=== PATIENT | female | born 1975 | race Caucasian/White ===

== ENCOUNTER → 2017-07-28 09:51 | Outpatient (CLI) | payer OTHER, SELFPAY ==
--- NOTE | 2017-07-28 09:55 | MM_ITS ---
MM Dig screening mamm BI w/CAD CAD Screening COMPARISON: Digital mammograms 07/14/2015 and 07/19/2016 INDICATION: There is a history of breast cancer patient maternal aunt and paternal grandmother both diagnosed after menopause. There is been previous mammotome biopsy right breast. TECHNIQUE: Standard CC and MLO images were obtained. R2 CAD reviewed. FINDINGS: Again noted is a diffusely dense and heterogenic parenchymal pattern lessening the sensitivity of mammography. There are 2 biopsy clips right breast. There is a stable benign-appearing calcifications just deep to the nipple the right breast. The nipples are slightly inverted bilaterally but have been so for quite some time IMPRESSION: Stable exam with no suspicious lesion seen recommend yearly follow-up BI-RADS Category: 2 Benign Finding(s) RECOMMENDED FOLLOW-UP: 1YR - 1 YEAR FOLLOW-UP (A letter has been sent to the patient regarding results of the study.)
== END ==
PROVIDERS: PCP Orthopaedic Surgery; Visit Provider Emergency Medicine
DX: Z12.31 Encounter for screening mammogram for malignant neoplasm of breast (principal)
CPT/HCPCS: 77067

== ENCOUNTER → 2017-08-25 10:05 | Outpatient (REF) | payer OTHER, SELFPAY ==
[2017-08-25 14:36] LABS: Anion Gap 13.7 mEq/L (5-15); Blood Urea Nitrogen 10 mg/dL (7-18); Carbon Dioxide 26 mmol/L (21.0-32.0); Chloride 105 mmol/L (98-107); Chol/HDL Ratio 3.8 (1-3.5); Cholesterol 150 mg/dL (140-200); Creatinine,Serum 0.79 mg/dL (0.55-1.02); Estimated Glomerular Filt Rate 79 ml/min (>60); GFR (African American) 96 ML/MIN (>60); Glucose 86 mg/dL (74-106); HDL Cholesterol 40 mg/dL (29-89); LDL Cholesterol 89 mg/dL (0-130); Potassium 3.7 mmoL/L (3.5-5.1); Sodium 141 mmol/L (136-145); Triglycerides 107 mg/dL (30-200); VLDL Cholesterol 21 mg/dL (0-40)
[2017-08-25 14:40] LABS: Hemoglobin A1C 4.8 % (0.0-7.0)
== END ==
LOC: LAB 10:05
PROVIDERS: Visit Provider Emergency Medicine
DX: R20.0 Anesthesia of skin (principal); R20.2 Paresthesia of skin
CPT/HCPCS: 80048; 80061; 83036

== ENCOUNTER → 2017-08-25 13:25 | Outpatient (POV) | payer OTHER, SELFPAY | PROVIDERS: PCP Emergency Medicine; Visit Provider Specialist | DX: G56.21 Lesion of ulnar nerve, right upper limb (principal) | CPT/HCPCS: 95886; 95908 ==

== ENCOUNTER → 2018-08-12 18:46 | Outpatient (CLI) | payer OTHER, SELFPAY ==
[2018-08-12 19:16] LABS: Basophils % 0.3 % (0.1-2.0); Eosinophils # 0.1 K/mm3 (0.0-0.4); Eosinophils % 1.5 % (0.1-12.0); Hematocrit 44.4 % (37.0-47.0); Lymphocytes # 1.8 K/mm3 (0.7-4.5); Lymphocytes % 38.9 % (10-50); Mean Corpuscular HGB Conc 33.8 g/dL (31.8-35.4); Mean Corpuscular Hemoglobin 29.5 pg (27.0-31.2); Mean Corpuscular Volume 87.5 fl (81-99); Mean Platelet Volume 6.5 fl (7.4-10.4); Monocytes # 0.3 K/mm3 (0.1-1.0); Monocytes % 5.6 % (1.7-9.3); Neutrophils # 2.5 K/mm3 (1.8-7.8); Neutrophils % 53.7 % (37.0-80.0); Platelet Count 252 K/mm3 (142-424); Red Blood Count 5.08 M/mm3 (4.20-5.40); Red Cell Distribution Width 13.8 % (11.5-17.5); White Blood Count 4.7 K/mm3 (4.8-10.8)
[2018-08-12 19:33] LABS: Alanine Aminotransferase 72 U/L (12-78); Albumin Level 3.9 gm/dL (3.4-5.0); Alkaline Phosphatase 266 U/L (46-116); Anion Gap 14.8 mEq/L (5-15); Aspartate Amino Transferase 34 U/L (15-37); Bilirubin,Total 0.4 mg/dL (0.2-1.0); Blood Urea Nitrogen 10 mg/dL (7-18); Calcium 9.4 mg/dL (8.5-10.1); Carbon Dioxide 26 mmol/L (21.0-32.0); Chloride 104 mmol/L (98-107); Chol/HDL Ratio 2.8 (1-3.5); Cholesterol 135 mg/dL (140-200); Creatinine,Serum 0.67 mg/dL (0.55-1.02); Estimated Glomerular Filt Rate 95 ml/min (>60); Free T4 (Free Thyroxine) 1.18 ng/dl (0.76-1.46); GFR (African American) 115 ML/MIN (>60); Globulin 3.9 gm/dl (1.3-3.2); Glucose 87 mg/dL (74-106); HDL Cholesterol 49 mg/dL (29-89); LDL Cholesterol 63 mg/dL (0-130); Potassium 3.8 mmoL/L (3.5-5.1); Sodium 141 mmol/L (136-145); Thyroid Stimulating Hormone 4.52 uIU/ml (0.358-3.740); Total Protein,Serum 7.8 gm/dL (6.4-8.2); Triglycerides 114 mg/dL (30-200); VLDL Cholesterol 23 mg/dL (0-40)
[2018-08-14 11:18] LABS: Vitamin D 25 Hydroxy 16.6 ng/mL (30.0-100.0)
== END ==
PROVIDERS: Visit Provider Emergency Medicine
DX: R53.83 Other fatigue (principal); Z79.899 Other long term (current) drug therapy
CPT/HCPCS: 80053; 80061; 82652; 84439; 84443; 85025

== ENCOUNTER → 2018-09-02 12:29 | Outpatient (CLI) | payer OTHER, SELFPAY ==
--- NOTE | 2018-09-02 12:37 | XR_ITS ---
XR wrist RT min 3V HISTORY ITS.REASON: right wrist pain ORDERING PHYSICIAN: Suzanne Rios MD PATIENT AGE: 43 years Comparison: None FINDINGS: No fracture or dislocation. No lytic or blastic change. There is normal mineralization.. The joint spaces are well-preserved. No significant degenerative/arthritic changes. No erosive changes evident.. IMPRESSION: Negative wrist
--- NOTE | 2018-09-02 12:37 | XR_ITS ---
XR hand RT min 3V HISTORY: ITS.REASON: right hand pain ORDERING PHYSICIAN: Suzanne Rios MD PATIENT AGE: 43 years COMPARISON: None FINDINGS: No fracture or dislocation. No lytic or blastic change. There is normal mineralization.. The joint spaces are well-preserved. No significant degenerative/arthritic changes. No erosive changes evident.. There is a tiny calcific density along the lateral aspect of the first metacarpal phalangeal joint. This is of questioned clinical significance and could be due to an old small avulsion injury. IMPRESSION: No acute finding Possible old small avulsion injury at the first metacarpophalangeal joint
== END ==
PROVIDERS: PCP Emergency Medicine; Visit Provider Orthopaedic Surgery
DX: M79.641 Pain in right hand (principal); M25.531 Pain in right wrist
CPT/HCPCS: 73110; 73130

== ENCOUNTER → 2018-10-19 12:54 | Outpatient (POV) | payer OTHER, SELFPAY | PROVIDERS: Visit Provider Specialist | DX: R20.2 Paresthesia of skin (principal) | CPT/HCPCS: 95886; 95908 ==

== ENCOUNTER → 2019-01-25 10:39 | Outpatient (POV) | payer OTHER, SELFPAY | PROVIDERS: Visit Provider Specialist | DX: M54.2 Cervicalgia (principal); M72.0 Palmar fascial fibromatosis [Dupuytren]; R20.0 Anesthesia of skin; R20.2 Paresthesia of skin; R51 Headache | CPT/HCPCS: 95886; 95908 ==

== ENCOUNTER → 2019-01-29 07:35 | Outpatient (CLI) | payer OTHER, SELFPAY ==
--- NOTE | 2019-01-29 07:43 | CT_ITS ---
CT CERVICAL SPINE WITHOUT CONTRAST CT RECONSTRUCTIONS HISTORY: ORDERING PHYSICIAN: Mala Hutson MD PATIENT AGE: 43 years COMPARISON: None Technique: All CT scans at the facility use one or more dose reduction, viz: automated exposure control, ma/kV adjustment per patient size (including targeted exams where dose is matched to indication, i.e. head), or iterative reconstruction technique PROCEDURE: Axial spiral CT scanning performed of the cervical spine beginning at the base of the skull and continuing to the upper T-spine. 3-D multiplanar reconstruction with 3-D manipulation of volumetric data set in image rendering was completed by the radiologist and/or technologist with the supervision of the radiologist on independent workstation. FINDINGS: No fracture nor subluxation is evident. Normal prevertebral soft tissues. Facets, neural foramen and vertebral bodies intact and unremarkable. Normal C1/C2 relationships. Apices of lungs are clear with no acute findings. IMPRESSION: Cervical spine intact with no fracture nor subluxation.
--- NOTE | 2019-01-29 08:12 | XR_ITS ---
EXAM: XR cervical spine w flex/ext HISTORY: ITS.REASON: cervical neck pain ORDERING PHYSICIAN: Mala Hutson MD PATIENT AGE: 43 years COMPARISON: None FINDINGS: Routine exam along with flexion and extension views. Bone density, alignment, vertebral body and disc space heights are normal. There is no subluxation and no change in the alignment between lateral flexion and extension views. Posterior elements are intact. There is no acute fracture or prevertebral soft tissue prominence. Impression: Normal study. No acute process and there is no subluxation between flexion and extension views.
== END ==
PROVIDERS: PCP Emergency Medicine; Visit Provider Specialist
DX: M54.2 Cervicalgia (principal); M72.0 Palmar fascial fibromatosis [Dupuytren]; R20.0 Anesthesia of skin; R20.2 Paresthesia of skin; R51 Headache
CPT/HCPCS: 72052; 72125

== ENCOUNTER → 2019-02-11 09:01 | Outpatient (CLI) | payer OTHER, SELFPAY ==
[2019-02-11 10:21] LABS: T4 (Thyroxine) 12.5 ug/dl (4.7-13.3); Thyroid Stimulating Hormone 2.96 uIU/ml (0.358-3.740)
[2019-02-12 12:10] LABS: Anti-Centromere B Antibodies <0.2 AI (0.0-0.9); Anti-Jo-1 <0.2 AI (0.0-0.9); Anti-Smith Antibody <0.2 AI (0.0-0.9); Antichromatin Antibodies >8.0 AI (0.0-0.9); Antiscleroderma-70 Antibodies <0.2 AI (0.0-0.9); RNP Antibodies 0.2 AI (0.0-0.9); Sjogren's Anti-SS-A 3.9 AI (0.0-0.9); Sjogren's Anti-SS-B <0.2 AI (0.0-0.9)
[2019-02-12 12:36] LABS: Anti-DNA (DS) Ab Qn 1 IU/mL (0-9); Folate 4.6 ng/mL (>3.0); Triiodothyronine (T3) Total 174 ng/dL (71-180); Vitamin B12 298 pg/mL (232-1245)
== END ==
PROVIDERS: Visit Provider Specialist
DX: M79.601 Pain in right arm (principal); M79.602 Pain in left arm; R20.2 Paresthesia of skin
CPT/HCPCS: 36415; 82607; 82746; 84436; 84443; 84480; 86225; 86235; 86431

== ENCOUNTER → 2019-04-01 09:52 | Outpatient (CLI) | payer OTHER, SELFPAY ==
--- NOTE | 2019-04-01 09:54 | MM_ITS ---
PROCEDURE: MM DIG SCREENING MAMM BI W/CAD CLINICAL INDICATION: screening History of breast cancer patient's paternal grandmother and paternal aunt. There has been a previous biopsy right breast for benign disease. COMPARISON: [facility] DIG MAMM-DX UNI RT W ADD VIEW from 01/16/2016 [facility] DIG MAMM-SCREEN JAVID W/CAD from 07/19/2016 [facility] MM Dig screening mamm BI w/CAD from 07/28/2017 TECHNIQUE: Standard CC and MLO images were obtained. R2 CAD reviewed. FINDINGS: There is a diffusely dense and heterogenic parenchymal pattern somewhat lessening the sensitivity of mammography. There are multiple scattered benign-appearing micro and macrocalcifications in each breast. The nipples are inverted bilaterally but this has been noted previously and has been present for quite some time. There is no new or suspicious lesion and no suspicious microcalcifications. There are fatty replaced nodes in both axilla. IMPRESSION: Diffusely dense parenchymal pattern with no suspicious lesions seen BI-RAD Category: 2 Benign Finding(s) FOLLOW-UP: 1YR 1 Year Follow-up (A letter has been sent to the patient regarding results of the study.) Dictated by: Dr. Shon Shaffer MD 04/05/2019 17:[address] Shon Shaffer MD in [place] 04/05/2019 17:24
== END ==
PROVIDERS: PCP Emergency Medicine; Visit Provider Emergency Medicine
DX: Z12.31 Encounter for screening mammogram for malignant neoplasm of breast (principal)
CPT/HCPCS: 77067

== ENCOUNTER → 2019-05-10 14:12 | Outpatient (CLI) | payer OTHER, SELFPAY ==
[2019-05-10 16:56] LABS: Amphetamine/Metha Screen,Urine Negative ng/mL (<1000); Barbiturates Screen,Urine Negative ng/mL (<200); Benzodiazepines Screen,Urine Negative ng/mL (<200); Cannabinoid Screen,Urine Positive ng/mL (<50); Cocaine Screen,Urine Negative ng/mL (<300); Methadone Screen,Urine Negative ng/mL (<300); Opiate Screen,Urine Positive ng/mL (<300); Phencyclidine Screen,Urine Negative ng/mL (<25)
[2019-05-19 10:10] LABS: Codeine Negative (Cutoff=100); Hydrocodone Positive (.); Hydromorphone Positive (.); Morphine Negative (Cutoff=100)
[2019-05-19 12:18] LABS: Hydrocodone Confirm 1115 ng/mL (Cutoff=100); Hydromorphone Confirm 230 ng/mL (Cutoff=100); Opiates Positive (.)
== END ==
PROVIDERS: Visit Provider Nurse Practitioner Family
DX: Z79.899 Other long term (current) drug therapy (principal); G89.29 Other chronic pain; M54.41 Lumbago with sciatica, right side; M54.42 Lumbago with sciatica, left side
CPT/HCPCS: 80305; 80361; G0480

== ENCOUNTER → 2019-05-27 10:13 | Outpatient (CLI) | payer OTHER, SELFPAY ==
[2019-05-27 10:40] LABS: Basophils % 0.3 % (0.1-2.0); Eosinophils % 0.9 % (0.1-12.0); Hemoglobin 12.7 g/dL (12.2-16.2); Lymphocytes % 29.7 % (10-50); Mean Corpuscular HGB Conc 31.7 g/dL (31.8-35.4); Mean Corpuscular Volume 88.6 fl (81-99); Mean Platelet Volume 7.4 fl (7.4-10.4); Monocytes # 0.2 K/mm3 (0.1-1.0); Monocytes % 4.6 % (1.7-9.3); Neutrophils # 2.2 K/mm3 (1.8-7.8); Neutrophils % 64.4 % (37.0-80.0); Platelet Count 336 K/mm3 (142-424); Red Blood Count 4.52 M/mm3 (4.20-5.40); Red Cell Distribution Width 15.9 % (11.5-17.5); White Blood Count 3.5 K/mm3 (4.8-10.8)
[2019-05-27 12:50] LABS: Alanine Aminotransferase 49 U/L (12-78); Albumin Level 3.3 gm/dL (3.4-5.0); Albumin/Globulin Ratio 0.8 (1.1-1.8); Alkaline Phosphatase 499 U/L (46-116); Anion Gap 13.6 mEq/L (5-15); Aspartate Amino Transferase 48 U/L (15-37); Bilirubin,Total 0.6 mg/dL (0.2-1.0); Blood Urea Nitrogen 5 mg/dL (7-18); Calcium 8.6 mg/dL (8.5-10.1); Carbon Dioxide 26 mmol/L (21.0-32.0); Chloride 99 mmol/L (98-107); Creatinine,Serum 0.57 mg/dL (0.55-1.02); Estimated Glomerular Filt Rate 114 ml/min (>60); GFR (African American) 138 ML/MIN (>60); Globulin 4.3 gm/dl (1.3-3.2); Glucose 101 mg/dL (74-106); Potassium 3.6 mmoL/L (3.5-5.1); Sodium 135 mmol/L (136-145); Total Protein,Serum 7.6 gm/dL (6.4-8.2)
[2019-05-28 09:18] LABS: Folate 5.4 ng/mL (>3.0); Vitamin B12 378 pg/mL (232-1245)
== END ==
PROVIDERS: Visit Provider Internal Medicine Medical Oncology
DX: D70.9 Neutropenia, unspecified (principal)
CPT/HCPCS: 36415; 80053; 82607; 82746; 85025

== ENCOUNTER → 2019-07-13 09:25 | Outpatient (POV) | payer MEDICAID, SELFPAY ==
[2019-07-13 09:51] VITALS: BP 175/98; PULSE 67; RESP 18; O2SAT 98; BMI 25.7
--- NOTE | 2019-07-13 12:59 | P.CONS_ITS ---
[facility] Pain Management SOAP Note Subjective:: Patient is a pleasant 44-year-old white female who presents today for follow-up. Patient was seen back in 2016 where she had a neurostimulator implanted. Since then she is only been programmed one time. Most of her pain is in her back and lower legs. In her neck. Patient had recent imaging of her neck which was negative. Patient and I discussed options in regards to her pain. Patient was getting pain medication from her primary care however she has had some inappropriate drug screens. Patient's been seen by a neurologist. She has not done physical therapy in quite some time. She rates her pain today a 5 out of 10. ROS General: no recent weight change, no fever, no sleep disturbances Respiratory: no cough, no shortness of air, no recurring pulmonary infections Cardiovascular/Peripheral Vascular: No chest pain, No palpitations, no edema, no shortness of breath. Gastrointestinal: no new onset incontinence, normal bowel movements reported Genitourinary: no new onset incontinence Musculoskeletal: Neck pain, back pain, leg pain Psychiatric: normal mood/ affect Neurological: [denies new onset weakness in extremities], [denies new onset balance issues] Objective:: Physical Exam General: Alert and oriented x3, no acute distress, pleasant and cooperative, [on room air] Lungs: Resps E/U, Symmetrical chest expansion, Eyes: PERRL Musculoskeletal: Flexion and extension of cervical and lumbar spine somewhat guarded secondary to pain, deep tendon reflexes normal, strength in upper and lower extremities [5/5], [abnormal gait noted] Neurological: speech clear, tear down matcher equal, no gross sensory deficits Assessment:: Degenerative disc disease lumbar spine with lumbar radiculopathy, myofascial pain Plan:: We will start with having the patient reprogrammed by [facility]. I do believe this would be beneficial. This will work on her low back and leg pain. And then we will also work on getting her approved for a one-time visit to physical therapy so they can set up a home stretching program for her. She is instructed to call the office she has any issues. I will follow-up with her after she is been reprogrammed. Dr. Honeycutt has reviewed this note and agrees with this plan of care. This note was dictated using voice recognition software and may contain errors or omissions [facility] History I have reviewed the patient's past medical history: Yes Medical History: Reports:: Anxiety, Hepatitis, Migraine Denies:: Cancer, Diabetes Mellitus Type 1, Diabetes Mellitus Type 2, Internal Pacemaker, Lung Disease, MRSA *Have you ever received a pneumonia vaccine?: Yes *Have you received a flu vaccine this season?: Yes Other Medical History: Reports: Liver Disease Laterality Cases: Right: Carpal Tunnel Release Other Surgeries: Yes: Cholecystectomy, Colonoscopy, Hysterectomy-Total, Hysterectomy-Partial, Tubal Ligation. No: Pacemaker Amputation: No Fractures: No - *Social History Smoking Status: Current every day smoker Tobacco Type: cigarettes # Packs/Day (cigarettes): 2 #Yrs smoked (if former smoker): 35 Alcohol Intake: never Alcohol Intake Frequency:: other Substance Use Type: crack/cocaine *Occupational Status:: other Housing: house Household Members: family *Travel in the last 8 weeks: None - Psychiatric History Pschychiatric History:: Reports:: Anxiety Family Hx:: Hypertension, Cancer
== END ==
PROVIDERS: PCP Emergency Medicine; Visit Provider Clinical Nurse Specialist Family Health
DX: M51.16 Intervertebral disc disorders with radiculopathy, lumbar region (principal); M79.18 Myalgia, other site
CPT/HCPCS: 99202

== ENCOUNTER 2020-01-20 12:02 | Observation (INO) | payer MEDICAID, SELFPAY ==
[2020-01-20] VITALS (15 sets, daily range): BP systolic 113–138; BP diastolic 68–91; PULSE 72–100; RESP 14–21; TEMP 36.8–36.9; O2SAT 87–100; BMI 22.6; BMI 28.3
--- NOTE | 2020-01-20 12:16 | ECG_ITS ---
APPROVED REPORT Exam: Resting ECG HR:86 bpm ECG Measurements Heart Rate 86 AXES NM 136 P 34 QRSd 84 QRS 52 QT 366 T 16 QTc 437 <Conclusion> Normal sinus rhythm Poor r wave progression Abnormal ECG Electronically signed by : Vega Renteria, 01/21/2020 17:03:54
--- NOTE | 2020-01-20 12:21 | HMH.EDGENADL ---
ED Disposition Clinical Impression: Pericardial effusion, Hypokalemia Pericarditis Qualifiers: Pericarditis type: unspecified type Chronicity: acute Qualified Code(s): I30.9 - Acute pericarditis, unspecified Pneumonia Qualifiers: Pneumonia type: due to unspecified organism Laterality: left Lung location: upper lobe of lung Qualified Code(s): J18.9 - Pneumonia, unspecified organism Disposition: Admitted as Observation Condition on Discharge: Fair Referrals: Ge Burton MD [Primary Care Provider] - - Critical Care Critical Care Time: No Attestation: On , the high probability of a clinically significant, sudden or life threatening deterioration of the following system(s) required my full and direct attention, intervention and personal management. The time I documented below is in addition to time spent performing reported procedures but includes the following listed in this critical care notation. Medical Decision Making - Lauro Inquiry Pt receiving controlled substance: No Vital Signs: 01/20/20 12:18 Temperature 98.3 F Temperature Source Oral Pulse Rate [Radial] 72 Respiratory Rate 20 Blood Pressure [Right Arm] 135/91 H Blood Pressure Mean [Right Arm] 105 Blood Pressure Source [Right Arm] Automatic Cuff Blood Pressure Position [Right Arm] Sitting 02 Sat by Pulse Oximetry 99 Oxygen Delivery Method Room Air - Lab Data Lab Results 01/20/20 12:30: WBC 5.3, RBC 4.46, Hgb 12.8, Hct 36.2 L, MCV 81.1, MCH 28.6, MCHC 35.3, RDW 14.5, Plt Count 335, MPV 7.7, Neut % (Auto) 72.7, Lymph % (Auto) 19.4, [place] % (Auto) 6.4, Eos % (Auto) 1.0, Baso % (Auto) 0.5, Neut # (Auto) 3.9, Lymph # (Auto) 1.0, [place] # (Auto) 0.3, Eos # (Auto) 0.1, Baso # (Auto) 0.0 01/20/20 12:30: Sodium 134 L, Potassium 2.8 L*, Chloride 86 L, Carbon Dioxide 36 H, Anion Gap 14.8, BUN 10, Creatinine 0.60, Estimated Creat Clear 117, Estimated GFR 108, Est GFR ( Amer) 130, Glucose 163 H, Calcium 9.1, Total Bilirubin 1.1, AST 86 H, ALT 40, Alkaline Phosphatase 269 H, Troponin I 0.02, Total Protein 8.0, Albumin 3.8, Globulin 4.2 H, Albumin/Globulin Ratio 0.9 L 01/20/20 12:30: ESR 33 H 01/20/20 12:30: C-Reactive Protein 140.8 H 01/20/20 12:32: SARS-CoV-2 IgG Ab (Rapid) Negative, SARS-CoV-2 IgM Ab (Rapid) Negative Result diagrams: 01/20/20 12:30 01/20/20 12:30 Orders (Tests/Meds): ED MEDICATIONS Generic Name Dose Route Start Last Admin Trade Name Freq PRN Reason Stop Dose Admin Ceftriaxone Sodium 1 gm/ 50 mls @ 100 mls/hr 01/20/20 15:30 Sodium Chloride IV 02/03/20 15:29 Q24H GEOFFREY Protocol Azithromycin 500 mg/ Sodium 250 mls @ 250 mls/hr 01/20/20 15:30 Chloride IV 02/03/20 15:29 Q24H GEOFFREY Protocol Discontinued Medications Generic Name Dose Route Start Last Admin Trade Name Freq PRN Reason Stop Dose Admin Potassium Chloride/Water 100 mls @ 50 mls/hr 01/20/20 13:45 01/20/20 13:52 Potassium Chloride 20meq/100ml Ivpb IV 01/20/20 15:44 50 mls/hr ONCE ONE Administration Ioversol 70 ml 01/20/20 13:35 01/20/20 13:38 Rad-Optiray 350 100ml Vial IV 01/20/20 13:36 70 ml ONCE ONE Administration Protocol Methylprednisolone Sodium Succinate 125 mg 01/20/20 15:19 Solu-Medrol 125mg/2ml Vial IV 01/20/20 15:20 ONCE ONE Potassium Chloride 60 meq 01/20/20 13:01 01/20/20 13:12 Klor-Con 20meq Tablet PO 01/20/20 13:02 60 meq ONCE ONE Administration Sodium Chloride 50 ml 01/20/20 13:35 01/20/20 13:38 Rad-Ns 50ml Vial IV 01/20/20 13:36 50 ml ONCE ONE Administration Sodium Chloride 10 ml 01/20/20 13:35 01/20/20 13:38 Rad-Saline Flush 10ml Syringe IV 01/20/20 13:36 10 ml ONCE ONE Administration ORDERS Category Date Time Status Lactic Acid Stat Lab 01/20/20 15:19 Ordered Respiratory Panel (COVID), PCR Stat Lab 01/20/20 15:19 Ordered SARS-CoV-2, ALESSANDRA Stat Lab 01/20/20 14:30 Received Blood Culture Stat Micro 01/20/20 15:19 Ordered
--- NOTE | 2020-01-20 12:22 | CT_ITS ---
PROCEDURE: CT ANGIO CHEST CLINCIAL INDICATION: shortness of breath Shortness of breath with chest pain COMPARISON: [facility] CTA-CHEST from 07/15/2016 TECHNIQUE: IV Contrast: 70ML OPTIRAY 350 Axial images obtained with sagittal and coronal reformats. All CT scans at the facility use one or more dose reduction, viz: automated exposure control, ma/kV adjustment per patient size (including targeted exams where dose is matched to indication, i.e. head), or iterative reconstruction technique. FINDINGS: There is mild cardiomegaly with thickening of the pericardium consistent with pericardial effusion which measures 2 12 mm in thickness anteriorly. There are mild atheromatous changes of the aorta with some calcific plaque. No evidence of aortic aneurysm or dissection. No evidence pulmonary embolus. There is mild thickening of the esophagus which is nonspecific and could be due to esophagitis. There are atelectatic changes in the lung bases. There are patchy areas of ground-glass density in the left upper lobe peripherally nonspecific. There are trace bilateral effusions. No acute bony findings.. IMPRESSION: 1. Cardiomegaly with thickened pericardium consistent with pericardial effusion. No evidence of aortic aneurysm dissection or pulmonary embolus. 2. Bilateral lower lobe atelectatic changes with trace effusions. 3. Scattered patchy areas of ground-glass attenuation in the left upper lobe. This is nonspecific and could be seen with viral pneumonia or small airway disease.. COVID 19 may present with patchy ground-glass density. 4. Thickened mid and distal esophagus nonspecific but could be seen with reflux esophagitis. Dictated by: Elijah Gordon MD 01/20/2020 14:02 Electronically signed by Elijah Gordon MD in [place] 01/20/2020 14:02
[2020-01-20 12:40] LABS: Basophils % 0.5 % (0.1-2.0); Eosinophils # 0.1 K/mm3 (0.0-0.4); Hematocrit 36.2 % (37.0-47.0); Hemoglobin 12.8 g/dL (12.2-16.2); Lymphocytes % 19.4 % (10-50); Mean Corpuscular HGB Conc 35.3 g/dL (31.8-35.4); Mean Corpuscular Hemoglobin 28.6 pg (27.0-31.2); Mean Corpuscular Volume 81.1 fl (81-99); Mean Platelet Volume 7.7 fl (7.4-10.4); Monocytes # 0.3 K/mm3 (0.1-1.0); Monocytes % 6.4 % (1.7-9.3); Neutrophils # 3.9 K/mm3 (1.8-7.8); Neutrophils % 72.7 % (37.0-80.0); Platelet Count 335 K/mm3 (142-424); Red Blood Count 4.46 M/mm3 (4.20-5.40); Red Cell Distribution Width 14.5 % (11.5-17.5); White Blood Count 5.3 K/mm3 (4.8-10.8)
[2020-01-20 12:58] LABS: Chloride 86 mmol/L (98-107); Sodium 134 mmol/L (136-145)
[2020-01-20 12:59] LABS: Potassium 2.8 mmoL/L (3.5-5.1)
--- NOTE | 2020-01-20 13:00 | PC.NURSE ---
Notified MD of critical k+
[2020-01-20 13:01] LABS: Alanine Aminotransferase 40 U/L (12-78); Albumin Level 3.8 g/dl (3.5-5.0); Albumin/Globulin Ratio 0.9 (1.1-1.8); Alkaline Phosphatase 269 U/L (38-126); Aspartate Amino Transferase 86 U/L (14-36); Bilirubin,Total 1.1 mg/dl (0.2-1.3); Blood Urea Nitrogen 10 mg/dl (7-17); Creatinine Clearance Estimated 117 mL/min (50-200); Estimated Glomerular Filt Rate 108 ml/min (>60); GFR (African American) 130 ML/MIN (>60); Globulin 4.2 g/dL (1.3-3.2)
[2020-01-20 13:02] LABS: Calcium 9.1 mg/dl (8.4-10.2); Glucose 163 mg/dl (74-100)
[2020-01-20 13:09] LABS: Carbon Dioxide 36 mmol/L (22.0-30.0)
[2020-01-20 13:11] LABS: Anion Gap 14.8 mEq/L (5-15)
[2020-01-20 13:13] LABS: Troponin I 0.02 ng/ml (0.00-0.034)
--- NOTE | 2020-01-20 13:39 | PC.NURSE ---
Returned from ct scan.
--- NOTE | 2020-01-20 14:12 | CA_ITS ---
APPROVED REPORT EXAM: Comprehensive 2D, Doppler, and color-flow Echocardiogram [employer]anging Crewmember: Nguyen Craig RT(R) Ht: 5 ft 3 in Wt: 160lbs BSA: 1.76 BP: 135/91 mmHg Indications: smoker, SOA, pericardial effusion seen on CT scan. Rib pain 2D Dimensions LVOT 1.95 cm (M/F) 1.5-2.5 M-Mode Dimensions RVDd 2.26 cm (0.9-2.6) LVDd 4.12 cm (3.5-5.7) LVDs 3.23 cm (3.5-5.7) IVSd 1.09 cm (0.6-1.1) PWd 0.81 cm (0.6-1.1) EF (Teich) 44.20% FS 21.60% EDV (Teich) 75.10 mL ESV (Teich) 41.90 mL LV Diastology E/A Ratio 0.95 Mitral Valve MV A Velocity 91.00 (40-130 cm/s) Left Ventricle Left atrium is mildly enlarged, left ventricle is normal size, left ventricle wall thickness is upper limit of the normal, there is preserved left ventricular systolic function, visually estimated ejection fraction 55% with no regional wall motion abnormality. Diastolic parameters are inconclusive. Right Ventricle Right atrium and right ventricle are normal size and contractility. Aortic Valve Aortic valve is minimally thickened and fibrosed, there is no aortic stenosis or aortic insufficiency. Mitral Valve Mitral valve is grossly normal, there is mild mitral regurgitation. Tricuspid Valve Valve grossly normal, there is mild tricuspid regurgitation, tricuspid regurgitation jet velocity is inadequate for calculation of the right ventricular systolic pressure. Pulmonic Valve Pulmonic valve is poorly visualized. Great Vessels Aortic root is normal size. Pericardium Small circumferential pericardial effusion noted without Doppler evidence of raised intrapericardial pressure or tamponade physiology. Conclusion 1. Normal left ventricular size, preserved left ventricular systolic function, visually estimated ejection fraction 55% with no regional wall motion abnormality, diastolic parameters are inconclusive. 2. Mild mitral and tricuspid regurgitation. 3. Small circumferential pericardial effusion noted without Doppler evidence of raised intrapericardial pressure or tamponade physiology. Electronically signed by : Lambert Mccormick, 01/20/2020 15:32:01
--- NOTE | 2020-01-20 14:18 | PC.NURSE ---
Per MD we can d/c IV potassium
[2020-01-20 14:28] LABS: C-Reactive Protein 140.8 mg/L (0-4)
[2020-01-20 14:37] LABS: Erythrocyte Sedimentation Rate 33 mm/hr (0-20)
[2020-01-20 14:42] LABS: Coronavirus 19 IgG Antibody Negative (Negative); Coronavirus 19 IgM Antibody Negative (Negative)
--- NOTE | 2020-01-20 14:54 | PC.NURSE ---
Paged Parminder for consult
--- NOTE | 2020-01-20 15:02 | PC.NURSE ---
speaking to speaking to Parminder
--- NOTE | 2020-01-20 15:25 | PC.NURSE ---
pt admitted awaiting in house covid test
--- NOTE | 2020-01-20 15:27 | PC.NURSE ---
Notified lab for need of lactic, covid swab and bloodcx
[2020-01-20 15:29] LABS: Adenovirus,PCR Not Detected (NotDetected); Bordetella Pertussis Not Detected (NotDetected); Chlamydophila Pneumoniae, PCR Not Detected (NotDetected); Coronavirus 19, PCR Not Detected (NotDetected); Coronavirus 229E Not Detected (NotDetected); Coronavirus NL63 Not Detected (NotDetected); Coronavirus OC43 Not Detected (NotDetected); Coronovirus HKU1,PCR Not Detected (NotDetected); Human Metapneumovirus Not Detected (NotDetected); Influenza A, PCR Not Detected (NotDetected); Influenza AH1, 2009 Not Detected (NotDetected); Influenza AH1, PCR Not Detected (NotDetected); Influenza AH3,PCR Not Detected (NotDetected); Influenza B, PCR Not Detected (NotDetected); Mycoplasma Pneumoniae, PCR Not Detected (NotDected); Parainfluenza 1, PCR Not Detected (NotDetected); Parainfluenza 2, PCR Not Detected (NotDetected); Parainfluenza 3, PCR Not Detected (NotDetected); Parainfluenza 4, PCR Not Detected (NotDetected); Respiratory Syncytial Virus Not Detected (NotDetected); Rhinovirus/Enterovirus Not Detected (NotDetected)
[2020-01-20 15:55] LABS: Amphetamine/Metha Screen,Urine Negative ng/ml (<1000); Benzodiazepines Screen,Urine Negative ng/ml (<200)
[2020-01-20 15:56] LABS: Barbiturates Screen,Urine Negative ng/ml (<200)
[2020-01-20 15:57] LABS: Cannabinoid Screen,Urine Negative ng/ml (<50); Cocaine Screen,Urine Negative ng/ml (<300)
[2020-01-20 15:58] LABS: Methadone Screen,Urine Negative ng/ml (<300)
[2020-01-20 15:59] LABS: Opiate Screen,Urine Negative ng/ml (<300); Phencyclidine Screen,Urine Negative ng/ml (<25)
[2020-01-20 16:22] LABS: Lactic Acid 0.9 mmol/L (0.7-2.1)
--- NOTE | 2020-01-20 16:25 | PC.NURSE ---
Report called to Alek Beltran
--- NOTE | 2020-01-20 17:00 | PC.NURSE ---
1625 - Received report from Leslie Lehman RN. Awaiting covid swab results before transferring pt to floor.
--- NOTE | 2020-01-20 17:20 | HMH.HP ---
*Admission Date: 01/20/20 *Chief complaint: soa *History of present illness: 44-year-old female seen in primary care office with complaints of shortness of breath and pain with deep breathing. Upon evaluation patient was sent to the ER for further evaluation and testing. While in the ER labs revealed hypo-kalemia and when oral potassium was given patient vomited. CT of the chest revealed a mild pericardial effusion and some groundglass opacities. Patient was admitted for cardiology consult. And further work-up for pericardial effusion. Given patient's history of drug use echo was obtained. [facility] History I have reviewed the patient's past medical history: Yes Medical History: Reports:: Anxiety, Hepatitis, Migraine Denies:: Cancer, Diabetes Mellitus Type 1, Diabetes Mellitus Type 2, Internal Pacemaker, Lung Disease, MRSA *Have you ever received a pneumonia vaccine?: No *Have you received a flu vaccine this season?: No Other Medical History: Reports: Liver Disease Laterality Cases: Right: Carpal Tunnel Release Other Surgeries: Yes: Cholecystectomy, Colonoscopy, Hysterectomy-Total, Hysterectomy-Partial, Tubal Ligation. No: Pacemaker Amputation: No Fractures: No - *Social History Smoking Status: Current every day smoker Tobacco Type: cigarettes # Packs/Day (cigarettes): 2 #Yrs smoked (if former smoker): 35 Alcohol Intake: never Alcohol Intake Frequency:: other Substance Use Type: crack/cocaine Last Used Substance: unknown *Occupational Status:: other Housing: house Household Members: family *Travel in the last 8 weeks: None - Psychiatric History Pschychiatric History:: Reports:: Anxiety Family Hx:: Hypertension, Cancer Review of Systems - Review of Systems Review of systems:: pertinent systems reviewed and negative unless documented below - Constitutional Reports fatigue, Reports weakness, Denies body ache(s) - Eyes Denies blurry vision - ENT Denies bleeding gums, Denies sore throat - *Cardiovascular Reports shortness of breath, Denies chest pain at rest - *Respiratory Reports cough, Reports shortness of breath, Reports shortness of breath with activity - *Gastrointestinal Reports abdominal pain, Reports nausea, Reports vomiting - *Genitourinary Denies vaginal discharge - *Musculoskeletal Denies decreased muscle mass, Denies muscle cramps, Denies stiffness - Integumentary/Breasts Denies hair loss, Denies rash - *Neurologic Denies abnormal hearing, Denies radiating pain - Psychiatric Denies anxiety - Endocrine Denies excessive sweating - Hematologic/Lymphatic Denies enlarged lymph nodes - Allergic/Immunologic Denies itchy eyes Meds Home Medications Medication Instructions Recorded Confirmed Type Albuterol Sulfate [Proventil Hfa] 1 inh INHALATION QID 01/20/20 01/20/20 History Levothyroxine Sodium [Synthroid 25 mcg PO DAILY 01/20/20 01/20/20 History 25mcg (0.025mg) tablet] Melatonin 5 mg PO DAILY 01/20/20 01/20/20 History Montelukast Sodium 10 mg PO DAILY 01/20/20 01/20/20 History Omeprazole Magnesium [Prilosec OTC] 20 mg PO DAILY 01/20/20 01/20/20 History Quetiapine Fumarate 100 mg PO HS 01/20/20 01/20/20 History Venlafaxine HCl [Effexor XR 150mg] 150 mg PO DAILY 01/20/20 01/20/20 History buprenorphine 8 mg-naloxone 2 mg 2 tab SUBLINGUAL DAILY tab 01/20/20 01/20/20 History sublingual tablet cetirizine 10 mg tablet 10 mg PO DAILY tab 01/20/20 01/20/20 History hydrOXYzine pamoate [Hydroxyzine 50 mg PO TIDP PRN 01/20/20 01/20/20 History Pamoate] hydroCHLOROthiazide 12.5 mg PO DAILY 01/20/20 01/20/20 History [Hydrochlorothiazide 12.5mg Tab] mirtazapine 15 mg tablet 15 mg PO DAILY tab 01/20/20 01/20/20 History quetiapine 25 mg tablet 25 mg PO QHS tab 01/20/20 01/20/20 History Fluticasone Furoate [Arnuity 100 mcg IH DAILY 01/21/20 01/21/20 History Ellipta] Allergies Allergy/AdvReac Type Severity Reaction Status Date / Time adhesive tape AdvReac Mild Rash Veri
--- NOTE | 2020-01-20 17:45 | PC.NURSE ---
Pt arrived to floor at this time via wc
--- NOTE | 2020-01-20 18:47 | PC.NURSE ---
patient o2 sat 88% on ra patient placed back on 2lpm n/c per RT o2 sat now 98%
--- NOTE | 2020-01-20 19:41 | PC.NURSE ---
RT gave pt a sodium chloride neb tx. to induce SPT. SPt collected and sent to lab at this time from second floor.
[2020-01-21] VITALS: BP 114/56; PULSE 92; RESP 16; TEMP 36.6; O2SAT 95
[2020-01-21 04:00] VITALS: BP 112/73; PULSE 63; RESP 16; TEMP 36.6; O2SAT 97
--- NOTE | 2020-01-21 04:00 | PC.NURSE ---
Pt's room air O2 sat at rest = 88%.
--- NOTE | 2020-01-21 04:14 | PC.NURSE ---
A&OX4 Pt has rhonchi throughout. pt was on 2L@NC for majority of shift, @ 0400 O2 RA 97%. Pt has C/O of back pain and was medicated per SEP. Pt ambulated ti BR with standby assist. Pt has rested quietly this shift.
[2020-01-21 06:50] LABS: Chloride 92 mmol/L (98-107)
[2020-01-21 06:51] LABS: Sodium 136 mmol/L (136-145)
[2020-01-21 06:54] LABS: Anion Gap 8.8 mEq/L (5-15); Blood Urea Nitrogen 12 mg/dl (7-17); Carbon Dioxide 38 mmol/L (22.0-30.0); Creatinine Clearance Estimated 134 mL/min (50-200); Estimated Glomerular Filt Rate 108 ml/min (>60); GFR (African American) 130 ML/MIN (>60); Glucose 211 mg/dl (74-100)
[2020-01-21 06:55] LABS: Potassium 2.8 mmoL/L (3.5-5.1)
[2020-01-21 07:01] VITALS: PULSE 92; O2SAT 96
--- NOTE | 2020-01-21 07:17 | P.CONPHA_ITS ---
[facility] Pharmacy VTE Monitoring - Patient Demographics Admission date: 01/20/20 Report Date: 01/21/20 Time: 07:17 Allergies/Adverse Reactions: Patient Allergies adhesive tape Adverse Reaction (Mild, Verified 01/20/20 11:11) Rash Height: 1.6 m Weight: 72.575 kg Patient Problems: Current Active Problems (Last Updated 08/14/18 @ 11:38 by MARLIN Najera) Pericardial effusion (Acute) Pericarditis (Acute) Pneumonia (Acute) Hypokalemia (Acute) - VTE Risk Labs: VTE Related Lab Results Hgb 12.8 g/dL (12.2-16.2) 01/20/20 12:30 Hct 36.2 % (37.0-47.0) L 01/20/20 12:30 Plt Count 335 K/mm3 (142-424) 01/20/20 12:30 BUN 12 mg/dl (7-17) 01/21/20 06:03 Creatinine 0.60 mg/dl (0.52-1.04) 01/21/20 06:03 Estimated Creat Clear 134 mL/min (50-200) 01/21/20 06:03 Was VTE Risk Assessment Performed: Yes VTE Score: 2 VTE Risk Level: Very Low Risk Clinical Trial Participant: No - Prophylaxis VTE Prophylaxis Ordered?: Yes Types of VTE Prophylaxis: TEDS Knee High Location of Applied Device: Bilateral Lower Extremeties
[2020-01-21 08:00] VITALS: BP 107/67; PULSE 89; RESP 18; TEMP 36.6; O2SAT 96
--- NOTE | 2020-01-21 09:42 | HMH.PHAINT ---
HOME MEDICATION RECONCILIATION COMPLETED USING LIST FROM HOME PHARMACY AND PT INTERVIEW
--- NOTE | 2020-01-21 10:42 | SW/DCPLANNER ---
I have spoke with this patient regarding discharge plans once medically stable for discharge. Patient stated that she resides in [place] with her daughter. Patient stated that everything is well at home and she intends on returning back home with her daughter at time of discharge. Patient stated that she is in her wheelchair all the time at home. Patient has no further needs at home. Patient is currently receiving services from [facility]. I will contact home health agency at time of discharge to resume home health services. Discharge date is unknown at this time.
--- NOTE | 2020-01-21 11:50 | HMH.CNCARD ---
History of Present Illness Consult date: 01/21/20 Requesting physician: Esteban Martinez Consult reason: shortness of breath Chief complaint: Shortness of breath Additional Medical History:: 1. Shortness of breath for the past 2-3 days. (01/21/2020) a. Difficulty in taking a deep breath. 2. Hypokalemia (01/21/2020) a. Potassium 2.8. 3. Pericardial Effusion (01/20/2020) 4. Substance abuse- Crack/Cocaine a. Last usage: 3 months ago b. Currently on Subtrex c. Currently in rehab. 5. Tobacco use a. Smokes one ppd. 6. Hepatatis C History of present illness: 44 year old female admitted to [facility] on 01/20/2020, with increase shortness of breath and difficulty with deep breathing. Pt stated she was seen via PCP for the above complaint. Pt stated that her shortness of breath started 2-3 days causing difficulty with taking deep breaths. Pt does continue to smoke at least 1 ppd. Pt stated chest pain described as dullness in the center of her chest when taking a deep breath. Pt also, complained of palpitations with exertion. This has been occurring for the past few months. Denies edema. Denies fevers. Denies n/v/d. No swelling noted of the lower extremities. Pt is an ex-substance abuser for the past 15+ years. Drug of choice was Cocaine and Crack. Pt stated she has not used any illegal substance for the past 3 months. Pt does have history of HTN. Significant family history of CAD (mother and father). Initial lab work and CXR performed in the ED. Lab work revealed Potassium 2.8. Pt received K-rider and supplement Potassium po in the ED. Negative serial troponins. Liver function elevated. CT of chest revealed: Cardiomegaly with thickened pericardium consistent with pericardial effusion. No evidence of aortic aneurysm dissection or pulmonary embolus. 2. Bilateral lower lobe atelectatic changes with trace effusions. 3. Scattered patchy areas of ground-glass attenuation in the left upper lobe. This is nonspecific and could be seen with viral pneumonia or small airway disease.. COVID 19 may present with patchy ground-glass density. 4. Thickened mid and distal esophagus nonspecific but could be seen with reflux esophagitis. Initial ECG revealed Normal sinus rhythm with possible anterior infarct with heart rate of 86bpm. Echocardiogram (01/20/2020) revealed: Conclusion 1. Normal left ventricular size, preserved left ventricular systolic function, visually estimated ejection fraction 55% with no regional wall motion abnormality, diastolic parameters are inconclusive. 2. Mild mitral and tricuspid regurgitation. 3. Small circumferential pericardial effusion noted without Doppler evidence of raised intrapericardial pressure or tamponade physiology. Upon assessment this am, pt denies chest pain, tightness or pressure. Pt continues to complain of shortness of breath. Oxygen sat 98% on RA. No edema of the lower extremities. Denies palpitations or dizziness. VS stable. HR slightly elevated at 90-100bpm. BP hypotensive at this time. Would recommend Beta jin for elevated HR, would defer until pt is not hypotensive. Recommend to continue to monitor pt and her symptoms. Will defer any further cardiac testing at this time. Recommend follow up with cardiac clinic in one week or sooner if symptoms develop/persist. Recommend further cardiac testing as outpatient. Thank you for letting cardiology participate in the care of this pt. [facility] History Medical History: Reports:: Anxiety, Hepatitis, Hypertension, Migraine Denies:: Cancer, Diabetes Mellitus Type 1, Diabetes Mellitus Type 2, Internal Pacemaker, Lung Disease, MRSA *Have you ever received a pneumonia vaccine?: No *Have you received a flu vaccine this season?: No Other Medical History: Reports: Liver Disease, Thyroid Disease Laterality Cases: Right: Carpal Tunnel Release Other Surgeries: Yes: Cholecystectomy, Colonoscopy, Hysterectomy-Total, Hysterectomy-Partial, Tubal Ligation.
--- NOTE | 2020-01-21 14:10 | HMH.DCSUM ---
General - General Admission date:: 01/20/20 Discharge date: 01/21/20 HPI HPI: 44-year-old female seen in primary care office with complaints of shortness of breath and pain with deep breathing. Upon evaluation patient was sent to the ER for further evaluation and testing. While in the ER labs revealed hypo-kalemia and when oral potassium was given patient vomited. CT of the chest revealed a mild pericardial effusion and some groundglass opacities. Patient was admitted for cardiology consult. And further work-up for pericardial effusion. Given patient's history of drug use echo was obtained. Hospital Course Hospital Course: cardiology consult:- Assessment and plan all Dx Assessment and Plan for all problems:: Plan: 1. Continue to monitor pt for symptoms. 2. Will defer starting a Beta jin at this time, due to pt being hypotensive. 3. Recommend further cardiac testing on out patient bases. 4. Tobacco cessation advised and counseled. 5. LDL goal<100. Encourage diet and exercise. 6. Follow up in cardiac clinic in one week or sooner if symptoms develop/persist. Laboratory Tests 01/20/20 01/20/20 01/20/20 12:30 12:30 12:30 WBC 5.3 RBC 4.46 Hgb 12.8 Hct 36.2 L MCV 81.1 MCH 28.6 MCHC 35.3 RDW 14.5 Plt Count 335 MPV 7.7 Neut % (Auto) 72.7 Lymph % (Auto) 19.4 [place] % (Auto) 6.4 Eos % (Auto) 1.0 Baso % (Auto) 0.5 Neut # (Auto) 3.9 Lymph # (Auto) 1.0 [place] # (Auto) 0.3 Eos # (Auto) 0.1 Baso # (Auto) 0.0 ESR 33 H Sodium 134 L Potassium 2.8 L* Chloride 86 L Carbon Dioxide 36 H Anion Gap 14.8 BUN 10 Creatinine 0.60 Estimated Creat Clear 117 Estimated GFR 108 Est GFR ( Amer) 130 Glucose 163 H Lactate Calcium 9.1 Total Bilirubin 1.1 AST 86 H ALT 40 Alkaline Phosphatase 269 H Troponin I 0.02 C-Reactive Protein Total Protein 8.0 Albumin 3.8 Globulin 4.2 H Albumin/Globulin Ratio 0.9 L Urine Opiates Screen Urine Methadone Screen Ur Barbituates Screen Ur Phencyclidine Scrn Ur Amphetamines Screen U Benzodiazepines Scrn Urine Cocaine Screen U Marijuana (THC) Screen Chlamy pneumoniae PCR Adenovirus (PCR) B. pertussis DNA (PCR) Coronavirus OC43 (PCR) Coronavirus HKU1 (PCR) Coronavirus 229E (PCR) COVID-19 PCR Coronavirus NL63 (PCR) Human Metapneumovir PCR Influenza A (H1) PCR Influ A (H1N1/09) PCR Influenza A (H3) PCR Influenza Type A (PCR) Influenza Type B (PCR) M. pneumoniae (PCR) Parainfluenza 1 (PCR) Parainfluenza 2 (PCR) Parainfluenza 3 (PCR) Parainfluenza 4 (PCR) RSV (PCR) Entero/Rhino (PCR) SARS-CoV-2 IgG Ab (Rapid) SARS-CoV-2 IgM Ab (Rapid) 01/20/20 01/20/20 01/20/20 12:30 12:32 13:36 WBC RBC Hgb Hct MCV MCH MCHC RDW Plt Count MPV Neut % (Auto) Lymph % (Auto) [place] % (Auto) Eos % (Auto) Baso % (Auto) Neut # (Auto) Lymph # (Auto) [place] # (Auto) Eos # (Auto) Baso # (Auto) ESR Sodium Potassium Chloride Carbon Dioxide Anion Gap BUN Creatinine Estimated Creat Clear Estimated GFR Est GFR ( Amer) Glucose Lactate Calcium Total Bilirubin AST ALT Alkaline Phosphatase Troponin I C-Reactive Protein 140.8 H Total Protein Albumin Globulin Albumin/Globulin Ratio Urine Opiates Screen Negative Urine Methadone Screen Negative Ur Barbituates Screen Negative Ur Phencyclidine Scrn Negative Ur Amphetamines Screen Negative U Benzodiazepines Scrn Negative Urine Cocaine Screen Negative U Marijuana (THC) Screen Negative Chlamy pneumoniae PCR Adenovirus (PCR) B. pertussis DNA (PCR) Coronavirus OC43 (PCR) Coronavirus HKU1 (PCR) Coronavirus 229E (PCR) COVID-19
== END 2020-01-21 14:58 | disposition home or self-care (01) ==
LOC: ER 15:31 → 2ND 17:49
PROVIDERS: Admitting Provider Family Medicine; Emergency Provider Emergency Medicine; PCP Emergency Medicine; Visit Provider Family Medicine
DX: E87.6 Hypokalemia (principal); I31.3 Pericardial effusion (noninflammatory); J44.9 Chronic obstructive pulmonary disease, unspecified; E03.9 Hypothyroidism, unspecified; Z72.0 Tobacco use; Z79.51 Long term (current) use of inhaled steroids; Z79.899 Other long term (current) drug therapy; I10 Essential (primary) hypertension; F14.21 Cocaine dependence, in remission
CPT/HCPCS: 36415; 71275; 80048; 80053; 80305; 83605; 84484; 85025; 85651; 86140; 86328; 87040; 87070; 87077; 87186; 87205; 87581; 87633; 87798; 93005; 93306; 94640; 94761; 96365; 96367; 96374; 96375; 99285; G0378; J0456; J0571; Q9967

== ENCOUNTER 2020-01-27 15:44 | Emergency (ER) | payer MEDICAID, SELFPAY ==
[2020-01-27 15:46] VITALS: BP 144/91; PULSE 124; RESP 20; TEMP 37.4; O2SAT 98; BMI 28.3
--- NOTE | 2020-01-27 16:06 | XR_ITS ---
PROCEDURE: XR KUB CLINICAL INDICATION: abd pain Constipation COMPARISON: ABDPELW CT abdomen pelvis w con from 12/27/2018 FINDINGS: There is a moderate amount of retained colonic feces involving the transverse and descending colon. No intestinal obstruction. There are surgical clips in right upper quadrant. Epidural stimulator device is present with the power pack in the right lower quadrant and leads not visible on the film but superior to the T10 level. IMPRESSION: Retained colonic feces Dictated by: Elijah Godron MD 01/27/2020 16:29 Electronically signed by Elijah Gordon MD in [place] 01/27/2020 16:29
--- NOTE | 2020-01-27 16:19 | HMH.EDABDPAI ---
ED Disposition Clinical Impression: Constipation Qualifiers: Constipation type: drug induced constipation Qualified Code(s): K59.03 - Drug induced constipation Irritable bowel syndrome Qualifiers: Irritable bowel syndrome type: with constipation Qualified Code(s): K58.1 - Irritable bowel syndrome with constipation Disposition: Home, Self-Care Condition on Discharge: Good Instructions: DI for Acute Abdomen Additional Instructions: You have been evaluated for constipation. Please take 1 capful of MiraLAX daily until your bowel movements are the consistency of applesauce. Follow-up with your primary care physician. Return to the emergency department if you have any new or worsening symptoms, pain, fevers, dysuria. Prescriptions: polyethylene glycoL 3350 [Miralax 17gm Packet] 17 gm PO DAILY #30 packet Transmission Status: Received by [facility] Referrals: Ge Burton MD [Primary Care Provider] - Time of Disposition: 19:45 - Critical Care Critical Care Time: No Attestation: On 01/27/20, the high probability of a clinically significant, sudden or life threatening deterioration of the following system(s) required my full and direct attention, intervention and personal management. The time I documented below is in addition to time spent performing reported procedures but includes the following listed in this critical care notation. Medical Decision Making - Medical Records Medical records reviewed: Yes: I reviewed the patient's medical records. - Lauro Inquiry Pt receiving controlled substance: No Vital Signs: 01/27/20 15:46 01/27/20 19:34 01/27/20 20:15 Temperature 99.3 F Temperature Source Oral Pulse Rate Pulse Rate [Left Radial] 124 H 109 H 92 H Respiratory Rate 20 18 Blood Pressure Blood Pressure [Right Arm] 144/91 H 123/85 126/65 Blood Pressure Mean [Right Arm] 108 97 85 Blood Pressure Position [Right Arm] Sitting 02 Sat by Pulse Oximetry 98 96 Oxygen Delivery Method Room Air Room Air 01/27/20 20:19 Temperature 99.3 F Temperature Source Pulse Rate 92 H Pulse Rate [Left Radial] Respiratory Rate 14 Blood Pressure 126/85 Blood Pressure [Right Arm] Blood Pressure Mean [Right Arm] Blood Pressure Position [Right Arm] 02 Sat by Pulse Oximetry Oxygen Delivery Method Room Air - Lab Data Lab Results 01/27/20 16:40: Urine Color Nicole, Urine Appearance Sl cloudy, Urine pH 6.0, Ur Specific [place] >= 1.030, Urine Protein Negative, Urine Glucose (UA) 2+, Urine Ketones Negative, Urine Blood Trace-l, Urine Nitrate Negative, Urine Bilirubin 2+ A, Urine Urobilinogen 4.0, Ur Leukocyte Esterase Negative, Urine RBC 5-10, Urine WBC 10-20, Ur Squamous Epith Cells 10-20, Urine Bacteria 1+ Orders (Tests/Meds): ED MEDICATIONS Discontinued Medications Generic Name Dose Route Start Last Admin Trade Name Derek PRN Reason Stop Dose Admin Mineral Oil 133 ml 01/27/20 16:41 01/27/20 19:31 Mineral Oil Enema 133ml RC 01/27/20 16:42 Not Given ONCE ONE Senna/Docusate Sodium 1 tab 01/27/20 18:52 01/27/20 19:34 Senokot-S Tablet PO 01/27/20 18:53 Not Given ONCE ONE Sodium Phosphate 133 ml 01/27/20 18:54 01/27/20 19:34 Fleet Enema 133ml RC 01/27/20 18:55 133 ml ONCE ONE Administration ORDERS Category Date Time Status Urine Culture Stat Micro 01/27/20 16:40 Received - Radiology Data #1 Image(s): Abdomen Image Reviewed: Yes I reviewed the patient's radiology results, Yes I reviewed the patient's radiology image XR FINDINGS: There is a moderate amount of retained colonic feces involving the transverse and descending colon. No intestinal obstruction. There are surgical clips in right upper quadrant. Epidural stimulator device is present with the power pack in the right lower quadrant and leads not visible on the film but superior to the T10 level. Medical Decision Narrative: In summary this is a 44-ye
[2020-01-27 18:15] LABS: Microscopic, Urine URINE MICROSCOPIC (MICROSCOPIC)
[2020-01-27 18:17] LABS: Appearance,Urine SL CLOUDY (Clear); Blood, Urine TRACE-L (Negative); Color,Urine AMBER (Yellow); Glucose,Urine (UA) 2+ (Negative); Ketones,Urine Negative (Negative); Leukocyte Esterase,Urine Negative (Negative); Nitrate,Urine Negative (Negative); Protein,Urine Negative (Negative); Specific Gravity, Urine >= 1.030 (1.005-1.030)
[2020-01-27 18:20] LABS: Bilirubin,Urine 2+ (Negative)
[2020-01-27 18:25] LABS: Bacteria,Urine 1+ /lpf
--- NOTE | 2020-01-27 19:09 | PC.NURSE ---
PT TO BATHROOM WITH SSE INSTRUCTED ON HOW TO USE.
[2020-01-27 19:34] VITALS: BP 123/85; PULSE 109; RESP 18; O2SAT 96
[2020-01-27 20:15] VITALS: BP 126/65; PULSE 92
[2020-01-27 20:19] VITALS: BP 126/85; PULSE 92; RESP 14; TEMP 37.4; O2SAT 95
== END 2020-01-27 20:21 | disposition home or self-care (01) ==
LOC: ER 15:52
PROVIDERS: Emergency Provider Emergency Medicine; PCP Emergency Medicine
DX: K59.03 Drug induced constipation (principal); K58.1 Irritable bowel syndrome with constipation; F17.210 Nicotine dependence, cigarettes, uncomplicated; F41.9 Anxiety disorder, unspecified; Z91.048 Other nonmedicinal substance allergy status; I10 Essential (primary) hypertension; G43.709 Chronic migraine without aura, not intractable, without status migrainosus; Z79.899 Other long term (current) drug therapy; Z90.49 Acquired absence of other specified parts of digestive tract; Z90.79 Acquired absence of other genital organ(s)
CPT/HCPCS: 74018; 81001; 87086; 87088; 87186; 99283

== ENCOUNTER → 2020-02-17 06:37 | Outpatient (CLI) | payer MEDICAID, SELFPAY ==
--- NOTE | 2020-02-17 06:50 | CA_ITS ---
APPROVED REPORT Exam: Pharmacologic Technologist: Mónica Aguilar, Ht: 5 ft 3 in Wt: 152 lbs BSA: 1.72 m2 HR: 112 bpm BP: 110/72 mmHg Rhythm: SINUS TACH,RAD,LOW VOLTAGE QRS Medical History Medical History: HTN, Smoking Medications: Levothyroxine,,,,, HCTZ,,,,, Albuterol,,,,, Suboxone,,,,, Magnesium,,,,, CitrIZINE,,,,, Hydroxyzine,,,,, MeLATONIN,,,,, Bisacodyl,,,,, Remeron,,,,, VenALafaxine,,,,, [place];UAST,,,,, Allergies: ADHESIVE TAPE Cardiac Risk Factors: HTN, Smoking, FHX of CAD Stress Test Details Test: LEXISCAN HR Resting HR: 113 bpm Max Heart Rate (APMHR): 174 bpm Max HR Achieved: 116 bpm Target HR (85% APMHR): 147 bpm % of APMHR: 66 Recovery HR: 108 bpm BP Resting BP: 110.0/72.0 mmHg Max BP: 114.0/73.0 mmHg Recovery BP: 103.0/67.0 mmHg ECG Resting ECG: SINUS TACH,RAD,LOW VOLTAGE QRS Clinical Exercise duration: 04:01 min Highest Stage Achieved: Exercise capacity: 1.0 METs Stress ECG Conclusion SWITCHED FROM EXERCISE DUE TO VERY LIMITED EXERCISE TOLERANCE(WALKED <3 MINUTES ON TAI PROTOCOL)BEFORE NEEDING TO STOP DUE TO SOA AND FATIGUE. DURING INFUSION OF LEXISCAN PATIENT HAD MILD MALAISE AND MILD SOA BUT NO CHEST PAIN. NO ARRHYTHMIAS/ECTOPY. NO SIGNIFICANT ST-T CHANGES. UNREMARKABLE LEXISCAN STRESS. MYOVIEW IMAGES REPORTED SEPARATELY. Electronically signed by : Lambert Mccormick, 02/17/2020 14:16:07
--- NOTE | 2020-02-17 06:50 | NM_ITS ---
APPROVED REPORT Exam: Nuclear Stress Test Indication: chest pian..short of breath..palpitations..fatigue Patient Location: Outpatient Stress Tech: Karina Jeff [place] Tech:AIDAN Rodriges RT(R)(N) Ht: 5 ft 3 in Wt: 152 lbs Bra Size: 36b HR: 112 bpm BP: 110/72 mmHg BSA: 1.72 m2 BMI: 26.9 History: chest pian..short of breath..palpitations..fatigue Procedure: Patient received a 0.4 mg of intravenous Lexiscan, resting heart rate 112 bpm, resting blood pressure 110/72 mmHg, with Lexiscan maximum heart rate achived was 108 bpm which is Less than 85 % of the maximum predicted heart rate and blood pressure was 103/67 mmHg. With Lexiscan, patient denied any complaint of chest pain. Electrocardiogram Resting electrocardiogram showed sinus rhythm, with Lexiscan there is less than 1.[address] segment depression noted from the baseline EKG. The EKG portion of the Lexiscan Myoview is nondiagnostic. Cardiac Stress and Resting SPECT Images: Cardiac Stress and Resting SPECT images were obtained using technetium 99m Myoview 30.5 mCi stress and 10.94 mCi at rest. Gated SPECT for analysis of segmental wall motion and calculation of the ejection fraction also done. Cardiac stress and resting SPECT images show a fixed defect in the posterolateral wall with normal contractility gated SPECT is likely secondary to soft tissue attenuation, no reversible ischemia seen. Computer derived ejection fraction is over 65% with no regional wall motion abnormality, right ventricle is normal size and contractility. Conclusion: 1. The EKG portion of the Lexiscan Myoview is nondiagnostic. 2. No scintigraphic evidence of reversible ischemia seen, computer derived ejection fraction is over 65% with no regional wall motion abnormality, right ventricle is normal size and contractility. 3. Likely normal Lexiscan Myoview study. Electronically signed by : Lambert Mccormick, 02/17/2020 14:19:13
--- NOTE | 2020-02-17 10:17 | HMH.ITSHM ---
Current Home Medications as stated by this patient Tenisha Epstein or open claims representative. []quetiapine venlafaxine miralax omeprazole albuterol mirtazapine melatonin levothyroxine
== END ==
PROVIDERS: PCP Emergency Medicine; Visit Provider Urology
DX: R06.00 Dyspnea, unspecified (principal); R07.9 Chest pain, unspecified; I31.3 Pericardial effusion (noninflammatory); I31.9 Disease of pericardium, unspecified
CPT/HCPCS: 78452; 93017; A9502

== ENCOUNTER 2020-02-20 15:58 | Emergency (ER) | payer MEDICAID, SELFPAY ==
--- NOTE | 2020-02-20 16:02 | HMH.EDGENADL ---
ED Disposition Clinical Impression: Constipation Qualifiers: Constipation type: unspecified constipation type Qualified Code(s): K59.00 - Constipation, unspecified Disposition: Home, Self-Care Condition on Discharge: Good Instructions: DI for Constipation Additional Instructions: Follow-up with GI within the next week for reevaluation. Eat plenty of high-fiber foods with vegetables, 64 ounces of water daily minimum. - Critical Care Critical Care Time: No Attestation: On , the high probability of a clinically significant, sudden or life threatening deterioration of the following system(s) required my full and direct attention, intervention and personal management. The time I documented below is in addition to time spent performing reported procedures but includes the following listed in this critical care notation. Medical Decision Making - Medical Records Medical records reviewed: Yes: I reviewed the patient's medical records. - Lauro Inquiry Pt receiving controlled substance: No Vital Signs: 02/20/20 16:06 Temperature 99.1 F Temperature Source Oral Pulse Rate [Right Radial] 113 H Respiratory Rate 17 Blood Pressure [Right Arm] 139/77 Blood Pressure Mean [Right Arm] 97 02 Sat by Pulse Oximetry 96 Oxygen Delivery Method Room Air Medical Decision Narrative: Bowel sounds everywhere and a nontender abdomen, low suspicion for obstructive process. She has not had any vomiting. No urinary symptoms. She was given a soapsuds enema with good results and is feeling much better. Discharged home. General Adult HPI - General Stated complaint: No bowel movement for 2 or 3 WK Time Seen by Provider: 02/20/20 16:02 Mode of Arrival: Ambulatory Source of Information: Patient Limitations: No Limitations - History of Present Illness HPI narrative: This is a 44-year-old female who presents to the emergency department for 2 weeks of constipation. No fevers, nausea, vomiting. She is urinating without any difficulty. Patient states that she has tried Ex-Lax, suppositories, enema, magnesium citrate with no relief of symptoms. She has generalized abdominal tenderness. This happened to her before in January, and patient had relief with soapsuds enema. She does have an appointment with GI, but not until April. - Related Data Home Medications Medication Instructions Recorded Confirmed Albuterol Sulfate [Proventil Hfa] 1 inh INHALATION QID 01/20/20 02/18/20 buprenorphine 8 mg-naloxone 2 mg 2 tab SUBLINGUAL DAILY tab 01/20/20 02/18/20 sublingual tablet Previous Rx's Medication Instructions Recorded bisacodyl 5 mg tablet 5 mg PO QHS 2 Days #2 tab 01/26/20 polyethylene glycoL 3350 [Miralax 17 gm PO DAILY #30 packet 01/27/20 17gm Packet] cetirizine 10 mg tablet 10 mg PO DAILY #90 tab 02/01/20 fluticasone furoate 100 100 mcg INHALATION DAILY #30 each 02/01/20 mcg/actuation blister powder for inhalation hydrochlorothiazide 12.5 mg tablet 12.5 mg PO DAILY #90 tab 02/01/20 hydroxyzine pamoate 50 mg capsule 50 mg PO TIDP PRN #90 cap 02/01/20 levothyroxine 25 mcg tablet 25 mcg PO DAILY #90 tab 02/01/20 magnesium citrate 150 ml PO DAILY PRN #296 ml 02/01/20 melatonin 5 mg capsule 5 mg PO DAILY #90 cap 02/01/20 mirtazapine 15 mg tablet 15 mg PO DAILY #90 tab 02/01/20 montelukast 10 mg tablet 10 mg PO DAILY #90 tab 02/01/20 omeprazole magnesium 20 mg 20 mg PO HS #90 tab 02/01/20 tablet,delayed release ondansetron HCl 4 mg tablet 4 mg PO TID PRN #30 tab 02/01/20 polyethylene glycol 3350 17 17 g PO DAILY #238 g 02/01/20 gram/dose oral powder quetiapine 100 mg tablet 100 mg PO HS #90 tab 02/01/20 quetiapine 25 mg tablet 25 mg PO HS #90 tab 02/01/20 venlafaxine 150 mg 150 mg PO DAILY #90 cap 02/01/20 capsule,extended release 24 hr Allergies Allergy/AdvReac Type Severity Reaction Status Date / Time adhesive tape AdvReac Mild Rash Verified 02/18/20 10:50 H History - Hepatitis A Screen Atte
[2020-02-20 16:06] VITALS: BP 139/77; PULSE 113; RESP 17; TEMP 37.3; O2SAT 96; BMI 26.7
[2020-02-20 17:31] VITALS: BP 115/70; PULSE 78; RESP 20; O2SAT 97
--- NOTE | 2020-02-20 17:49 | PC.NURSE ---
PT HAD LARGE BOWEL MOVEMENT AND FEELS MUCH BETTER
[2020-02-20 18:08] VITALS: BP 119/70; PULSE 79; RESP 17; TEMP 36.7; O2SAT 99
== END 2020-02-20 18:12 | disposition home or self-care (01) ==
PROVIDERS: Emergency Provider Emergency Medicine; PCP Emergency Medicine
DX: K59.00 Constipation, unspecified (principal); I10 Essential (primary) hypertension; G43.709 Chronic migraine without aura, not intractable, without status migrainosus; K76.9 Liver disease, unspecified; F17.210 Nicotine dependence, cigarettes, uncomplicated; F10.10 Alcohol abuse, uncomplicated; Z90.49 Acquired absence of other specified parts of digestive tract; Z90.710 Acquired absence of both cervix and uterus
CPT/HCPCS: 99282

== ENCOUNTER 2020-02-21 15:51 | Inpatient (IN) | payer MEDICAID, SELFPAY ==
[2020-02-21] VITALS (13 sets, daily range): BP systolic 97–128; BP diastolic 70–88; PULSE 96–115; RESP 16–24; TEMP 36.7–37.1; O2SAT 90–96; BMI 26.5; BMI 29.0
--- NOTE | 2020-02-21 16:12 | HMH.EDRECH ---
ED Disposition Clinical Impression: Hypokalemia, Acute anemia Disposition: Admitted As Inpatient Condition on Discharge: Fair Referrals: Ge Marrero MD [Primary Care Provider] - - Critical Care Critical Care Time: No Attestation: On 02/21/20, the high probability of a clinically significant, sudden or life threatening deterioration of the following system(s) required my full and direct attention, intervention and personal management. The time I documented below is in addition to time spent performing reported procedures but includes the following listed in this critical care notation. Medical Decision Making - Medical Records Medical records reviewed: Yes: I reviewed the patient's medical records. - Lauro Inquiry Pt receiving controlled substance: No Vital Signs: 02/21/20 16:02 02/21/20 17:04 Temperature 98.1 F Temperature Source Oral Pulse Rate [Radial] 107 H 115 H Respiratory Rate 18 Blood Pressure [Right Arm] 115/76 102/70 L Blood Pressure Mean [Right Arm] 89 80 Blood Pressure Source [Right Arm] Automatic Cuff Automatic Cuff Blood Pressure Position [Right Arm] Sitting Sitting 02 Sat by Pulse Oximetry 95 96 Oxygen Delivery Method Room Air Room Air - Lab Data Lab results reviewed: Yes: I reviewed the patient's lab results. Lab Results 02/21/20 16:26: WBC 7.0, RBC 3.29 L, Hgb 8.8 L, Hct 26.4 L, MCV 80.3 L, MCH 26.8 L, MCHC 33.3, RDW 17.1, Plt Count 413, MPV 7.6, Neut % (Auto) 78.8, Lymph % (Auto) 11.3, [place] % (Auto) 9.1, Eos % (Auto) 0.5, Baso % (Auto) 0.3, Neut # (Auto) 5.5, Lymph # (Auto) 0.8, [place] # (Auto) 0.6, Eos # (Auto) 0.0, Baso # (Auto) 0.0 02/21/20 16:26: Sodium 127 L, Potassium 2.3 L*, Chloride 81 L, Carbon Dioxide 36 H, Anion Gap 12.3, BUN 8, Creatinine 0.50 L, Estimated Creat Clear 151, Estimated GFR 133, Est GFR ( Amer) 161, Glucose 143 H, Calcium 8.4, Phosphorus 3.3, Magnesium 2.3 02/21/20 16:59: Stool Occult Blood Negative Result diagrams: 02/21/20 16:26 02/21/20 16:26 Orders (Tests/Meds): ED MEDICATIONS Generic Name Dose Route Start Last Admin Trade Name Freq PRN Reason Stop Dose Admin Sodium Chloride 1,000 mls @ 999 mls/hr 02/21/20 17:00 02/21/20 17:02 Sod Chlor 0.9% 1000ml Bag IV 02/21/20 18:00 999 mls/hr .Q1H1M GEOFFREY Administration Discontinued Medications Generic Name Dose Route Start Last Admin Trade Name Freq PRN Reason Stop Dose Admin Potassium Chloride 80 meq 02/21/20 16:46 02/21/20 17:02 Klor-Con 20meq Tablet PO 02/21/20 16:47 80 meq ONCE ONE Administration ORDERS Category Date Time Status Type and Screen Stat BBK 02/21/20 16:29 Received - ECG Data Tracing #1 EKG at 1651 shows a sinus rhythm with a rate of 101. No acute ST segment elevation or depression. No hyperacute T waves. Normal AK, QRS, QTc. EKG interpreted by me. Medical Decision Narrative: Patient with hypokalemia here, given 80 mEq oral replacement. She has no complaints other than mild abdominal cramping secondary to her recent problems with constipation. Patient denies any melena or hematochezia and does not have any scar melena or hematochezia on exam. Her hemoglobin is 8.8 and she has only borderline tachycardia, would not transfuse at this time. I discussed this case with Dr. Nick, on-call for Dr. Marrero, who recommends admission with additional IV potassium, surgery consult in the morning to consider colonoscopy and n.p.o. after midnight. Repeat labs in the morning. Recheck HPI - General Chief Complaint: Recheck/Abnormal Lab/Rx Stated Complaint: possible low potassium and blood volume Time Seen by Provider: 02/21/20 16:12 Mode of Arrival: Ambulatory Limitations: No Limitations Description of Symptoms (Recalled from ER Triage Doc. by RN): States that she had blood work done this morning at her suboxone clinic and they stated that her blood was low and her potassium level was low. After speaking with Dr marrero he said for he
--- NOTE | 2020-02-21 16:25 | PC.NURSE ---
Lab at bedside
[2020-02-21 16:38] LABS: Chloride 81 mmol/L (98-107); Sodium 127 mmol/L (136-145)
[2020-02-21 16:41] LABS: Blood Urea Nitrogen 8 mg/dl (7-17); Creatinine Clearance Estimated 151 mL/min (50-200); Estimated Glomerular Filt Rate 133 ml/min (>60); GFR (African American) 161 ML/MIN (>60)
[2020-02-21 16:42] LABS: Calcium 8.4 mg/dl (8.4-10.2); Glucose 143 mg/dl (74-100); Magnesium 2.3 mg/dl (1.6-2.3); Phosphorous 3.3 mg/dl (2.5-4.5)
[2020-02-21 16:44] LABS: Potassium 2.3 mmoL/L (3.5-5.1)
--- NOTE | 2020-02-21 16:44 | PC.NURSE ---
Dr. Kirkland notified of potassium level of 2.3
--- NOTE | 2020-02-21 16:51 | ECG_ITS ---
APPROVED REPORT Exam: Resting ECG HR:101 bpm ECG Measurements Heart Rate 101 AXES RI 156 P 54 QRSd 82 QRS 23 QT 308 T 113 QTc 399 <Conclusion> Sinus tachycardia Possible Left atrial enlargement Low voltage QRS Nonspecific ST and T wave abnormality Abnormal ECG Electronically signed by : Vega Renteria, 02/23/2020 17:32:57
[2020-02-21 16:52] LABS: Basophils % 0.3 % (0.1-2.0); Eosinophils % 0.5 % (0.1-12.0); Hematocrit 26.4 % (37.0-47.0); Hemoglobin 8.8 g/dL (12.2-16.2); Lymphocytes # 0.8 K/mm3 (0.7-4.5); Lymphocytes % 11.3 % (10-50); Mean Corpuscular HGB Conc 33.3 g/dL (31.8-35.4); Mean Corpuscular Hemoglobin 26.8 pg (27.0-31.2); Mean Corpuscular Volume 80.3 fl (81-99); Mean Platelet Volume 7.6 fl (7.4-10.4); Monocytes # 0.6 K/mm3 (0.1-1.0); Monocytes % 9.1 % (1.7-9.3); Neutrophils # 5.5 K/mm3 (1.8-7.8); Neutrophils % 78.8 % (37.0-80.0); Platelet Count 413 K/mm3 (142-424); Red Blood Count 3.29 M/mm3 (4.20-5.40); Red Cell Distribution Width 17.1 % (11.5-17.5)
--- NOTE | 2020-02-21 16:55 | PC.NURSE ---
Pt placed in gown at this time.
[2020-02-21 17:01] LABS: Anion Gap 12.3 mEq/L (5-15); Carbon Dioxide 36 mmol/L (22.0-30.0)
--- NOTE | 2020-02-21 17:02 | PC.NURSE ---
Dr Kirkland speaking with Dr Nick at this time who is intelligence consultant for Dr Burton.
[2020-02-21 17:03] LABS: Occult Blood,Stool Negative (Negative)
--- NOTE | 2020-02-21 17:48 | PC.NURSE ---
Report given to [place]
[2020-02-21 19:54] LABS: Occult Blood,Gastric Fluid Negative (Negative)
[2020-02-21 20:12] LABS: Iron 32 ug/dL (37-170)
[2020-02-21 20:18] LABS: C-Reactive Protein 170.6 mg/L (0-4); Erythrocyte Sedimentation Rate > 140 mm/hr (0-20)
[2020-02-21 20:21] LABS: Total Iron Binding Capacity 265 ug/dL (265-497)
[2020-02-21 20:48] LABS: Ferritin 243 ng/ml (6.24-137)
--- NOTE | 2020-02-21 21:52 | PC.NURSE ---
PT ARRIVE TO THE FLOOR VIA W/C FROM ED AT 262.
--- NOTE | 2020-02-21 22:12 | HMH.HP ---
*Admission Date: 02/21/20 *Chief complaint: weakness *History of present illness: this pt presented to the ed - pt was noted to have abn labs and was sent to the ed -4-year-old female who presents to the emergency department for abnormal labs. She had blood work drawn at her [facility] clinic 4 days ago and was called back and told that her potassium and blood levels were low when to come to the emergency room. She denies any known source of bleeding including no hematemesis, hematochezia or melena. She does struggle with frequent constipation, but was seen here in the emergency room for that yesterday with successful production of stool and improved symptoms. She still has a mild amount of abdominal cramping, but feels generally better. She does not take any blood thinners, but does report a history of anemia in the past. She has never had to have a blood transfusion. She does have a history of hepatitis C, but no known renal problems. pt was admitted for treatment [facility] History I have reviewed the patient's past medical history: Yes Medical History: Reports:: Anxiety, Hepatitis, Hypertension, Migraine Denies:: Cancer, Diabetes Mellitus Type 1, Diabetes Mellitus Type 2, Internal Pacemaker, Lung Disease, MRSA *Have you ever received a pneumonia vaccine?: No *Have you received a flu vaccine this season?: Yes Other Medical History: Reports: Liver Disease, Thyroid Disease Laterality Cases: Right: Carpal Tunnel Release Other Surgeries: Yes: Cholecystectomy, Colonoscopy, Hysterectomy-Total, Hysterectomy-Partial, Tubal Ligation. No: Pacemaker Amputation: No Fractures: No - *Social History Smoking Status: Current every day smoker Tobacco Type: cigarettes # Packs/Day (cigarettes): 1 #Yrs smoked (if former smoker): 35 Alcohol Intake: former Alcohol Intake Frequency:: 3 or more drinks per day Substance Use Type: crack/cocaine *Occupational Status:: unemployed Housing: house Household Members: significant other *Travel in the last 8 weeks: None - Psychiatric History Pschychiatric History:: Reports:: Anxiety Family Hx:: Cancer, Diabetes, Heart Attack, Hypertension, Kidney Disease, Stroke, Thyroid Disorder, Substance abuse, Alcoholism, Mental illness Review of Systems - Constitutional Reports weakness, Denies fever(s) - Eyes Denies change in vision - ENT Denies sore throat - *Cardiovascular Denies chest pain at rest - *Respiratory Denies cough - *Gastrointestinal Denies abdominal pain - *Genitourinary Denies blood in urine - *Musculoskeletal Denies joint pain - Integumentary/Breasts Denies rash - *Neurologic Denies headache(s), Denies seizure-like activity - Psychiatric Denies depression Meds Home Medications Medication Instructions Recorded Confirmed Type Albuterol Sulfate [Proventil Hfa] 1 puff IH Q6HP PRN 01/20/20 02/22/20 History buprenorphine 8 mg-naloxone 2 mg 2 tab SL DAILY tab 01/20/20 02/22/20 History sublingual tablet cetirizine 10 mg tablet 10 mg PO DAILY #90 tab 02/01/20 02/21/20 Rx fluticasone furoate 100 100 mcg INHALATION DAILY #30 each 02/01/20 02/21/20 Rx mcg/actuation blister powder for inhalation hydrochlorothiazide 12.5 mg tablet 12.5 mg PO DAILY #90 tab 02/01/20 02/21/20 Rx mirtazapine 15 mg tablet 15 mg PO DAILY #90 tab 02/01/20 02/21/20 Rx ondansetron HCl 4 mg tablet 4 mg PO TID PRN #30 tab 02/01/20 02/21/20 Rx quetiapine 100 mg tablet 100 mg PO HS #90 tab 02/01/20 02/21/20 Rx quetiapine 25 mg tablet 25 mg PO HS #90 tab 02/01/20 02/21/20 Rx venlafaxine 150 mg 150 mg PO DAILY #90 cap 02/01/20 02/21/20 Rx capsule,extended release 24 hr Levothyroxine Sodium 25 mcg PO DAILY 02/22/20 02/22/20 History [Levothyroxine 25mcg (0.025mg) Tab] Montelukast Sodium [Singulair 10mg 10 mg PO PM 02/22/20 02/22/20 History tablet] Omeprazole [Omeprazole 20mg 20 mg PO DAILY 02/22/20 02/22/20 History Capsule] Allergies Allergy/AdvReac Type Severity Reaction Statu
[2020-02-22] VITALS (12 sets, daily range): BP systolic 95–112; BP diastolic 61–73; PULSE 89–111; RESP 16–22; TEMP 36.7–37.1; O2SAT 91–97
--- NOTE | 2020-02-22 07:17 | PC.NURSE ---
Notified Dr. Urena about consult
--- NOTE | 2020-02-22 07:24 | P.CONPHA_ITS ---
[facility] Pharmacy VTE Monitoring - Patient Demographics Admission date: 02/21/20 Report Date: 02/22/20 Time: 07:24 Allergies/Adverse Reactions: Patient Allergies adhesive tape Adverse Reaction (Mild, Verified 02/18/20 10:50) Rash Height: 1.6 m Weight: 74.389 kg Patient Problems: Current Active Problems (Last Updated 08/14/18 @ 11:38 by MARLIN Najera) Acute anemia (Acute) Hypokalemia (Acute) - VTE Risk Labs: VTE Related Lab Results Hgb 8.8 g/dL (12.2-16.2) L 02/21/20 16:26 Hct 26.4 % (37.0-47.0) L 02/21/20 16:26 Plt Count 413 K/mm3 (142-424) 02/21/20 16:26 BUN 8 mg/dl (7-17) 02/21/20 16:26 Creatinine 0.50 mg/dl (0.52-1.04) L 02/21/20 16:26 Estimated Creat Clear 151 mL/min (50-200) 02/21/20 16:26 Was VTE Risk Assessment Performed: Yes VTE Score: 1 - Prophylaxis VTE Prophylaxis Ordered?: Yes Types of VTE Prophylaxis: TEDS Knee High Location of Applied Device: Bilateral Lower Extremeties - VTE Diagnosis Confirmed Treatment or plan recommended: Continue Current Treatment
--- NOTE | 2020-02-22 07:33 | HMH.PHAINT ---
MEDICATION RECONCILIATION COMPLETED ON PATIENT USING EXTERNAL FILL HISTORY FROM PHARMACY, SONJA REPORT FOR SUBOXONE, AND LIST FROM PREVIOUS VISIT. -CYNDI FITZPATRICKD
--- NOTE | 2020-02-22 07:49 | PC.NURSE ---
Have called down to Dr. Urena's office r/t pt stating he said she could drink. Pt is still NPO at this time and nno have been put in. Awaiting clarification at this time.
[2020-02-22 08:11] LABS: Chloride 92 mmol/L (98-107); Sodium 131 mmol/L (136-145)
[2020-02-22 08:14] LABS: Alanine Aminotransferase 10 U/L (12-78); Albumin Level 2.8 g/dl (3.5-5.0); Albumin/Globulin Ratio 0.7 (1.1-1.8); Alkaline Phosphatase 121 U/L (38-126); Anion Gap 7.8 mEq/L (5-15); Aspartate Amino Transferase 23 U/L (14-36); Bilirubin,Total 1.1 mg/dl (0.2-1.3); Blood Urea Nitrogen 7 mg/dl (7-17); Calcium 8.3 mg/dl (8.4-10.2); Carbon Dioxide 34 mmol/L (22.0-30.0); Creatinine Clearance Estimated 138 mL/min (50-200); Estimated Glomerular Filt Rate 108 ml/min (>60); GFR (African American) 130 ML/MIN (>60); Globulin 4.1 g/dL (1.3-3.2); Glucose 103 mg/dl (74-100); Total Protein,Serum 6.9 g/dl (6.3-8.2)
[2020-02-22 08:20] LABS: INR 1.57 (0.9-1.1); Prothrombin Time 15.7 seconds (9.4-11.8)
--- NOTE | 2020-02-22 08:27 | CT_ITS ---
PROCEDURE: CT ABDOMEN PELVIS W CON CLINICAL INDICATION: ABDOMINAL PAIN, OBSTIPATION Acute anemia COMPARISON: CT ABDPELW CT abdomen pelvis w con from 12/27/[address] ANGIO CHEST from 01/20/2020 TECHNIQUE: IV Contrast: 75ML OPTIRAY 350 Oral Contrast None Axial images obtained with sagittal and coronal reformats. All CT scans at the facility use one or more dose reduction, viz: automated exposure control, ma/kV adjustment per patient size (including targeted exams where dose is matched to indication, i.e. head), or iterative reconstruction technique. FINDINGS: LOWER THORAX: There is a medium sized pericardial effusion. The pericardium does show some mild smooth enhancement. The pericardial effusion measures up to 2 cm in thickness. The effusion has increased in size since 01/20/2020. At that time the effusion measured up to 10 mm in thickness. There was no pericardial enhancement at that time. Atelectatic changes are present in the lung bases. There are also small bilateral pleural effusions with bibasilar atelectasis. ABDOMEN & PELVIS: The liver has a coarse appearance. There is mild hepatosplenomegaly. There has been a prior cholecystectomy. The pancreatic duct is slightly dilated at 4.5 mm. The common bile duct has an unremarkable appearance. There are few small periportal lymph nodes not significantly changed. The adrenal glands have an unremarkable appearance. No renal or ureteral calculi. No hydronephrosis. There are few small retroperitoneal lymph nodes. There is a mildly prominent node medial to the caudate lobe of the liver which measures 2.1 x 1 cm not significantly changed. A node is present in the posterior periportal region which is slightly decreased in size. This node measures 2 by 1.2 cm previously measuring nearly 3 by 1.7 cm. 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 The cecum lies to the left of midline in the pelvic region. The appendix has an unremarkable appearance. Small bowel is present in the right abdominal area. There is a small amount of perihepatic fluid. Small amount of free fluid is also present in the pelvis. No intestinal obstruction or free air. No evidence of diverticulitis. There is a moderate amount of retained colonic feces. The splenic flexure of the colon is somewhat redundant. No acute bony findings. IMPRESSION: 1. Medium sized pericardial effusion now with some enhancement of the pericardium. This does raises suspicion of pericarditis. The pericardial effusion has increased in size. 2. Small bilateral pleural effusions with bibasilar atelectasis. 3. 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 The cecum lies to the left of midline in the pelvic area. 4. Periportal and retroperitoneal adenopathy not significantly changed 5. Mild hepatosplenomegaly with small amount of ascites Dictated by: Elijah Gordon MD 02/22/2020 14:09 Elijah Gordon MD in [place] 02/22/2020 14:09
[2020-02-22 08:28] LABS: Potassium 2.8 mmoL/L (3.5-5.1)
--- NOTE | 2020-02-22 08:28 | HMH.GSCON ---
*Admission Date: 02/21/20 *Reason for consult:: Anemia *History of present illness: Patient is a 44-year-old female with documented history of hepatitis C for several years. She states that for about 2 months she has had progressive constipation. She had routine blood work reportedly through the Suboxone clinic and was noted to have low potassium and hemoglobin several days ago. She underwent follow-up blood work yesterday through the emergency department which confirmed hypokalemia and anemia. She was admitted for inpatient management. Surgical consultation was obtained for colonoscopy. Patient does describe some general cramping abdominal pain. She has had obstipation. She states that she did previously undergo colonoscopy in [place] by Dr. Dov Paredes several years ago for alteration in bowel habits. She denies any symptoms consistent with hematochezia or melena. She was evaluated several weeks ago for symptoms of constipation and shortness of breath and underwent CT angiogram of the chest and plain abdominal x-ray. Plain abdominal x-ray revealed findings of retained colonic feces. Review of Systems - Review of Systems Review of systems:: pertinent systems reviewed and negative unless documented below - *Neurologic Reports weakness, Denies headache(s), Denies seizure-like activity [facility] History I have reviewed the patient's past medical history: Yes Medical History: Reports:: Anxiety, Heart Murmur, Hepatitis, Hypertension, Migraine Denies:: Cancer, Diabetes Mellitus Type 1, Diabetes Mellitus Type 2, Internal Pacemaker, Lung Disease, MRSA *Have you ever received a pneumonia vaccine?: No *Have you received a flu vaccine this season?: Yes Other Medical History: Reports: Anemia, Liver Disease, Sinus Problems, Thyroid Disease Laterality Cases: Right: Carpal Tunnel Release Other Surgeries: Yes: Cholecystectomy, Colonoscopy, Hysterectomy-Total, Hysterectomy-Partial, Tubal Ligation, Other. No: Pacemaker Amputation: No Fractures: No - *Social History Smoking Status: Current every day smoker Tobacco Type: cigarettes # Packs/Day (cigarettes): 1 #Yrs smoked (if former smoker): 35 Alcohol Intake: former Alcohol Intake Frequency:: 3 or more drinks per day Substance Use Type: amphetamines, opiates *Occupational Status:: unemployed Housing: house Household Members: significant other *Travel in the last 8 weeks: None - Psychiatric History Pschychiatric History:: Reports:: Anxiety Family Hx:: Cancer, Diabetes, Heart Attack, Hypertension, Kidney Disease, Stroke, Thyroid Disorder, Substance abuse, Alcoholism, Mental illness Meds Home Medications Medication Instructions Recorded Confirmed Type Albuterol Sulfate [Proventil Hfa] 1 puff IH Q6HP PRN 01/20/20 02/22/20 History buprenorphine 8 mg-naloxone 2 mg 2 tab SL DAILY tab 01/20/20 02/22/20 History sublingual tablet cetirizine 10 mg tablet 10 mg PO DAILY #90 tab 02/01/20 02/21/20 Rx fluticasone furoate 100 100 mcg INHALATION DAILY #30 each 02/01/20 02/21/20 Rx mcg/actuation blister powder for inhalation hydrochlorothiazide 12.5 mg tablet 12.5 mg PO DAILY #90 tab 02/01/20 02/21/20 Rx mirtazapine 15 mg tablet 15 mg PO DAILY #90 tab 02/01/20 02/21/20 Rx ondansetron HCl 4 mg tablet 4 mg PO TID PRN #30 tab 02/01/20 02/21/20 Rx quetiapine 100 mg tablet 100 mg PO HS #90 tab 02/01/20 02/21/20 Rx quetiapine 25 mg tablet 25 mg PO HS #90 tab 02/01/20 02/21/20 Rx venlafaxine 150 mg 150 mg PO DAILY #90 cap 02/01/20 02/21/20 Rx capsule,extended release 24 hr Levothyroxine Sodium 25 mcg PO DAILY 02/22/20 02/22/20 History [Levothyroxine 25mcg (0.025mg) Tab] Montelukast Sodium [Singulair 10mg 10 mg PO PM 02/22/20 02/22/20 History tablet] Omeprazole [Omeprazole 20mg 20 mg PO DAILY 02/22/20 02/22/20 History Capsule] Allergies Allergy/AdvReac Type Severity Reaction Status Date / Time adhesive tape AdvReac Mild Rash Verified 02/18/20 10:50 Exam Vital signs and
--- NOTE | 2020-02-22 08:40 | HMH.ACPN2 ---
Internal Medicine - PN: Subj *Date: 02/22/20 *Time: 17:22 Interval history: 44-year-old female patient resting in bed quietly, this point she does report some abdominal cramping but no real pain. She denies any bowel movements overnight or visible blood. General surgery has seen and is going to proceed with a colonoscopy and possible EGD, patient is n.p.o. and will consider bowel prep for tonight. CT of the abdomen pelvis are pending. H&H this morning 8.0/24.5, potassium 2.8, sodium 131, INR 1.5. Will cont IVF and replace potassium. Exam Vital signs and Labs for Last 24 Hours: Temp Pulse Resp BP Pulse Ox 98.7 F 100 H 18 104/68 L 91 L 02/22/20 07:45 02/22/20 07:45 02/22/20 07:45 02/22/20 07:45 02/22/20 07:45 Laboratory Results - last 24 hr 02/21/20 16:26: WBC 7.0, RBC 3.29 L, Hgb 8.8 L, Hct 26.4 L, MCV 80.3 L, MCH 26.8 L, MCHC 33.3, RDW 17.1, Plt Count 413, MPV 7.6, Neut % (Auto) 78.8, Lymph % (Auto) 11.3, [place] % (Auto) 9.1, Eos % (Auto) 0.5, Baso % (Auto) 0.3, Neut # (Auto) 5.5, Lymph # (Auto) 0.8, [place] # (Auto) 0.6, Eos # (Auto) 0.0, Baso # (Auto) 0.0 02/21/20 16:26: Sodium 127 L, Potassium 2.3 L*, Chloride 81 L, Carbon Dioxide 36 H, Anion Gap 12.3, BUN 8, Creatinine 0.50 L, Estimated Creat Clear 151, Estimated GFR 133, Est GFR ( Amer) 161, Glucose 143 H, Calcium 8.4, Phosphorus 3.3, Magnesium 2.3 02/21/20 16:26: ESR > 140 H 02/21/20 16:26: Iron 32 L, TIBC 265, Iron Saturation 12.33740 L, Ferritin 243 H, C-Reactive Protein 170.6 H 02/21/20 16:29: Blood Type A Positive, Antibody Screen Positive 02/21/20 16:59: Stool Occult Blood Negative 02/21/20 19:47: Gastric Occult Blood Negative 02/22/20 07:55: PT 15.7 H, INR 1.57 H 02/22/20 07:55: Sodium 131 L, Potassium 2.8 L* D, Chloride 92 L, Carbon Dioxide 34 H, Anion Gap 7.8, BUN 7, Creatinine 0.60, Estimated Creat Clear 138, Estimated GFR 108, Est GFR ( Amer) 130, Glucose 103 H D, Calcium 8.3 L, Total Bilirubin 1.1, AST 23, ALT 10 L, Alkaline Phosphatase 121, Total Protein 6.9, Albumin 2.8 L, Globulin 4.1 H, Albumin/Globulin Ratio 0.7 L I & O for Last 24 hours: Intake & Output 02/19/20 02/20/20 02/21/20 02/22/20 23:59 23:59 23:59 23:59 Intake Total 563 / 563 Balance 563 / 563 Weight 164 lb Microbiology Reports for the Last 24 Hours: Microbiology 02/21/20 17:58 Nasopharyngeal Coronavirus COVID-19 PCR - Final - Constitutional no acute distress - *Routine HEENT Exam Head: Present: normocephalic. Absent: tenderness of temporal artery ENT: Present: mucous membranes dry. Absent: sinus tenderness - *Routine Neck Exam Present: full ROM, trachea midline. Absent: tracheal deviation - *Routine Respiratory Exam Present: CTA bilaterally. Absent: accessory muscle use - *Routine Cardiovascular Exam Present: RRR - *Routine Abdominal Exam Present: soft, normoactive bowel sounds - *Routine Extremities Exam Present: full ROM, pulses intact. Absent: cyanosis, calf tenderness - *Routine Skin Exam Present: intact, warm, jaundice. Absent: cyanosis - *Routine Neurological Exam Present: alert, oriented X3. Absent: altered mental status - Routine Psychiatric Exam Present: normal affect, normal thought process Assessment and Plan (1) Hyponatremia Current visit: Yes Status: Acute Category: Medical Code(s): E87.1 - Hypo-osmolality and hyponatremia (2) Acute anemia Current visit: Yes Status: Acute Category: Medical Code(s): D64.9 - Anemia, unspecified (3) Hypokalemia Current visit: Yes Status: Acute Category: Medical Code(s): E87.6 - Hypokalemia (4) Overweight (BMI 25.0-29.9) Current visit: Yes Status: Acute Category: Medical Code(s): E66.3 - Overweight (5) Hepatitis C Current visit: Yes Status: Acute Qualifiers: Viral hepatitis chronicity: chronic Hepatic coma status: without hepatic coma Qualified Code(s): B18.2 - Chronic viral hepatitis C Category: Medical
[2020-02-22 09:12] LABS: Basophils % 0.2 % (0.1-2.0); Eosinophils % 0.7 % (0.1-12.0); Hematocrit 24.5 % (37.0-47.0); Lymphocytes # 0.8 K/mm3 (0.7-4.5); Lymphocytes % 15.3 % (10-50); Mean Corpuscular HGB Conc 32.9 g/dL (31.8-35.4); Mean Corpuscular Volume 82.2 fl (81-99); Mean Platelet Volume 7.6 fl (7.4-10.4); Monocytes # 0.4 K/mm3 (0.1-1.0); Monocytes % 7.9 % (1.7-9.3); Neutrophils # 4.1 K/mm3 (1.8-7.8); Neutrophils % 75.9 % (37.0-80.0); Platelet Count 384 K/mm3 (142-424); Red Blood Count 2.98 M/mm3 (4.20-5.40); Red Cell Distribution Width 17.4 % (11.5-17.5); White Blood Count 5.4 K/mm3 (4.8-10.8)
--- NOTE | 2020-02-22 10:21 | PC.NURSE ---
Did make Dr. Burton aware of critical potassium this am when rounding, K runs ordered and made Rachid Olsen APRN aware of hgb 8 and hct.
--- NOTE | 2020-02-22 11:21 | PC.NURSE ---
Did make radiology aware that pt was done drinking gastro at 1059.
--- NOTE | 2020-02-22 14:00 | CA_ITS ---
APPROVED REPORT EXAM: Comprehensive 2D, Doppler, and color-flow Echocardiogram Machining Technician: Joslyn Muhammad RDCS Ht: 5 ft 3 in Wt: 164lbs BSA: 1.78 BP: 110/60 mmHg Indications: PERICARDIAL EFFUSION FOLLOW UP FROM ECHO 01/2020 WHICH WAS READ SMALL CIRCUMFERENTIAL M-Mode Dimensions RVDd 2.75 cm (0.9-2.6) LVDd 3.77 cm (3.5-5.7) LVDs 3.24 cm (3.5-5.7) IVSd 0.72 cm (0.6-1.1) PWd 0.71 cm (0.6-1.1) EF (Teich) 30.60% FS 14.10% EDV (Teich) 60.80 mL ESV (Teich) 42.20 mL Left Ventricle Left atrium is normal size, left ventricle is normal size preserved left ventricular systolic function, visually estimated ejection fraction 55%, there is abnormal septal motion raising the concerns for presence of ventricular interdependence. Diastolic parameters are inconclusive. Right Ventricle Right atrium and right ventricle are normal size and contractility. Aortic Valve Aortic valve is minimally thickened and fibrosed. There is no aortic stenosis or aortic insufficiency. Mitral Valve Mitral valve is grossly normal, there is mild mitral regurgitation. Tricuspid Valve Tricuspid valve is grossly normal, there is mild tricuspid regurgitation. Pulmonic Valve Pulmonic valve is poorly visualized. Great Vessels Aortic root is normal size. Pericardium There is moderate to large size circumferential pericardial effusion noted, there is variation in the mitral inflow and tricuspid inflow velocity raising the concerns for raised intrapericardial pressure. There is no early diastolic collapse of the right ventricle seen. Conclusion 1. Normal left ventricular size, preserved left ventricular systolic function, visually estimated ejection fraction 55% with no regional wall motion abnormality, diastolic parameters are inconclusive. Tissue Doppler was not performed. 2. Moderate to large size circumferential pericardial effusion, there is abnormal septal motion consistent with ventricular interdependence, there is variation in the mitral inflow and tricuspid inflow velocity raising the concerns for raised intrapericardial pressure. Clinical correlation is recommended. Serial echocardiograms are recommended. Electronically signed by : Lambert Mccormick, 02/22/2020 21:29:34
--- NOTE | 2020-02-22 14:37 | HMH.CNCARD ---
History of Present Illness Consult date: 02/22/20 Requesting physician: Ge Burton Consult reason: shortness of breath Chief complaint: SOA, Pericardial effusion, constipation Additional Medical History:: 1. History of hepatitis, status post treatment approximately 2011 with recurrence due to IV drug use 2. History of drug use for 15 years, including cocaine and crack, discontinued approximately 9 months ago 3. Normal Lexiscan Myoview stress test, 01/2020 4. Pericardial effusion A. Echocardiogram, 01/2020, small circumferential pericardial effusion with normal LV function, no wall motion abnormalities and mild MR and TR. B. Preliminary echocardiogram, 02/22/2020, near normal ejection fraction with moderate pericardial effusion. No significant evidence of cardiac tamponade. 5. Tobacco use A. Chest CTA, 01/2020, 1. Cardiomegaly with thickened pericardium consistent with pericardial effusion. No evidence of aortic aneurysm dissection or pulmonary embolus. 2. Bilateral lower lobe atelectatic changes with trace effusions. 3. Scattered patchy areas of ground-glass attenuation in the left upper lobe. This is nonspecific and could be seen with viral pneumonia or small airway disease.. COVID 19 may present with patchy ground-glass density. 4. Thickened mid and distal esophagus nonspecific but could be seen with reflux esophagitis 6. Recurrent abdominal pain and obstipation A. CT of the abdomen, 02/22/2020,1. Medium sized pericardial effusion now with some enhancement of the pericardium. This does raises suspicion of pericarditis. The pericardial effusion has increased in size. 2. Small bilateral pleural effusions with bibasilar atelectasis. 3. 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 The cecum lies to the left of midline in the pelvic area. 4. Periportal and retroperitoneal adenopathy not significantly changed 5. Mild hepatosplenomegaly with small amount of ascites 7. Hypothyroidism, on supplementation History of present illness: 44-year-old white female admitted through the emergency department for abnormal labs noted 4 days ago in [facility] clinic, abdominal discomfort with history of constipation and now with suspected worsening of pericardial effusion and shortness of breath. Cardiology consulted for evaluation and recommendations. Patient denies any recent fever, chills, vomiting or diarrhea. She denies any recent IV drug use. She relates her shortness of breath has slightly worsened over the last 2 to 3 months. Review of lab work over the last month shows a drop in hemoglobin from 12.8 down to 8.0 today. Patient denies any history of blood loss or dark tarry stools. She has never been told she was anemic nor has she ever had a blood transfusion. Potassium is noted to be 2.3 yesterday has improved to 2.8 after supplementation overnight. Elevated inflammatory markers include CRP of 170 and elevated sedimentation rate greater than 140. COVID-19 negative currently. [facility] History Medical History: Reports:: Anxiety, Heart Murmur, Hepatitis, Hypertension, Migraine Denies:: Cancer, Diabetes Mellitus Type 1, Diabetes Mellitus Type 2, Internal Pacemaker, Lung Disease, MRSA *Have you ever received a pneumonia vaccine?: No *Have you received a flu vaccine this season?: Yes Other Medical History: Reports: Anemia, Liver Disease, Sinus Problems, Thyroid Disease Laterality Cases: Right: Carpal Tunnel Release Other Surgeries: Yes: Cholecystectomy, Colonoscopy, Hysterectomy-Total, Hysterectomy-Partial, Tubal Ligation, Other. No: Pacemaker Amputation: No Fractures: No - *Social History Smoking Status: Current every day smoker Tobacco Type: cigarettes # Packs/Day (cigarettes): 1 #Yrs smoked (if former smoker): 35 Alcohol Intake: former Alcohol Intake Frequency:: 3 or more drinks per day Substance Use Type: amphetamines, opiates *Occupational Status:: unemployed Housing: house [place]
--- NOTE | 2020-02-22 15:03 | PC.NURSE ---
Pt is alert and oriented and able to make needs known. RR even and unlabored while at rest. Pt does c/o of soa when getting up to chair and states that she is unable to lay flat to sleep. Family member has been at bedside intermittently this shift. Pt has started to drink golytely as ordered per sep. Dr. Urena in this evening and plans to do a colonoscopy tomorrow and also ordered a cardio consult, in which MARLIN Jensen has been in to see pt and echo results pending. MX continues at this time. VSS this shift thus far. Continues on tele.
--- NOTE | 2020-02-22 16:56 | PC.NURSE ---
WAlked into pts roommike pprox an hr ago and noted a strong smell of body spray and what appeared to be cigarette smoke. Asked pt if she or someone had been smoking? She stated No, her sis had been out to smoke and came back to room. Sister wasnt in room at this time. Did educate pt that there is no smoking allowed in the room and that this is a non smoking facility and she did agree. Also, spoke with joan Walker and made her aware that blood was to be ordered for tonight and she is going to proceed with preparing the blood.
--- NOTE | 2020-02-22 18:48 | PC.NURSE ---
Denise in lab stated pt has warm and cold antibody's and was having to be cross matched by [facility].
[2020-02-22 22:44] LABS: Chloride 92 mmol/L (98-107); Potassium 3.1 mmoL/L (3.5-5.1); Sodium 130 mmol/L (136-145)
[2020-02-22 22:47] LABS: Anion Gap 9.1 mEq/L (5-15); Blood Urea Nitrogen 7 mg/dl (7-17); Carbon Dioxide 32 mmol/L (22.0-30.0); Creatinine Clearance Estimated 138 mL/min (50-200); Estimated Glomerular Filt Rate 108 ml/min (>60); GFR (African American) 130 ML/MIN (>60)
[2020-02-22 22:48] LABS: Calcium 8.3 mg/dl (8.4-10.2); Glucose 121 mg/dl (74-100)
[2020-02-23] VITALS (25 sets, daily range): BP systolic 97–135; BP diastolic 52–84; PULSE 90–110; RESP 16–20; TEMP 36.8–37.3; O2SAT 90–96; BMI 30.5
--- NOTE | 2020-02-23 04:31 | PC.NURSE ---
Pt has slept most of this shift. C/o SOA with exertion. Transfusing first unit of blood now. Pt finished Golytely approx. 2029, but states she has had a only 3 small bowel movements. Denies pain.
[2020-02-23 08:38] LABS: Chloride 95 mmol/L (98-107); Potassium 3.6 mmoL/L (3.5-5.1); Sodium 132 mmol/L (136-145)
[2020-02-23 08:39] LABS: Basophils % 0.6 % (0.1-2.0); Eosinophils % 0.5 % (0.1-12.0); Hematocrit 32.5 % (37.0-47.0); Hemoglobin 10.6 g/dL (12.2-16.2); Lymphocytes # 0.7 K/mm3 (0.7-4.5); Lymphocytes % 12.1 % (10-50); Mean Corpuscular HGB Conc 32.6 g/dL (31.8-35.4); Mean Corpuscular Hemoglobin 27.6 pg (27.0-31.2); Mean Corpuscular Volume 84.5 fl (81-99); Mean Platelet Volume 7.3 fl (7.4-10.4); Monocytes # 0.7 K/mm3 (0.1-1.0); Monocytes % 11.2 % (1.7-9.3); Neutrophils # 4.6 K/mm3 (1.8-7.8); Neutrophils % 75.7 % (37.0-80.0); Platelet Count 393 K/mm3 (142-424); Red Blood Count 3.85 M/mm3 (4.20-5.40); Red Cell Distribution Width 17.3 % (11.5-17.5); White Blood Count 6.1 K/mm3 (4.8-10.8)
[2020-02-23 08:41] LABS: Anion Gap 9.6 mEq/L (5-15); Blood Urea Nitrogen 6 mg/dl (7-17); Calcium 8.8 mg/dl (8.4-10.2); Carbon Dioxide 31 mmol/L (22.0-30.0); Creatinine Clearance Estimated 145 mL/min (50-200); Estimated Glomerular Filt Rate 108 ml/min (>60); GFR (African American) 130 ML/MIN (>60); Glucose 106 mg/dl (74-100)
--- NOTE | 2020-02-23 08:56 | HMH.ACPN2 ---
Internal Medicine - PN: Subj *Date: 02/23/20 *Time: 09:01 Interval history: 44-year-old female patient resting in bed quietly she reports that she does feel better today with less abdominal pain. She did receive 2 units of packed red blood cells for an H/H of 8/24.5, currently H/H post infusion is 10.6/32.5. She also has received potassium during the night potassium currently 3.6. Plan for today is EGD and possible colonoscopy in the afternoon Abd/Pelvis CT: IMPRESSION: 1. Medium sized pericardial effusion now with some enhancement of the pericardium. This does raises suspicion of pericarditis. The pericardial effusion has increased in size. 2. Small bilateral pleural effusions with bibasilar atelectasis. 3. 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 The cecum lies to the left of midline in the pelvic area. 4. Periportal and retroperitoneal adenopathy not significantly changed 5. Mild hepatosplenomegaly with small amount of ascites Dictated by: [facility] has seen and recommends: 1. Pericardial effusion, moderate in size which has increased in the last month. Preliminary reading shows no significant evidence of pericardial tamponade. Official reading is pending. We will continue to follow clinically and consider repeating limited echo later this week. 2. Iron deficiency anemia with hemoglobin dropped from 12.8 down to 8.0 in the last month but without apparent GI etiology. Recommend transfusion to get hemoglobin greater than 10 to help with patient's shortness of breath. 3. Hypokalemia, improving with supplementation. Recommend stopping hydrochlorothiazide. 4. Hyponatremia, improving. Recommend stopping hydrochlorothiazide. 5. History of hepatitis 6. History of drug use, now in Suboxone clinic currently and reportedly drug-free for 9 months. 7. Hypothyroidism, on supplementation. 8. Recurrent history of constipation, possibly exacerbated by hydrochlorothiazide, Remeron, Effexor and Seroquel. Exam Vital signs and Labs for Last 24 Hours: Temp Pulse Resp BP Pulse Ox 98.4 F 104 H 19 102/68 L 96 02/23/20 07:57 02/23/20 07:57 02/23/20 07:57 02/23/20 07:57 02/23/20 07:57 Laboratory Results - last 24 hr 02/21/20 16:29: Blood Type A Positive, Antibody Screen Positive, Crossmatch (AHG) See Detail 02/21/20 16:29: Antibody Identification Warm Auto Antibody 02/22/20 07:55: WBC 5.4, RBC 2.98 L, Hgb 8.0 L, Hct 24.5 L, MCV 82.2, MCH 27.0, MCHC 32.9, RDW 17.4, Plt Count 384, MPV 7.6, Neut % (Auto) 75.9, Lymph % (Auto) 15.3, [place] % (Auto) 7.9, Eos % (Auto) 0.7, Baso % (Auto) 0.2, Neut # (Auto) 4.1, Lymph # (Auto) 0.8, [place] # (Auto) 0.4, Eos # (Auto) 0.0, Baso # (Auto) 0.0 02/22/20 07:55: Blood Type Confirm A Positive 02/22/20 22:27: Sodium 130 L, Potassium 3.1 L, Chloride 92 L, Carbon Dioxide 32 H, Anion Gap 9.1, BUN 7, Creatinine 0.60, Estimated Creat Clear 138, Estimated GFR 108, Est GFR ( Amer) 130, Glucose 121 H, Calcium 8.3 L 02/23/20 08:24: Sodium 132 L, Potassium 3.6, Chloride 95 L, Carbon Dioxide 31 H, Anion Gap 9.6, BUN 6 L, Creatinine 0.60, Estimated Creat Clear 145, Estimated GFR 108, Est GFR ( Amer) 130, Glucose 106 H, Calcium 8.8 02/23/20 08:24: WBC 6.1, RBC 3.85 L D, Hgb 10.6 L, Hct 32.5 L, MCV 84.5, MCH 27.6, MCHC 32.6, RDW 17.3, Plt Count 393, MPV 7.3 L, Neut % (Auto) 75.7, Lymph % (Auto) 12.1, [place] % (Auto) 11.2 H, Eos % (Auto) 0.5, Baso % (Auto) 0.6, Neut # (Auto) 4.6, Lymph # (Auto) 0.7, [place] # (Auto) 0.7, Eos # (Auto) 0.0, Baso # (Auto) 0.0 I & O for Last 24 hours: Intake & Output 02/20/20 02/21/20 02/22/20 02/23/20 23:59 23:59 23:59 23:59 Intake Total 1043 / 1043 1189 / 1189 Output Total 650 / 650 Balance 393 / 393 1189 / 1189 Weight 164 lb 172 lb 5 oz - Constitutional no acute distress - *Routine HEENT Exam Head: Present: normocephalic ENT: Present: mucous membranes dry - *Routine Neck Exam Present: trachea midl
--- NOTE | 2020-02-23 09:44 | HMH.PNCARD ---
Subjective Date: 02/23/20 Time: 09:00 Principal diagnosis: pericardial effusion, sob Interval history: This is a 44-year-old female who was admitted from the [facility] clinic with abnormal labs, abdominal pain with a history of constipation, shortness of breath and worsening pericardial effusion. The patient did receive 2 units of packed red blood cells yesterday for anemia and her H&H have improved. She was also hypokalemic and her potassium has normalized overnight at 3.6. She is still complaining of a smothering sensation. She states that she is extremely short of breath which is worse when she is exerting herself. It does improve with rest but she still feels like she is smothering all the time. She denies any chest pain or pressure. She states that she does have associated edema in her lower extremities. She denies any fever, chills or or diarrhea. She does have some nausea and constipation as mentioned above. She does have abdominal pain. She does have orthopnea with her smothering sensation as well. Exam Vital signs and Labs for Last 24 Hours: Temp Pulse Resp BP Pulse Ox 98.4 F 104 H 19 102/68 L 96 02/23/20 07:57 02/23/20 07:57 02/23/20 07:57 02/23/20 07:57 02/23/20 07:57 Laboratory Results - last 24 hr 02/21/20 16:29: Blood Type A Positive, Antibody Screen Positive, Crossmatch (AHG) See Detail 02/21/20 16:29: Antibody Identification Warm Auto Antibody 02/22/20 07:55: Blood Type Confirm A Positive 02/22/20 22:27: Sodium 130 L, Potassium 3.1 L, Chloride 92 L, Carbon Dioxide 32 H, Anion Gap 9.1, BUN 7, Creatinine 0.60, Estimated Creat Clear 138, Estimated GFR 108, Est GFR ( Amer) 130, Glucose 121 H, Calcium 8.3 L 02/23/20 08:24: Sodium 132 L, Potassium 3.6, Chloride 95 L, Carbon Dioxide 31 H, Anion Gap 9.6, BUN 6 L, Creatinine 0.60, Estimated Creat Clear 145, Estimated GFR 108, Est GFR ( Amer) 130, Glucose 106 H, Calcium 8.8 02/23/20 08:24: WBC 6.1, RBC 3.85 L D, Hgb 10.6 L, Hct 32.5 L, MCV 84.5, MCH 27.6, MCHC 32.6, RDW 17.3, Plt Count 393, MPV 7.3 L, Neut % (Auto) 75.7, Lymph % (Auto) 12.1, [place] % (Auto) 11.2 H, Eos % (Auto) 0.5, Baso % (Auto) 0.6, Neut # (Auto) 4.6, Lymph # (Auto) 0.7, [place] # (Auto) 0.7, Eos # (Auto) 0.0, Baso # (Auto) 0.0 I & O for Last 24 hours: Intake & Output 02/20/20 02/21/20 02/22/20 02/23/20 23:59 23:59 23:59 23:59 Intake Total 1043 / 1043 1189 / 1189 Output Total 650 / 650 Balance 393 / 393 1189 / 1189 Weight 164 lb 172 lb 5 oz Narrative: CT of her abdomen shows: 1. Medium sized pericardial effusion now with some enhancement of the pericardium. This does raises suspicion of pericarditis. The pericardial effusion has increased in size. 2. Small bilateral pleural effusions with bibasilar atelectasis. 3. 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 The cecum lies to the left of midline in the pelvic area. 4. Periportal and retroperitoneal adenopathy not significantly changed 5. Mild hepatosplenomegaly with small amount of ascites Echocardiogram yesterday shows: 1. Normal left ventricular size, preserved left ventricular systolic function, visually estimated ejection fraction 55% with no regional wall motion abnormality, diastolic parameters are inconclusive. Tissue Doppler was not performed. 2. Moderate to large size circumferential pericardial effusion, there is abnormal septal motion consistent with ventricular interdependence, there is variation in the mitral inflow and tricuspid inflow velocity raising the concerns for raised intrapericardial pressure. Clinical correlation is recommended. Serial echocardiograms are recommended. Telemetry strip today shows sinus rhythm with a rate of 100. - Constitutional no acute distress, obese - *Routine HEENT Exam Head: Present: normocephalic, atraumatic Eye: Present: EOMI, PERRL ENT: Present: mucous membranes moist - *Routine Neck Exam Present: supple, fu
--- NOTE | 2020-02-23 10:22 | HMH.DCSUM ---
General - General Admission date:: 02/21/20 Discharge date: 02/23/20 HPI HPI: this pt presented to the ed - pt was noted to have abn labs and was sent to the ed -4-year-old female who presents to the emergency department for abnormal labs. She had blood work drawn at her [facility] clinic 4 days ago and was called back and told that her potassium and blood levels were low when to come to the emergency room. She denies any known source of bleeding including no hematemesis, hematochezia or melena. She does struggle with frequent constipation, but was seen here in the emergency room for that yesterday with successful production of stool and improved symptoms. She still has a mild amount of abdominal cramping, but feels generally better. She does not take any blood thinners, but does report a history of anemia in the past. She has never had to have a blood transfusion. She does have a history of hepatitis C, but no known renal problems. pt was admitted for treatment Hospital Course Hospital Course: 44-year-old female patient presented to the emergency room after receiving call from [facility] clinic after labs drawn, they reported she needed to go to the emergency room for low potassium and low hemoglobin/hematocrit. Upon presentation to the emergency room potassium was 2.3 hemoglobin/hematocrit was 8.8/26.4. Patient does have a history of constipation and denied any blood in stool. She does report taking Suboxone and being drug-free for 9 months she does not take any blood thinners, is positive for hepatitis C, but has no known renal problems hemoglobin then further decreased to 8 and patient was transfused 2 units of packed red blood cells post infusion hemoglobin 10.6 hematocrit 32.5. Potassium has been replaced and currently 3.6. General Surgery seen and recommendations: Constipation and anemia. I do feel that it would be reasonable to proceed with colonoscopy and potentially panendoscopy. I will plan to obtain a CT of the abdomen and pelvis as she had previously had merely a KUB several weeks ago for evaluation. Tentatively would consider bowel prep today with colonoscopy and possible upper endoscopy tomorrow. Patient was scheduled to have EGD today and possible colonoscopy 02/22/20 Abd/Pelvis CT: IMPRESSION: 1. Medium sized pericardial effusion now with some enhancement of the pericardium. This does raises suspicion of pericarditis. The pericardial effusion has increased in size. 2. Small bilateral pleural effusions with bibasilar atelectasis. 3. 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 The cecum lies to the left of midline in the pelvic area. 4. Periportal and retroperitoneal adenopathy not significantly changed 5. Mild hepatosplenomegaly with small amount of ascites Dictated by: Evan, 02/22/20 ECHO: Conclusion 1. Normal left ventricular size, preserved left ventricular systolic function, visually estimated ejection fraction 55% with no regional wall motion abnormality, diastolic parameters are inconclusive. Tissue Doppler was not performed. 2. Moderate to large size circumferential pericardial effusion, there is abnormal septal motion consistent with ventricular interdependence, there is variation in the mitral inflow and tricuspid inflow velocity raising the concerns for raised intrapericardial pressure. Clinical correlation is recommended. Serial echocardiograms are recommended. Electronically signed by : Lambert Mccormick, Cardiology rec: Plan: 1. The patient was admitted to the hospital for lab abnormalities, constipation with abdominal pain and shortness of breath with a pericardial effusion. Her repeat echocardiogram yesterday showed worsening of her pericardial effusion. It is now moderate to large. There is abnormal septal motion consistent with ventricular interdependence as well as variation in the mitral inflow and tricuspid inflow velocity vince
--- NOTE | 2020-02-23 10:42 | HMH.GSPN ---
Subjective Narrative: Patient took full 4 L GoLYTELY bowel prep yesterday evening and had a couple of hard stools. She has been seen by cardiology. Progress Note: A&P (1) Pericardial effusion Status: Acute Current Visit: No (2) Acute anemia Status: Acute Current Visit: Yes (3) Hyponatremia Status: Acute Current Visit: Yes (4) Hypokalemia Status: Resolved Current Visit: Yes (5) Hepatitis C Status: Acute Current Visit: Yes (6) Hypothyroidism Status: Chronic Current Visit: No (7) History of drug use Status: Chronic Current Visit: Yes (8) Constipation Status: Acute Current Visit: No Assessment and Plan for All Diagnoses:: At this point priority is her pericardial effusion. I would not pursue urgent colonoscopy at this time as this is likely functional etiology. Regarding her anemia, this may not be GI etiology due to the fact that she has Hemoccult negativity. Therefore I recommend proceeding with transfer for cardiology reasons. She may follow-up as an outpatient for colonoscopy and hematology evaluation. Exam Vital signs and Labs for Last 24 Hours: Temp Pulse Resp BP Pulse Ox 98.4 F 104 H 19 102/68 L 96 02/23/20 07:57 02/23/20 07:57 02/23/20 07:57 02/23/20 07:57 02/23/20 07:57 Laboratory Results - last 24 hr 02/21/20 16:29: Blood Type A Positive, Antibody Screen Positive, Crossmatch (AHG) See Detail 02/21/20 16:29: Antibody Identification Warm Auto Antibody 02/22/20 07:55: Blood Type Confirm A Positive 02/22/20 22:27: Sodium 130 L, Potassium 3.1 L, Chloride 92 L, Carbon Dioxide 32 H, Anion Gap 9.1, BUN 7, Creatinine 0.60, Estimated Creat Clear 138, Estimated GFR 108, Est GFR ( Amer) 130, Glucose 121 H, Calcium 8.3 L 02/23/20 08:24: Sodium 132 L, Potassium 3.6, Chloride 95 L, Carbon Dioxide 31 H, Anion Gap 9.6, BUN 6 L, Creatinine 0.60, Estimated Creat Clear 145, Estimated GFR 108, Est GFR ( Amer) 130, Glucose 106 H, Calcium 8.8 02/23/20 08:24: WBC 6.1, RBC 3.85 L D, Hgb 10.6 L, Hct 32.5 L, MCV 84.5, MCH 27.6, MCHC 32.6, RDW 17.3, Plt Count 393, MPV 7.3 L, Neut % (Auto) 75.7, Lymph % (Auto) 12.1, [place] % (Auto) 11.2 H, Eos % (Auto) 0.5, Baso % (Auto) 0.6, Neut # (Auto) 4.6, Lymph # (Auto) 0.7, [place] # (Auto) 0.7, Eos # (Auto) 0.0, Baso # (Auto) 0.0 I & O for Last 24 hours: Intake & Output 02/20/20 02/21/20 02/22/20 02/23/20 11:59 11:59 11:59 11:59 Intake Total 563 / 563 1669 / 1669 Output Total 650 / 650 Balance 563 / 563 1019 / 1019 Weight 164 lb 172 lb 5 oz
--- NOTE | 2020-02-23 12:18 | PC.NURSE ---
Spoke with Rachid Olesn APRN and clarified diet order since pt is going to transferred to [facility] when bed becomes available. He stated to stick with clear liquids at this time. Have made pt aware of this. Pt is sitting up in bed at this time. Continues on tele. C in reach. Fluids - NS w/ 40 K, infusing per sep. Lungs diminished in bases. Heart mumur noted. MX continues. Awaiting update on bed for transfer to [facility] at this time.
--- NOTE | 2020-02-23 18:49 | PC.NURSE ---
Called and spoke with Jeny at in RE to bed assisgnment and she stated it should be within the hr there should be a bed available and they would be calling us. Provided direct number.
--- NOTE | 2020-02-23 22:01 | PC.NURSE ---
A&0X4. PT SITTING UP IN BED, TOLERATING RA WELL, O2SAT WNL BUT PT EXPERIENCING SOME SOA WHEN WALKING IN ROOM. PT HAS HAD NO C/O PAIN THUS FAR THIS SHIFT. VSS. REPORT CALLED TO [facility] AT [phone]. TYLER TO GET PT, PT LEFT AT [id number]. PT STABLE, VSS, NO COMPLAINTS UPON D/C.
--- NOTE | 2020-02-26 19:30 | PC.NURSE ---
Late entry: 02/23/2020 Blood unit [id number] was verified and witnessed by myself and Melanie Arana RN. Both nurses noted patients identifiers and blood unit identifiers and concurred that all information was correct prior to transfusion.
== END 2020-02-23 21:37 | disposition short-term general hospital (02) | DRG 315 ==
LOC: ER 17:15 → 2ND 20:13
PROVIDERS: Nurse Practitioner Family; Surgery; Admitting Provider Internal Medicine Adolescent Medicine; Emergency Provider Emergency Medicine; PCP Emergency Medicine; Visit Provider Emergency Medicine
PROC: 0DJ08ZZ Inspection of Upper Intestinal Tract, Via Natural or Artificial Opening Endoscopic (ICD-10-PCS; CPT 43235; principal; 2020-02-23 07:30)
DX: I30.9 Acute pericarditis, unspecified (principal); E87.1 Hypo-osmolality and hyponatremia; D50.9 Iron deficiency anemia, unspecified; Z72.0 Tobacco use; E87.6 Hypokalemia; B18.2 Chronic viral hepatitis C; E03.9 Hypothyroidism, unspecified; I10 Essential (primary) hypertension; K59.00 Constipation, unspecified; F11.21 Opioid dependence, in remission; Z88.8 Allergy status to other drugs, medicaments and biological substances; Z79.899 Other long term (current) drug therapy; Z79.52 Long term (current) use of systemic steroids
CPT/HCPCS: 36415; 74177; 80048; 80053; 82272; 82728; 83540; 83550; 83735; 84100; 85025; 85610; 85651; 86140; 86850; 86870; 93005; 93308; 96365; 99282; 99284; 99285; G0328; J0574; P9016; Q9967; U0003

== ENCOUNTER → 2020-08-28 07:56 | Outpatient (CLI) | payer MEDICAID, SELFPAY ==
[2020-08-28 08:04] LABS: Microscopic, Urine URINE MICROSCOPIC (MICROSCOPIC)
[2020-08-28 08:23] LABS: Appearance,Urine CLEAR (Clear); Bilirubin,Urine Negative (Negative); Blood, Urine Negative (Negative); Color,Urine YELLOW (Yellow); Glucose,Urine (UA) Negative (Negative); Ketones,Urine Negative (Negative); Leukocyte Esterase,Urine 2+ (Negative); Nitrate,Urine Negative (Negative); Protein,Urine Negative (Negative); Specific Gravity, Urine 1.015 (1.005-1.030); Urobilinogen,Urine 0.2 EU/dl (0.2)
[2020-08-28 08:28] LABS: Basophils % 0.4 % (0.1-2.0); Eosinophils # 0.1 K/mm3 (0.0-0.4); Eosinophils % 1.1 % (0.1-12.0); Hematocrit 39.5 % (37.0-47.0); Hemoglobin 12.5 g/dL (12.2-16.2); Lymphocytes % 21.1 % (10-50); Mean Corpuscular HGB Conc 31.7 g/dL (31.8-35.4); Mean Corpuscular Hemoglobin 26.9 pg (27.0-31.2); Mean Corpuscular Volume 84.6 fl (81-99); Mean Platelet Volume 7.1 fl (7.4-10.4); Monocytes # 0.2 K/mm3 (0.1-1.0); Monocytes % 4.1 % (1.7-9.3); Neutrophils # 3.5 K/mm3 (1.8-7.8); Neutrophils % 73.3 % (37.0-80.0); Platelet Count 374 K/mm3 (142-424); Red Blood Count 4.67 M/mm3 (4.20-5.40); Red Cell Distribution Width 16.3 % (11.5-17.5); White Blood Count 4.8 K/mm3 (4.8-10.8)
[2020-08-28 08:34] LABS: Creatinine,Urine Random 7 mg/dL (Not Estab.)
[2020-08-28 08:36] LABS: Bacteria,Urine 1+ /lpf
[2020-08-28 08:58] LABS: Albumin Level 4.5 g/dl (3.5-5.0); Chloride 94 mmol/L (98-107); Potassium 3.1 mmoL/L (3.5-5.1); Sodium 140 mmol/L (136-145)
[2020-08-28 09:00] LABS: Blood Urea Nitrogen 15 mg/dl (7-17); Estimated Glomerular Filt Rate 77 ml/min (>60); GFR (African American) 93 ML/MIN (>60)
[2020-08-28 09:01] LABS: Calcium 10.3 mg/dl (8.4-10.2); Glucose 158 mg/dl (74-100)
[2020-08-28 09:08] LABS: Anion Gap 12.1 mEq/L (5-15); Carbon Dioxide 37 mmol/L (22.0-30.0)
== END ==
PROVIDERS: Visit Provider Nurse Practitioner
DX: D64.9 Anemia, unspecified (principal); N28.9 Disorder of kidney and ureter, unspecified
CPT/HCPCS: 36415; 80069; 81001; 82570; 84155; 85025; 87086

== ENCOUNTER 2021-01-22 13:25 | Emergency (ER) | payer MEDICAID, SELFPAY ==
[2021-01-22 13:30] VITALS: BP 135/82; PULSE 84; RESP 22; TEMP 36.6; O2SAT 99; BMI 23.7
--- NOTE | 2021-01-22 14:03 | HMH.EDUTC ---
[facility] [place] Clinical Impression: Skin abscess Qualifiers: Site of cutaneous abscess: unspecified site Qualified Code(s): L02.91 - Cutaneous abscess, unspecified Disposition: Home, Self-Care Condition on Discharge: Good Instructions: Clindamycin, Mupirocin, DI for Skin Abscess Additional Instructions: Keep areas clean and dry Apply Topical antibiotic to area on right lower leg Take oral antibiotics as prescribed Follow up with your Family Doctor if no improvement or any worsening of symptoms Return if needed Straight to ER if any life threatening symptoms Prescriptions: clindamycin HCL [Clindamycin HCl] 300 mg PO Q8 7 Days #21 cap Transmission Status: Received by [facility] Mupirocin Calcium [Mupirocin 2% Cream 15gm] 1 applicatio TP TID 10 Days #1 tube Transmission Status: Received by [facility] Referrals: Ge Burton MD [Primary Care Provider] - Time of Disposition: 14:12 Medical Decision Making - Lauro Inquiry Pt receiving controlled substance: No Lauro was queried for this patient: No Vital Signs: 01/22/21 13:30 01/22/21 14:12 Temperature 97.8 F 97.8 F Temperature Source Oral Pulse Rate 84 Pulse Rate [Right Brachial] 84 Respiratory Rate 22 22 Blood Pressure 135/82 Blood Pressure [Right Arm] 135/82 Blood Pressure Mean [Right Arm] 99 Blood Pressure Source [Right Arm] Automatic Cuff Blood Pressure Position [Right Arm] Sitting 02 Sat by Pulse Oximetry 99 Oxygen Delivery Method Room Air Orders (Tests/Meds): ORDERS Category Date Time Status Wound Culture and Gram Stain Stat Micro 01/22/21 14:05 [place] [facility] [place] - General Stated complaint: blisters on legs Time Seen by Provider: 01/22/21 14:03 Mode of Arrival: Ambulatory Source of Information: Patient Limitations: No Limitations Description of Symptoms (Recalled from Triage Doc. by RN): PATIENT C/O RASH TO BILATERAL LEGS X 1 WEEK HEENT Symptoms (Recalled from RN notes): No Resp Symptoms (Recalled from RN notes): No Skin Symptoms (Recalled from RN notes): Yes MS Symptoms (Recalled from RN notes): No Functional Status (Recalled from RN notes): WNL - History of Present Illness Provider Complaint: Patient states that she has been getting little hard red areas on her skin and they they will get a blister and pop States that she has one that is open on her lower leg and it popped and draining States that she was told that she may need some antibiotics States that she was a previous IV drug user but hasnt used in a little while - Related Data Home Medications Medication Instructions Recorded Confirmed Albuterol Sulfate [Proventil Hfa] 1 puff IH Q6HP PRN 01/20/20 07/21/20 buprenorphine 8 mg-naloxone 2 mg 2 tab SL DAILY tab 01/20/20 07/21/20 sublingual tablet fluticasone propionate 110 2 puff INHALATION BID 03/14/20 07/21/20 mcg/actuation HFA aerosol inhaler acetaminophen 325 mg capsule 325 mg PO QID PRN 04/10/20 07/21/20 Previous Rx's Medication Instructions Recorded ondansetron HCl 4 mg tablet 4 mg PO TID PRN #30 tab 02/01/20 promethazine 25 mg tablet 25 mg PO Q12H PRN #20 tab 04/14/20 hydroxyzine pamoate 50 mg capsule 50 mg PO TID #90 cap 04/26/20 levothyroxine 25 mcg tablet See Rx Instructions .ROUTE 05/08/20 .COMPLEX #90 tab melatonin 5 mg capsule 5 mg PO QHS #90 cap 05/08/20 mirtazapine 15 mg tablet 15 mg PO DAILY #90 tab 05/08/20 omeprazole 20 mg capsule,delayed See Rx Instructions .ROUTE 05/08/20 release .COMPLEX #90 cap quetiapine 100 mg tablet 100 mg PO DAILY #90 tab 05/08/20 quetiapine 25 mg tablet 25 mg PO DAILY #90 tab 05/08/20 venlafaxine 150 mg 150 mg PO DAILY #90 cap 05/08/20 capsule,extended release 24 hr nicotine 14 mg/24 hr daily See Rx Instructions .ROUTE 07/17/20 transdermal patch .COMPLEX #28 patch hydrochlorothiazide 12.5 mg tablet 12.5 mg PO DAILY #90 tab 07/21/20 fluticasone furoate 100 See Rx Instructions .ROUTE 09/15/20 mcg/actuation blister powder
[2021-01-22 14:12] VITALS: BP 135/82; PULSE 84; RESP 22; TEMP 36.6; O2SAT 99
== END 2021-01-22 14:15 | disposition home or self-care (01) ==
PROVIDERS: Emergency Provider Nurse Practitioner; PCP Emergency Medicine
DX: L02.416 Cutaneous abscess of left lower limb (principal); L02.415 Cutaneous abscess of right lower limb; L02.413 Cutaneous abscess of right upper limb; I10 Essential (primary) hypertension; F41.9 Anxiety disorder, unspecified; F17.210 Nicotine dependence, cigarettes, uncomplicated
CPT/HCPCS: 87070; 87077; 87186; 87205; 99202; G0463

== ENCOUNTER → 2021-03-14 12:02 | Outpatient (CLI) | payer MEDICAID, SELFPAY | PROVIDERS: PCP Emergency Medicine; Visit Provider Emergency Medicine | DX: Z20.822 Contact with and (suspected) exposure to COVID-19 (principal) | CPT/HCPCS: U0003 ==

== ENCOUNTER → 2021-04-17 14:12 | Outpatient (CLI) | payer MEDICAID, SELFPAY ==
[2021-04-17 14:46] LABS: Basophils % 0.6 % (0.1-2.0); Eosinophils # 0.1 K/mm3 (0.0-0.4); Eosinophils % 1.2 % (0.1-12.0); Hematocrit 41.5 % (37.0-47.0); Hemoglobin 12.9 g/dL (12.2-16.2); Lymphocytes % 22.4 % (10-50); Mean Corpuscular HGB Conc 31.2 g/dL (31.8-35.4); Mean Corpuscular Hemoglobin 25.3 pg (27.0-31.2); Mean Corpuscular Volume 81.3 fl (81-99); Monocytes # 0.2 K/mm3 (0.1-1.0); Neutrophils # 3.3 K/mm3 (1.8-7.8); Neutrophils % 71.9 % (37.0-80.0); Platelet Count 374 K/mm3 (142-424); Red Cell Distribution Width 16.5 % (11.5-17.5); White Blood Count 4.6 K/mm3 (4.8-10.8)
[2021-04-17 16:48] LABS: Free T4 (Free Thyroxine) 1.13 ng/dl (0.78-2.19)
[2021-04-17 16:50] LABS: 25-OH Vitamin D, Total 20.4 ng/mL (30-100)
[2021-04-17 17:24] LABS: Chloride 95 mmol/L (98-107); Potassium 3.3 mmoL/L (3.5-5.1); Sodium 138 mmol/L (136-145)
[2021-04-17 17:27] LABS: Alanine Aminotransferase 49 U/L (12-78); Albumin Level 3.5 g/dl (3.5-5.0); Albumin/Globulin Ratio 0.9 (1.1-1.8); Alkaline Phosphatase 274 U/L (38-126); Anion Gap 11.3 mEq/L (5-15); Aspartate Amino Transferase 116 U/L (14-36); Bilirubin,Total 0.7 mg/dl (0.2-1.3); Blood Urea Nitrogen 10 mg/dl (7-17); Calcium 9.2 mg/dl (8.4-10.2); Carbon Dioxide 35 mmol/L (22.0-30.0); Estimated Glomerular Filt Rate 107 ml/min (>60); GFR (African American) 129 ML/MIN (>60); Globulin 3.9 g/dL (1.3-3.2); Glucose 133 mg/dl (74-100); Total Protein,Serum 7.4 g/dl (6.3-8.2)
== END ==
PROVIDERS: Visit Provider Emergency Medicine
DX: E03.9 Hypothyroidism, unspecified (principal); E55.9 Vitamin D deficiency, unspecified; E87.6 Hypokalemia
CPT/HCPCS: 80053; 82306; 84439; 84443; 85025

== ENCOUNTER → 2021-05-29 15:13 | Outpatient (CLI) | payer MEDICAID, SELFPAY | PROVIDERS: PCP Emergency Medicine; Visit Provider Internal Medicine Cardiovascular Disease | DX: R06.00 Dyspnea, unspecified (principal); R07.9 Chest pain, unspecified; R00.0 Tachycardia, unspecified; I31.3 Pericardial effusion (noninflammatory); I31.9 Disease of pericardium, unspecified; B18.2 Chronic viral hepatitis C; K20.90 Esophagitis, unspecified without bleeding; Z72.0 Tobacco use; Z87.898 Personal history of other specified conditions; Z98.890 Other specified postprocedural states | CPT/HCPCS: 93306 ==

== ENCOUNTER → 2021-06-11 07:10 | Outpatient (CLI) | payer MEDICAID, SELFPAY ==
[2021-06-11 07:13] LABS: Coronavirus 19, PCR Not Detected (NotDetected); Influenza A, PCR Not Detected (NotDetected); Influenza B, PCR Not Detected (NotDetected)
[2021-06-11 15:52] LABS: CATHL Venous O2 SAT 74.5 % (75-80)
== END ==
PROVIDERS: Visit Provider Internal Medicine
DX: Z01.812 Encounter for preprocedural laboratory examination (principal); R06.00 Dyspnea, unspecified; I27.20 Pulmonary hypertension, unspecified
CPT/HCPCS: 82810; C9803; U0003; U0005

== ENCOUNTER 2021-06-11 08:29 | Day surgery (SDC) | payer MEDICAID, SELFPAY ==
[2021-06-11] VITALS (13 sets, daily range): BP systolic 104–120; BP diastolic 59–74; PULSE 81–88; RESP 16; TEMP 36.7–36.8; O2SAT 91–95; BMI 27.6
--- NOTE | 2021-06-11 07:17 | IR_ITS ---
APPROVED REPORT Patient Location: Outpatient Hand Hose Cutter: AIDAN Canseco RT (R) PROCEDURES Right heart catheterization Informed consent was obtained prior to the procedure. COMPLICATIONS NONE Estimated Blood Loss: LESS THAN 10 ML TECHNIQUE One percent lidocaine was used to anesthetize the right anterior aspect of the neck. A byproducts operator needle was used to identify the right internal jugular vein. Following this a larger cannulation needle was used to cannulate the right internal jugular vein and a wire was passed into the vein. Prior to the 7 Brazilian sheath being inserted the wire was confirmed under fluoroscopic guidance to be in the inferior vena cava. A 7 Brazilian sheath was introduced and a Patterson-Jeff catheter was floated using hemodynamic waveforms in the pulmonary artery, right ventricle , and right atrium. Saturations were obtained in the pulmonary artery and the right atrium. At the end of the procedure the patient was transferred to the postop holding area in stable condition for sheath removal. ANGIOGRAPHIC RESULTS Right atrial pressure 4 mmHg Pulmonary pressure 30/15 mmHg Pulmonary occlusion pressure 11 mmHg Right atrial saturation 74% Pulmonary artery saturation 76% IMPRESSION Borderline normal intracardiopulmonary filling pressures PLAN 1. Medical management Electronically signed by : Louis Farfan MD 06/15/2021 11:03:15
[2021-06-11 09:16] LABS: Basophils % 0.4 % (0.1-2.0); Eosinophils # 0.1 K/mm3 (0.0-0.4); Eosinophils % 1.4 % (0.1-12.0); Hematocrit 38.7 % (37.0-47.0); Hemoglobin 12.7 g/dL (12.2-16.2); Lymphocytes # 0.8 K/mm3 (0.7-4.5); Lymphocytes % 16.1 % (10-50); Mean Corpuscular HGB Conc 32.9 g/dL (31.8-35.4); Mean Corpuscular Hemoglobin 26.2 pg (27.0-31.2); Mean Corpuscular Volume 79.7 fl (81-99); Mean Platelet Volume 7.1 fl (7.4-10.4); Monocytes # 0.2 K/mm3 (0.1-1.0); Monocytes % 4.2 % (1.7-9.3); Neutrophils # 3.8 K/mm3 (1.8-7.8); Neutrophils % 77.9 % (37.0-80.0); Platelet Count 379 K/mm3 (142-424); Red Blood Count 4.86 M/mm3 (4.20-5.40); Red Cell Distribution Width 16.1 % (11.5-17.5); White Blood Count 4.8 K/mm3 (4.8-10.8)
[2021-06-11 09:23] LABS: Chloride 86 mmol/L (98-107); Potassium 3.1 mmoL/L (3.5-5.1); Sodium 133 mmol/L (136-145)
[2021-06-11 09:26] LABS: Blood Urea Nitrogen 9 mg/dl (7-17); Calcium 9.3 mg/dl (8.4-10.2); Creatinine Clearance Estimated 96 mL/min (50-200); Estimated Glomerular Filt Rate 77 ml/min (>60); GFR (African American) 93 ML/MIN (>60); Glucose 120 mg/dl (74-100)
[2021-06-11 09:34] LABS: Anion Gap 14.1 mEq/L (5-15); Carbon Dioxide 36 mmol/L (22.0-30.0)
== END 2021-06-11 13:58 | disposition home or self-care (01) ==
LOC: CATHLAB 08:31
PROVIDERS: PCP Emergency Medicine; Visit Provider Internal Medicine
DX: I27.20 Pulmonary hypertension, unspecified (principal); R06.02 Shortness of breath; I50.33 Acute on chronic diastolic (congestive) heart failure; Z79.899 Other long term (current) drug therapy; F17.210 Nicotine dependence, cigarettes, uncomplicated
CPT/HCPCS: 80048; 85025; 93451; 99152; C1894; J1644

== ENCOUNTER → 2021-12-25 16:05 | Outpatient (CLI) | payer MEDICAID, SELFPAY ==
[2021-12-25 14:05] LABS: Basophils % 0.5 % (0.1-2.0); Eosinophils % 0.4 % (0.1-12.0); Hematocrit 36.1 % (37.0-47.0); Hemoglobin 11.6 g/dL (12.2-16.2); Lymphocytes # 0.8 K/mm3 (0.7-4.5); Lymphocytes % 19.9 % (10-50); Mean Corpuscular Hemoglobin 27.9 pg (27.0-31.2); Mean Corpuscular Volume 87.2 fl (81-99); Mean Platelet Volume 9.7 fl (7.4-10.4); Monocytes # 0.4 K/mm3 (0.1-1.0); Neutrophils # 2.8 K/mm3 (1.8-7.8); Neutrophils % 69.2 % (37.0-80.0); Platelet Count 236 K/mm3 (142-424); Red Blood Count 4.15 M/mm3 (4.20-5.40); Red Cell Distribution Width 17.3 % (11.5-17.5)
[2021-12-25 14:12] LABS: Alanine Aminotransferase 22 U/L (12-78); Albumin Level 3.6 g/dl (3.5-5.0); Albumin/Globulin Ratio 0.9 (1.1-1.8); Alkaline Phosphatase 331 U/L (38-126); Anion Gap 12.9 mEq/L (5-15); Aspartate Amino Transferase 45 U/L (14-36); Bilirubin,Total 0.5 mg/dl (0.2-1.3); Blood Urea Nitrogen 8 mg/dl (7-17); Calcium 8.8 mg/dl (8.4-10.2); Carbon Dioxide 28 mmol/L (22.0-30.0); Chloride 99 mmol/L (98-107); Estimated Glomerular Filt Rate 107 ml/min (>60); GFR (African American) 129 ML/MIN (>60); Globulin 3.9 g/dL (1.3-3.2); Potassium 3.9 mmoL/L (3.5-5.1); Sodium 136 mmol/L (136-145); Total Protein,Serum 7.5 g/dl (6.3-8.2)
[2021-12-25 14:28] LABS: Free T4 (Free Thyroxine) 1.26 ng/dl (0.78-2.19)
[2021-12-25 14:40] LABS: Glucose 45 mg/dl (74-100)
[2021-12-25 14:43] LABS: Thyroid Stimulating Hormone 6.93 uIU/mL (0.465-4.68)
== END ==
PROVIDERS: Visit Provider Emergency Medicine
DX: R07.81 Pleurodynia (principal); M79.604 Pain in right leg; M79.605 Pain in left leg; G62.9 Polyneuropathy, unspecified; E66.3 Overweight
CPT/HCPCS: 80053; 84439; 84443; 85025

== ENCOUNTER → 2022-02-07 07:32 | Outpatient (CLI) | payer MEDICAID, SELFPAY ==
--- NOTE | 2022-02-07 07:33 | CA_ITS ---
FINAL REPORT CLINICAL HISTORY: dyspnea/leg swelling/pain FINDINGS: Color Doppler, duplex Doppler and compression sonography of the bilateral lower extremities was performed. There is no evidence of deep venous thrombosis from the level of the groin to the calf. The deep veins are patent and compressible. IMPRESSION: No evidence of deep venous thrombosis bilateral lower extremities. Reviewed, Interpreted and Dictated by Yann Orozco III, MD Transcribed by Kalie Barrow Authenticated and . [facility]
--- NOTE | 2022-02-07 07:33 | CA_ITS ---
APPROVED REPORT EXAM: Comprehensive 2D, Doppler, and color-flow Echocardiogram Tafe Registrar: Fozia Rai, RCS, RVS Ht: 5 ft 3 in Wt: 152lbs BSA: 1.72 BP: 126/74 mmHg Indications: CAD, SOB, Hx- drug use, Hx-periocarditis, Smoker, Hep-c, Murmur 2D Dimensions LVDd 4.66 cm LVEF (Visual) 41.30 % LVDs 3.72 cm LA Volume 64.40 mL Aortic Root 2.93 cm LA Volume Index 37.44 mL/m2 (M/F) 16-34 Left Atrium 3.42 cm LVOT 2.06 cm (M/F) 1.5-2.5 M-Mode Dimensions RVDd 2.42 cm (0.9-2.6) LA Diam 3.87 cm (1.9-4.0) LVDd 4.88 cm (3.5-5.7) Ao Diam 3.03 cm (2.0-3.7) LVDs 3.88 cm (3.5-5.7) IVSd 0.81 cm (0.6-1.1) PWd 0.87 cm (0.6-1.1) EF (Teich) 40.10% EPSs 1.41 cm FS 19.50% EDV (Teich) 108.60 mL TAPSE 1.49 (<1.7) ESV (Teich) 65.10 mL LV Diastology E Decel Time 187.00 (160-240 msec) E/A Ratio 1.22 MED E' 9.70 (< 7 cm/sec) MED A' 13.60 cm/s E'/MED E' Ratio 10.99 (>14) LAT E' 12.40 (<10 cm/sec) LAT A' 11.80 cm/s E/LAT E' Ratio 8.60 (>14) Aortic Valve LVOT Max 73.00 (70-110 cm/s) LVOT VTI 14.50 cm AoV Peak Jermaine. 117.00 (50-130 cm/s) AO Peak GR. 5.40 mmHg AO Mean GR. 2.70 (<5 mmHg) AO VTI 23.83 (18-25 cm) KIMBERLEE (VTI) 2.03 (2.5-4.5 cm2) Mitral Valve MV A Velocity 88.00 (40-130 cm/s) E/A Ratio 1.22 MV Decel. Time 187.00 (160-240 ms) MV Mean Gr. 2.50 (<2mmHg) MV PHT 60.00 ms Pulmonary Valve PV Peak Velocity 76.00 (50-150 cm/s) MD End VMAX 154.00 cm/s Tricuspid Valve TR P. Velocity 184.00 cm/s Left Ventricle Left atrium is normal size, left ventricle is normal size, estimated ejection fraction 50% with no regional wall motion abnormality, diastolic parameters are within normal range. Right Ventricle Right atrium and right ventricle are normal size and contractility. Aortic Valve Aortic valve is minimally thickened and fibrosed, there is no aortic stenosis aortic insufficiency. Mitral Valve Mitral valve is grossly normal, there is trace mitral regurgitation. Tricuspid Valve Tricuspid grossly normal, there is trace tricuspid regurgitation, tricuspid regurgitation jet velocity is inadequate for calculation of the right ventricular systolic pressure. Pulmonic Valve Pulmonic valve is poorly visualized. Great Vessels Aortic root is normal size. Inferior vena cava normal size normal inspiratory collapse. Pericardium No significant pericardial effusion noted. Conclusion 1. Normal left ventricular size, preserved left ventricular systolic function, estimated ejection fraction 50% with no regional wall motion abnormality, diastolic parameters are within normal range. 2. Trace mitral and tricuspid regurgitation. 3. No significant pericardial effusion. 4. Inferior vena cava normal size with normal inspiratory collapse. Electronically signed by : Lambert Mccormick MD 02/08/2022 14:21:37
== END ==
PROVIDERS: PCP Emergency Medicine; Visit Provider Physician Assistant
DX: R06.00 Dyspnea, unspecified (principal); R07.9 Chest pain, unspecified; M79.604 Pain in right leg; M79.605 Pain in left leg; M79.89 Other specified soft tissue disorders; B18.2 Chronic viral hepatitis C; I30.9 Acute pericarditis, unspecified; Z72.0 Tobacco use; Z87.898 Personal history of other specified conditions
CPT/HCPCS: 93306; 93970

== ENCOUNTER → 2022-03-22 10:20 | Outpatient (CLI) | payer MEDICAID, SELFPAY ==
[2022-03-22 18:58] LABS: Basophils % 0.1 % (0.1-2.0); Eosinophils % 0.5 % (0.1-12.0); Hematocrit 38.7 % (37.0-47.0); Hemoglobin 12.3 g/dL (12.2-16.2); Lymphocytes # 0.9 K/mm3 (0.7-4.5); Lymphocytes % 25.7 % (10-50); Mean Corpuscular HGB Conc 31.8 g/dL (31.8-35.4); Mean Corpuscular Hemoglobin 26.6 pg (27.0-31.2); Mean Corpuscular Volume 83.4 fl (81-99); Mean Platelet Volume 8.8 fl (7.4-10.4); Monocytes # 0.2 K/mm3 (0.1-1.0); Monocytes % 4.9 % (1.7-9.3); Neutrophils # 2.5 K/mm3 (1.8-7.8); Neutrophils % 68.8 % (37.0-80.0); Platelet Count 311 K/mm3 (142-424); Red Blood Count 4.63 M/mm3 (4.20-5.40); Red Cell Distribution Width 17.3 % (11.5-17.5); White Blood Count 3.7 K/mm3 (4.8-10.8)
[2022-03-22 19:35] LABS: Alanine Aminotransferase 27 U/L (12-78); Albumin Level 3.7 g/dl (3.5-5.0); Albumin/Globulin Ratio 0.9 (1.1-1.8); Alkaline Phosphatase 251 U/L (38-126); Anion Gap 16.1 mEq/L (5-15); Aspartate Amino Transferase 42 U/L (14-36); Blood Urea Nitrogen 9 mg/dl (7-17); Calcium 8.9 mg/dl (8.4-10.2); Carbon Dioxide 26 mmol/L (22.0-30.0); Chloride 100 mmol/L (98-107); Estimated Glomerular Filt Rate 107 ml/min (>60); GFR (African American) 129 ML/MIN (>60); Globulin 3.9 g/dL (1.3-3.2); Glucose 115 mg/dl (74-100); Potassium 4.1 mmoL/L (3.5-5.1); Sodium 138 mmol/L (136-145); Total Protein,Serum 7.6 g/dl (6.3-8.2)
[2022-03-22 19:36] LABS: Bilirubin,Total < 0.1 mg/dl (0.2-1.3)
[2022-03-22 19:51] LABS: Free T4 (Free Thyroxine) 1.48 ng/dl (0.78-2.19)
== END ==
PROVIDERS: PCP Emergency Medicine; Visit Provider Emergency Medicine
DX: E07.9 Disorder of thyroid, unspecified (principal); K92.1 Melena; E66.3 Overweight; Z68.26 Body mass index [BMI] 26.0-26.9, adult
CPT/HCPCS: 80053; 84439; 84443; 85025

== ENCOUNTER → 2022-04-12 09:50 | Outpatient (CLI) | payer MEDICAID, SELFPAY ==
--- NOTE | 2022-04-12 09:51 | US_ITS ---
FINAL REPORT CLINICAL HISTORY: elevated phosphatase FINDINGS: Sonographic images of the right upper quadrant were obtained. The pancreas is partially obscured.The liver has an unremarkable appearance. The gallbladder is surgically absent. The common bile duct measures 10 mm. This is of uncertain etiology but could be due to post cholecystectomy changes. Limited images of the right kidney are unremarkable. IMPRESSION: 10 mm common bile duct of uncertain etiology. Could be due to post cholecystectomy change. If indicated, MRCP may be helpful. Reviewed, Interpreted and Dictated by Yann Orozco III, MD Transcribed by Rachel Alarcon Authenticated and [facility]
== END ==
PROVIDERS: PCP Emergency Medicine; Visit Provider Emergency Medicine
DX: R74.8 Abnormal levels of other serum enzymes (principal)
CPT/HCPCS: 76705

== ENCOUNTER → 2022-07-30 12:01 | Outpatient (CLI) | payer MEDICAID, SELFPAY ==
[2022-07-30 13:21] LABS: Basophils % 0.4 % (0.1-2.0); Eosinophils % 0.9 % (0.1-12.0); Hematocrit 36.8 % (37.0-47.0); Hemoglobin 11.6 g/dL (12.2-16.2); Lymphocytes # 0.7 K/mm3 (0.7-4.5); Lymphocytes % 22.4 % (10-50); Mean Corpuscular HGB Conc 31.7 g/dL (31.8-35.4); Mean Corpuscular Hemoglobin 26.3 pg (27.0-31.2); Mean Corpuscular Volume 83.1 fl (81-99); Mean Platelet Volume 7.7 fl (7.4-10.4); Monocytes # 0.2 K/mm3 (0.1-1.0); Monocytes % 4.5 % (1.7-9.3); Neutrophils # 2.4 K/mm3 (1.8-7.8); Neutrophils % 71.7 % (37.0-80.0); Platelet Count 308 K/mm3 (142-424); Red Blood Count 4.42 M/mm3 (4.20-5.40); Red Cell Distribution Width 17.2 % (11.5-17.5); White Blood Count 3.3 K/mm3 (4.8-10.8)
[2022-07-30 13:33] LABS: Alanine Aminotransferase 15 U/L (12-78); Albumin Level 3.9 g/dl (3.5-5.0); Alkaline Phosphatase 149 U/L (38-126); Anion Gap 13.1 mEq/L (5-15); Aspartate Amino Transferase 26 U/L (14-36); Bilirubin,Direct 0.4 mg/dl (0.0-0.4); Bilirubin,Indirect 0.2 mg/dL (0.0-0.9); Bilirubin,Total 0.6 mg/dl (0.2-1.3); Bilirubin,Unconjugated 0.2 mg/dL (0.0-1.1); Blood Urea Nitrogen 10 mg/dl (7-17); Calcium 8.6 mg/dl (8.4-10.2); Carbon Dioxide 27 mmol/L (22.0-30.0); Chloride 103 mmol/L (98-107); Chol/HDL Ratio 3.4 (1-3.5); Cholesterol 104 mg/dl (140-200); Estimated Glomerular Filt Rate 89 ml/min (>60); GFR (African American) 108 ML/MIN (>60); Glucose 83 mg/dl (74-100); HDL Cholesterol 31 mg/dl (40-60); Potassium 4.1 mmoL/L (3.5-5.1); Sodium 139 mmol/L (136-145); Total Protein,Serum 7.9 g/dl (6.3-8.2); Triglycerides 70 mg/dl (30-150); VLDL Cholesterol 14 mg/dL (0-40)
[2022-07-30 13:43] LABS: Direct LDL Cholesterol 46.98 mg/dL (100-129)
[2022-07-30 13:50] LABS: Free T4 (Free Thyroxine) 1.82 ng/dl (0.78-2.19)
[2022-07-30 14:03] LABS: Thyroid Stimulating Hormone 3.38 uIU/mL (0.465-4.68)
== END ==
PROVIDERS: PCP Emergency Medicine; Visit Provider Nurse Practitioner Family
DX: R06.00 Dyspnea, unspecified (principal); I11.9 Hypertensive heart disease without heart failure; E11.9 Type 2 diabetes mellitus without complications; I63.9 Cerebral infarction, unspecified; I27.20 Pulmonary hypertension, unspecified; J44.9 Chronic obstructive pulmonary disease, unspecified; R07.9 Chest pain, unspecified
CPT/HCPCS: 36415; 80048; 80061; 80076; 84439; 84443; 85025

== ENCOUNTER → 2022-08-19 07:05 | Outpatient (CLI) | payer MEDICAID, SELFPAY | PROVIDERS: PCP Emergency Medicine; Visit Provider Nurse Practitioner Family | DX: R07.9 Chest pain, unspecified (principal) ==

== ENCOUNTER 2022-08-19 07:23 | Emergency (ER) | payer MEDICAID, SELFPAY ==
[2022-08-19] VITALS (10 sets, daily range): BP systolic 115–144; BP diastolic 69–89; PULSE 64–80; RESP 18–20; TEMP 36.4–37.1; O2SAT 97–100; BMI 25.7
--- NOTE | 2022-08-19 07:20 | ECG_ITS ---
APPROVED REPORT Exam: Resting ECG HR:71 bpm ECG Measurements Heart Rate 71 AXES FL 156 P 33 QRSd 89 QRS 35 QT 365 T -2 QTc 387 Conclusion SINUS RHYTHM LEFT ATRIAL ENLARGEMENT Late R wave progression, noted on prior tracings ABNORMAL ECG UNCONFIRMED REPORT Electronically signed by : Vega Renteria MD 08/19/2022 19:48:54
--- NOTE | 2022-08-19 07:28 | XR_ITS ---
FINAL REPORT CLINICAL HISTORY: chest pain COMPARISON: 09/02/2018 FINDINGS: PA and lateral views of the chest were obtained. The cardiac silhouette is normal. There has been interval median sternotomy. There are bilateral interstitial opacities, could represent edema or pneumonia. Spinal stimulator is seen posteriorly in the spinal canal. There is no pleural effusion or pneumothorax. No acute osseous abnormality is identified. IMPRESSION: Interstitial opacities, could represent edema or pneumonia. Reviewed, Interpreted and Dictated by Mariel Castaneda MD Transcribed by Kalie Barrow Authenticated and [facility]
--- NOTE | 2022-08-19 07:34 | PC.NURSE ---
pt transported to radiology via wheelchair
--- NOTE | 2022-08-19 07:40 | PC.NURSE ---
pt returned from radiology.
[2022-08-19 07:50] LABS: Basophils # 0.1 K/mm3 (0-0.2); Basophils % 1.6 % (0.1-2.0); Hematocrit 42.7 % (37.0-47.0); Hemoglobin 13.7 g/dL (12.2-16.2); Lymphocytes % 27.2 % (10-50); Mean Corpuscular HGB Conc 32.2 g/dL (31.8-35.4); Mean Corpuscular Volume 80.7 fl (81-99); Mean Platelet Volume 7.3 fl (7.4-10.4); Monocytes # 0.1 K/mm3 (0.1-1.0); Neutrophils # 2.4 K/mm3 (1.8-7.8); Neutrophils % 67.2 % (37.0-80.0); Platelet Count 301 K/mm3 (142-424); Red Blood Count 5.28 M/mm3 (4.20-5.40); Red Cell Distribution Width 16.5 % (11.5-17.5); White Blood Count 3.5 K/mm3 (4.8-10.8)
[2022-08-19 07:55] LABS: Alanine Aminotransferase 21 U/L (12-78); Albumin Level 4.4 g/dl (3.5-5.0); Alkaline Phosphatase 127 U/L (38-126); Anion Gap 10.2 mEq/L (5-15); Aspartate Amino Transferase 34 U/L (14-36); Bilirubin,Total 0.5 mg/dl (0.2-1.3); Blood Urea Nitrogen 12 mg/dl (7-17); Calcium 9.2 mg/dl (8.4-10.2); Carbon Dioxide 28 mmol/L (22.0-30.0); Chloride 106 mmol/L (98-107); Creatinine Clearance Estimated 88 mL/min (50-200); Estimated Glomerular Filt Rate 76 ml/min (>60); GFR (African American) 92 ML/MIN (>60); Globulin 4.3 g/dL (1.3-3.2); Glucose 111 mg/dl (74-100); Potassium 4.2 mmoL/L (3.5-5.1); Sodium 140 mmol/L (136-145); Total Protein,Serum 8.7 g/dl (6.3-8.2)
--- NOTE | 2022-08-19 07:58 | HMH.EDGENADL ---
Discharge Plan Disposition Patient Disposition: Home, Self-Care Condition: Good Prescriptions Prescriptions: New doxycycline hyclate 100 mg capsule 100 mg PO BID 10 Days Qty: 20 0RF naproxen 500 mg tablet 500 mg PO Q8H PRN (Reason: pain) Qty: 20 0RF ondansetron 4 mg tablet,disintegrating 4 mg PO Q8H PRN (Reason: nausea and vomiting) 4 Days Qty: 12 0RF No Action buprenorphine-naloxone 8-2 mg tablet, sublingual 2 tab SL DAILY bumetanide 2 mg tablet 2 mg PO BID Qty: 60 5RF famotidine 20 MG tablet 20 mg PO DAILY cholecalciferol (vitamin D3) 1,250 MCG tablet 1,250 mcg PO WEEKLY quetiapine 25 mg tablet See Rx Instructions .ROUTE .COMPLEX Rx Instructions: TAKE 1 TABLET 1 TIME EACH DAY WITH 100 MG TABLET metolazone 2.5 mg tablet 2.5 mg PO .M, W, F gabapentin 600 mg tablet 600 mg PO TID cetirizine 10 mg tablet See Rx Instructions .ROUTE .COMPLEX Rx Instructions: TAKE 1 TABLET 1 TIME EACH DAY FOR ALLERGIES venlafaxine 150 mg capsule,extended release 24hr See Rx Instructions .ROUTE .COMPLEX Rx Instructions: TAKE 1 CAPSULE 1 TIME EACH DAY FOR DEPRESSION quetiapine 100 mg tablet See Rx Instructions .ROUTE .COMPLEX Rx Instructions: TAKE 1 TABLET 1 TIME EACH DAY WITH 25 MG TABLET potassium chloride 20 mEq tablet,ER particles/crystals See Rx Instructions .ROUTE .COMPLEX Rx Instructions: TAKE 1 TABLET 1 TIME EACH DAY levothyroxine 125 mcg tablet See Rx Instructions .ROUTE .COMPLEX Rx Instructions: TAKE 1 TABLET 1 TIME EACH DAY omeprazole 20 mg capsule,delayed release(DR/EC) See Rx Instructions .ROUTE .COMPLEX Rx Instructions: TAKE 1 CAPSULE 1 TIME EACH DAY AT BEDTIME FOR ACID REFLUX montelukast 10 mg tablet See Rx Instructions .ROUTE .COMPLEX Rx Instructions: TAKE 1 TABLET 1 TIME EACH DAY FOR ALLERGIES fluticasone propionate [Flovent HFA] 110 mcg/actuation HFA aerosol inhaler See Rx Instructions .ROUTE .COMPLEX Rx Instructions: INHALE 2 PUFFS 2 TIMES EACH DAY spironolactone 50 mg tablet See Rx Instructions .ROUTE .COMPLEX Rx Instructions: TAKE 1 TABLET 1 TIME EACH DAY Trelegy Ellipta 100-62.5-25 mcg blister with device 1 inh inhalation DAILY albuterol sulfate 6.7 GM HFA aerosol inhaler 1 puff IH Q6HP PRN (Reason: Shortness Of Breath) Referrals Follow up/Referrals: Ge Burton MD [Primary Care Provider] - See instructions Activity Restrictions/Add. Instructions Additional Instructions/Restrictions: You were evaluated in the emergency department today. At this time, it looks like you are developing a pneumonia on your chest x-ray. We also feel that your chest pain is due to pleuritis, or inflammation of the lung lining. Please picker your prescriptions at the pharmacy and take them as prescribed. You may also take Tylenol as needed for pain. Return to the emergency department for any new or worsening symptoms. Clinical Impressions Clinical Impression: Pleuritis Pneumonia Qualifiers: Pneumonia type: due to unspecified organism Laterality: bilateral Lung location: unspecified part of lung Qualified Code(s): J18.9 - Pneumonia, unspecified organism Instructions Patient Instructions: Pneumonia-Adult, DI for Atypical Chest Pain Discharge ED Provider: Nicole Akins General Adult HPI General Chief complaint: Chest Pain Stated complaint: Chest Pain Time Seen by Provider: 08/19/22 07:57 Mode of Arrival: Ambulatory Source of Information: Patient Limitations: No Limitations Description of Symptoms (Recalled from ER Triage Doc. by RN): pt states she has midsternal chest pain radiating up her neck and around her left breast that has been going on for a few days, was scheduled for a CTA today History of Present Illness HPI narrative: This patient is a 47-year-old female with a history of extensive smoking, COPD,
[2022-08-19 08:14] LABS: Troponin I < 0.01 ng/ml (0.00-0.034)
--- NOTE | 2022-08-19 10:03 | PC.NURSE ---
WENT TO CHECK ON PT. ASLEEP AT THIS TIME. CALL LIGHT WITHIN REACH. BED IN LOWEST POSITION.
--- NOTE | 2022-08-19 10:48 | PC.NURSE ---
Rounded on PT, PT resting on ED stretcher with no needs at this time. Lights out per her request. Call light within reach
[2022-08-19 11:04] LABS: Troponin I < 0.01 ng/ml (0.00-0.034)
--- NOTE | 2022-08-19 11:37 | PC.NURSE ---
CHECKED ON PT, SHE IS SLEEPING CALL LIGHT AT BEDSIDE
== END 2022-08-19 11:42 | disposition home or self-care (01) ==
PROVIDERS: Emergency Provider Emergency Medicine; PCP Emergency Medicine
DX: R09.1 Pleurisy (principal); J18.9 Pneumonia, unspecified organism; R07.89 Other chest pain; J44.9 Chronic obstructive pulmonary disease, unspecified; I27.20 Pulmonary hypertension, unspecified; E03.9 Hypothyroidism, unspecified; F17.210 Nicotine dependence, cigarettes, uncomplicated; E55.9 Vitamin D deficiency, unspecified
CPT/HCPCS: 36415; 71046; 80053; 84484; 85025; 93005; 96374; 96375; 99285; J2405

== ENCOUNTER → 2022-08-29 06:39 | Outpatient (CLI) | payer MEDICAID, SELFPAY ==
[2022-08-29 07:09] VITALS: BMI 27.6
[2022-08-29 07:31] LABS: Basophils # 0.1 K/mm3 (0-0.2); Basophils % 3.3 % (0.1-2.0); Eosinophils % 1.4 % (0.1-12.0); Hematocrit 35.4 % (37.0-47.0); Hemoglobin 11.2 g/dL (12.2-16.2); Lymphocytes # 0.6 K/mm3 (0.7-4.5); Lymphocytes % 18.6 % (10-50); Mean Corpuscular HGB Conc 31.6 g/dL (31.8-35.4); Mean Corpuscular Hemoglobin 26.8 pg (27.0-31.2); Mean Corpuscular Volume 84.8 fl (81-99); Mean Platelet Volume 7.7 fl (7.4-10.4); Monocytes # 0.2 K/mm3 (0.1-1.0); Monocytes % 5.3 % (1.7-9.3); Neutrophils # 2.3 K/mm3 (1.8-7.8); Neutrophils % 71.4 % (37.0-80.0); Platelet Count 243 K/mm3 (142-424); Red Blood Count 4.18 M/mm3 (4.20-5.40); Red Cell Distribution Width 17.6 % (11.5-17.5); White Blood Count 3.2 K/mm3 (4.8-10.8)
[2022-08-29 07:34] LABS: Chloride 107 mmol/L (98-107); Sodium 140 mmol/L (136-145)
[2022-08-29 07:35] LABS: Potassium 3.5 mmoL/L (3.5-5.1)
[2022-08-29 07:37] LABS: Alanine Aminotransferase 29 U/L (12-78); Albumin Level 3.6 g/dl (3.5-5.0); Albumin/Globulin Ratio 0.9 (1.1-1.8); Alkaline Phosphatase 170 U/L (38-126); Anion Gap 6.5 mEq/L (5-15); Aspartate Amino Transferase 44 U/L (14-36); Bilirubin,Total 0.8 mg/dl (0.2-1.3); Blood Urea Nitrogen 11 mg/dl (7-17); Carbon Dioxide 30 mmol/L (22.0-30.0); Creatinine Clearance Estimated 109 mL/min (50-200); Estimated Glomerular Filt Rate 89 ml/min (>60); GFR (African American) 108 ML/MIN (>60); Globulin 3.9 g/dL (1.3-3.2); Total Protein,Serum 7.5 g/dl (6.3-8.2)
[2022-08-29 07:38] LABS: Calcium 8.3 mg/dl (8.4-10.2); Glucose 140 mg/dl (74-100)
[2022-08-29 08:08] VITALS: BP 114/70; PULSE 84; RESP 18; O2SAT 90
[2022-08-29 08:40] VITALS: BP 109/69; PULSE 68; RESP 18; O2SAT 91
[2022-08-29 09:10] VITALS: BP 96/59; PULSE 68; RESP 18; O2SAT 91
== END ==
PROVIDERS: PCP Emergency Medicine; Visit Provider Nurse Practitioner Family
DX: R07.9 Chest pain, unspecified (principal); I27.20 Pulmonary hypertension, unspecified; J44.9 Chronic obstructive pulmonary disease, unspecified; R94.31 Abnormal electrocardiogram [ECG] [EKG]; Z72.0 Tobacco use
CPT/HCPCS: 75574; 80053; 85025; Q9967

== ENCOUNTER 2022-10-21 17:35 | Emergency (ER) | payer MEDICAID, SELFPAY ==
--- NOTE | 2022-10-21 17:31 | ECG_ITS ---
APPROVED REPORT Exam: Resting ECG HR:79 bpm ECG Measurements Heart Rate 79 AXES TN 149 P 60 QRSd 86 QRS 103 QT 360 T 47 QTc 395 Conclusion SINUS RHYTHM POSSIBLE LEFT ATRIAL ENLARGEMENT [-0.1mV P-WAVE IN V1/V2] RIGHT AXIS DEVIATION [QRS AXIS > 100] POSSIBLE RIGHT VENTRICULAR CONDUCTION DELAY [RSR (QR) IN V1/V2] POSSIBLE ANTERIOR MYOCARDIAL INFARCTION , PROBABLY OLD [30 ms Q WAVE IN V3/V4, OR R < 0.2 mV IN V4] ABNORMAL ECG INTERPRETATION BASED ON A DEFAULT AGE OF 40 YEARS UNCONFIRMED REPORT Electronically signed by : Vega Renteria MD 10/22/2022 08:50:04
[2022-10-21 17:35] VITALS: BP 140/98; PULSE 77; RESP 19; TEMP 36.8; O2SAT 100; BMI 25.7
[2022-10-21 17:44] VITALS: BMI 25.7
--- NOTE | 2022-10-21 17:44 | XR_ITS ---
PROCEDURE INFORMATION: Exam: XR Chest Exam date and time: 10/21/2022 5:52 PM Age: 47 years old Clinical indication: Sternal or substernal pain; Additional info: Chest pain TECHNIQUE: Imaging protocol: Radiologic exam of the chest. Views: 2 views. COMPARISON: CR XR CHEST 2V 08/19/2022 7:27 AM FINDINGS: Tubes, catheters and devices: Intraspinal neurostimulator leads. Lungs: Clear lungs. Pleural spaces: No pneumothorax. No sizable pleural effusion. Heart/Mediastinum: Cardiomegaly. Bones/joints: Sternotomy wires. IMPRESSION: Clear lungs.
[2022-10-21 17:52] LABS: Basophils % 0.3 % (0.1-2.0); Eosinophils % 0.4 % (0.1-12.0); Hematocrit 41.2 % (37.0-47.0); Hemoglobin 13.4 g/dL (12.2-16.2); Lymphocytes % 22.1 % (10-50); Mean Corpuscular HGB Conc 32.4 g/dL (31.8-35.4); Mean Corpuscular Hemoglobin 26.6 pg (27.0-31.2); Mean Platelet Volume 7.3 fl (7.4-10.4); Monocytes # 0.2 K/mm3 (0.1-1.0); Monocytes % 4.2 % (1.7-9.3); Neutrophils # 3.2 K/mm3 (1.8-7.8); Neutrophils % 73.1 % (37.0-80.0); Platelet Count 336 K/mm3 (142-424); Red Blood Count 5.03 M/mm3 (4.20-5.40); Red Cell Distribution Width 16.9 % (11.5-17.5); White Blood Count 4.4 K/mm3 (4.8-10.8)
[2022-10-21 17:57] LABS: Chloride 104 mmol/L (98-107); Potassium 3.9 mmoL/L (3.5-5.1); Sodium 140 mmol/L (136-145)
[2022-10-21 17:59] LABS: Activated Partial Thrombo Time 34.5 seconds (22.8-30.6); Blood Urea Nitrogen 7 mg/dl (7-17); Creatinine Clearance Estimated 88 mL/min (50-200); Estimated Glomerular Filt Rate 76 ml/min (>60); GFR (African American) 92 ML/MIN (>60); Prothrombin Time 9.8 seconds (10.1-12.5)
[2022-10-21 18:00] LABS: Alanine Aminotransferase 35 U/L (12-78); Albumin Level 4.4 g/dl (3.5-5.0); Alkaline Phosphatase 207 U/L (38-126); Anion Gap 15.9 mEq/L (5-15); Aspartate Amino Transferase 36 U/L (14-36); Bilirubin,Direct 0.3 mg/dl (0.0-0.4); Bilirubin,Indirect 0.4 mg/dL (0.0-0.9); Bilirubin,Total 0.7 mg/dl (0.2-1.3); Bilirubin,Unconjugated 0.5 mg/dL (0.0-1.1); Carbon Dioxide 24 mmol/L (22.0-30.0); Glucose 100 mg/dl (74-100)
[2022-10-21 18:11] LABS: NT Pro Brain Natriuretic Pep. 169 pg/mL (0-125)
[2022-10-21 18:15] VITALS: BP 147/105; PULSE 89; O2SAT 100
[2022-10-21 18:28] LABS: Troponin I < 0.01 ng/ml (0.00-0.034)
[2022-10-21 18:30] VITALS: BP 119/77; PULSE 74; O2SAT 100
[2022-10-21 19:00] VITALS: BP 111/70; PULSE 68; O2SAT 97
--- NOTE | 2022-10-21 19:39 | PC.NURSE ---
pt requested a nurse to come in. Pt asked what she was waiting on. i informed pt that we werer waiting to draw second trop. pt states she didnt want to wait and wanted to signed out AMA
[2022-10-21 19:41] VITALS: BP 111/70; PULSE 68; PULSE 77; RESP 16; TEMP 36.8; O2SAT 98
--- NOTE | 2022-10-21 19:48 | HMH.EDCP ---
Discharge Plan Disposition Patient Disposition: Left Against Medical Advice Condition: Fair Prescriptions Prescriptions: No Action albuterol sulfate 90 mcg/actuation HFA aerosol inhaler 2 puff IH Q8H PRN (Reason: Shortness Of Breath) Qty: 8.5 2RF ipratropium-albuterol 0.5 mg-3 mg(2.5 mg base)/3 mL solution for nebulization 3 ml inhalation Q4-6H PRN (Reason: shortness of breath or wheezing) Qty: 180 2RF gabapentin 600 mg tablet 600 mg PO TID Qty: 90 1RF oxycodone-acetaminophen [Percocet] 5-325 mg tablet 1 tab PO TID Qty: 90 0RF bumetanide 2 mg tablet 2 mg PO BID Qty: 60 5RF famotidine 20 MG tablet 20 mg PO DAILY quetiapine 25 mg tablet See Rx Instructions .ROUTE .COMPLEX Rx Instructions: TAKE 1 TABLET 1 TIME EACH DAY WITH 100 MG TABLET metolazone 2.5 mg tablet 2.5 mg PO .M, W, F venlafaxine 150 mg capsule,extended release 24hr See Rx Instructions .ROUTE .COMPLEX Rx Instructions: TAKE 1 CAPSULE 1 TIME EACH DAY FOR DEPRESSION quetiapine 100 mg tablet See Rx Instructions .ROUTE .COMPLEX Rx Instructions: TAKE 1 TABLET 1 TIME EACH DAY WITH 25 MG TABLET levothyroxine 125 mcg tablet See Rx Instructions .ROUTE .COMPLEX Rx Instructions: TAKE 1 TABLET 1 TIME EACH DAY omeprazole 20 mg capsule,delayed release(DR/EC) See Rx Instructions .ROUTE .COMPLEX Rx Instructions: TAKE 1 CAPSULE 1 TIME EACH DAY AT BEDTIME FOR ACID REFLUX montelukast 10 mg tablet See Rx Instructions .ROUTE .COMPLEX Rx Instructions: TAKE 1 TABLET 1 TIME EACH DAY FOR ALLERGIES fluticasone propionate [Flovent HFA] 110 mcg/actuation HFA aerosol inhaler See Rx Instructions .ROUTE .COMPLEX Rx Instructions: INHALE 2 PUFFS 2 TIMES EACH DAY Trelegy Ellipta 100-62.5-25 mcg blister with device 1 inh inhalation DAILY ondansetron 4 mg tablet,disintegrating 4 mg PO Q8H PRN (Reason: nausea and vomiting) 4 Days Qty: 12 0RF Clinical Impressions Clinical Impression: Left against medical advice, Chest pain Discharge ED Provider: Ángela Roper Chest Pain HPI General Chief Complaint: Chest Pain Stated Complaint: CP Time Seen by Provider: 10/21/22 18:01 Mode of Arrival: Wheelchair Source of Information: Patient Limitations: No Limitations Description of Symptoms (Recalled from ER Triage Doc. by RN): 47 F presents from home with daughter at bedside c/o sharp mid-sternal chest pain that started suddenly while sweeping the floor. Patient has never had a heart attack or stenting; however, reports history of cardiac window and scraping r/t pericardial effusion. History of Present Illness HPI narrative: Patient is a 47-year-old female who is here secondary to anterior chest pain and radiates to the bilateral rib and back.. Patient stated that chest pain is been coming on in the substernal region after she sweep the floor. She has a history of open heart surgery x2 1 for pericardial window and 1 for two-vessel bypass. Patient stated after she sweep this area which she says she did it very gently she started having pain. Patient describes the pain as sharp to dull in the substernal area going to the ribs in the past. No cough no difficulty breathing. Patient has no nausea vomiting diarrhea MD complaint: chest pain Onset (ago): hour(s) Duration: constant Activity at onset: during rest Pain location: substernal Severity: severe Quality: tightness, sharp and ripping Pain radiation: back Relieving factors: nothing Exacerbating factors: exertion, inspiration, palpation and movement Risk Factors for CAD: Hypertension and Hypercholesterolemia Related Data Prior Cardiac Testing/Procedures: Cardiac Angiogram, CTA Chest/CTA Coronary Angiography and CABG Home Medications Medication Instructions Recorded Confirmed famotidine 20 mg tablet 20 mg PO DAILY .. 06/11/21 09/11/22 fluticasone fur. 100 mcg-umeclid 1 inh inhalation DAILY .
== END 2022-10-21 19:43 | disposition left against medical advice (07) ==
PROVIDERS: Emergency Provider Emergency Medicine; PCP Emergency Medicine
DX: R07.9 Chest pain, unspecified (principal); I10 Essential (primary) hypertension; F17.210 Nicotine dependence, cigarettes, uncomplicated
CPT/HCPCS: 71046; 80048; 80076; 83880; 84484; 85025; 85610; 85730; 93005; 96374; 96375; 99285; J0131; J2405

== ENCOUNTER → 2022-11-05 14:19 | Outpatient (CLI) | payer MEDICAID, SELFPAY ==
[2022-11-05 15:09] LABS: Basophils % 0.4 % (0.1-2.0); Eosinophils # 0.1 K/mm3 (0.0-0.4); Eosinophils % 1.9 % (0.1-12.0); Hematocrit 39.3 % (37.0-47.0); Hemoglobin 12.9 g/dL (12.2-16.2); Lymphocytes # 0.9 K/mm3 (0.7-4.5); Lymphocytes % 31.9 % (10-50); Mean Corpuscular HGB Conc 32.9 g/dL (31.8-35.4); Mean Corpuscular Hemoglobin 26.8 pg (27.0-31.2); Mean Corpuscular Volume 81.3 fl (81-99); Mean Platelet Volume 7.5 fl (7.4-10.4); Monocytes # 0.2 K/mm3 (0.1-1.0); Monocytes % 5.2 % (1.7-9.3); Neutrophils # 1.8 K/mm3 (1.8-7.8); Neutrophils % 60.6 % (37.0-80.0); Platelet Count 355 K/mm3 (142-424); Red Blood Count 4.83 M/mm3 (4.20-5.40); Red Cell Distribution Width 16.8 % (11.5-17.5)
[2022-11-11 21:08] LABS: D001-IgE D pteronyssinus <0.10 kU/L (Class 0); D002-IgE D farinae <0.10 kU/L (Class 0); E001-IgE Cat Dander <0.10 kU/L (Class 0); E005-IgE Dog Dander <0.10 kU/L (Class 0); E072-IgE Mouse Urine <0.10 kU/L (Class 0); G002-IgE Bermuda Grass <0.10 kU/L (Class 0); G006-IgE Timothy Grass <0.10 kU/L (Class 0); I006-IgE Cockroach, German <0.10 kU/L (Class 0); Immunoglobulin E, Total 22 IU/mL (6-495); M001-IgE Penicillium chrysogen <0.10 kU/L (Class 0); M002-IgE Cladosporium herbarum <0.10 kU/L (Class 0); M003-IgE Aspergillus fumigatus <0.10 kU/L (Class 0); M006-IgE Alternaria alternata <0.10 kU/L (Class 0); T001-IgE Maple/Box Elder <0.10 kU/L (Class 0); T003-IgE Common Silver Birch <0.10 kU/L (Class 0); T006-IgE Cedar, Mountain <0.10 kU/L (Class 0); T007-IgE Oak, White <0.10 kU/L (Class 0); T008-IgE Elm, American <0.10 kU/L (Class 0); T010-IgE Walnut <0.10 kU/L (Class 0); T011-IgE Maple Leaf Sycamore <0.10 kU/L (Class 0); T014-IgE Cottonwood <0.10 kU/L (Class 0); T015-IgE Ash, White <0.10 kU/L (Class 0); T022-IgE Pecan, Hickory <0.10 kU/L (Class 0); T070-IgE White Mulberry <0.10 kU/L (Class 0); W001-IgE Ragweed, Short <0.10 kU/L (Class 0); W011-IgE Thistle, Russian <0.10 kU/L (Class 0); W014-IgE Pigweed, Common <0.10 kU/L (Class 0); W018-IgE Sheep Sorrel <0.10 kU/L (Class 0)
== END ==
PROVIDERS: PCP Emergency Medicine; Visit Provider Internal Medicine Pulmonary Disease
DX: J45.909 Unspecified asthma, uncomplicated (principal)
CPT/HCPCS: 36415; 82785; 85025; 86003

== ENCOUNTER → 2022-11-14 13:16 | Outpatient (POV) | payer MEDICAID, SELFPAY ==
[2022-11-14 13:47] VITALS: BP 142/84; PULSE 96; RESP 18; O2SAT 97; BMI 25.7
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
== END ==
PROVIDERS: PCP Emergency Medicine; Visit Provider Nurse Practitioner Family
DX: M51.16 Intervertebral disc disorders with radiculopathy, lumbar region (principal); M79.10 Myalgia, unspecified site; T85.193A Other mechanical complication of implanted electronic neurostimulator, generator, initial encounter
CPT/HCPCS: 99212; G0463

== ENCOUNTER → 2022-11-26 09:52 | Outpatient (CLI) | payer MEDICAID, SELFPAY | PROVIDERS: PCP Emergency Medicine; Visit Provider Internal Medicine Pulmonary Disease | DX: R06.02 Shortness of breath (principal) | CPT/HCPCS: 94762 ==

== ENCOUNTER → 2022-12-17 14:13 | Outpatient (CLI) | payer MEDICAID, SELFPAY ==
--- NOTE | 2022-12-17 14:13 | CT_ITS ---
FINAL REPORT TECHNIQUE: Axial images were obtained from the lung apex to the mid abdomen by computed tomography. Coronal reformatted images were obtained. This study was performed with techniques to keep radiation doses as low as reasonably achievable, (ALARA). Individualized dose reduction techniques using automated exposure control or adjustment of mA and/or kV according to the patient''s size were employed. CLINICAL HISTORY: Shortness of breath COMPARISON: CTA 01/20/2020 FINDINGS: There is no axillary adenopathy. There is a stable precarinal node measuring 18 mm Heart size is normal. There is no pericardial or pleural effusion. Limited images of the upper abdomen are unremarkable. There is worsening right posterior pleural thickening, localized soft tissue pleural or pleural based, posterior medial right lower thorax measuring 22 mm which may be inflammatory or neoplastic. There are also worsening areas of pleural thickening in the left lower thorax which may be inflammatory or neoplastic IMPRESSION: Worsening areas of pleural thickening bilateral lower thorax, inflammatory changes are favored. Neoplastic involvement is not excluded. This can be further evaluated with follow-up chest CT or PET/CT. Reviewed, Interpreted and Dictated by Yann Orozco III, MD Transcribed by Lesa Sal Authenticated and [facility]
[2022-12-17 15:30] VITALS: PULSE 86; PULSE 88
== END ==
PROVIDERS: PCP Emergency Medicine; Visit Provider Internal Medicine Pulmonary Disease
DX: R91.8 Other nonspecific abnormal finding of lung field (principal)
CPT/HCPCS: 71250; 94060; 94618; 94640; 94727; 94729

== ENCOUNTER → 2022-12-21 09:39 | Outpatient (CLI) | payer MEDICAID, SELFPAY ==
[2022-12-26 00:21] LABS: HCV Genotype Charge YES; Hepatitis C Genotype 1a (.)
== END ==
PROVIDERS: PCP Emergency Medicine; Visit Provider Emergency Medicine
DX: B19.20 Unspecified viral hepatitis C without hepatic coma (principal)
CPT/HCPCS: 87522; 87902

== ENCOUNTER → 2022-12-26 13:40 | Outpatient (CLI) | payer MEDICAID, SELFPAY ==
[2022-12-26 15:37] LABS: Uric Acid 4.1 mg/dl (2.5-6.2)
[2022-12-26 15:42] LABS: C-Reactive Protein 8.3 mg/L (0-4)
[2022-12-26 15:57] LABS: Erythrocyte Sedimentation Rate 16 mm/hr (0-20)
[2022-12-28 19:35] LABS: Anti-Centromere B Antibodies <0.2 AI (0.0-0.9); Anti-Cyclic Citrullinated Pept 1 units (0-19); Anti-DNA (DS) Ab Qn 1 IU/mL (0-9); Anti-Jo-1 <0.2 AI (0.0-0.9); Antichromatin Antibodies 7.7 AI (0.0-0.9); Antiribosomal P Antibodies <0.2 AI (0.0-0.9); Antiscleroderma-70 Antibodies <0.2 AI (0.0-0.9); RA Latex Turbid. <10.0 IU/mL (<14.0); RNP Antibodies 0.4 AI (0.0-0.9); Sjogren's Anti-SS-A 5.2 AI (0.0-0.9); Sjogren's Anti-SS-A 5.6 AI (0.0-0.9); Sjogren's Anti-SS-B <0.2 AI (0.0-0.9); Smith/RNP Antibodies <0.2 AI (0.0-0.9)
[2022-12-30 15:29] LABS: Aldolase 2.9 U/L (3.3-10.3); Angiotensin Converting Enzyme 61 U/L (14-82); Cytoplasmic (C-ANCA) <1:20 titer (Neg:<1:20); Perinuclear (P-ANCA) <1:20 titer (Neg:<1:20)
[2023-01-05 00:09] LABS: D001-IgE D pteronyssinus <0.10 kU/L (Class 0); D002-IgE D farinae <0.10 kU/L (Class 0); E001-IgE Cat Dander <0.10 kU/L (Class 0); E005-IgE Dog Dander <0.10 kU/L (Class 0); E072-IgE Mouse Urine <0.10 kU/L (Class 0); G002-IgE Bermuda Grass <0.10 kU/L (Class 0); G006-IgE Timothy Grass <0.10 kU/L (Class 0); I006-IgE Cockroach, German <0.10 kU/L (Class 0); Immunoglobulin E, Total 17 IU/mL (6-495); M001-IgE Penicillium chrysogen <0.10 kU/L (Class 0); M002-IgE Cladosporium herbarum <0.10 kU/L (Class 0); M003-IgE Aspergillus fumigatus <0.10 kU/L (Class 0); M006-IgE Alternaria alternata <0.10 kU/L (Class 0); T001-IgE Maple/Box Elder <0.10 kU/L (Class 0); T003-IgE Common Silver Birch <0.10 kU/L (Class 0); T006-IgE Cedar, Mountain <0.10 kU/L (Class 0); T007-IgE Oak, White <0.10 kU/L (Class 0); T008-IgE Elm, American <0.10 kU/L (Class 0); T010-IgE Walnut <0.10 kU/L (Class 0); T011-IgE Maple Leaf Sycamore <0.10 kU/L (Class 0); T014-IgE Cottonwood <0.10 kU/L (Class 0); T015-IgE Ash, White <0.10 kU/L (Class 0); T022-IgE Pecan, Hickory <0.10 kU/L (Class 0); T070-IgE White Mulberry <0.10 kU/L (Class 0); W001-IgE Ragweed, Short <0.10 kU/L (Class 0); W011-IgE Thistle, Russian <0.10 kU/L (Class 0); W014-IgE Pigweed, Common <0.10 kU/L (Class 0); W018-IgE Sheep Sorrel <0.10 kU/L (Class 0)
[2023-01-22 23:56] LABS: Anti-Centromere B Abs Charge YES; Anti-DNA (DS) Ab Charge YES; Anti-Jo-1 Charge YES; Antichromatin Abs Charge YES; Antinuclear Antibodies (ANA) Positive; Antiscleroderma-70 Abs Charge YES; RNP Antibodies Charge YES; Sjogren's Anti-SS-A Ab Charge YES; Sjogren's Anti-SS-B Ab Charge YES; Smith Antibodies Charge YES
[2023-01-22 23:57] LABS: Antinuclear Antibodies, IFA Positive
== END ==
PROVIDERS: PCP Emergency Medicine; Visit Provider Internal Medicine Pulmonary Disease
DX: R06.09 Other forms of dyspnea (principal); J84.10 Pulmonary fibrosis, unspecified; J84.9 Interstitial pulmonary disease, unspecified; J30.9 Allergic rhinitis, unspecified
CPT/HCPCS: 36415; 82085; 82164; 82785; 83516; 84550; 85651; 86003; 86038; 86140; 86200; 86225; 86235; 86256; 86431

== ENCOUNTER → 2023-01-23 11:04 | Outpatient (CLI) | payer MEDICAID, SELFPAY ==
[2023-01-23 12:03] LABS: INR 0.97 (0.9-1.1); Prothrombin Time 10.5 seconds (10.1-12.5)
[2023-01-23 12:04] LABS: Alanine Aminotransferase 28 U/L (12-78); Albumin Level 4.1 g/dl (3.5-5.0); Albumin/Globulin Ratio 1.2 (1.1-1.8); Alkaline Phosphatase 140 U/L (38-126); Anion Gap 13.2 mEq/L (5-15); Aspartate Amino Transferase 58 U/L (14-36); Bilirubin,Total 0.8 mg/dl (0.2-1.3); Blood Urea Nitrogen 5 mg/dl (7-17); Carbon Dioxide 26 mmol/L (22.0-30.0); Chloride 105 mmol/L (98-107); Estimated Glomerular Filt Rate 89 ml/min (>60); GFR (African American) 108 ML/MIN (>60); Globulin 3.4 g/dL (1.3-3.2); Glucose 134 mg/dl (74-100); Potassium 3.2 mmoL/L (3.5-5.1); Sodium 141 mmol/L (136-145); Total Protein,Serum 7.5 g/dl (6.3-8.2)
[2023-01-23 16:30] LABS: Basophils % 0.1 % (0.1-2.0); Eosinophils % 0.6 % (0.1-12.0); Hematocrit 36.4 % (37.0-47.0); Hemoglobin 11.4 g/dL (12.2-16.2); Lymphocytes # 0.8 K/mm3 (0.7-4.5); Lymphocytes % 20.1 % (10-50); Mean Corpuscular HGB Conc 31.5 g/dL (31.8-35.4); Mean Corpuscular Hemoglobin 26.9 pg (27.0-31.2); Mean Corpuscular Volume 85.5 fl (81-99); Mean Platelet Volume 7.7 fl (7.4-10.4); Monocytes # 0.3 K/mm3 (0.1-1.0); Monocytes % 5.8 % (1.7-9.3); Neutrophils # 3.1 K/mm3 (1.8-7.8); Neutrophils % 73.4 % (37.0-80.0); Platelet Count 249 K/mm3 (142-424); Red Blood Count 4.25 M/mm3 (4.20-5.40); Red Cell Distribution Width 15.5 % (11.5-17.5); White Blood Count 4.2 K/mm3 (4.8-10.8)
[2023-01-24 11:16] LABS: HIV Screen 4th Generation wRfx Non Reactive (Non Reactive)
[2023-01-24 13:17] LABS: Hep A Ab, Total Positive (Negative); Hep B Core Ab, Total Negative (Negative); Hep B Surface Ab, Qual Non Reactive (.)
[2023-01-26 22:07] LABS: HCV Genotype Charge YES; Hepatitis C Genotype 1a (.)
[2023-02-16 12:46] LABS: Hepatitis B Surface Antigen Negative
[2023-02-16 12:47] LABS: Hepatitis C Antibody Reactive
[2023-02-16 12:48] LABS: Fibrosis Score 0.44; Fibrosis Stage F1-F2; Necroinflammat Activity Score 0.11
[2023-02-16 12:49] LABS: Alpha 2-Macroglobulins, Qn 270; Apolipoprotein A-1 87; Haptoglobin 119
[2023-02-16 12:50] LABS: ALT (SGPT) P5P 22; Bilirubin, Total 0.2; GGT 138
== END ==
PROVIDERS: PCP Emergency Medicine; Visit Provider Nurse Practitioner Family
DX: B19.20 Unspecified viral hepatitis C without hepatic coma (principal); Z11.4 Encounter for screening for human immunodeficiency virus [HIV]
CPT/HCPCS: 36415; 80053; 81596; 85025; 85610; 86703; 86704; 86706; 86708; 87340; 87380; 87522; 87902; G0432

== ENCOUNTER → 2023-02-26 09:25 | Outpatient (POV) | payer MEDICAID, SELFPAY ==
--- NOTE | 2023-02-26 09:49 | EXP.PAIN.SOA ---
[facility] Pain Management SOAP Note Subjective:: Patient is a pleasant 47-year-old female who presents today for denial of spinal cord stimulator replacement. We are currently treating the patient for degenerative disc disease of lumbar spine with lumbar radiculopathy symptoms, myofascial pain. Today she states her pain is a 6 out of 10. She denies any change to the type of pain she experiences or any new injuries from our last visit. She continues to have worsening pain in her low back and legs partially related to her nonfunctioning spinal cord stimulator. Patient had her [employer] SCS device implanted back in 2016 and [facility]. Patient cannot connect to her device due to it being completely and not allowing any recharging. She describes her pain as an aching, throbbing sensation that is worse with increased activity. Previously she did get significant relief from her spinal cord stimulator implant and she would like to still continue to get improvement. Patient is currently managed with gabapentin 600 mg 3 times a day and Percocet 7.5 mg 3 times a day from Dr. Burton's office. Patient denies any side effects from this medication. Her Lauro is [id number]. Its been reviewed and appropriate. Review of Systems: General: No recent weight changes, no fever, no sleep disturbances Respiratory: No cough, no shortness of air, no recurring pulmonary infections Cardiovascular/peripheral vascular: No chest pain, no palpitations, no edema, no shortness of breath Gastrointestinal: No new onset incontinence, normal bowel movements reported Genitourinary: No new onset incontinence Musculoskeletal: Low back pain, bilateral leg pain Psychiatric: [Normal mood/affect] Neurological: [Denies weakness in extremities], [denies balance issues] Objective:: Physical Exam: General: Alert and oriented x3, no acute distress, pleasant and cooperative Lungs: Respirations even and unlabored, symmetrical chest expansion Eyes: PERRL Musculoskeletal: Flexion and extension of lumbar [spine] somewhat guarded secondary to pain, [antalgic gait noted] Neurological: Speech clear, no gross sensory deficit Assessment:: Degenerative disc disease of lumbar spine with lumbar radiculopathy symptoms, myofascial pain Plan:: Patient is experiencing worsening pain in her bilateral lower extremities related to a nonfunctioning, end-of-life spinal cord stimulator device. Patient does have a [employer]on spinal cord stimulator in place that was originally placed in 2016. The device does function by way that once it is at end-of-life, that it is completely nonfunctioning and it is unable to recharge and does not come on and it will give any device printouts. Our office is unable to provide a spinal cord stimulator readout due to the fact there is no functioning energy within the device. This device has been in place for approximately 7 years which on average the Mckeon spinal cord stimulator is approximately 5 to 7 years of life. I have discussed with the patient regarding removing and replacing her spinal cord stimulator. Risk and benefits were discussed with the patient and she would like to proceed forward with this plan of care. It is not appropriate to make this patient have this device removed and then have to be put through additional surgeries for the replacement when it can be replaced all in the same setting. Patient has tried and failed conservative therapy such as oral medications, heat and ice, topicals, physical therapy, at home stretching and exercise for longer than 6 weeks. We will resubmit to insurance for removal and replacement of her spinal cord stimulator and contact her once we have approval. Patient will be scheduled for a removal and replacement of SCS. Patient has been instructed to contact the clinic with any concerns before the next appointment. Dr. Honeycutt has reviewed this note and agrees with this plan of care. This note was dictated using voice recognition software and make
[2023-02-26 10:48] VITALS: BP 130/81; PULSE 80; RESP 18; O2SAT 98; BMI 27.4
== END ==
PROVIDERS: PCP Emergency Medicine; Visit Provider Nurse Practitioner Family
DX: M51.16 Intervertebral disc disorders with radiculopathy, lumbar region (principal); M79.10 Myalgia, unspecified site; T85 Complications of other internal prosthetic devices, implants and grafts
CPT/HCPCS: 99212; G0463

== ENCOUNTER → 2023-03-31 06:40 | Outpatient (CLI) | payer MEDICAID, SELFPAY ==
--- NOTE | 2023-03-31 06:43 | CT_ITS ---
FINAL REPORT CLINICAL HISTORY: SOA, SMOKER COMPARISON: December 2022 FINDINGS: Axial images through the chest was performed by computed tomography. Sagittal and coronal reformatted images were obtained and reviewed. High-resolution technique was performed with supine and prone inspiration and expiration. There are enlarged mediastinal lymph nodes, stable from prior. A precarinal lymph node measures 2.3 cm. A subcarinal lymph node measures 2.3 cm. The heart size is normal. There is persistent pleural thickening with some nodularity in the lung bases. The nodularity on the left is similar to prior. The medial right lower lobe nodularity has improved now measuring 16 mm and previously measured 24 mm. Images through the upper abdomen demonstrate probable mild splenomegaly. On high-resolution images there is no bronchiectasis, pulmonary fibrosis or air trapping. IMPRESSION: The stable adenopathy. Persistent basilar pleural thickening with nodularity; slightly improved on the right. No evidence of pulmonary fibrosis, bronchiectasis or air trapping. Reviewed, Interpreted and Dictated by Mariel Castaneda MD Transcribed by Michael Regan Authenticated and [facility]
[2023-03-31 07:18] LABS: MANUAL DIFFERENTIAL MANUAL DIFFERENTIAL (MANUAL DIFF)
[2023-03-31 07:55] LABS: Basophils % 0.4 % (0.1-2.0); Eosinophils % 0.5 % (0.1-12.0); Hematocrit 45.2 % (37.0-47.0); Lymphocytes # 0.6 K/mm3 (0.7-4.5); Lymphocytes % 13.7 % (10-50); Mean Corpuscular HGB Conc 30.9 g/dL (31.8-35.4); Mean Corpuscular Volume 84.4 fl (81-99); Mean Platelet Volume 7.1 fl (7.4-10.4); Monocytes # 0.1 K/mm3 (0.1-1.0); Neutrophils # 3.8 K/mm3 (1.8-7.8); Neutrophils % 82.5 % (37.0-80.0); Platelet Count 370 K/mm3 (142-424); Red Blood Count 5.36 M/mm3 (4.20-5.40); Red Cell Distribution Width 16.3 % (11.5-17.5); White Blood Count 4.6 K/mm3 (4.8-10.8)
[2023-03-31 08:27] LABS: Hemoglobin A1C 5.3 % (4.0-6.0)
[2023-03-31 09:03] LABS: Erythrocyte Sedimentation Rate 15 mm/hr (0-20)
[2023-03-31 09:35] LABS: Chloride 107 mmol/L (98-107); Potassium 4.7 mmoL/L (3.5-5.1); Sodium 142 mmol/L (136-145)
[2023-03-31 09:38] LABS: Alanine Aminotransferase 17 U/L (12-78); Albumin Level 4.2 g/dl (3.5-5.0); Alkaline Phosphatase 149 U/L (38-126); Amylase 85 U/L (30-110); Anion Gap 13.7 mEq/L (5-15); Aspartate Amino Transferase 30 U/L (14-36); Bilirubin,Total 0.6 mg/dl (0.2-1.3); Blood Urea Nitrogen 12 mg/dl (7-17); Calcium 9.4 mg/dl (8.4-10.2); Carbon Dioxide 26 mmol/L (22.0-30.0); Estimated Glomerular Filt Rate 76 ml/min (>60); GFR (African American) 92 ML/MIN (>60); Globulin 4.1 g/dL (1.3-3.2); Glucose 122 mg/dl (74-100); Lipase 51 U/L (23-300); Total Protein,Serum 8.3 g/dl (6.3-8.2)
[2023-03-31 12:19] LABS: Hypochromasia 1+; Lymphocytes % 18 % (10-50); Monocytes % 1 % (2-9); Neutrophils % 81 % (42-76); Platelet Estimate Normal; Total Cells Counted 100
[2023-04-01 09:47] LABS: C-Reactive Protein 5.5 mg/L (0-4)
[2023-04-01 13:17] LABS: Complement C3 119 mg/dL (82-167)
== END ==
PROVIDERS: Family Medicine; PCP Emergency Medicine; Visit Provider Internal Medicine Pulmonary Disease
DX: J84.9 Interstitial pulmonary disease, unspecified (principal); R11.2 Nausea with vomiting, unspecified; K58.9 Irritable bowel syndrome, unspecified; R73.09 Other abnormal glucose
CPT/HCPCS: 36415; 71250; 80053; 82150; 83036; 83690; 85007; 85014; 85018; 85048; 85049; 85651; 86140; 86161

== ENCOUNTER → 2023-04-16 08:07 | Outpatient (CLI) | payer MEDICAID, SELFPAY ==
--- NOTE | 2023-04-16 08:08 | MM_ITS ---
PROCEDURE INFORMATION: Exam: MG Bilateral Screening 3D Mammography Exam date and time: 04/16/2023 8:03 AM Age: 48 years old Clinical indication: Screening examination TECHNIQUE: Imaging protocol: Bilateral Screening tomosynthesis and 2D mammography including computer-aided detection (CAD) when performed. COMPARISON: 1. MG MM DIG SCREENING MAMM BI W/CAD 04/01/2019 10:21 AM 2. MG SCBI MM Dig screening mamm BI w/CAD 07/28/2017 10:00 AM FINDINGS: MAMMOGRAPHY: Breast composition: The breasts are heterogeneously dense, which may obscure small masses. Mass: None. Architectural distortion: None. Calcifications: No suspicious calcifications. Asymmetric density: None. Skin thickening: None. Axillary adenopathy: None. IMPRESSION: No mammographic evidence of malignancy. Annual screening is recommended unless otherwise clinically indicated. ASSESSMENT: BI-RADS Category 1: Negative
== END ==
PROVIDERS: PCP Family Medicine; Visit Provider Family Medicine
DX: Z12.9 Encounter for screening for malignant neoplasm, site unspecified (principal)
CPT/HCPCS: 77063; 77067

== ENCOUNTER → 2023-04-24 09:14 | Outpatient (POV) | payer MEDICAID, SELFPAY ==
[2023-04-24 09:38] VITALS: BP 135/93; PULSE 90; RESP 18; O2SAT 98; BMI 25.8
--- NOTE | 2023-04-24 09:55 | EXP.PAIN.SOA ---
[facility] Pain Management SOAP Note Subjective:: Patient is a pleasant 48-year-old female who presents today for follow-up of insurance denial for her spinal cord stimulator replacement. We are currently treating the patient for degenerative disc disease of lumbar spine with lumbar radiculopathy symptoms, myofascial pain. Today she rates her pain a 3 out of 10. Patient denies any new trauma or injury. Patient does have a [employer] spinal cord stimulator in place that was implanted in 2016. This device is no longer functioning and is unresponsive to the senior java programmer and will not charge to Jaida off any telemetry. Patient does state that prior to it going it did provide significant improvement and she was able to have overall improved function. Patient was wanting to replace this current stimulator however she states if she is not able to she would like to have it removed due to it feeling like the battery may have moved and since it is no longer providing any benefits currently. Patient is currently managed with gabapentin 600 mg 3 times a day and Percocet 7.5 mg 3 times a day from Dr. Burton's office. Her Lauro is [id number]. Its been reviewed and appropriate. Review of Systems: General: No recent weight changes, no fever, no sleep disturbances Respiratory: No cough, no shortness of air, no recurring pulmonary infections Cardiovascular/peripheral vascular: No chest pain, no palpitations, no edema, no shortness of breath Gastrointestinal: No new onset incontinence, normal bowel movements reported Genitourinary: No new onset incontinence Musculoskeletal: Low back pain, leg pain Psychiatric: [Normal mood/affect] Neurological: [Denies weakness in extremities], [denies balance issues] Objective:: Physical Exam: General: Alert and oriented x3, no acute distress, pleasant and cooperative Lungs: Respirations even and unlabored, symmetrical chest expansion Eyes: PERRL Musculoskeletal: Flexion and extension of lumbar [spine] somewhat guarded secondary to pain, [antalgic gait noted] Neurological: Speech clear, no gross sensory deficit Assessment:: Degenerative disc disease of lumbar spine with lumbar radiculopathy symptoms, myofascial pain, nonfunctioning/end of life spinal cord stimulator Plan:: Patient continues to experience worsening pain due to a nonfunctioning and end-of-life spinal cord stimulator that is currently in place. I have discussed with the patient that I will reach out to [employer] financial sales representative and see if they have any suggestions in order to get possible telemetry or information to submit to insurance to explain the device is no longer functioning. I have counseled the patient if we are unable to come up with any possible plan of replacement we will schedule her for removal of this device. Risk and benefits of the procedure were explained to the patient and she states she would like to have her device replaced if possible however if she is not able to then she would like the current one removed. We will follow-up with [employer] financial sales representative and insurance and contact the patient once we have an update. Patient has been instructed to contact the clinic with any concerns before the next appointment. Dr. Honeycutt has reviewed this note and agrees with this plan of care. This note was dictated using voice recognition software and make contain errors or omissions. [facility] Disclaimer: The information contained in this section may have been updated after the patient was seen, as this information can be updated by other users. Medical History (Updated 04/16/23 @ 10:11 by Silvana Rao DO) Allergic rhinitis JOANA positive Anxiety and depression Asthma CAD (coronary artery disease) CHF (congestive heart failure) Chronic pelvic pain in female COPD (chronic obstructive pulmonary disease) COPD (chronic obstructive pulmonary disease) Dyspnea on exertion Family history of asthma GERD (gastroesophageal reflux disease) Hepatitis C History of COPD Hypothyro
== END ==
PROVIDERS: PCP Emergency Medicine; Visit Provider Nurse Practitioner Family
DX: M51.16 Intervertebral disc disorders with radiculopathy, lumbar region (principal); M79.10 Myalgia, unspecified site; Z96.82 Presence of neurostimulator; T85.192D Other mechanical complication of implanted electronic neurostimulator of spinal cord electrode (lead), subsequent encounter
CPT/HCPCS: 99212; G0463

== ENCOUNTER → 2023-04-30 15:58 | Outpatient (CLI) | payer MEDICAID, SELFPAY ==
--- NOTE | 2023-04-30 15:58 | US_ITS ---
PROCEDURE: US TRANSVAGINAL CLINICAL INDICATION: pelvic pain/ Hx of hysterectomy COMPARISON: No exams were available for comparison FINDINGS: Transvaginal sonographic images of the pelvis were obtained. UTERUS: Surgically absent. LEFT OVARY: 2.0 cmx1.7 cmx0.8cm with a volume of 1.3ml. Appears normal with an 11 mm dominant follicle. RIGHT OVARY: 4.7 cmx 5.1 cmx2.4 cm with a volume of 30.4ml. The right ovary has a multi-cystic appearance and is enlarged. Both ovaries are seen. Doppler flow to both ovaries are seen. There is no fluid in the cul-de-sac. IMPRESSION: 1. Uterus is surgically absent. 2. The right ovary is enlarged measuring 5.1 cm and has an unusual multi-cystic appearance. This could represent a mucinous cystadenoma. 3. The left ovary is normal with a small follicle. 4. No fluid in the cul-de-sac. Dictated by: Javier De Dios MD 04/30/2023 17:07 Javier De Dios MD in OV 04/30/2023 17:07
== END ==
PROVIDERS: PCP Emergency Medicine; Visit Provider Obstetrics & Gynecology
DX: R10.2 Pelvic and perineal pain (principal); Z90.710 Acquired absence of both cervix and uterus
CPT/HCPCS: 76830

== ENCOUNTER → 2023-05-16 09:35 | Outpatient (CLI) | payer MEDICAID, SELFPAY ==
[2023-05-16 16:25] LABS: Amphetamine/Metha Screen,Urine Negative ng/ml (<1000); Barbiturates Screen,Urine Negative ng/ml (<200)
[2023-05-16 16:26] LABS: Benzodiazepines Screen,Urine Negative ng/ml (<200); Cannabinoid Screen,Urine Negative ng/ml (<50)
[2023-05-16 16:27] LABS: Cocaine Screen,Urine Negative ng/ml (<300)
[2023-05-16 16:28] LABS: Methadone Screen,Urine Negative ng/ml (<300); Opiate Screen,Urine Negative ng/ml (<300)
[2023-05-16 16:29] LABS: Phencyclidine Screen,Urine Negative ng/ml (<25)
[2023-05-17 09:17] LABS: CA 19-9 14 U/mL (0-35); CEA 3.1 ng/mL (0.0-4.7); Cancer Antigen (CA) 125 6.8 U/mL (0.0-38.1)
== END ==
PROVIDERS: Obstetrics & Gynecology; PCP Emergency Medicine; Visit Provider Emergency Medicine
DX: R10.2 Pelvic and perineal pain (principal); G89.29 Other chronic pain; N93.9 Abnormal uterine and vaginal bleeding, unspecified; Z79.899 Other long term (current) drug therapy
CPT/HCPCS: 36415; 80305; 82378; 86316

== ENCOUNTER → 2023-06-11 15:39 | Outpatient (CLI) | payer MEDICAID, SELFPAY ==
[2023-06-12 11:21] LABS: Basophils % 0.1 % (0.1-2.0); Eosinophils % 0.6 % (0.1-12.0); Hematocrit 40.9 % (37.0-47.0); Hemoglobin 13.9 g/dL (12.2-16.2); Lymphocytes # 0.9 K/mm3 (0.7-4.5); Lymphocytes % 21.4 % (10-50); Mean Corpuscular Hemoglobin 28.7 pg (27.0-31.2); Mean Corpuscular Volume 84.2 fl (81-99); Mean Platelet Volume 7.6 fl (7.4-10.4); Monocytes # 0.1 K/mm3 (0.1-1.0); Monocytes % 2.9 % (1.7-9.3); Neutrophils # 3.2 K/mm3 (1.8-7.8); Platelet Count 344 K/mm3 (142-424); Red Blood Count 4.86 M/mm3 (4.20-5.40); Red Cell Distribution Width 15.6 % (11.5-17.5); White Blood Count 4.3 K/mm3 (4.8-10.8)
[2023-06-12 11:44] LABS: Chloride 106 mmol/L (98-107); Sodium 139 mmol/L (136-145)
[2023-06-12 11:45] LABS: Potassium 3.8 mmoL/L (3.5-5.1)
[2023-06-12 11:47] LABS: Blood Urea Nitrogen 13 mg/dl (7-17); Estimated Glomerular Filt Rate 89 ml/min (>60); GFR (African American) 107 ML/MIN (>60)
[2023-06-12 11:48] LABS: Anion Gap 12.8 mEq/L (5-15); Calcium 9.1 mg/dl (8.4-10.2); Carbon Dioxide 24 mmol/L (22.0-30.0); Glucose 157 mg/dl (74-100)
== END ==
PROVIDERS: PCP Internal Medicine; Visit Provider Anesthesiology
DX: Z01.818 Encounter for other preprocedural examination (principal)
CPT/HCPCS: 36415; 80048; 85025

== ENCOUNTER 2023-06-13 09:17 | Day surgery (SDC) | payer MEDICAID, SELFPAY ==
[2023-06-13 10:51] VITALS: BP 112/72; PULSE 79; RESP 18; TEMP 36.6; O2SAT 98
--- NOTE | 2023-06-13 11:55 | SUR.PREOP ---
Pt's L eye is severely swollen and red. Pt states started this morning and doesn't know why but it happens from time to time with hives. Informed Dr Honeycutt and jonathan Cagle CRNA. Benedryl 25mg IV ordered and given. No other orders given.
--- NOTE | 2023-06-13 12:46 | P.PNANES_ITS ---
[facility] Disclaimer: The information contained in this section may have been updated after the patient was seen, as this information can be updated by other users. Medical History Allergic rhinitis JOANA positive Anxiety and depression Asthma CAD (coronary artery disease) CHF (congestive heart failure) Chronic pelvic pain in female COPD (chronic obstructive pulmonary disease) COPD (chronic obstructive pulmonary disease) Dyspnea on exertion Family history of asthma GERD (gastroesophageal reflux disease) Hepatitis C History of COPD Hypothyroidism ILD (interstitial lung disease) Nausea & vomiting Ovarian cyst Pleural thickening Restrictive lung disease Sleep-related breathing disorder Smoking greater than 30 pack years Vaginal spotting Vitamin D deficiency Surgical History History of back surgery History of carpal tunnel surgery History of cholecystectomy History of partial hysterectomy History of tubal ligation Hx of CABG Hx of colonoscopy Family History Other Family history of cancer Family history of cardiomyopathy Family history of diabetes mellitus type I Social History Smoking Status: Current every day smoker tobacco type: cigarettes packs per day: 1 second hand exposure: No alcohol intake: former substance use type: former substance user, amphetamines and opiates current occupational status: retired Travel in the last 8 weeks: None household members: none housing: house current occupational exposures/hazards: No caffeine: Yes [facility] Anesthesia Checklist Patient Identification Patient Identification: Arm Band Structural Data Admitted From: Home Planned Operative Procedure/s: Removal of Neurostimulator Generator and Leads Consent for Planned Operative Procedure(s) Verified: Yes Verified Documents: Surgical Consent and History and Physical NPO Status Verified Time NPO: 00:00 Additional verifications Anesthesia Reactions: No Hx Blood Transfusions: Yes Blood Transfusion Reaction: No Airway Assessment Mallampati Score:: Class II C-Spine Mobility Assessed: Yes TMJ Mobility Assessed: Yes Dentition: Edentulous Neurological Assessment Level of Consciousness: Awake and Alert Anesthesia Plan Anesthesia Risk discussed: Yes Anesthesia Plan: Verified ASA Class: III Anesthesia Type: MAC Preoperative Comments Pre-Operative Comments: Pt woke up this morning with swollen left eye. She states that this has happened before. Benadryl given. Discussed with pt and Dr. Honeycutt and decision made to proceed with procedure.
[2023-06-13 13:51] VITALS: BP 101/66; PULSE 73; RESP 16; TEMP 36.8; O2SAT 98
[2023-06-13 14:01] VITALS: BP 121/76; PULSE 76; RESP 17; O2SAT 99
--- NOTE | 2023-06-13 14:04 | EXP.OP.NOTE ---
Date of procedure: 06/13/23 Pre-op Diagnosis:: Nonfunctioning spinal cord stimulator system Post-op Diagnosis:: Same Procedure performed:: Explant of spinal cord stimulator system including leads and generator. Surgeon:: Mann Honeycutt MD APPLICATIONS CONSULTANT:: Edwar Menendez Anesthesia: MAC Estimated blood loss (mL): 5 Clinical Note:: This patient is a pleasant 48-year-old white female who has an [employer] spinal cord stimulator system which is no longer functioning. We did attempt to get approval for replacement to another system however a replacement system was denied by her insurance. Patient is not getting any benefit from her current [employer] spinal cord stimulator system it is nearing end-of-life. She wants it explanted. Will explant her system leads and generator today. Operative findings:: None Operative note:: Informed consent was obtained risk and benefits of the procedure were explained to the patient. Patient was taken the operating placed prone on the procedure table. She was prepped and draped in sterile fashion. C-arm fluoroscopy was used to view the leads with lead anchors and generator. The skin and subcutaneous tissues overlying the generator and lead anchors were anesthetized using lidocaine. I made an incision over the generator and explanted the generator. I disconnected the leads. I then made incision over the lead anchors and to remove the lead anchors with suture and both leads. It was documented that both leads were removed the entire system was removed intact. Both incisions were irrigated antibiotic solution. Both incisions were then closed with 2-0 Vicryl followed by 4-0 nylon and omar. Patient tolerated the procedure well with no complications. Was taken recovery in stable condition. Patient was discharged home neurologically tact with good relief of pain symptoms. Plan and disposition: Will follow-up with this patient in 1 week for wound check and follow-up in 2 weeks for suture and staple removal. Condition: stable Disposition: PACU Complications:: None
[2023-06-13 14:11] VITALS: BP 115/71; PULSE 80; RESP 16; O2SAT 99
[2023-06-13 14:15] VITALS: BP 121/67; PULSE 85; RESP 16; O2SAT 99
--- NOTE | 2023-06-13 14:40 | P.PNANES_ITS ---
[facility] Anesthesia Record Part I Anesthesia Record I Intake, IV Amount: 500 Hydration: Adequate Estimated blood loss (mL): 5 Urine output (mL): 0 Blood Products used (#): none Blood Pressure: 101/66 SaO2: 97 Pulse Rate: 76 Airway Patency: Patent Respiratory Rate: 16 Temperature: 98.3 F Patient is:: Awake and Stable Stable to PACU at:: 13:56
[2023-06-13 14:41] VITALS: BP 101/66; PULSE 76; RESP 16; TEMP 36.8; O2SAT 97
== END 2023-06-13 14:21 | disposition home or self-care (01) ==
PROVIDERS: PCP Nurse Practitioner Family; Visit Provider Anesthesiology
PROC: (CPT 63661; principal; 2023-06-13 11:30)
DX: Z45.42 Encounter for adjustment and management of neurostimulator (principal); T85 Complications of other internal prosthetic devices, implants and grafts
CPT/HCPCS: 63661; 63688; 96374; 96375

== ENCOUNTER → 2023-06-19 13:14 | Outpatient (POV) | payer MEDICAID, SELFPAY ==
[2023-06-19 13:51] VITALS: BP 155/80; PULSE 89; RESP 18; O2SAT 99; BMI 26.2
--- NOTE | 2023-06-19 14:26 | EXP.PAIN.SOA ---
[facility] Pain Management SOAP Note Subjective:: Patient is a pleasant 48-year-old female who presents today for 1 week postop of spinal cord stimulator explant on 06/13/2023. We are currently treating the patient for degenerative disc disease of lumbar spine with lumbar radiculopathy symptoms, myofascial pain, nonfunctioning SCS generator. Today she rates her pain a 7 out of 10. Patient denies any trauma or injury from our last visit. Patient denies any issues following her surgical procedure. Patient states that she has had some improvement of her previous pain where the device was pushing and however she continues to have chronic low back pain. Patient is currently prescribed gabapentin 600 mg 3 times a day and oxycodone 10 mg 3 times a day from her primary care provider. She denies any side effects from this medication. Her Lauro has been reviewed and is appropriate. Review of Systems: General: No recent weight changes, no fever, no sleep disturbances Respiratory: No cough, no shortness of air, no recurring pulmonary infections Cardiovascular/peripheral vascular: No chest pain, no palpitations, no edema, no shortness of breath Gastrointestinal: No new onset incontinence, normal bowel movements reported Genitourinary: No new onset incontinence Musculoskeletal: Low back pain Psychiatric: [Normal mood/affect] Neurological: [Denies weakness in extremities], [denies balance issues] Objective:: Physical Exam: General: Alert and oriented x3, no acute distress, pleasant and cooperative Lungs: Respirations even and unlabored, symmetrical chest expansion Eyes: PERRL Musculoskeletal: Flexion and extension of lumbar [spine] somewhat guarded secondary to pain, [antalgic gait noted] Neurological: Speech clear, no gross sensory deficit Skin: Incision site are clean, dry, well-approximated, sutures intact Assessment:: Degenerative disc disease of lumbar spine with lumbar radiculopathy symptoms, myofascial pain, nonfunctioning SCS generator Plan:: Patient is doing well following her surgical procedure. Her incisions are clean, and dry, well-approximated and sutures intact. I have counseled the patient to continue her postop restrictions and that we will see her back in 2 weeks for suture removal and reevaluation of symptoms. Patient has been instructed to contact the clinic with any concerns before the next appointment. Dr. Honeycutt has reviewed this note and agrees with this plan of care. This note was dictated using voice recognition software and make contain errors or omissions. PFSH PFSH Disclaimer: The information contained in this section may have been updated after the patient was seen, as this information can be updated by other users. Medical History Allergic rhinitis JOANA positive Anxiety and depression Asthma CAD (coronary artery disease) CHF (congestive heart failure) Chronic pelvic pain in female COPD (chronic obstructive pulmonary disease) COPD (chronic obstructive pulmonary disease) Dyspnea on exertion Family history of asthma GERD (gastroesophageal reflux disease) Hepatitis C History of COPD Hypothyroidism ILD (interstitial lung disease) Nausea & vomiting Ovarian cyst Pleural thickening Restrictive lung disease Sleep-related breathing disorder Smoking greater than 30 pack years Vaginal spotting Vitamin D deficiency Surgical History History of back surgery History of carpal tunnel surgery History of cholecystectomy History of partial hysterectomy History of tubal ligation Hx of CABG Hx of colonoscopy Family History Other Family history of cancer Family history of cardiomyopathy Family history of diabetes mellitus type I Social History Smoking Status: Current every day smoker tobacco type: cigarettes packs per day: 1
== END ==
PROVIDERS: PCP Internal Medicine; Visit Provider Nurse Practitioner Family
DX: M51.16 Intervertebral disc disorders with radiculopathy, lumbar region (principal); M79.10 Myalgia, unspecified site
CPT/HCPCS: 99212; G0463

== ENCOUNTER → 2023-07-08 09:38 | Outpatient (POV) | payer MEDICAID, SELFPAY ==
[2023-07-08 10:02] VITALS: BP 127/72; PULSE 80; RESP 20; O2SAT 100; BMI 25.1
--- NOTE | 2023-07-08 11:06 | A.OFFVIS_ITS ---
[facility] Pain Management SOAP Note Subjective:: This patient is a pleasant 48-year-old female comes our clinic today for a follow-up visit after receiving spinal cord stimulator and generator explant on 06/13/2023. Patient's incisions are clean and dry. Sutures and omar are removed. No sign of infection. Steri-Strips applied. Patient complains of bilateral hip and leg radicular symptoms. Chronic low back pain she describes as constant, dull, aching. Patient currently taking gabapentin 600 mg 1 p.o. 3 times daily as well as oxycodone 10 mg 1 p.o. 3 times daily from her primary care provider. Patient reports the medications continue to help her with active daily living. She currently is caring for and has custody of grandkids age 7, 11 and 14. Patient is considering reimplant of spinal cord stimulator for chronic low back pain as well as bilateral hip and leg radicular symptoms. Also, we discussed lumbar injections of different variety to help with her symptoms. My recommendation is we start with lumbar MRI now that spinal cord stimulator has been explanted. This will help us discern pathology. Patient's Lauro #[id number] has been reviewed and appropriate. She rates her pain today 4/10. Objective:: Patient is awake alert [place] x 3. No acute distress. Flexion-extension cervical lumbar spine guarded secondary to pain. Deep tendon reflexes upper lower extremities normal. Motor strength upper and lower extremities normal. There is no gross sensory deficit. Gait is normal. Assessment:: Degenerative disc lumbar spine multilevels. Lumbar radiculopathy. Plan:: I recommend lumbar MRI to help further discern pathology in the lumbar spine. This will help us create a plan on how to further help the patient with her overall low back pain as well as bilateral hip and leg radicular symptoms. [facility] Disclaimer: The information contained in this section may have been updated after the patient was seen, as this information can be updated by other users. Medical History Allergic rhinitis JOANA positive Anxiety and depression Asthma CAD (coronary artery disease) CHF (congestive heart failure) Chronic pelvic pain in female COPD (chronic obstructive pulmonary disease) COPD (chronic obstructive pulmonary disease) Dyspnea on exertion Family history of asthma GERD (gastroesophageal reflux disease) Hepatitis C History of COPD Hypothyroidism ILD (interstitial lung disease) Nausea & vomiting Ovarian cyst Pleural thickening Restrictive lung disease Sleep-related breathing disorder Smoking greater than 30 pack years Vaginal spotting Vitamin D deficiency Surgical History History of back surgery History of carpal tunnel surgery History of cholecystectomy History of partial hysterectomy History of tubal ligation Hx of CABG Hx of colonoscopy Family History Other Family history of cancer Family history of cardiomyopathy Family history of diabetes mellitus type I Social History Smoking Status: Current every day smoker tobacco type: cigarettes packs per day: 1 second hand exposure: No alcohol intake: former substance use type: former substance user, amphetamines and opiates current occupational status: other Travel in the last 8 weeks: None household members: none housing: house current occupational exposures/hazards: No caffeine: Yes
== END ==
LOC: SC.PAIN 09:39
PROVIDERS: PCP Internal Medicine; Visit Provider Nurse Anesthetist, Certified Registered
DX: M51.16 Intervertebral disc disorders with radiculopathy, lumbar region (principal)
CPT/HCPCS: 99212; 99213; G0463

== ENCOUNTER 2023-07-09 15:41 | Outpatient (CLI) | payer MEDICAID, SELFPAY ==
[2023-07-09 12:33] LABS: Basophils % 0.5 % (0.1-2.0); Eosinophils % 0.5 % (0.1-12.0); Hematocrit 44.3 % (37.0-47.0); Hemoglobin 14.9 g/dL (12.2-16.2); Lymphocytes # 0.9 K/mm3 (0.7-4.5); Lymphocytes % 23.7 % (10-50); Mean Corpuscular HGB Conc 33.5 g/dL (31.8-35.4); Mean Corpuscular Hemoglobin 28.8 pg (27.0-31.2); Mean Corpuscular Volume 85.9 fl (81-99); Mean Platelet Volume 8.1 fl (7.4-10.4); Monocytes # 0.1 K/mm3 (0.1-1.0); Monocytes % 3.8 % (1.7-9.3); Neutrophils # 2.6 K/mm3 (1.8-7.8); Neutrophils % 71.5 % (37.0-80.0); Platelet Count 310 K/mm3 (142-424); Red Blood Count 5.16 M/mm3 (4.20-5.40); Red Cell Distribution Width 15.6 % (11.5-17.5); White Blood Count 3.6 K/mm3 (4.8-10.8)
[2023-07-09 13:10] LABS: Amphetamine/Metha Screen,Urine Negative ng/ml (<1000); Barbiturates Screen,Urine Negative ng/ml (<200); Benzodiazepines Screen,Urine Negative ng/ml (<200); Cannabinoid Screen,Urine Negative ng/ml (<50); Cocaine Screen,Urine Negative ng/ml (<300); Methadone Screen,Urine Negative ng/ml (<300); Opiate Screen,Urine Positive ng/ml (<300); Phencyclidine Screen,Urine Negative ng/ml (<25)
== END 2023-07-09 23:59 ==
LOC: LAB.DROPOF 15:42
PROVIDERS: PCP Internal Medicine; Visit Provider Internal Medicine
DX: E03.9 Hypothyroidism, unspecified (principal); E55.9 Vitamin D deficiency, unspecified; M51.16 Intervertebral disc disorders with radiculopathy, lumbar region; Z68.25 Body mass index [BMI] 25.0-25.9, adult; Z79.899 Other long term (current) drug therapy
CPT/HCPCS: 80307; 84443; 85025

== ENCOUNTER 2023-07-23 07:47 | Outpatient (CLI) | payer MEDICAID, SELFPAY ==
[2023-07-23 08:45] VITALS: PULSE 92; PULSE 96
[2023-07-23] MEDS: ALBUTEROL 0.083% 2.5 MG/3 ML NEB IH (08:45)
--- NOTE | 2023-07-23 09:03 | CA_ITS ---
APPROVED REPORT EXAM: Comprehensive 2D, Doppler, and color-flow Echocardiogram Account Consultant: Lucy Nieves CRT Ht: 5 ft 3 in Wt: 146lbs BSA: 1.69 BP: 138/90 mmHg Indications: COPD, Shortness of Breath, CAD, asthma, Hep C, pericardial stripping 2020, smoker 2D Dimensions LA Volume 24.30 mL LA Volume Index 14.00 mL/m2 (M/F) 16-34 M-Mode Dimensions RVDd 2.22 cm (0.9-2.6) LA Diam 2.90 cm (1.9-4.0) LVDd 3.95 cm (3.5-5.7) LVDs 2.67 cm (3.5-5.7) IVSd 1.19 cm (0.6-1.1) PWd 0.85 cm (0.6-1.1) EF (Teich) 61.30% FS 32.40% EDV (Teich) 67.90 mL TAPSE 1.26 (<1.7) ESV (Teich) 26.30 mL LV Diastology E Decel Time 153 (160-240 msec) E/A Ratio 0.71 MED A' 11.20 cm/s LAT A' 10.80 cm/s Aortic Valve AO Peak GR. 5.80 mmHg Mitral Valve MV E Max Jermaine. 60.0 (40-130 cm/s) MV A Velocity 84.0 (40-130 cm/s) E/A Ratio 0.71 MV PHT 45.0 ms Pulmonary Valve PV Peak Velocity 83.0 (50-150 cm/s) Tricuspid Valve TR P. Velocity 201.00 cm/s RAP Estimate 10.00 mmHg RVSP 26.20 mmHg Left Ventricle The left ventricle is normal size. The left ventricular systolic function is normal. The left ventricular ejection fraction is within the normal range. There is normal left ventricular wall thickness. There is mild hypokinesis of the septal and anteroseptal LV cabrera. The left ventricular diastolic function is normal. LVEF is 55%. Right Ventricle The right ventricle is normal size. The right ventricular systolic function is normal. Atria The left atrium size is normal. The right atrium size is normal. There is no Doppler evidence of interatrial shunt. Aortic Valve The aortic valve is normal in structure. There is no aortic valvular stenosis. No aortic regurgitation is present. Mitral Valve The mitral valve is normal in structure. No evidence of mitral valve stenosis. Trace mitral valve regurgitation. Tricuspid Valve The tricuspid valve leaflets are thin and pliable. Trace tricuspid regurgitation. There is insufficient TR jet to estimate RVSP. Pulmonic Valve The pulmonary valve is normal in structure. Trace pulmonic regurgitation. Great Vessels The aortic root is normal in size. The ascending aorta is normal in size. IVC is normal in size and collapses >50% with inspiration. Pericardium s/p pericardial stripping. Other Information Study Quality: Fair Conclusion Normal biventricular size and systolic function. Mild hypokinesis of the septal and anteroseptal LV cabrera. No significant valvular stenosis or regurgitation. s/p pericardial stripping. Electronically signed by : Marychuy Zaidi MD 07/26/2023 10:48:54
== END 2023-07-23 23:59 ==
LOC: RT 07:47
PROVIDERS: PCP Internal Medicine; Visit Provider Internal Medicine Pulmonary Disease
DX: R06.02 Shortness of breath (principal)
CPT/HCPCS: 93306; 94060; 94618; 94640; 94726; 94729

== ENCOUNTER 2023-08-21 16:09 | Outpatient (CLI) | payer MEDICAID, SELFPAY ==
--- NOTE | 2023-08-21 16:20 | MR_ITS ---
PROCEDURE INFORMATION: Exam: MR Lumbar Spine Without Contrast Exam date and time: 08/21/2023 5:24 PM Age: 48 years old Clinical indication: Low back pain TECHNIQUE: Imaging protocol: Magnetic resonance imaging of the lumbar spine without contrast. COMPARISON: CT ABDOMEN PELVIS W CON 02/22/2020 1:17 PM FINDINGS: Bones/joints: There is preservation of vertebral alignment. There is preservation of vertebral body heights. No marrow replacing process. Spinal cord: Conus medullaris and cauda equina nerve roots are unremarkable L1-L2: No significant disc bulge or herniation. No severe spinal canal stenosis. No significant neural foraminal narrowing. L2-L3: No significant disc bulge or herniation. No severe spinal canal stenosis. No significant neural foraminal narrowing. L3-L4: No significant disc bulge or herniation. No severe spinal canal stenosis. No significant neural foraminal narrowing. L4-L5: No significant disc bulge or herniation. No severe spinal canal stenosis. No significant neural foraminal narrowing. L5-S1: Status post right L5 hemilaminotomy No significant disc bulge or herniation. No severe spinal canal stenosis. No significant neural foraminal narrowing. Soft tissues: There is a small collection in the right gluteal soft tissues at the site of prior baclofen pump IMPRESSION: No evidence of significant spinal canal stenosis or neural foraminal narrowing at any level.
== END 2023-08-21 23:59 ==
LOC: RAD 16:10
PROVIDERS: PCP Internal Medicine; Visit Provider Nurse Practitioner Family
DX: M54.50 Low back pain, unspecified (principal)
CPT/HCPCS: 72148; 76376

== ENCOUNTER 2023-08-22 18:56 | Observation (INO) | payer MEDICAID, SELFPAY ==
[2023-08-22] VITALS (7 sets, daily range): BP systolic 104–149; BP diastolic 70–96; PULSE 107–125; RESP 15–20; TEMP 36.6; O2SAT 97–100; BMI 25.7; BMI 25.6
--- NOTE | 2023-08-22 18:55 | ECG_ITS ---
APPROVED REPORT Exam: Resting ECG HR:106 bpm ECG Measurements Heart Rate 106 AXES SC 134 P 60 QRSd 92 QRS 94 QT 327 T 45 QTc 389 Conclusion SINUS TACHYCARDIA POSSIBLE LEFT ATRIAL ENLARGEMENT [-0.1mV P-WAVE IN V1/V2] BORDERLINE RIGHT AXIS DEVIATION Late R wave progression ABNORMAL ECG UNCONFIRMED REPORT Electronically signed by : Vega Renteria MD 08/23/2023 08:12:25
--- NOTE | 2023-08-22 19:07 | XR_ITS ---
PROCEDURE INFORMATION: Exam: XR Chest Exam date and time: 08/22/2023 7:08 PM Age: 48 years old Clinical indication: Shortness of breath; Additional info: SOA TECHNIQUE: Imaging protocol: Radiologic exam of the chest. Views: 2 views. COMPARISON: 1. CR XR CHEST 2V 10/21/2022 5:[address] HR CHEST X3 03/31/2023 7:03 AM FINDINGS: Lungs: Mild hazy right medial lung base opacity appears unchanged. Lungs are otherwise clear. No new areas of consolidation. No pulmonary edema. Pleural spaces: No pleural effusion. No pneumothorax. Heart/Mediastinum: Cardiomediastinal silhouette is normal. Bones/joints: No acute abnormality. Median sternotomy wires appear intact. IMPRESSION: 1. No acute cardiopulmonary disease. 2. Mild hazy right medial lung base opacity appears unchanged and likely correlates with pleural disease as demonstrated on prior CT.
--- NOTE | 2023-08-22 19:15 | CT_ITS ---
PROCEDURE INFORMATION: Exam: CTA Chest With Contrast Exam date and time: 08/22/2023 8:38 PM Age: 48 years old Clinical indication: Shortness of breath; Additional info: New onset SOA, lupus TECHNIQUE: Imaging protocol: Computed tomographic angiography of the chest with contrast. Exam focused on the arteries. 3D rendering (Not supervised by radiologist): MIP and/or 3D reconstructed images were created by the technologist. Radiation optimization: All CT scans at this facility use at least one of these dose optimization techniques: automated exposure control; mA and/or kV adjustment per patient size (includes targeted exams where dose is matched to clinical indication); or iterative reconstruction. Contrast material: ISOVUE 370; Contrast volume: 70 ml; Contrast route: INTRAVENOUS (IV); COMPARISON: CT ANGIO CHEST 01/20/2020 1:[address] chest 12/17/2022 and 03/31/2023T FINDINGS: Pulmonary arteries: Normal. No pulmonary emboli. Aorta: Unremarkable. No aortic aneurysm. No aortic dissection. Lungs: See Pleural spaces finding. Pleural spaces: Chronic bilateral lower lobe pleural thickening with adjacent parenchymal bands compatible with pleural-parenchymal scarring similar to CTs dating back to 01/20/2020. Lungs are otherwise clear. Heart: Unremarkable. No cardiomegaly. No pericardial effusion. Mediastinal space: Diffuse thickening of the esophagus redemonstrated. Lymph nodes: Mild mediastinal lymphadenopathy redemonstrated and is stable to may be slightly improved. Bones/joints: Unremarkable. No acute fracture. Soft tissues: Unremarkable. IMPRESSION: 1. No evident PE. No other acute findings. 2. Bibasilar pleural-parenchymal scarring with chronic pleural thickening redemonstrated. 3. Stable to slight improved mediastinal lymphadenopathy. 4. Diffuse esophageal thickening redemonstrated that may be due to esophagitis.
--- NOTE | 2023-08-22 19:18 | PC.NURSE ---
patient gone to CT at this time.
--- NOTE | 2023-08-22 19:18 | [facility].EDCP ---
Discharge Plan Disposition Patient Disposition: Admitted Chief Complaint: Chest Pain Prescriptions Prescriptions: No Action albuterol sulfate [Ventolin HFA] 90 mcg/actuation HFA aerosol inhaler See Rx Instructions .ROUTE .COMPLEX Qty: 18 2RF Dose Instruction: INHALE 2 PUFFS EVERY 8 HOURS NEEDED FOR SHORTNESS OF BREATH Rx Instructions: INHALE 2 PUFFS EVERY 8 HOURS NEEDED FOR SHORTNESS OF BREATH Trelegy Ellipta 100-62.5-25 mcg blister with device 1 inh inhalation DAILY Qty: 60 4RF ipratropium-albuterol 0.5 mg-3 mg(2.5 mg base)/3 mL solution for nebulization 3 ml inhalation Q4-6H PRN (Reason: shortness of breath or wheezing) Qty: 180 2RF levothyroxine 125 mcg tablet 125 mcg PO DAILY 90 Days Qty: 90 2RF omeprazole 20 mg capsule,delayed release(DR/EC) 20 mg PO DAILY 90 Days Qty: 90 2RF ondansetron HCl 4 mg tablet 4 mg PO TID PRN (Reason: nausea and vomiting) Qty: 30 0RF sulfamethoxazole-trimethoprim [Bactrim DS] 800-160 mg tablet 1 tab PO .q48 Qty: 45 0RF Rx Instructions: One tablet oral Every other day. prednisone 20 mg tablet 40 mg PO DAILY 90 Days Qty: 180 0RF peg 3350-electrolytes [GaviLyte-G] 236-22.74-6.74 -5.86 gram recon soln 240 ml PO Q10M Qty: 4000 0RF Rx Instructions: until fecal effluent is clear- quetiapine 100 mg tablet 100 mg PO DAILY 90 Days Qty: 90 2RF venlafaxine 150 mg capsule,extended release 24hr 300 mg PO DAILY Qty: 180 0RF montelukast 10 mg tablet 10 mg PO DAILY 90 Days Qty: 90 2RF bumetanide 1 mg tablet See Rx Instructions .ROUTE .COMPLEX Qty: 120 5RF Dose Instruction: TAKE 2 TABLETS 2 TIMES EACH DAY FOR FLUID Rx Instructions: TAKE 2 TABLETS 2 TIMES EACH DAY FOR FLUID Referrals Follow up/Referrals: Provider,Referral, [Referring] - See instructions Clinical Impressions Clinical Impression: Chest pain, pleuritic, Breathing difficult Discharge ED Provider: [facility] Chief Complaint: Chest Pain Stated Complaint: soa Time Seen by Provider: 08/22/23 18:58 Mode of Arrival: EMS Source of Information: Patient Limitations: No Limitations Description of Symptoms (Recalled from ER Triage Doc. by RN): Patient c/o bilat chest pain that started after her 3rd dose of steroids. that she was put on for inflamation around her lungs caused by her lupus. 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 Patient states that she started having mild shortness of breath over the past few days. Was started on steroids 40 mg daily 3 days prior to this visit. Is now on third day, started having progressively worsening shortness of breath. Not positional. Made worse with exertion and has associated chest pain that is under her right breast. No fevers or chills, nausea or vomiting, diaphoresis. Has never had pain like this in the past. Related Data Previous Rx's Medication Instructions Recorded albuterol sulfate 90 mcg/actuation See Rx Instructions .Route 07/09/23 aerosol inhaler (Ventolin HFA) .COMPLEX #18 grams fluticasone fur. 100 mcg-umeclid 1 inh inhalation DAILY Breathing 07/09/23 62.5 mcg-vilant 25 mcg Problems #60 ea inhalat.powder (Trelegy Ellipta) ipratropium 0.5 mg-albuterol 3 mg 3 ml inhalation Q4-6H PRN 07/09/23 (2.5 mg base)/3 mL nebulization shortness of breath or wheezing soln #180 mL levothyroxine 125 mcg tablet 125 mcg PO DAILY THYROID 90 days 07/09/23 #90 tabs omeprazole 20 mg capsule,delayed 20 mg PO DAILY . 90 days #90 caps 07/09/23 release ondansetron HCl 4 mg tablet 4 mg PO TID PRN nausea and 07/09/23 vomiting #30 tabs peg 3350-electrolytes 236 240 ml PO Q10M #4,000 mL 07/15/23 gram-22.74 gram-6.74 gram-5.86 gram solution (GaviLyte-G) bumetanide 1 mg tablet See Rx Instructions .Route 08/18/23 .COMPLEX #120 tabs montelukast 10 mg tablet 10 mg PO DAILY ALLERGIES 90 days 08/18/23 #90 tabs quetiapine 100 mg tablet 100 mg PO DAILY MOOD 90 days #90 08/18/23 tabs venlafaxine 150 mg 300 mg PO DAILY MOOD #180 caps 08/18/23 capsule,extended release 24 hr prednisone 20 mg tablet 40 mg PO DAILY 90 days #180 tabs 08/20/23 sulfamethoxazole 800 1 tab PO .q48 #45 tabs 08/20/23 mg-trimethoprim 160 mg tablet (Bactrim DS) Allergies Allergy/AdvReac Type Severity Reaction Status Date / Time adhesive tape AdvReac Mild Rash Verified 08/07/23 13:03 [facility] Disclaimer: The information contained in this section may have been updated after the patient was seen, as this information can be updated by other users. Medical History (Updated 08/22/23 @ 22:[address] MD) Allergic rhinitis JOANA positive Anxiety and depression Asthma CAD (coronary artery disease) CHF (congestive heart failure) Chronic pelvic pain in female COPD (chronic obstructive pulmonary disease) COPD (chronic obstructive pulmonary disease) Dyspnea on exertion Family history of asthma GERD (gastroesophageal reflux disease) Hepatitis C History of COPD Hypothyroidism ILD (interstitial lung disease) Immunosuppression due to chronic steroid use Nausea & vomiting Ovarian cyst Pleural thickening Restrictive lung disease Sleep-related breathing disorder Smoking greater than 30 pack years Vaginal spotting Vitamin D deficiency Surgical History History of back surgery History of carpal tunnel surgery History of cholecystectomy History of partial hysterectomy History of tubal ligation Hx of CABG Hx of colonoscopy Family History Other Family history of cancer Family history of cardiomyopathy Family history of diabetes mellitus type I Social History Smoking Status: Current every day smoker tobacco type: cigarettes packs per day: 1 second hand exposure: No alcohol intake: former substance use type: former substance user, amphetamines and opiates current occupational status: other Travel in the last 8 weeks: None household members: none housing: house current occupational exposures/hazards: No caffeine: Yes ROS Obtained: Yes All systems reviewed & no additional complaints except as documented Physical Exam General General appearance: alert and in distress (respiratory) Neck Neck exam: Present trachea midline Chest Chest inspection: Present normal inspection and symmetric chest wall rise Respiratory Respiratory exam: Present wheezes (bilateral), prolonged expiratory phase and other (Exhaling through pursed lips); Absent respiratory distress, stridor or accessory muscle use Cardiovascular Cardiovascular exam: Present normal rhythm and tachycardia Extremities Exam Extremities exam: Absent edema Neurological Exam Neurological exam: Present alert, oriented X3 and CN II-XII intact Skin Skin exam: Present warm and dry; Absent cyanosis, diaphoresis or pallor HEART Score HEART Score HEART Score assessment performed?: Yes History (anamnesis): Slightly suspicious ECG: Non-specific disturbance Age: 45-65 years Risk factors: 3 or more risk factors Troponin: </= normal limit HEART Score: 4 Critical Care Critical Care Time Critical Care Time: No Medical Decision Making Medical Records Medical records reviewed: Yes I reviewed the patient's medical records. Lauro Inquiry Pt receiving controlled substance: No Lauro was queried for this patient: No Vital Signs Vital Signs: 08/22/23 18:57 08/22/23 19:05 08/22/23 19:00 Temperature 97.9 F Temperature Source Oral Pulse Rate 107 H 116 H Pulse Rate [Radial] 107 H Respiratory Rate 20 18 Blood Pressure 122/84 Blood Pressure [Right Arm] 149/96 H Blood Pressure Mean [Right Arm] 113 Blood Pressure Position [Right Arm] Sitting 02 Sat by Pulse Oximetry 100 98 Oxygen Delivery Method Room Air 08/22/23 21:00 08/22/23 21:30 Temperature Temperature Source Pulse Rate 114 H 125 H Pulse Rate [Radial] Respiratory Rate 16 20 Blood Pressure 104/72 L 116/76 Blood Pressure [Right Arm] Blood Pressure Mean [Right Arm] Blood Pressure Position [Right Arm] 02 Sat by Pulse Oximetry 100 97 Oxygen Delivery Method Lab Data Labs: Lab Results 08/22/23 19:52: WBC 8.4, RBC 5.58 H, Hgb 15.7, Hct 46.0, MCV 82.4, MCH 28.2, MCHC 34.2, RDW 15.8, Plt Count 374, MPV 7.1 L, Neut % (Auto) 73.2, Lymph % (Auto) 21.2, [place] % (Auto) 4.9, Eos % (Auto) 0.3, Baso % (Auto) 0.4, Neut # (Auto) 6.1, Lymph # (Auto) 1.8, [place] # (Auto) 0.4, Eos # (Auto) 0.0, Baso # (Auto) 0.0, D-Dimer 1.92 H, Sodium 138, Potassium 3.1 L, Chloride 102, Carbon Dioxide 21 L, Anion Gap 18.1 H, BUN 21 H, Creatinine 1.20 H, Estimated Creat Clear 58, Estimated GFR 48 L, Est GFR ( Amer) 58 L, Glucose 153 H, Lactate 2.1, Calcium 9.5, Total Bilirubin 0.5, AST 25, ALT 23, Alkaline Phosphatase 132 H, Troponin I < 0.01, NT-Pro-B Natriuret Pep 286 H, Total Protein 9.0 H, Albumin 4.6, Globulin 4.4 H, Albumin/Globulin Ratio 1.0 L 08/22/23 21:11: SARS-CoV-2 (PCR) Not detected, Influenza A Untype (PCR) Not detected, Influenza Type B (PCR) Not detected 08/22/23 19:52 08/22/23 19:52 Response Orders (Tests/Meds): ED MEDICATIONS Generic Name Dose Route Start Last Admin Trade Name Freq PRN Reason Stop Dose Admin Vancomycin/PEG/NADA/Lysine/Water 1.25 gm in 250 mls @ 125 mls/hr 08/22/23 22:30 Vancomycin 1.25gm/250ml (Peg) Premix IV 08/23/23 00:29 ONCE ONE Miscellaneous 1 each 08/22/23 22:30 08/22/23 22:34 Vancomycin Consult Request NOTAPPLIC 09/21/23 22:29 1 each CONSULT PHARMACY GEOFFREY Administration Discontinued Medications Generic Name Dose Route Start Last Admin Trade Name Freq PRN Reason Stop Dose Admin Albuterol/Ipratropium 6 ml 08/22/23 20:05 08/22/23 20:46 Ipratropium/Albuterol 3 Ml Neb IH 08/22/23 20:06 6 ml ONCE ONE Administration Lactated Ringer's 1,000 mls @ 999 mls/hr 08/22/23 20:16 08/22/23 20:47 Lactated Ringer's 1000 Ml Bag IV 08/22/23 21:16 999 mls/hr .Q1H1M ONE Administration Ceftriaxone Sodium 2 gm/ 100 mls @ 200 mls/hr 08/22/23 22:20 08/22/23 22:40 Sodium Chloride IV 08/22/23 22:49 200 mls/hr ONCE ONE Administration Iopamidol 70 ml 08/22/23 20:47 08/22/23 20:49 Iopamidol-370 (76%);100ml Bottle IV 08/22/23 20:48 70 ml ONCE ONE Administration Ketorolac Tromethamine 15 mg 08/22/23 21:10 08/22/23 21:21 Ketorolac 30mg/Ml Vial IV 08/22/23 21:11 15 mg ONCE ONE Administration Lorazepam 1 mg 08/22/23 21:36 08/22/23 21:52 Lorazepam 1mg Tablet PO 08/22/23 21:37 1 mg ONCE ONE Administration Potassium Chloride 60 meq 08/22/23 20:17 08/22/23 20:47 Potassium Chloride 20meq Tab PO 08/22/23 20:18 60 meq ONCE ONE Administration Sodium Chloride 40 ml 08/22/23 20:47 08/22/23 20:48 0.9 % Sodium Chloride 50 Ml Vial IV 08/22/23 20:48 40 ml ONCE ONE Administration Sodium Chloride 10 ml 08/22/23 20:47 08/22/23 20:48 Sodium Chloride 0.9% 10ml Syr (Rad Only) IV 08/22/23 20:48 10 ml ONCE ONE Administration ORDERS Category Date Time Status CT angio chest PE protocol Stat Cat Scan 08/22/23 19:15 Completed CXR 2 view (NOT portable) [XR chest 2V] Stat Exams 08/22/23 19:07 Completed POCUS Point of Care (ER Only) Stat Exams 08/22/23 19:07 Ordered Basic Metabolic Panel AMLAB Lab 08/23/23 06:00 Ordered Brain Natriuretic Peptide Stat Lab 08/22/23 19:52 Completed CBC w/Auto Diff [Complete Blood Count Auto Diff] Stat Lab 08/22/23 19:52 Completed CMP [Comprehensive Metabolic Panel] Stat Lab 08/22/23 19:52 Completed Complete Blood Count Auto Diff AMLAB Lab 08/23/23 06:00 Ordered D-Dimer Stat Lab 08/22/23 19:52 Completed Lactic Acid Stat Lab 08/22/23 19:52 Completed Rapid PCR Covid and Flu A/B Stat Lab 08/22/23 21:11 Completed Trop I [Troponin I] Stat Lab 08/22/23 19:52 Completed Troponin I Q3H Lab 08/22/23 22:21 Received Troponin I Q3H Lab 08/23/23 01:15 Ordered Blood Culture Stat Micro 08/22/23 19:52 Received ECG initial [place] Routine Y 08/22/23 18:55 Completed MDM Narrative Medical Decision Narrative: 48-year-old female history of 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 Patient states that she started having mild shortness of breath over the past few days. Was started on steroids 40 mg daily 3 days prior to this visit. Is now on third day, started having progressively worsening shortness of breath. Not positional. Made worse with exertion and has associated chest pain that is under her right breast. No fevers or chills, nausea or vomiting, diaphoresis. Has never had pain like this in the past. History was obtained via conversation with patient, EMS. On arrival, patient hemodynamically stable, alert, oriented x4, appropriate, GCS 15, moving all extremities spontaneously, pupils equal and reactive to light. Full physical exam performed and significant for ill-appearing woman in mild respiratory distress. Tachypneic to about 25 breaths/min. Saturating appropriately on room air, tachycardic about 110 bpm. Normotensive. Lungs have diffuse bilateral wheezing, no focal breath sounds. Cardiac exam difficult to appreciate, but patient is tachycardic and I am unable to hear obvious murmur, gallop, or rub. No lower extremity edema. Differential includes PE, pneumothorax, bronchitis, pneumonia, ACS, NH, aortic pathology/dissection, pericarditis, myocarditis, endocarditis, tamponade, among others. Patient was given supplemental oxygen for symptomatic management and correction of underlying abnormalities. Workup independently interpreted and significant for nonactionable CBC. Chemistry with mild hypokalemia, this was repleted p.o. with 60 mill equivalents. Dehydration creatinine 1.2 versus chronic kidney disease. BUN elevated at 21. Lactate negative, calcium within normal limits, troponin negative, BNP mildly elevated at 286, but nonactionable. CT PE without obvious pulmonary embolus, pericardial effusion, see radiology read for full review of final results. Independent interpretation of EKG shows sinus tachycardia 106 bpm with T wave inversions in 2 and 3, no reciprocal change. She does have right bundle branch block morphology evidence of right heart strain. Patient placed on continuous cardiac monitoring and continuous pulse ox with initial blood pressure 122/84, heart rate 125, saturation 96 on room air. Heart score 4. On reevaluation, patient still not requiring oxygen, tachypneic 22 to 25 breaths/min, normotensive, mildly tachycardic. She was given 1 mg Ativan for anxiety. Conversation was had with patient regarding home-going versus admission. Patient states she feels uncomfortable going home due to difficulty breathing and persistent chest pain. Due to my unfamiliarity with patient's baseline, I am erring on side of caution given how uncomfortable patient looks on physical exam. Hospital medicine was contacted and case was discussed at length. Patient was started on vancomycin and ceftriaxone for coverage until clearing blood cultures. Given patient presentation, workup, history, this most likely represents pleurisy in the setting of lupus. Less likely endocarditis, myocarditis, or other cardiac etiology given otherwise negative workup, no pericardial effusion, and no longer using intravenous drugs, however blood cultures were sent and are pending. Because patient high risk for clinical decompensation, deemed appropriate for inpatient admission. Results were relayed to patient who voiced understanding and patient was agreeable to inpatient admission and management. Patient was admitted to the hospital for further definitive management.
--- NOTE | 2023-08-22 19:21 | PC.NURSE ---
patient back in room at this time.
[2023-08-22 20:02] LABS: Basophils % 0.4 % (0.1-2.0); Eosinophils % 0.3 % (0.1-12.0); Hemoglobin 15.7 g/dL (12.2-16.2); Lymphocytes # 1.8 K/mm3 (0.7-4.5); Lymphocytes % 21.2 % (10-50); Mean Corpuscular HGB Conc 34.2 g/dL (31.8-35.4); Mean Corpuscular Hemoglobin 28.2 pg (27.0-31.2); Mean Corpuscular Volume 82.4 fl (81-99); Mean Platelet Volume 7.1 fl (7.4-10.4); Monocytes # 0.4 K/mm3 (0.1-1.0); Monocytes % 4.9 % (1.7-9.3); Neutrophils # 6.1 K/mm3 (1.8-7.8); Neutrophils % 73.2 % (37.0-80.0); Platelet Count 374 K/mm3 (142-424); Red Blood Count 5.58 M/mm3 (4.20-5.40); Red Cell Distribution Width 15.8 % (11.5-17.5); White Blood Count 8.4 K/mm3 (4.8-10.8)
[2023-08-22 20:11] LABS: Alanine Aminotransferase 23 U/L (12-78); Albumin Level 4.6 g/dl (3.5-5.0); Alkaline Phosphatase 132 U/L (38-126); Anion Gap 18.1 mEq/L (5-15); Aspartate Amino Transferase 25 U/L (14-36); Bilirubin,Total 0.5 mg/dl (0.2-1.3); Blood Urea Nitrogen 21 mg/dl (7-17); Calcium 9.5 mg/dl (8.4-10.2); Carbon Dioxide 21 mmol/L (22.0-30.0); Chloride 102 mmol/L (98-107); Creatinine Clearance Estimated 58 mL/min (50-200); Estimated Glomerular Filt Rate 48 ml/min (>60); GFR (African American) 58 ML/MIN (>60); Globulin 4.4 g/dL (1.3-3.2); Glucose 153 mg/dl (74-100); Lactic Acid 2.1 mmol/L (0.7-2.1); Potassium 3.1 mmoL/L (3.5-5.1); Sodium 138 mmol/L (136-145)
[2023-08-22 20:16] LABS: D-Dimer 1.92 ug/mL (0.0-0.5)
[2023-08-22 20:30] LABS: Troponin I < 0.01 ng/ml (0.00-0.034)
--- NOTE | 2023-08-22 20:31 | PC.NURSE ---
patient gone to RAD at this time.
[2023-08-22 20:40] LABS: NT Pro Brain Natriuretic Pep. 286 pg/mL (0-125)
--- NOTE | 2023-08-22 20:44 | PC.NURSE ---
patient back in room at this time.
[2023-08-22] MEDS: IPRATROPIUM/ALBUTEROL 3 ML NEB 6 ML IH (20:46)
[2023-08-22] MEDS: LACTATED RINGERS 1000ML 1,000 ML 999 ML IV (20:47)
[2023-08-22] MEDS: POTASSIUM CHLORIDE 20MEQ TAB 60 MEQ PO (20:47)
[2023-08-22] MEDS: SODIUM CHLORIDE 0.9% 10ML SYR (RAD ONLY) 10 ML IV (20:48)
[2023-08-22] MEDS: 0.9 % SODIUM CHLORIDE 50 ML VIAL 40 ML IV (20:48)
[2023-08-22] MEDS: IOPAMIDOL-370 (76%);100ML BOTTLE 70 ML IV (20:49)
[2023-08-22 21:14] LABS: Coronavirus 19, PCR Not Detected (NotDetected); Influenza A, PCR Not Detected (NotDetected); Influenza B, PCR Not Detected (NotDetected)
[2023-08-22] MEDS: KETOROLAC 30MG/ML VIAL 15 MG IV (21:21)
--- NOTE | 2023-08-22 21:30 | PC.NURSE ---
Rounded on patient, no needs voiced at this time.
[2023-08-22] MEDS: LORazepam 1MG TABLET 1 MG PO (21:52)
--- NOTE | 2023-08-22 22:19 | PC.NURSE ---
o/p with hospitalist at this time.
--- NOTE | 2023-08-22 22:33 | PC.NURSE ---
notified powerhouse electrician of admission
[2023-08-22] MEDS: VANCOMYCIN CONSULT REQUEST 1 EACH NOTAPPLIC (22:34)
--- NOTE | 2023-08-22 22:35 | PC.NURSE ---
pt will be boarding in ER per clubhouse manager
[2023-08-22] MEDS: CEFTRIAXONE SODIUM 2 GM in 0.9 % SODIUM CHLORIDE 100 ML IV (22:40)
[2023-08-22 23:00] LABS: Troponin I < 0.01 ng/ml (0.00-0.034)
--- NOTE | 2023-08-22 23:01 | PC.NURSE ---
transfered patient into [facility] bed at this time.
[2023-08-22] MEDS: VANCOMYCIN/WATER FOR INJ (PEG) 1.25 GM/250 ML PIGGYBACK IV (23:02)
[2023-08-22] MEDS: OXYCODONE 10MG W/APAP 325MG TABLET 1 EACH PO (23:02)
[2023-08-22] MEDS: LORazepam 2MG/ML VIAL 1 MG IV (23:03)
--- NOTE | 2023-08-22 23:06 | P.HP_ITS ---
History of Present Illness *Admission Date: 08/22/23 *Reason for visit:: Restrictive Lung Disease *History of present illness: 48 year old female presented to [facility] ED for c/o chest pain and SOB that has worsen over the past three days. PMHX of SLE, ILD, COPD, CHF, CAD, Endocarditis, Hypothyroid, GERD, Depression, and smoking. The pt was started on Prednisone 3 days prior. Pt believes steroid is causing anxiety. The ED workup revealed an NICOLE with creatinine of 1.20 and hypokalemia with K 3.1. Imaging revealed chronic pleural thickening and bibasilar pleural scarring as well as esophageal thickening. NO P.E. The pt's Cardiac workup revealed negative troponins and an EKG of sinus tachycardia and RBBB. The pt was given 1mg of Ativan for anxiety. Despite medication, the pt remains tachycardia and tachypenic. The ED physician consulted the hospitalist team for further medical management. I admitted the pt to the medical floor. The pt is currently in the ED waiting for a medical bed. The pt c/o pain located on the right side of chest that is worse with inspiration. The pt states she was started on steroids and Bactrim three days prior. She has been using Tylenol for pain at home and has no relief. Due to NICOLE I am holding NSAIDS. The pt will pain will be managed and I will place a pulmonary consult. Upon admission, the pt appears anxious and is splinting her right side with a pillow. [facility] Disclaimer: The information contained in this section may have been updated after the patient was seen, as this information can be updated by other users. Medical History Allergic rhinitis JOANA positive Anxiety and depression Asthma CAD (coronary artery disease) CHF (congestive heart failure) Chronic pelvic pain in female COPD (chronic obstructive pulmonary disease) COPD (chronic obstructive pulmonary disease) Dyspnea on exertion Family history of asthma GERD (gastroesophageal reflux disease) Hepatitis C History of COPD Hypothyroidism ILD (interstitial lung disease) Immunosuppression due to chronic steroid use Nausea & vomiting Ovarian cyst Pleural thickening Restrictive lung disease Sleep-related breathing disorder Smoking greater than 30 pack years Vaginal spotting Vitamin D deficiency Surgical History History of back surgery History of carpal tunnel surgery History of cholecystectomy History of partial hysterectomy History of tubal ligation Hx of CABG Hx of colonoscopy Family History Other Family history of cancer Family history of cardiomyopathy Family history of diabetes mellitus type I Social History (Updated 08/23/23 @ 13:07 by Juliana Lieberman RN) Smoking Status: Current every day smoker tobacco type: cigarettes packs per day: 1 second hand exposure: No alcohol intake: former substance use type: former substance user, amphetamines and opiates current occupational status: disabled and other Travel in the last 8 weeks: None household members: none housing: house current occupational exposures/hazards: No caffeine: Yes Review of Systems *Cardiovascular Cardiovascular: Reports chest pain and Reports dyspnea *Respiratory Respiratory: Reports dyspnea *Gastrointestinal Gastrointestinal: Reports system reviewed and no additional complaints, except as documented *Genitourinary Genitourinary: Reports system reviewed and no additional complaints, except as documented *Musculoskeletal Musculoskeletal: Reports back pain *Neurologic Neurologic: Reports system reviewed and no additional complaints, except as documented Meds Home Medications and Allergies Home Medications Medication Instructions Recorded Confirmed Type fluticasone fur. 100 mcg-umeclid 1 inh inhalation DAILY Breathing 07/09/23 08/23/23 Rx 62.5 mcg-vilant 25 mcg Problems #60 ea inhalat.powder (Trelegy Ellipta) levothyroxine 125 mcg tablet 125 mcg PO DAILY THYROID 90 days 07/09/23 08/23/23 Rx #90 tabs montelukast 10 mg tablet 10 mg PO DAILY ALLERGIES 90 days 08/18/23 08/23/23 Rx #90 tabs quetiapine 100 mg tablet 100 mg PO DAILY MOOD 90 days #90 08/18/23 08/23/23 Rx tabs venlafaxine 150 mg 300 mg PO DAILY MOOD #180 caps 08/18/23 08/23/23 Rx capsule,extended release 24 hr albuterol sulfate 90 mcg/actuation 2 inh inhalation Q8HP PRN 08/23/23 08/23/23 History aerosol inhaler (Ventolin HFA) Shortness Of Breath bumetanide 1 mg tablet 2 mg PO BID Edema 08/23/23 08/23/23 History ipratropium 0.5 mg-albuterol 3 mg 3 ml inhalation Q4HP PRN shortness 08/23/23 08/23/23 History (2.5 mg base)/3 mL nebulization of breath or wheezing soln omeprazole 20 mg capsule,delayed 20 mg PO DAILY GERD 08/23/23 08/23/23 History release prednisone 5 mg tablet 40 mg PO DAILY INFLAMMATION OF 08/23/23 08/23/23 History LUNGS sulfamethoxazole 800 1 tab PO Q48H ANTIBIOTIC; 08/23/23 08/23/23 History mg-trimethoprim 160 mg tablet PREVENTATIVE (Bactrim DS) New Prescriptions to Start Prescriptions: Allergies Allergy/AdvReac Type Severity Reaction Status Date / Time adhesive tape AdvReac Mild Rash Verified 08/07/23 13:03 Exam Data for Last 24 hours Vital signs and Labs for Last 24 Hours: Temp Pulse Resp BP Pulse Ox O2 Del Method 97.9 F 125 H 20 116/76 97 Room Air 08/22/23 18:57 08/22/23 21:30 08/22/23 21:30 08/22/23 21:30 08/22/23 21:30 08/22/23 18:57 Laboratory Results - last 24 hr 08/22/23 19:52: WBC 8.4, RBC 5.58 H, Hgb 15.7, Hct 46.0, MCV 82.4, MCH 28.2, MCHC 34.2, RDW 15.8, Plt Count 374, MPV 7.1 L, Neut % (Auto) 73.2, Lymph % (Auto) 21.2, [place] % (Auto) 4.9, Eos % (Auto) 0.3, Baso % (Auto) 0.4, Neut # (Auto) 6.1, Lymph # (Auto) 1.8, [place] # (Auto) 0.4, Eos # (Auto) 0.0, Baso # (Auto) 0.0, D-Dimer 1.92 H, Sodium 138, Potassium 3.1 L, Chloride 102, Carbon Dioxide 21 L, Anion Gap 18.1 H, BUN 21 H, Creatinine 1.20 H, Estimated Creat Clear 58, Estimated GFR 48 L, Est GFR ( Amer) 58 L, Glucose 153 H, Lactate 2.1, Calcium 9.5, Total Bilirubin 0.5, AST 25, ALT 23, Alkaline Phosphatase 132 H, Troponin I < 0.01, NT-Pro-B Natriuret Pep 286 H, Total Protein 9.0 H, Albumin 4.6, Globulin 4.4 H, Albumin/Globulin Ratio 1.0 L 08/22/23 21:11: SARS-CoV-2 (PCR) Not detected, Influenza A Untype (PCR) Not detected, Influenza Type B (PCR) Not detected 08/22/23 22:21: Troponin I < 0.01 I & O for Last 24 hours: Intake & Output 08/19/23 08/20/23 08/21/23 08/22/23 23:59 23:59 23:59 23:59 Weight 65.516 kg *Routine HEENT Exam Head: Present normocephalic Eye: Present EOMI ENT: Present mucous membranes dry *Routine Neck Exam Neck: Present full ROM *Routine Respiratory Exam Respiratory: Present wheezes and symmetric chest movement *Routine Cardiovascular Exam Cardiovascular: Present tachycardia *Routine Abdominal Exam Abdominal: Present soft and normoactive bowel sounds; Absent tenderness *Routine Rectal Exam Rectal:: deferred *Routine Genitalia Exam Genitalia:: deferred *Routine Extremities Exam Extremities: Present full ROM *Routine Skin Exam Skin: Present intact *Routine Neurological Exam Neurological: Present alert and oriented X3 Assessment and Plan *Assessment and plan (1) Chest pain, pleuritic: Status: Acute Category: Medical Code(s): R07.81 - Pleurodynia (2) SIRS (systemic inflammatory response syndrome): Status: Acute Category: Medical Code(s): R65.10 - Systemic inflammatory response syndrome (SIRS) of non-infectious origin without acute organ dysfunction (3) ILD (interstitial lung disease): Status: Chronic Category: Medical Code(s): J84.9 - Interstitial pulmonary disease, unspecified (4) SLE (systemic lupus erythematosus related syndrome): Status: Acute Category: Medical Code(s): M32.9 - Systemic lupus erythematosus, unspecified (5) NICOLE (acute kidney injury): Status: Acute Category: Medical Code(s): N17.9 - Acute kidney failure, unspecified (6) Hypokalemia: Status: Resolved Category: Medical Code(s): E87.6 - Hypokalemia (7) CAD (coronary artery disease): Problem Comment: Patient is following with cardiology. She was seen in November 2022. Status: Acute Qualifiers: Associated angina: unspecified whether angina present Coronary Disease- Associated Artery/Lesion type: unspecified vessel or lesion type [place] vs. transplanted heart: [place] heart Qualified Code(s): I25.10 - Atherosclerotic heart disease of [place] coronary artery without angina pectoris Category: Medical Code(s): I25.10 - Atherosclerotic heart disease of [place] coronary artery without angina pectoris (8) COPD (chronic obstructive pulmonary disease): Status: Chronic Qualifiers: COPD type: unspecified COPD Qualified Code(s): J44.9 - Chronic obstructive pulmonary disease, unspecified Category: Medical Code(s): J44.9 - Chronic obstructive pulmonary disease, unspecified (9) Hypothyroidism: Problem Comment: Patient is not a TSH checked for some time. Will recheck 1 today. Status: Chronic Qualifiers: Hypothyroidism type: acquired Qualified Code(s): E03.9 - Hypothyroidism, unspecified Category: Medical Code(s): E03.9 - Hypothyroidism, unspecified (10) CHF (congestive heart failure): Status: Acute Category: Medical Code(s): I50.9 - Heart failure, unspecified (11) COPD (chronic obstructive pulmonary disease): Status: Acute Category: Medical Code(s): J44.9 - Chronic obstructive pulmonary disease, unspecified (12) Tobacco use: Status: Acute Category: Social Hx Code(s): Z72.0 - Tobacco use Plan 48 year old female presented to [facility] ED for c/o chest pain and SOB that has worsen over the past three days. PMHX of SLE, ILD, COPD, CHF, CAD, Endocarditis, Hypothyroid, GERD, Depression, and smoking. The pt was started on Prednisone 3 days prior. Pt believes steroid is causing anxiety. The ED workup revealed an NICOLE with creatinine of 1.20 and hypokalemia with K 3.1. Imaging revealed chronic pleural thickening and bibasilar pleural scarring as well as esophageal thickening. NO P.E. The pt's Cardiac workup revealed negative troponins and an EKG of sinus tachycardia and RBBB. The pt was given 1mg of Ativan for anxiety. Despite medication, the pt remains tachycardic and tachypenic. The ED physician consulted the hospitalist team for further medical management. I admitted the pt to the medical floor. The pt is currently in the ED waiting for a medical bed. The pt c/o pain located on the right side of chest that is worse with inspiration. The pt states she was started on steroids and Bactrim three days prior. She has been using Tylenol for pain at home and has no relief. Due to NICOLE I am holding NSAIDS. The pt's will pain will be managed and I will place a pulmonary consult. Upon admission, the pt appears anxious and is splinting her right side with a pillow. Pt has hx of endocarditis and drug abuse. I will continue the IV antibiotics given in ED until cultures are resulted. The pt had no leukocytosis and lactate was 2.1. The pt does meet SIRS criteria with HR of 125 and RR of 20. The plan as to follow: PLEURITIC PAIN SIRS ILD SLE -Troponins negative -EKG reviewed and reveals sinus tachycardia and RBBB. No ST elevation -Pt remained tachycardic and tachypenic -Imaging reviewed and revealed chronic pleural thickening and bibasilar pleural scarring as well as esophageal thickening. NO P.E. -Pulmonary consult placed. Thank you for the help!! -Continue prednisone 40 mg daily -blood cultures pending -continue IV rocephin 2g and vancomycin -Oxycodone 10 mg q 6hr PRN and Lorazepam 1mg IV q6 hr PRN NICOLE HYPOKALEMIA -Creatinine 1.20 -> hold nephrotoxic medications -K 3.1 -> replaced with 60 P.O in ED -Repeat BMP in the morning CAD COPD HYPOTHYROIDISM CHF COPD -awaiting home med rec -Duoneb TID PRN -tsh pending TOBACCO USE -nicotine patch PRN FULL CODE CARDIAC DIET DVT: HEPARIN SQ Attending attestation Patient was seen and evaluated at the bedside myself, agree with KILLIAN note.
[2023-08-22 23:57] LABS: Reflex Lactic Add Lactic Reflex
[2023-08-23] VITALS (9 sets, daily range): BP systolic 95–129; BP diastolic 61–87; PULSE 73–106; RESP 16–26; TEMP -17.7–36.9; O2SAT 96–100; BMI 26.7
[2023-08-23 00:32] LABS: Lactic Acid Follow Up (RFLX 1) 1.8 mmol/L (0.7-2.1)
[2023-08-23 01:03] LABS: Thyroid Stimulating Hormone 6.31 uIU/mL (0.465-4.68)
[2023-08-23 01:22] LABS: Troponin I < 0.01 ng/ml (0.00-0.034)
--- NOTE | 2023-08-23 02:57 | PC.NURSE ---
pt rang out requested pain meds. spoke with [place] hospitalist awaiting new orders
[2023-08-23] MEDS: OXYCODONE 10MG W/APAP 325MG TABLET 1 EACH PO ×4 (03:01→23:21)
[2023-08-23] MEDS: LORazepam 2MG/ML VIAL 1 MG IV (05:15)
--- NOTE | 2023-08-23 06:39 | PC.NURSE ---
Patient sitting at bedside drinking a soda and watching TV
[2023-08-23 07:24] LABS: Basophils % 0.1 % (0.1-2.0); Eosinophils % 0.7 % (0.1-12.0); Hematocrit 41.7 % (37.0-47.0); Hemoglobin 14.2 g/dL (12.2-16.2); Lymphocytes # 1.3 K/mm3 (0.7-4.5); Lymphocytes % 26.2 % (10-50); Mean Corpuscular Hemoglobin 28.4 pg (27.0-31.2); Mean Corpuscular Volume 83.6 fl (81-99); Mean Platelet Volume 7.2 fl (7.4-10.4); Monocytes # 0.2 K/mm3 (0.1-1.0); Monocytes % 4.2 % (1.7-9.3); Neutrophils # 3.3 K/mm3 (1.8-7.8); Neutrophils % 68.7 % (37.0-80.0); Platelet Count 290 K/mm3 (142-424); Red Blood Count 4.99 M/mm3 (4.20-5.40); White Blood Count 4.9 K/mm3 (4.8-10.8)
[2023-08-23 07:27] LABS: Chloride 102 mmol/L (98-107); Potassium 3.8 mmoL/L (3.5-5.1); Sodium 134 mmol/L (136-145)
[2023-08-23 07:30] LABS: Blood Urea Nitrogen 18 mg/dl (7-17); Creatinine Clearance Estimated 58 mL/min (50-200); Estimated Glomerular Filt Rate 48 ml/min (>60); GFR (African American) 58 ML/MIN (>60)
[2023-08-23 07:31] LABS: Anion Gap 10.8 mEq/L (5-15); Calcium 8.8 mg/dl (8.4-10.2); Carbon Dioxide 25 mmol/L (22.0-30.0); Glucose 160 mg/dl (74-100)
--- NOTE | 2023-08-23 07:40 | PC.NURSE ---
pt setting on bs eating her breakfast tray was give a glass of ice with a mt dew,call light at bs
--- NOTE | 2023-08-23 08:55 | EXP.PHA.CONS ---
Pharmacy Consult Date: 08/23/23 Time: 08:55 Referring provider: DR. MILAN Reason for Consult:: VANCOMYCIN DOSING Allergies Allergy/AdvReac Type Severity Reaction Status Date / Time adhesive tape AdvReac Mild Rash Verified 08/07/23 13:03 Home Medications Medication Instructions Recorded Confirmed Type albuterol sulfate 90 mcg/actuation See Rx Instructions .Route 07/09/23 08/23/23 Rx aerosol inhaler (Ventolin HFA) .COMPLEX #18 grams fluticasone fur. 100 mcg-umeclid 1 inh inhalation DAILY Breathing 07/09/23 08/23/23 Rx 62.5 mcg-vilant 25 mcg Problems #60 ea inhalat.powder (Trelegy Ellipta) ipratropium 0.5 mg-albuterol 3 mg 3 ml inhalation Q4-6H PRN 07/09/23 08/23/23 Rx (2.5 mg base)/3 mL nebulization shortness of breath or wheezing soln #180 mL levothyroxine 125 mcg tablet 125 mcg PO DAILY THYROID 90 days 07/09/23 08/23/23 Rx #90 tabs omeprazole 20 mg capsule,delayed 20 mg PO DAILY . 90 days #90 caps 07/09/23 08/23/23 Rx release ondansetron HCl 4 mg tablet 4 mg PO TID PRN nausea and 07/09/23 08/23/23 Rx vomiting #30 tabs peg 3350-electrolytes 236 240 ml PO Q10M #4,000 mL 07/15/23 08/23/23 Rx gram-22.74 gram-6.74 gram-5.86 gram solution (GaviLyte-G) bumetanide 1 mg tablet See Rx Instructions .Route 08/18/23 08/23/23 Rx .COMPLEX #120 tabs montelukast 10 mg tablet 10 mg PO DAILY ALLERGIES 90 days 08/18/23 08/23/23 Rx #90 tabs quetiapine 100 mg tablet 100 mg PO DAILY MOOD 90 days #90 08/18/23 08/23/23 Rx tabs venlafaxine 150 mg 300 mg PO DAILY MOOD #180 caps 08/18/23 08/23/23 Rx capsule,extended release 24 hr prednisone 20 mg tablet 40 mg PO DAILY 90 days #180 tabs 08/20/23 08/23/23 Rx sulfamethoxazole 800 1 tab PO .q48 #45 tabs 08/20/23 08/23/23 Rx mg-trimethoprim 160 mg tablet (Bactrim DS) New Prescriptions to Start Prescriptions: Height: 1.6 m Weight: 65.516 kg Laboratory Results:: Laboratory Results - last 24 hr 08/22/23 19:52: WBC 8.4, RBC 5.58 H, Hgb 15.7, Hct 46.0, MCV 82.4, MCH 28.2, MCHC 34.2, RDW 15.8, Plt Count 374, MPV 7.1 L, Neut % (Auto) 73.2, Lymph % (Auto) 21.2, [place] % (Auto) 4.9, Eos % (Auto) 0.3, Baso % (Auto) 0.4, Neut # (Auto) 6.1, Lymph # (Auto) 1.8, [place] # (Auto) 0.4, Eos # (Auto) 0.0, Baso # (Auto) 0.0, D-Dimer 1.92 H, Sodium 138, Potassium 3.1 L, Chloride 102, Carbon Dioxide 21 L, Anion Gap 18.1 H, BUN 21 H, Creatinine 1.20 H, Estimated Creat Clear 58, Estimated GFR 48 L, Est GFR ( Amer) 58 L, Glucose 153 H, Lactate 2.1, Calcium 9.5, Total Bilirubin 0.5, AST 25, ALT 23, Alkaline Phosphatase 132 H, Troponin I < 0.01, NT-Pro-B Natriuret Pep 286 H, Total Protein 9.0 H, Albumin 4.6, Globulin 4.4 H, Albumin/Globulin Ratio 1.0 L 08/22/23 21:11: SARS-CoV-2 (PCR) Not detected, Influenza A Untype (PCR) Not detected, Influenza Type B (PCR) Not detected 08/22/23 22:21: Troponin I < 0.01 08/23/23 00:14: Lactate 1.8, TSH 6.31 H 08/23/23 00:15: Troponin I < 0.01 08/23/23 07:06: WBC 4.9 D, RBC 4.99, Hgb 14.2, Hct 41.7, MCV 83.6, MCH 28.4, MCHC 34.0, RDW 16.0, Plt Count 290, MPV 7.2 L, Neut % (Auto) 68.7, Lymph % (Auto) 26.2, [place] % (Auto) 4.2, Eos % (Auto) 0.7, Baso % (Auto) 0.1, Neut # (Auto) 3.3, Lymph # (Auto) 1.3, [place] # (Auto) 0.2, Eos # (Auto) 0.0, Baso # (Auto) 0.0, Sodium 134 L, Potassium 3.8 D, Chloride 102, Carbon Dioxide 25, Anion Gap 10.8, BUN 18 H, Creatinine 1.20 H, Estimated Creat Clear 58, Estimated GFR 48 L, Est GFR ( Amer) 58 L, Glucose 160 H, Calcium 8.8 Medical History: Medical History (Updated 08/22/23 @ 23:48 by AMANDA Sol) Allergic rhinitis JOANA positive Anxiety and depression Asthma CAD (coronary artery disease) CHF (congestive heart failure) Chronic pelvic pain in female COPD (chronic obstructive pulmonary disease) COPD (chronic obstructive pulmonary disease) Dyspnea on exertion Family history of asthma GERD (gastroesophageal reflux disease) Hepatitis C History of COPD Hypothyroidism ILD (interstitial lung disease) Immunosuppression due to chronic steroid use Nausea & vomiting Ovarian cyst Pleural thickening Restrictive lung disease Sleep-related breathing disorder Smoking greater than 30 pack years Vaginal spotting Vitamin D deficiency Assessment and Plan Assessment and plan all Dx Assessment and Plan for all problems:: Pharmacokinetic dosing service Objective: Patient: Floor: Age: 48 yo Serum creatinine: 1.2 mg/dL Height: 63.0 Inches Weight (kg): 65.5 Assessment: IBW (kg): 52.40 Dosing wt(kg): 65.5 Estimated Creatinine clearance (ml/min): 46.4 CRCL method: Cockcroft and Gault using ibw(default). Drug selected: Vancomycin Loading dose (mg): 0 Vd (liters): 52.4 (factor used: 0.8 L/kg) Delbert (hr-1): 0.043 Half life (hrs): 16.12 Recommended dose: 1250 mg Interval: 24 hrs Infusion time (hrs): 2.0 Predicted peak (mcg/mL): 35.5 Predicted trough (mcg/mL): 13.78 Total body weight is being used for vancomycin dosing. Recommendations: Give Vancomycin 1250 mg q 24 hrs with an expected Cpeak of 35.5 mcg/ml and an expected Ctrough of 13.78 mcg/ml ----Vanco only - ignore for aminoglycosides----- CLvanco= 2.25 L/hr AUC 0-24 /RA Data: RA 0.5 mcg/mL: AUC/RA: 1111.1 RA 1.0 mcg/mL: AUC/RA: 555.6 --------- RA 1.5 mcg/mL: AUC/RA: 370.4 RA 2.0 mcg/mL: AUC/RA: 277.8
[2023-08-23] MEDS: HEPARIN SODIUM 5,000 UNIT/ML VIAL 5000 UNIT SQ ×2 (09:06→20:52)
[2023-08-23] MEDS: predniSONE 20MG TAB 40 MG PO (09:06)
--- NOTE | 2023-08-23 09:06 | PC.NURSE ---
I rounded on the pt to see if she needed anything. I took pt a [place] dew. pt has no new complaints at this time.
[2023-08-23] MEDS: CEFTRIAXONE SODIUM 2 GM in 0.9 % SODIUM CHLORIDE 100 ML IV (10:00)
[2023-08-23 10:02] LABS: C-Reactive Protein 30.9 mg/L (0-4)
--- NOTE | 2023-08-23 10:12 | PC.NURSE ---
I rounded on the pt. pt asked if I could take her outside to smoke, I informed her this is a non-smoking facility. I offered her a nicotine patch and she declined.
[2023-08-23] MEDS: NICOTINE 21MG/24HR PATCH 21 MG TD (11:01)
--- NOTE | 2023-08-23 11:55 | INFXCTL.NOTE ---
Attempted to call report, I was informed the nurse is talking to a family member and will call right back
--- NOTE | 2023-08-23 12:28 | PC.NURSE ---
Report called to Fernando Emery RN
--- NOTE | 2023-08-23 12:47 | PC.NURSE ---
rounded on pt no needs at this time,call light at bs
--- NOTE | 2023-08-23 12:51 | PC.NURSE ---
med upper extremity surgeon here to take pt to her room on second floor
--- NOTE | 2023-08-23 12:54 | PC.NURSE ---
arrived by w/c from ED
[2023-08-23] MEDS: LORazepam 2MG/ML VIAL 0.5 MG IV ×2 (14:32→20:35)
--- NOTE | 2023-08-23 17:03 | EXP.PN ---
Subjective *Date: 08/23/23 *Time: 17:03 Interval history: complains of chest pain on deep breathing, patient was seen and evaluated at the bedside. No reported acute events overnight, denies chest pain, shortness of breath, nausea, vomiting, abdominal pain. Exam Data for Last 24 hours Vital signs and Labs for Last 24 Hours: Temp Pulse Resp BP Pulse Ox O2 Del Method O2 Flow Rate 98.4 F 98 H 20 113/63 96 Room Air 2 08/23/23 12:58 08/23/23 12:58 08/23/23 12:58 08/23/23 12:58 08/23/23 12:58 08/23/23 13:17 08/23/23 08:01 Laboratory Results - last 24 hr 08/22/23 19:52: WBC 8.4, RBC 5.58 H, Hgb 15.7, Hct 46.0, MCV 82.4, MCH 28.2, MCHC 34.2, RDW 15.8, Plt Count 374, MPV 7.1 L, Neut % (Auto) 73.2, Lymph % (Auto) 21.2, Sharkey % (Auto) 4.9, Eos % (Auto) 0.3, Baso % (Auto) 0.4, Neut # (Auto) 6.1, Lymph # (Auto) 1.8, Sharkey # (Auto) 0.4, Eos # (Auto) 0.0, Baso # (Auto) 0.0, D-Dimer 1.92 H, Sodium 138, Potassium 3.1 L, Chloride 102, Carbon Dioxide 21 L, Anion Gap 18.1 H, BUN 21 H, Creatinine 1.20 H, Estimated Creat Clear 58, Estimated GFR 48 L, Est GFR ( Amer) 58 L, Glucose 153 H, Lactate 2.1, Calcium 9.5, Total Bilirubin 0.5, AST 25, ALT 23, Alkaline Phosphatase 132 H, Troponin I < 0.01, NT-Pro-B Natriuret Pep 286 H, Total Protein 9.0 H, Albumin 4.6, Globulin 4.4 H, Albumin/Globulin Ratio 1.0 L 08/22/23 21:11: SARS-CoV-2 (PCR) Not detected, Influenza A Untype (PCR) Not detected, Influenza Type B (PCR) Not detected 08/22/23 22:21: Troponin I < 0.01 08/23/23 00:14: Lactate 1.8, TSH 6.31 H 08/23/23 00:15: Troponin I < 0.01 08/23/23 07:06: WBC 4.9 D, RBC 4.99, Hgb 14.2, Hct 41.7, MCV 83.6, MCH 28.4, MCHC 34.0, RDW 16.0, Plt Count 290, MPV 7.2 L, Neut % (Auto) 68.7, Lymph % (Auto) 26.2, Sharkey % (Auto) 4.2, Eos % (Auto) 0.7, Baso % (Auto) 0.1, Neut # (Auto) 3.3, Lymph # (Auto) 1.3, Sharkey # (Auto) 0.2, Eos # (Auto) 0.0, Baso # (Auto) 0.0, Sodium 134 L, Potassium 3.8 D, Chloride 102, Carbon Dioxide 25, Anion Gap 10.8, BUN 18 H, Creatinine 1.20 H, Estimated Creat Clear 58, Estimated GFR 48 L, Est GFR ( Amer) 58 L, Glucose 160 H, Calcium 8.8, C-Reactive Protein 30.9 H I & O for Last 24 hours: Intake & Output 08/20/23 08/21/23 08/22/23 08/23/23 23:59 23:59 23:59 23:59 Intake Total 240 / 240 Balance 240 / 240 Weight 65.516 kg 68.492 kg Constitutional Constitutional: no acute distress *Routine HEENT Exam Head: Present normocephalic Eye: Present EOMI and PERRL ENT: Present mucous membranes moist *Routine Neck Exam Neck: Present supple; Absent lymphadenopathy *Routine Respiratory Exam Respiratory: Present CTA bilaterally *Routine Cardiovascular Exam Cardiovascular: Present RRR *Routine Abdominal Exam Abdominal: Present soft and normoactive bowel sounds; Absent tenderness *Routine Extremities Exam Extremities: Absent cyanosis, clubbing or edema *Routine Skin Exam Skin: Present warm; Absent rash *Routine Neurological Exam Neurological: Present alert and oriented X3 Assessment and Plan *Assessment and plan (1) Chest pain, pleuritic: Status: Acute Category: Medical Code(s): R07.81 - Pleurodynia (2) SIRS (systemic inflammatory response syndrome): Status: Acute Category: Medical Code(s): R65.10 - Systemic inflammatory response syndrome (SIRS) of non-infectious origin without acute organ dysfunction (3) ILD (interstitial lung disease): Status: Chronic Category: Medical Code(s): J84.9 - Interstitial pulmonary disease, unspecified (4) SLE (systemic lupus erythematosus related syndrome): Status: Acute Category: Medical Code(s): M32.9 - Systemic lupus erythematosus, unspecified (5) NICOLE (acute kidney injury): Status: Acute Category: Medical Code(s): N17.9 - Acute kidney failure, unspecified (6) Hypokalemia: Status: Resolved Category: Medical Code(s): E87.6 - Hypokalemia (7) CAD (coronary artery disease): Problem Comment: Patient is following with cardiology. She was seen in November 2022. Status: Acute Qualifiers: Coronary Disease-Associated Artery/Lesion type: unspecified vessel or lesion type [place] vs. transplanted heart: [place] heart Associated angina: unspecified whether angina present Qualified Code(s): I25.10 - Atherosclerotic heart disease of [place] coronary artery without angina pectoris Category: Medical Code(s): I25.10 - Atherosclerotic heart disease of [place] coronary artery without angina pectoris (8) COPD (chronic obstructive pulmonary disease): Status: Chronic Qualifiers: COPD type: unspecified COPD Qualified Code(s): J44.9 - Chronic obstructive pulmonary disease, unspecified Category: Medical Code(s): J44.9 - Chronic obstructive pulmonary disease, unspecified (9) Hypothyroidism: Problem Comment: Patient is not a TSH checked for some time. Will recheck 1 today. Status: Chronic Qualifiers: Hypothyroidism type: acquired Qualified Code(s): E03.9 - Hypothyroidism, unspecified Category: Medical Code(s): E03.9 - Hypothyroidism, unspecified (10) CHF (congestive heart failure): Status: Acute Category: Medical Code(s): I50.9 - Heart failure, unspecified (11) COPD (chronic obstructive pulmonary disease): Status: Acute Category: Medical Code(s): J44.9 - Chronic obstructive pulmonary disease, unspecified (12) Tobacco use: Status: Acute Category: Social Hx Code(s): Z72.0 - Tobacco use Plan 48 year old female presented to [facility] ED for c/o chest pain and SOB that has worsen over the past three days. PMHX of SLE, ILD, COPD, CHF, CAD, Endocarditis, Hypothyroid, GERD, Depression, and smoking. The pt was started on Prednisone 3 days prior. Pt believes steroid is causing anxiety. The ED workup revealed an NICOLE with creatinine of 1.20 and hypokalemia with K 3.1. Imaging revealed chronic pleural thickening and bibasilar pleural scarring as well as esophageal thickening. NO P.E. The pt's Cardiac workup revealed negative troponins and an EKG of sinus tachycardia and RBBB. The pt was given 1mg of Ativan for anxiety. Despite medication, the pt remains tachycardic and tachypenic. The ED physician consulted the hospitalist team for further medical management. I admitted the pt to the medical floor. The pt is currently in the ED waiting for a medical bed. The pt c/o pain located on the right side of chest that is worse with inspiration. The pt states she was started on steroids and Bactrim three days prior. She has been using Tylenol for pain at home and has no relief. Due to NICOLE I am holding NSAIDS. The pt's will pain will be managed and I will place a pulmonary consult. Upon admission, the pt appears anxious and is splinting her right side with a pillow. Pt has hx of endocarditis and drug abuse. I will continue the IV antibiotics given in ED until cultures are resulted. The pt had no leukocytosis and lactate was 2.1. The pt does meet SIRS criteria with HR of 125 and RR of 20. The plan as to follow: PLEURITIC PAIN SIRS ILD SLE -Troponins negative -EKG reviewed and reveals sinus tachycardia and RBBB. No ST elevation -Pt remained tachycardic and tachypenic -Imaging reviewed and revealed chronic pleural thickening and bibasilar pleural scarring as well as esophageal thickening. NO P.E. -Pulmonary consult placed. Thank you for the help!! started on solumedrol BID, discussed with pulmonary -blood cultures pending -continue IV rocephin 2g and vancomycin -Oxycodone 10 mg q 6hr PRN and Lorazepam 1mg IV q6 hr PRN NICOLE HYPOKALEMIA -Creatinine 1.20 -> hold nephrotoxic medications -K 3.1 -> replaced with 60 P.O in ED -Repeat BMP in the morning CAD COPD HYPOTHYROIDISM CHF COPD -awaiting home med rec -Duoneb TID PRN -tsh pending TOBACCO USE -nicotine patch PRN FULL CODE CARDIAC DIET DVT: HEPARIN SQ continue to monitor inpatient
[2023-08-23] MEDS: ONDANSETRON 4MG/2ML VIAL 4 MG IV ×2 (18:01→23:22)
[2023-08-23] MEDS: METHYLPREDNISOLONE SOD SUCC 40MG VIAL 40 MG IV (20:52)
[2023-08-23] MEDS: VANCOMYCIN/WATER FOR INJ (PEG) 1.25 GM/250 ML PIGGYBACK IV (22:43)
[2023-08-24] MEDS: QUETIAPINE 100MG TABLET 100 MG PO ×2 (00:38→21:41)
[2023-08-24] MEDS: CEFTRIAXONE SODIUM 2 GM in 0.9 % SODIUM CHLORIDE 100 ML IV ×2 (00:38→12:07)
[2023-08-24 04:00] VITALS: BP 121/79; PULSE 75; RESP 18; TEMP 36.9; O2SAT 99; BMI 29.6
[2023-08-24 07:44] VITALS: BP 110/57; PULSE 79; RESP 18; TEMP 36.6; O2SAT 99
[2023-08-24] MEDS: METHYLPREDNISOLONE SOD SUCC 40MG VIAL 40 MG IV ×2 (08:23→21:41)
[2023-08-24] MEDS: OXYCODONE 10MG W/APAP 325MG TABLET 1 EACH PO ×2 (08:23→14:40)
[2023-08-24] MEDS: HEPARIN SODIUM 5,000 UNIT/ML VIAL 5000 UNIT SQ ×2 (08:23→21:41)
[2023-08-24] MEDS: NICOTINE 21MG/24HR PATCH 21 MG TD (08:25)
[2023-08-24] MEDS: ONDANSETRON 4MG/2ML VIAL 4 MG IV ×2 (08:26→18:04)
[2023-08-24 09:44] LABS: Potassium 4.3 mmoL/L (3.5-5.1); Sodium 137 mmol/L (136-145)
[2023-08-24 09:47] LABS: Blood Urea Nitrogen 14 mg/dl (7-17); Carbon Dioxide 28 mmol/L (22.0-30.0); Creatinine Clearance Estimated 90 mL/min (50-200); Estimated Glomerular Filt Rate 66 ml/min (>60); GFR (African American) 80 ML/MIN (>60); Glucose 152 mg/dl (74-100)
[2023-08-24 09:58] LABS: Basophils % 0.2 % (0.1-2.0); Eosinophils % 0.1 % (0.1-12.0); Hematocrit 38.4 % (37.0-47.0); Hemoglobin 12.6 g/dL (12.2-16.2); Lymphocytes # 0.5 K/mm3 (0.7-4.5); Lymphocytes % 13.9 % (10-50); Mean Corpuscular HGB Conc 32.9 g/dL (31.8-35.4); Mean Corpuscular Volume 85.1 fl (81-99); Mean Platelet Volume 7.4 fl (7.4-10.4); Monocytes # 0.2 K/mm3 (0.1-1.0); Monocytes % 4.4 % (1.7-9.3); Neutrophils % 81.5 % (37.0-80.0); Platelet Count 257 K/mm3 (142-424); Red Blood Count 4.51 M/mm3 (4.20-5.40); Red Cell Distribution Width 15.8 % (11.5-17.5); White Blood Count 3.7 K/mm3 (4.8-10.8)
--- NOTE | 2023-08-24 10:43 | P.CONPHA_ITS ---
Pharmacy Consult Date: 08/24/23 Time: 10:43 Referring provider: DR. MILAN Reason for Consult:: VANCOMYCIN DOSE CHANGE Allergies Allergy/AdvReac Type Severity Reaction Status Date / Time adhesive tape AdvReac Mild Rash Verified 08/07/23 13:03 Home Medications Medication Instructions Recorded Confirmed Type fluticasone fur. 100 mcg-umeclid 1 inh inhalation DAILY Breathing 07/09/23 08/23/23 Rx 62.5 mcg-vilant 25 mcg Problems #60 ea inhalat.powder (Trelegy Ellipta) levothyroxine 125 mcg tablet 125 mcg PO DAILY THYROID 90 days 07/09/23 08/23/23 Rx #90 tabs montelukast 10 mg tablet 10 mg PO DAILY ALLERGIES 90 days 08/18/23 08/23/23 Rx #90 tabs quetiapine 100 mg tablet 100 mg PO DAILY MOOD 90 days #90 08/18/23 08/23/23 Rx tabs venlafaxine 150 mg 300 mg PO DAILY MOOD #180 caps 08/18/23 08/23/23 Rx capsule,extended release 24 hr albuterol sulfate 90 mcg/actuation 2 inh inhalation Q8HP PRN 08/23/23 08/23/23 History aerosol inhaler (Ventolin HFA) Shortness Of Breath bumetanide 1 mg tablet 2 mg PO BID Edema 08/23/23 08/23/23 History ipratropium 0.5 mg-albuterol 3 mg 3 ml inhalation Q4HP PRN shortness 08/23/23 08/23/23 History (2.5 mg base)/3 mL nebulization of breath or wheezing soln omeprazole 20 mg capsule,delayed 20 mg PO DAILY GERD 08/23/23 08/23/23 History release prednisone 5 mg tablet 40 mg PO DAILY INFLAMMATION OF 08/23/23 08/23/23 History LUNGS sulfamethoxazole 800 1 tab PO Q48H ANTIBIOTIC; 08/23/23 08/23/23 History mg-trimethoprim 160 mg tablet PREVENTATIVE (Bactrim DS) New Prescriptions to Start Prescriptions: Height: 1.6 m Weight: 75.841 kg Laboratory Results:: Laboratory Results - last 24 hr 08/24/23 09:25: WBC 3.7 L, RBC 4.51, Hgb 12.6, Hct 38.4, MCV 85.1, MCH 28.0, MCHC 32.9, RDW 15.8, Plt Count 257, MPV 7.4, Neut % (Auto) 81.5 H, Lymph % (Auto) 13.9, [place] % (Auto) 4.4, Eos % (Auto) 0.1, Baso % (Auto) 0.2, Neut # (Auto) 3.0, Lymph # (Auto) 0.5 L, [place] # (Auto) 0.2, Eos # (Auto) 0.0, Baso # (Auto) 0.0, Sodium 137, Potassium 4.3, Chloride 106, Carbon Dioxide 28, BUN 14, Creatinine 0.90 D, Estimated Creat Clear 90, Estimated GFR 66, Est GFR ( Amer) 80 D, Glucose 152 H, Calcium 9.0 Medical History: Medical History (Updated 08/22/23 @ 23:48 by AMANDA Sol) Allergic rhinitis JOANA positive Anxiety and depression Asthma CAD (coronary artery disease) CHF (congestive heart failure) Chronic pelvic pain in female COPD (chronic obstructive pulmonary disease) COPD (chronic obstructive pulmonary disease) Dyspnea on exertion Family history of asthma GERD (gastroesophageal reflux disease) Hepatitis C History of COPD Hypothyroidism ILD (interstitial lung disease) Immunosuppression due to chronic steroid use Nausea & vomiting Ovarian cyst Pleural thickening Restrictive lung disease Sleep-related breathing disorder Smoking greater than 30 pack years Vaginal spotting Vitamin D deficiency Assessment and Plan Assessment and plan all Dx Assessment and Plan for all problems:: Pharmacokinetic dosing service Objective: Patient: Floor: Age: 48 yo Serum creatinine: 0.9 mg/dL Height: 63.0 Inches Weight (kg): 76 Assessment: IBW (kg): 52.40 Dosing wt(kg): 76 Estimated Creatinine clearance (ml/min): 61.9 CRCL method: Cockcroft and Gault using ibw(default). Drug selected: Vancomycin Loading dose (mg): 0 Vd (liters): 60.8 (factor used: 0.8 L/kg) Delbert (hr-1): 0.056 Half life (hrs): 12.38 Recommended dose: 1500 mg Interval: 18 hrs Infusion time (hrs): 2.0 Predicted peak (mcg/mL): 36.8 Predicted trough (mcg/mL): 15.02 Total body weight is being used for vancomycin dosing. Recommendations: Give Vancomycin 1500 mg q 18 hrs with an expected Cpeak of 36.8 mcg/ml and an expected Ctrough of 15.02 mcg/ml ----Vanco only - ignore for aminoglycosides----- CLvanco= 3.40 L/hr AUC 0-24 /RA Data: RA 0.5 mcg/mL: AUC/RA: 1176.5 RA 1.0 mcg/mL: AUC/RA: 588.2 --------- RA 1.5 mcg/mL: AUC/RA: 392.2 RA 2.0 mcg/mL: AUC/RA: 294.1
[2023-08-24 10:55] VITALS: O2SAT 98
[2023-08-24] MEDS: FLUTICASONE/UMECLIDIN/VILANTER 100/62.5/25MCG INHALER 1 PUFF IH (10:55)
[2023-08-24] MEDS: LEVOTHYROXINE 125MCG (0.125MG) TAB 125 MCG PO (11:55)
[2023-08-24] MEDS: VENLAFAXINE XR 75MG CAPSULE 300 MG PO (11:55)
[2023-08-24] MEDS: BUMETANIDE 1 MG TABLET 2 MG PO ×2 (11:56→16:45)
[2023-08-24] MEDS: VANCOMYCIN/WATER FOR INJ (PEG) 1.5 GM/300 ML PIGGYBACK IV (12:08)
[2023-08-24] MEDS: LORazepam 2MG/ML VIAL 0.5 MG IV ×2 (12:56→21:42)
[2023-08-24 13:12] LABS: Anion Gap 7.3 mEq/L (5-15); Chloride 106 mmol/L (98-107)
[2023-08-24 15:05] VITALS: BP 136/88; PULSE 94; RESP 18; TEMP 36.6; O2SAT 98
--- NOTE | 2023-08-24 15:36 | EXP.PN ---
Subjective *Date: 08/24/23 *Time: 15:36 Interval history: complains of chest pain on deep breathing, slightly better than yesterday, patient was seen and evaluated at the bedside. No reported acute events overnight, denies shortness of breath, nausea, vomiting, abdominal pain. Exam Data for Last 24 hours Vital signs and Labs for Last 24 Hours: Temp Pulse Resp BP Pulse Ox O2 Del Method O2 Flow Rate 97.8 F 94 H 18 136/88 98 Room Air 2 08/24/23 15:08/24/23 15:08/24/23 15:08/24/23 15:08/24/23 15:08/24/23 15:08/23/23 08:01 Laboratory Results - last 24 hr 08/24/23 09:25: WBC 3.7 L, RBC 4.51, Hgb 12.6, Hct 38.4, MCV 85.1, MCH 28.0, MCHC 32.9, RDW 15.8, Plt Count 257, MPV 7.4, Neut % (Auto) 81.5 H, Lymph % (Auto) 13.9, [place] % (Auto) 4.4, Eos % (Auto) 0.1, Baso % (Auto) 0.2, Neut # (Auto) 3.0, Lymph # (Auto) 0.5 L, [place] # (Auto) 0.2, Eos # (Auto) 0.0, Baso # (Auto) 0.0, Sodium 137, Potassium 4.3, Chloride 106, Carbon Dioxide 28, Anion Gap 7.3, BUN 14, Creatinine 0.90 D, Estimated Creat Clear 90, Estimated GFR 66, Est GFR ( Amer) 80 D, Glucose 152 H, Calcium 9.0 I & O for Last 24 hours: Intake & Output 08/21/23 08/22/23 08/23/23 08/24/23 23:59 23:59 23:59 23:59 Intake Total 480 / 960 960 / 960 Output Total 0 / 0 0 / 0 Balance 480 / 960 960 / 960 Weight 65.516 kg 68.492 kg 75.841 kg Constitutional Constitutional: no acute distress *Routine HEENT Exam Head: Present normocephalic Eye: Present EOMI and PERRL ENT: Present mucous membranes moist *Routine Neck Exam Neck: Present supple; Absent lymphadenopathy *Routine Respiratory Exam Respiratory: Present CTA bilaterally *Routine Cardiovascular Exam Cardiovascular: Present RRR *Routine Abdominal Exam Abdominal: Present soft and normoactive bowel sounds; Absent tenderness *Routine Extremities Exam Extremities: Absent cyanosis, clubbing or edema *Routine Skin Exam Skin: Present warm; Absent rash *Routine Neurological Exam Neurological: Present alert and oriented X3 Assessment and Plan *Assessment and plan (1) Chest pain, pleuritic: Status: Acute Category: Medical Code(s): R07.81 - Pleurodynia (2) SIRS (systemic inflammatory response syndrome): Status: Acute Category: Medical Code(s): R65.10 - Systemic inflammatory response syndrome (SIRS) of non-infectious origin without acute organ dysfunction (3) ILD (interstitial lung disease): Status: Chronic Category: Medical Code(s): J84.9 - Interstitial pulmonary disease, unspecified (4) SLE (systemic lupus erythematosus related syndrome): Status: Acute Category: Medical Code(s): M32.9 - Systemic lupus erythematosus, unspecified (5) NICOLE (acute kidney injury): Status: Acute Category: Medical Code(s): N17.9 - Acute kidney failure, unspecified (6) Hypokalemia: Status: Resolved Category: Medical Code(s): E87.6 - Hypokalemia (7) CAD (coronary artery disease): Problem Comment: Patient is following with cardiology. She was seen in November 2022. Status: Acute Qualifiers: Coronary Disease-Associated Artery/Lesion type: unspecified vessel or lesion type [place] vs. transplanted heart: [place] heart Associated angina: unspecified whether angina present Qualified Code(s): I25.10 - Atherosclerotic heart disease of [place] coronary artery without angina pectoris Category: Medical Code(s): I25.10 - Atherosclerotic heart disease of [place] coronary artery without angina pectoris (8) COPD (chronic obstructive pulmonary disease): Status: Chronic Qualifiers: COPD type: unspecified COPD Qualified Code(s): J44.9 - Chronic obstructive pulmonary disease, unspecified Category: Medical Code(s): J44.9 - Chronic obstructive pulmonary disease, unspecified (9) Hypothyroidism: Problem Comment: Patient is not a TSH checked for some time. Will recheck 1 today. Status: Chronic Qualifiers: Hypothyroidism type: acquired Qualified Code(s): E03.9 - Hypothyroidism, unspecified Category: Medical Code(s): E03.9 - Hypothyroidism, unspecified (10) CHF (congestive heart failure): Status: Acute Category: Medical Code(s): I50.9 - Heart failure, unspecified (11) COPD (chronic obstructive pulmonary disease): Status: Acute Category: Medical Code(s): J44.9 - Chronic obstructive pulmonary disease, unspecified (12) Tobacco use: Status: Acute Category: Social Hx Code(s): Z72.0 - Tobacco use Plan 48 year old female presented to [facility] ED for c/o chest pain and SOB that has worsen over the past three days. PMHX of SLE, ILD, COPD, CHF, CAD, Endocarditis, Hypothyroid, GERD, Depression, and smoking. The pt was started on Prednisone 3 days prior. Pt believes steroid is causing anxiety. The ED workup revealed an NICOLE with creatinine of 1.20 and hypokalemia with K 3.1. Imaging revealed chronic pleural thickening and bibasilar pleural scarring as well as esophageal thickening. NO P.E. The pt's Cardiac workup revealed negative troponins and an EKG of sinus tachycardia and RBBB. The pt was given 1mg of Ativan for anxiety. Despite medication, the pt remains tachycardic and tachypenic. The ED physician consulted the hospitalist team for further medical management. I admitted the pt to the medical floor. The pt is currently in the ED waiting for a medical bed. The pt c/o pain located on the right side of chest that is worse with inspiration. The pt states she was started on steroids and Bactrim three days prior. She has been using Tylenol for pain at home and has no relief. Due to NICOLE I am holding NSAIDS. The pt's will pain will be managed and I will place a pulmonary consult. Upon admission, the pt appears anxious and is splinting her right side with a pillow. Pt has hx of endocarditis and drug abuse. I will continue the IV antibiotics given in ED until cultures are resulted. The pt had no leukocytosis and lactate was 2.1. The pt does meet SIRS criteria with HR of 125 and RR of 20. The plan as to follow: PLEURITIC PAIN SIRS ILD SLE -Troponins negative -EKG reviewed and reveals sinus tachycardia and RBBB. No ST elevation -Imaging reviewed and revealed chronic pleural thickening and bibasilar pleural scarring as well as esophageal thickening. NO P.E. started on solumedrol BID, discussed with pulmonary -blood cultures pending - ngtd -continue IV rocephin 2g and vancomycin -Oxycodone 10 mg q 6hr PRN and Lorazepam 1mg IV q6 hr PRN NICOLE - improved, monitor HYPOKALEMIA - improved, monitor CAD COPD HYPOTHYROIDISM CHF COPD -awaiting home med rec -Duoneb TID PRN -tsh pending TOBACCO USE -nicotine patch PRN FULL CODE CARDIAC DIET DVT: HEPARIN SQ continue to monitor inpatient, continue Solumedrol
--- NOTE | 2023-08-24 18:25 | PC.NURSE ---
pt pn ra, no soa while at rest but very soa after ambulating to br. o2 sats have remained above 90%. x2 complaints of nausea, treated per sep. pt has some discomfort and pain in lungs from coughing. cb within reach no concerns at this time.
[2023-08-24 19:58] VITALS: BP 137/81; PULSE 71; RESP 16; TEMP 36.7; O2SAT 99
[2023-08-24 20:14] VITALS: BMI 29.6
[2023-08-24] MEDS: MONTELUKAST SODIUM 10MG TAB 10 MG PO (21:42)
[2023-08-24] MEDS: PANTOPRAZOLE 40MG TABLET 40 MG PO (21:42)
[2023-08-25 04:00] VITALS: BP 116/69; PULSE 64; RESP 16; TEMP 36.6; O2SAT 100; BMI 27.8
[2023-08-25] MEDS: OXYCODONE 10MG W/APAP 325MG TABLET 1 EACH PO (06:05)
[2023-08-25] MEDS: LEVOTHYROXINE 125MCG (0.125MG) TAB 125 MCG PO (06:06)
[2023-08-25] MEDS: FLUTICASONE/UMECLIDIN/VILANTER 100/62.5/25MCG INHALER 1 PUFF IH (06:35)
[2023-08-25 06:42] LABS: Chloride 100 mmol/L (98-107); Potassium 3.9 mmoL/L (3.5-5.1); Sodium 137 mmol/L (136-145)
[2023-08-25 06:45] LABS: Anion Gap 6.9 mEq/L (5-15); Basophils % 0.1 % (0.1-2.0); Blood Urea Nitrogen 22 mg/dl (7-17); Calcium 9.1 mg/dl (8.4-10.2); Carbon Dioxide 34 mmol/L (22.0-30.0); Creatinine Clearance Estimated 84 mL/min (50-200); Eosinophils % 0.1 % (0.1-12.0); Estimated Glomerular Filt Rate 66 ml/min (>60); GFR (African American) 80 ML/MIN (>60); Glucose 180 mg/dl (74-100); Hematocrit 40.5 % (37.0-47.0); Lymphocytes # 0.9 K/mm3 (0.7-4.5); Lymphocytes % 13.4 % (10-50); Mean Corpuscular HGB Conc 34.4 g/dL (31.8-35.4); Mean Corpuscular Hemoglobin 28.6 pg (27.0-31.2); Mean Corpuscular Volume 82.9 fl (81-99); Mean Platelet Volume 7.7 fl (7.4-10.4); Monocytes # 0.3 K/mm3 (0.1-1.0); Neutrophils # 5.7 K/mm3 (1.8-7.8); Neutrophils % 82.4 % (37.0-80.0); Platelet Count 301 K/mm3 (142-424); Red Blood Count 4.89 M/mm3 (4.20-5.40); Red Cell Distribution Width 15.5 % (11.5-17.5); White Blood Count 6.9 K/mm3 (4.8-10.8)
[2023-08-25] MEDS: ONDANSETRON 4MG/2ML VIAL 4 MG IV (07:07)
[2023-08-25 07:54] VITALS: BP 131/79; PULSE 65; RESP 20; TEMP 36.6; O2SAT 97
[2023-08-25 08:00] VITALS: O2SAT 97
[2023-08-25 08:05] LABS: Vancomycin,Trough 11.1 ug/mL (5.0-10.0)
[2023-08-25] MEDS: METHYLPREDNISOLONE SOD SUCC 40MG VIAL 40 MG IV (08:44)
[2023-08-25] MEDS: HEPARIN SODIUM 5,000 UNIT/ML VIAL 5000 UNIT SQ (08:44)
[2023-08-25] MEDS: BUMETANIDE 1 MG TABLET 2 MG PO (08:44)
[2023-08-25] MEDS: VENLAFAXINE XR 75MG CAPSULE 300 MG PO (08:44)
[2023-08-25 08:47] LABS: C-Reactive Protein 11.5 mg/L (0-4)
[2023-08-25] MEDS: LORazepam 2MG/ML VIAL 0.5 MG IV (08:51)
[2023-08-25] MEDS: SODIUM CHLORIDE 0.9% 10ML VIAL 10 ML IV (08:51)
[2023-08-25 09:06] LABS: Erythrocyte Sedimentation Rate 16 mm/hr (0-20)
--- NOTE | 2023-08-25 09:46 | EXP.PULM.CON ---
History of Present Illness History of present illness: Ms. 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 Patient complains of worsening shortness of breath and wheezing, chest pain right leg worsens with breathing and coughing. [facility] Disclaimer: The information contained in this section may have been updated after the patient was seen, as this information can be updated by other users. Medical History (Updated 08/25/23 @ 10:45 by Petra Ferraro MD) Allergic rhinitis JOANA positive Anxiety and depression Asthma CAD (coronary artery disease) CHF (congestive heart failure) Chronic pelvic pain in female COPD (chronic obstructive pulmonary disease) COPD (chronic obstructive pulmonary disease) Dyspnea on exertion Family history of asthma GERD (gastroesophageal reflux disease) Hepatitis C History of COPD Hypothyroidism ILD (interstitial lung disease) Immunosuppression due to chronic steroid use Lupus disease of lung Nausea & vomiting Ovarian cyst Pleural thickening Restrictive lung disease Sleep-related breathing disorder Smoking greater than 30 pack years Vaginal spotting Vitamin D deficiency Surgical History History of back surgery History of carpal tunnel surgery History of cholecystectomy History of partial hysterectomy History of tubal ligation Hx of CABG Hx of colonoscopy Family History Other Family history of cancer Family history of cardiomyopathy Family history of diabetes mellitus type I Social History (Updated 08/23/23 @ 13:07 by Juliana Lieberman RN) Smoking Status: Current every day smoker tobacco type: cigarettes packs per day: 1 second hand exposure: No alcohol intake: former substance use type: former substance user, amphetamines and opiates current occupational status: disabled and other Travel in the last 8 weeks: None household members: none housing: house current occupational exposures/hazards: No caffeine: Yes Review of Systems Constitutional Constitutional: Reports anorexia, Reports body ache(s) and Reports fatigue Eyes Eyes: Denies eye discharge, Denies dry eyes, Denies irritation and Denies itchy eyes ENT Ears, Nose, Mouth, and Throat: Denies epistaxis, Denies facial pain, Denies lip swelling and Denies throat swelling *Cardiovascular Cardiovascular: Reports dyspnea on exertion *Respiratory Respiratory: Reports chest congestion, Reports cough, Reports dyspnea on exertion, Denies excessive phlegm production, Denies hemoptysis, Reports pain on inspiration and Reports pain with cough *Gastrointestinal Gastrointestinal: Denies abdominal pain, Denies belching and Denies cramping *Musculoskeletal Musculoskeletal: Reports back pain, Reports myalgias and Reports other (No small joint swelling or Pain) *Neurologic Neurologic: Reports system reviewed and no additional complaints, except as documented Psychiatric Psychiatric: Denies homicidal ideation and Denies suicidal ideation Endocrine Endocrine: Reports fatigue and Denies heat intolerance Hematologic/Lymphatic Hematologic/Lymphatic: Denies easy bleeding and Denies lymphadenopathy Allergic/Immunologic Allergic/Immunologic: Denies itchy eyes, Denies lip swelling and Denies throat swelling Pulmonology Exam Inpatient Vital signs and Labs for Last 24 Hours: Temp Pulse Resp BP Pulse Ox O2 Del Method O2 Flow Rate 97.8 F 65 20 131/79 97 Room Air 2 08/25/23 07:54 08/25/23 07:54 08/25/23 07:54 08/25/23 07:54 08/25/23 07:54 08/25/23 07:54 08/23/23 08:01 Laboratory Results - last 24 hr 08/24/23 09:25: WBC 3.7 L, RBC 4.51, Hgb 12.6, Hct 38.4, MCV 85.1, MCH 28.0, MCHC 32.9, RDW 15.8, Plt Count 257, MPV 7.4, Neut % (Auto) 81.5 H, Lymph % (Auto) 13.9, [place] % (Auto) 4.4, Eos % (Auto) 0.1, Baso % (Auto) 0.2, Neut # (Auto) 3.0, Lymph # (Auto) 0.5 L, [place] # (Auto) 0.2, Eos # (Auto) 0.0, Baso # (Auto) 0.0, Sodium 137, Potassium 4.3, Chloride 106, Carbon Dioxide 28, Anion Gap 7.3, BUN 14, Creatinine 0.90 D, Estimated Creat Clear 90, Estimated GFR 66, Est GFR ( Amer) 80 D, Glucose 152 H, Calcium 9.0 08/25/23 06:00: WBC 6.9 D, RBC 4.89, Hgb 14.0 D, Hct 40.5, MCV 82.9, MCH 28.6, MCHC 34.4, RDW 15.5, Plt Count 301, MPV 7.7, Neut % (Auto) 82.4 H, Lymph % (Auto) 13.4, [place] % (Auto) 4.0, Eos % (Auto) 0.1, Baso % (Auto) 0.1, Neut # (Auto) 5.7, Lymph # (Auto) 0.9, [place] # (Auto) 0.3, Eos # (Auto) 0.0, Baso # (Auto) 0.0, ESR 16, Sodium 137, Potassium 3.9, Chloride 100, Carbon Dioxide 34 H, Anion Gap 6.9, BUN 22 H D, Creatinine 0.90, Estimated Creat Clear 84, Estimated GFR 66, Est GFR ( Amer) 80, Glucose 180 H, Calcium 9.1, C-Reactive Protein 11.5 H D, Vancomycin Trough 11.1 H I & O for Labs for Last 24 Hours: Intake & Output 08/22/23 08/23/23 08/24/23 08/25/23 23:59 23:59 23:59 23:59 Intake Total 480 / 960 1200 / 1800 850 / 850 Output Total 0 / 0 0 / 0 0 / 0 Balance 480 / 960 1200 / 1800 850 / 850 Weight 144 lb 7 oz 151 lb 167 lb 3.177 oz 157 lb 3.2 oz Constitutional: Present moderate distress Head: Present normocephalic and atraumatic ENT: Present normal exam, normal oropharynx and mucous membranes moist Neck: Present normal inspection and full ROM Respiratory: Present respiratory distress and able to speak in complete sentences; Absent wheezes or crackles Cardiac: Present S1/S2, Tachycardia and radial pulses present GI: Present soft and distention; Absent tenderness or guarding Rectal (female): Present deferred (female): Present deferred Skin: Present intact; Absent cyanosis or jaundice Neuro: Present alert, awake and oriented x 3 Extremities: Present normal inspection; Absent clubbing or cyanosis Psychiatric: Present normal affect and cooperative Meds Home Medications and Allergies Home Medications Medication Instructions Recorded Confirmed Type fluticasone fur. 100 mcg-umeclid 1 inh inhalation DAILY Breathing 07/09/23 08/23/23 Rx 62.5 mcg-vilant 25 mcg Problems #60 ea inhalat.powder (Trelegy Ellipta) levothyroxine 125 mcg tablet 125 mcg PO DAILY THYROID 90 days 07/09/23 08/23/23 Rx #90 tabs montelukast 10 mg tablet 10 mg PO DAILY ALLERGIES 90 days 08/18/23 08/23/23 Rx #90 tabs quetiapine 100 mg tablet 100 mg PO DAILY MOOD 90 days #90 08/18/23 08/23/23 Rx tabs venlafaxine 150 mg 300 mg PO DAILY MOOD #180 caps 08/18/23 08/23/23 Rx capsule,extended release 24 hr albuterol sulfate 90 mcg/actuation 2 inh inhalation Q8HP PRN 08/23/23 08/23/23 History aerosol inhaler (Ventolin HFA) Shortness Of Breath bumetanide 1 mg tablet 2 mg PO BID Edema 08/23/23 08/23/23 History ipratropium 0.5 mg-albuterol 3 mg 3 ml inhalation Q4HP PRN shortness 08/23/23 08/23/23 History (2.5 mg base)/3 mL nebulization of breath or wheezing soln omeprazole 20 mg capsule,delayed 20 mg PO DAILY GERD 08/23/23 08/23/23 History release prednisone 5 mg tablet 40 mg PO DAILY INFLAMMATION OF 08/23/23 08/23/23 History LUNGS sulfamethoxazole 800 1 tab PO Q48H ANTIBIOTIC; 08/23/23 08/23/23 History mg-trimethoprim 160 mg tablet PREVENTATIVE (Bactrim DS) New Prescriptions to Start Prescriptions: Allergies Allergy/AdvReac Type Severity Reaction Status Date / Time adhesive tape AdvReac Mild Rash Verified 08/07/23 13:03 Results Laboratory Findings 08/25/23 06:00 08/25/23 06:00 PT/INR, D-dimer D-Dimer 1.92 ug/mL (0.0-0.5) H 08/22/23 19:52 Abnormal lab findings: Abnormal Labs 08/22/23 08/23/23 08/23/23 19:52 00:14 07:06 WBC RBC 5.58 H MPV 7.1 L 7.2 L Neut % (Auto) Lymph # (Auto) D-Dimer 1.92 H Sodium 134 L Potassium 3.1 L Carbon Dioxide 21 L Anion Gap 18.1 H BUN 21 H 18 H Creatinine 1.20 H 1.20 H Estimated GFR 48 L 48 L Est GFR ( Amer) 58 L 58 L Glucose 153 H 160 H Alkaline Phosphatase 132 H C-Reactive Protein 30.9 H NT-Pro-B Natriuret Pep 286 H Total Protein 9.0 H Globulin 4.4 H Albumin/Globulin Ratio 1.0 L TSH 6.31 H Vancomycin Trough 08/24/23 08/25/23 09:25 06:00 WBC 3.7 L RBC MPV Neut % (Auto) 81.5 H 82.4 H Lymph # (Auto) 0.5 L D-Dimer Sodium Potassium Carbon Dioxide 34 H Anion Gap BUN 22 H D Creatinine Estimated GFR Est GFR ( Amer) Glucose 152 H 180 H Alkaline Phosphatase C-Reactive Protein 11.5 H D NT-Pro-B Natriuret Pep Total Protein Globulin Albumin/Globulin Ratio TSH Vancomycin Trough 11.1 H Assessment and Plan *Assessment and plan (1) SLE (systemic lupus erythematosus related syndrome): Status: Acute Category: Medical Code(s): M32.9 - Systemic lupus erythematosus, unspecified (2) Lupus disease of lung: Status: Acute Category: Medical Code(s): M32.13 - Lung involvement in systemic lupus erythematosus (3) Pleuritis: Status: Acute Category: Medical Code(s): R09.1 - Pleurisy Plan Ms. 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 Patient complains of worsening shortness of breath and wheezing, chest pain right leg worsens with breathing and coughing. Afebrile. No evidence of leukocytosis upon admission. CRP on admission elevated at 30.9 Patient over the weekend was initiated methylprednisolone for CTA upon admission evidence of pulmonary embolism. No dense consolidation or airspace disease noted. Continue to show pleural thickening. On examination patient appeared to be in mild to moderate respiratory distress. Chest clear to auscultate. Saturating 93% on room air. Plan: Change steroids to prednisone 60 mg daily along with Bactrim DS prophylaxis Q48 hrs. Patient can be discharged from pulmonary standpoint. Ibuprofen 400 mg oral every 8 as needed for pleuritic chest pain Continue home inhalers including Trelegy 100 inhaler along with DuoNebs every 6 hours on as-needed basis # Thank you for involving pulmonary in this patient care. Will follow patient in pulmonary clinic in 5 days post discharge.
--- NOTE | 2023-08-25 11:10 | EXP.DC.SUM ---
General Admission date:: 08/22/23 Discharge date: 08/25/23 HPI HPI HPI: 48 year old female presented to [facility] ED for c/o chest pain and SOB that has worsen over the past three days. PMHX of SLE, ILD, COPD, CHF, CAD, Endocarditis, Hypothyroid, GERD, Depression, and smoking. The pt was started on Prednisone 3 days prior. Pt believes steroid is causing anxiety. The ED workup revealed an NICOLE with creatinine of 1.20 and hypokalemia with K 3.1. Imaging revealed chronic pleural thickening and bibasilar pleural scarring as well as esophageal thickening. NO P.E. The pt's Cardiac workup revealed negative troponins and an EKG of sinus tachycardia and RBBB. The pt was given 1mg of Ativan for anxiety. Despite medication, the pt remains tachycardia and tachypenic. The ED physician consulted the hospitalist team for further medical management. I admitted the pt to the medical floor. The pt is currently in the ED waiting for a medical bed. The pt c/o pain located on the right side of chest that is worse with inspiration. The pt states she was started on steroids and Bactrim three days prior. She has been using Tylenol for pain at home and has no relief. Due to NICOLE I am holding NSAIDS. The pt will pain will be managed and I will place a pulmonary consult. Upon admission, the pt appears anxious and is splinting her right side with a pillow. Hospital Course Hospital Course Hospital Course: Patient was seen and evaluated at the bedside on the day of discharge. Patient wishes to be discharged. All patient questions were answered and patient was given time to ask questions. Patient was discharged in stable condition. Patient understands that she can return to ER in case of any sudden changes in health. Total time spent on DC - 38 mins 48 year old female presented to [facility] ED for c/o chest pain and SOB that has worsen over the past three days. PMHX of SLE, ILD, COPD, CHF, CAD, Endocarditis, Hypothyroid, GERD, Depression, and smoking. The pt was started on Prednisone 3 days prior. Pt believes steroid is causing anxiety. The ED workup revealed an NICOLE with creatinine of 1.20 and hypokalemia with K 3.1. Imaging revealed chronic pleural thickening and bibasilar pleural scarring as well as esophageal thickening. NO P.E. The pt's Cardiac workup revealed negative troponins and an EKG of sinus tachycardia and RBBB. The pt was given 1mg of Ativan for anxiety. Despite medication, the pt remains tachycardic and tachypenic. The ED physician consulted the hospitalist team for further medical management. I admitted the pt to the medical floor. The pt is currently in the ED waiting for a medical bed. The pt c/o pain located on the right side of chest that is worse with inspiration. The pt states she was started on steroids and Bactrim three days prior. She has been using Tylenol for pain at home and has no relief. Due to NICOLE I am holding NSAIDS. The pt's will pain will be managed and I will place a pulmonary consult. Upon admission, the pt appears anxious and is splinting her right side with a pillow. Pt has hx of endocarditis and drug abuse. I will continue the IV antibiotics given in ED until cultures are resulted. The pt had no leukocytosis and lactate was 2.1. The pt does meet SIRS criteria with HR of 125 and RR of 20. The plan as to follow: PLEURITIC PAIN - better but not completely resolved, due to lupus, started on PO prednisone at DC, stable for dc per pulmonary, continue on Bactrim DS SIRS - improved ILD SLE NICOLE - improved, monitor HYPOKALEMIA - improved CAD COPD HYPOTHYROIDISM CHF COPD -awaiting home med rec -Duoneb TID PRN -tsh pending TOBACCO USE -nicotine patch PRN Exam Data for Last 24 hours Vital signs and Labs for Last 24 Hours: Temp Pulse Resp BP Pulse Ox O2 Del Method O2 Flow Rate 97.8 F 65 20 131/79 97 Room Air 2 08/25/23 07:54 08/25/23 07:54 08/25/23 07:54 08/25/23 07:54 08/25/23 08:00 08/25/23 10:35 08/23/23 08:01 Laboratory Results - last 24 hr 08/24/23 09:25: Chloride 106, Anion Gap 7.3 08/25/23 06:00: WBC 6.9 D, RBC 4.89, Hgb 14.0 D, Hct 40.5, MCV 82.9, MCH 28.6, MCHC 34.4, RDW 15.5, Plt Count 301, MPV 7.7, Neut % (Auto) 82.4 H, Lymph % (Auto) 13.4, [place] % (Auto) 4.0, Eos % (Auto) 0.1, Baso % (Auto) 0.1, Neut # (Auto) 5.7, Lymph # (Auto) 0.9, [place] # (Auto) 0.3, Eos # (Auto) 0.0, Baso # (Auto) 0.0, ESR 16, Sodium 137, Potassium 3.9, Chloride 100, Carbon Dioxide 34 H, Anion Gap 6.9, BUN 22 H D, Creatinine 0.90, Estimated Creat Clear 84, Estimated GFR 66, Est GFR ( Amer) 80, Glucose 180 H, Calcium 9.1, C-Reactive Protein 11.5 H D, Vancomycin Trough 11.1 H I & O for Last 24 hours: Intake & Output 08/22/23 08/23/23 08/24/23 08/25/23 23:59 23:59 23:59 23:59 Intake Total 480 / 960 1200 / 1800 850 / 850 Output Total 0 / 0 0 / 0 0 / 0 Balance 480 / 960 1200 / 1800 850 / 850 Weight 65.516 kg 68.492 kg 75.84 kg 71.305 kg Constitutional Constitutional: no acute distress *Routine HEENT Exam Head: Present normocephalic Eye: Present EOMI and PERRL ENT: Present mucous membranes moist *Routine Neck Exam Neck: Present supple; Absent lymphadenopathy *Routine Respiratory Exam Respiratory: Present CTA bilaterally *Routine Cardiovascular Exam Cardiovascular: Present RRR *Routine Abdominal Exam Abdominal: Present soft and normoactive bowel sounds; Absent tenderness *Routine Extremities Exam Extremities: Absent cyanosis, clubbing or edema *Routine Skin Exam Skin: Present warm; Absent rash *Routine Neurological Exam Neurological: Present alert and oriented X3 Results Data Completed and Pending Labs on day of discharge: Labs from last 24 hours 08/25/23 08/24/23 06:00 09:25 WBC 6.9 D RBC 4.89 Hgb 14.0 D Hct 40.5 MCV 82.9 MCH 28.6 MCHC 34.4 RDW 15.5 Plt Count 301 MPV 7.7 Neut % (Auto) 82.4 H Lymph % (Auto) 13.4 [place] % (Auto) 4.0 Eos % (Auto) 0.1 Baso % (Auto) 0.1 Neut # (Auto) 5.7 Lymph # (Auto) 0.9 [place] # (Auto) 0.3 Eos # (Auto) 0.0 Baso # (Auto) 0.0 ESR 16 Sodium 137 Potassium 3.9 Chloride 100 106 Carbon Dioxide 34 H Anion Gap 6.9 7.3 BUN 22 H D Creatinine 0.90 Estimated Creat Clear 84 Estimated GFR 66 Est GFR ( Amer) 80 Glucose 180 H Calcium 9.1 C-Reactive Protein 11.5 H D Vancomycin Trough 11.1 H DS: Diagnosis Discharge Diagnosis (1) SLE (systemic lupus erythematosus related syndrome): Status: Acute Code(s): M32.9 - Systemic lupus erythematosus, unspecified (2) Lupus disease of lung: Status: Acute Code(s): M32.13 - Lung involvement in systemic lupus erythematosus (3) Pleuritis: Status: Acute Code(s): R09.1 - Pleurisy Meds Home Medications and Allergies Home Medications Medication Instructions Recorded Confirmed Type fluticasone fur. 100 mcg-umeclid 1 inh inhalation DAILY Breathing 07/09/23 08/23/23 Rx 62.5 mcg-vilant 25 mcg Problems #60 ea inhalat.powder (Trelegy Ellipta) levothyroxine 125 mcg tablet 125 mcg PO DAILY THYROID 90 days 07/09/23 08/23/23 Rx #90 tabs montelukast 10 mg tablet 10 mg PO DAILY ALLERGIES 90 days 08/18/23 08/23/23 Rx #90 tabs quetiapine 100 mg tablet 100 mg PO DAILY MOOD 90 days #90 08/18/23 08/23/23 Rx tabs venlafaxine 150 mg 300 mg PO DAILY MOOD #180 caps 08/18/23 08/23/23 Rx capsule,extended release 24 hr albuterol sulfate 90 mcg/actuation 2 inh inhalation Q8HP PRN 08/23/23 08/23/23 History aerosol inhaler (Ventolin HFA) Shortness Of Breath bumetanide 1 mg tablet 2 mg PO BID Edema 08/23/23 08/23/23 History ipratropium 0.5 mg-albuterol 3 mg 3 ml inhalation Q4HP PRN shortness 08/23/23 08/23/23 History (2.5 mg base)/3 mL nebulization of breath or wheezing soln omeprazole 20 mg capsule,delayed 20 mg PO DAILY GERD 08/23/23 08/23/23 History release sulfamethoxazole 800 1 tab PO Q48H ANTIBIOTIC; 08/23/23 08/23/23 History mg-trimethoprim 160 mg tablet PREVENTATIVE (Bactrim DS) prednisone 20 mg tablet 60 mg PO DAILY 7 days #21 tabs 08/25/23 Rx New Prescriptions to Start Prescriptions: prednisone [place],Irfan Allergies Allergy/AdvReac Type Severity Reaction Status Date / Time adhesive tape AdvReac Mild Rash Verified 08/07/23 13:03 Discharge Plan Disposition Patient Disposition: Home, Self-Care Condition: Fair Follow up Plan Follow up with: Rigoberto Talavera DO [Primary Care Provider] - 08/28/23 11:30 am Petra Ferraro MD [Physician] - 2 weeks Prescriptions/Medication Reconciliation: New prednisone 20 mg Tablet 60 mg PO DAILY 7 Days Qty: 21 0RF Continued Trelegy Ellipta 100-62.5-25 mcg blister with device 1 inh inhalation DAILY Qty: 60 4RF levothyroxine 125 mcg tablet 125 mcg PO DAILY 90 Days Qty: 90 2RF quetiapine 100 mg tablet 100 mg PO DAILY 90 Days Qty: 90 2RF venlafaxine 150 mg capsule,extended release 24hr 300 mg PO DAILY Qty: 180 0RF montelukast 10 mg tablet 10 mg PO DAILY 90 Days Qty: 90 2RF ipratropium-albuterol 0.5 mg-3 mg(2.5 mg base)/3 mL solution for nebulization 3 ml inhalation Q4HP PRN (Reason: shortness of breath or wheezing) bumetanide 1 mg tablet 2 mg PO BID sulfamethoxazole-trimethoprim [Bactrim DS] 800-160 mg tablet 1 tab PO Q48H omeprazole 20 mg capsule,delayed release(DR/EC) 20 mg PO DAILY albuterol sulfate [Ventolin HFA] 90 mcg/actuation HFA aerosol inhaler 2 inh inhalation Q8HP PRN (Reason: Shortness Of Breath) Rx Instructions: INHALE 2 PUFFS EVERY 8 HOURS NEEDED FOR SHORTNESS OF BREATH Discontinued prednisone 5 mg tablet 40 mg PO DAILY Patient Comments: TAKE 8 TABLETS 1 TIME EACH DAY Problem Reconciliation Problems Reviewed?: Yes Patient Discharge Instructions ACTIVITY: Ambulate as tolerated DIET: continue same diet Patient Instructions: Pleurisy, DI for Heart Failure, DI for Chronic Obstructive Pulmonary Disease, DI for Pleurisy, DI for Acute Kidney Injury Providers Primary Care Provider: Rigoberto Talavera Ad[place]arina Provider: Cara Rose Attending Provider: Cara Rose
[2023-08-25] MEDS: SULFA/TRIMETHOPRIM 1 TABLET 1 EACH PO (11:25)
[2023-08-25 12:13] LABS: Vancomycin,Peak 8.4 ug/ml (11-39)
--- NOTE | 2023-08-27 10:52 | CARE MANAGER ---
Addendum entered by Thea Luna RN 08/27/23 15:34: Patient returned our phone call and stated that she is doing well, no concerns voiced. She was aware of scheduled f/u appts and has started new medication. Original Note: Unable to reach patient via phone to discuss recent discharge. Call attempted X 2 and VM left.
== END 2023-08-25 11:57 | disposition home or self-care (01) ==
LOC: ER 22:53 → 2ND 22:54
PROVIDERS: Internal Medicine Pulmonary Disease; Nurse Practitioner Critical Care Medicine; Admitting Provider Internal Medicine; Emergency Provider Emergency Medicine; PCP Internal Medicine; Visit Provider Internal Medicine
DX: J84.9 Interstitial pulmonary disease, unspecified (principal); M32.13 Lung involvement in systemic lupus erythematosus; R07.81 Pleurodynia; N17.9 Acute kidney failure, unspecified; E87.6 Hypokalemia; I25.10 Atherosclerotic heart disease of native coronary artery without angina pectoris; J44.9 Chronic obstructive pulmonary disease, unspecified; E03.9 Hypothyroidism, unspecified; I50.9 Heart failure, unspecified; F17.210 Nicotine dependence, cigarettes, uncomplicated; Z79.899 Other long term (current) drug therapy; E55.9 Vitamin D deficiency, unspecified; Z79.52 Long term (current) use of systemic steroids
CPT/HCPCS: 36415; 71046; 71275; 80048; 80053; 80202; 83605; 83880; 84443; 84484; 85025; 85378; 85651; 86140; 87040; 87636; 93005; 94640; 99285; G0378; J0696; J2405; Q9967

== ENCOUNTER 2023-08-27 09:00 | Outpatient (POV) | payer MEDICAID, SELFPAY ==
--- NOTE | 2023-08-27 09:45 | A.OFFVIS_ITS ---
[facility] Pain Management SOAP Note Subjective:: Patient is a pleasant 48-year-old female who presents today for follow-up of lumbar MRI. We are currently treating the patient for degenerative disc disease of lumbar spine with lumbar radiculopathy symptoms, myofascial pain, status post SCS explant on 06/13/2023. Today she rates her pain a 7 out of 10. Patient denies any new trauma or injury. She states that she continues to have constant aching, throbbing sensations with numbness and tingling into her lower legs. Patient does state the pain interferes with her ability perform activities of daily living such as cooking and cleaning. Patient does state that she does have a history of CHF and lupus that does cause worsening pain. She states she is currently on prednisone due to her lupus symptoms. Patient was previously prescribed gabapentin and oxycodone however she states that she is no longer on these medications. Her Lauro has been reviewed and is appropriate. Review of Systems: General: No recent weight changes, no fever, no sleep disturbances Respiratory: No cough, no shortness of air, no recurring pulmonary infections Cardiovascular/peripheral vascular: No chest pain, no palpitations, no edema, no shortness of breath Gastrointestinal: No new onset incontinence, normal bowel movements reported Genitourinary: No new onset incontinence Musculoskeletal: Low back pain, bilateral leg pain Psychiatric: [Normal mood/affect] Neurological: [Denies weakness in extremities], [denies balance issues] Objective:: Physical Exam: General: Alert and oriented x3, no acute distress, pleasant and cooperative Lungs: Respirations even and unlabored, symmetrical chest expansion Eyes: PERRL Musculoskeletal: Flexion and extension of lumbar [spine] somewhat guarded secondary to pain, [antalgic gait noted] positive bilateral leg raise Neurological: Speech clear, no gross sensory deficit Assessment:: Degenerative disc disease of lumbar spine with lumbar radiculopathy symptoms, myofascial pain, status post SCS explant Plan:: Patient continues to experience significant pain in her low back with radiating symptoms to her leg. Patient did have limited range of motion of her lumbar spine and positive bilateral leg raise during today's visit. I have discussed with the patient that it may be beneficial to try a lumbar epidural at the site of her previous hemilaminectomy of L5-S1. Risk and benefits were discussed with the patient and she would like to proceed forward with this plan of care. Patient has tried and failed conservative treatment such as oral medication, h eat and ice, topicals, at home exercising and stretching for longer than 6 weeks. Patient is not on any blood thinners. Patient will be scheduled for an LESI L5-S1 under fluoroscopy. Patient has been counseled to contact our office with any questions or concerns before their next appointment date. This note has been dictated using voice recognition software and may contain errors or omissions. Dr. Honeycutt has read this note and agrees with this plan of care. [facility] Disclaimer: The information contained in this section may have been updated after the patient was seen, as this information can be updated by other users. Medical History (Updated 08/25/23 @ 10:45 by Petra Ferraro MD) Allergic rhinitis JOANA positive Anxiety and depression Asthma CAD (coronary artery disease) CHF (congestive heart failure) Chronic pelvic pain in female COPD (chronic obstructive pulmonary disease) COPD (chronic obstructive pulmonary disease) Dyspnea on exertion Family history of asthma GERD (gastroesophageal reflux disease) Hepatitis C History of COPD Hypothyroidism ILD (interstitial lung disease) Immunosuppression due to chronic steroid use Lupus disease of lung Nausea & vomiting Ovarian cyst Pleural thickening Restrictive lung disease Sleep-related breathing disorder Smoking greater than 30 pack years Vaginal spotting Vitamin D deficiency Surgical History History of back surgery History of carpal tunnel surgery History of cholecystectomy History of partial hysterectomy History of tubal ligation Hx of CABG Hx of colonoscopy Family History Other Family history of cancer Family history of cardiomyopathy Family history of diabetes mellitus type I Social History (Updated 08/23/23 @ 13:07 by Juliana Lieberman RN) Smoking Status: Current every day smoker tobacco type: cigarettes packs per day: 1 second hand exposure: No alcohol intake: former substance use type: former substance user, amphetamines and opiates current occupational status: disabled and other Travel in the last 8 weeks: None household members: none housing: house current occupational exposures/hazards: No caffeine: Yes
[2023-08-27 10:29] VITALS: BP 134/86; PULSE 80; RESP 18; O2SAT 97; BMI 24.7
== END 2023-08-27 23:59 ==
LOC: SC.PAIN 09:01
PROVIDERS: PCP Internal Medicine; Visit Provider Nurse Practitioner Family
DX: M51.16 Intervertebral disc disorders with radiculopathy, lumbar region (principal); M79.18 Myalgia, other site; M32.9 Systemic lupus erythematosus, unspecified; I50.9 Heart failure, unspecified
CPT/HCPCS: 99212; G0463

== ENCOUNTER 2023-08-28 18:17 | Outpatient (CLI) | payer MEDICAID, SELFPAY ==
[2023-08-28 18:16] LABS: Basophils % 0.2 % (0.1-2.0); Eosinophils % 0.5 % (0.1-12.0); Hematocrit 40.3 % (37.0-47.0); Hemoglobin 13.4 g/dL (12.2-16.2); Lymphocytes % 12.7 % (10-50); Mean Corpuscular HGB Conc 33.1 g/dL (31.8-35.4); Mean Corpuscular Hemoglobin 28.7 pg (27.0-31.2); Mean Corpuscular Volume 86.6 fl (81-99); Mean Platelet Volume 8.7 fl (7.4-10.4); Monocytes # 0.4 K/mm3 (0.1-1.0); Monocytes % 4.4 % (1.7-9.3); Neutrophils # 6.6 K/mm3 (1.8-7.8); Neutrophils % 82.2 % (37.0-80.0); Platelet Count 324 K/mm3 (142-424); Red Blood Count 4.65 M/mm3 (4.20-5.40); Red Cell Distribution Width 15.7 % (11.5-17.5)
[2023-08-28 18:43] LABS: Alanine Aminotransferase 158 U/L (12-78); Albumin Level 3.5 g/dl (3.5-5.0); Albumin/Globulin Ratio 1.2 (1.1-1.8); Alkaline Phosphatase 126 U/L (38-126); Aspartate Amino Transferase 105 U/L (14-36); Bilirubin,Total 0.5 mg/dl (0.2-1.3); Blood Urea Nitrogen 13 mg/dl (7-17); Calcium 8.5 mg/dl (8.4-10.2); Carbon Dioxide 27 mmol/L (22.0-30.0); Chloride 105 mmol/L (98-107); Estimated Glomerular Filt Rate 76 ml/min (>60); GFR (African American) 92 ML/MIN (>60); Glucose 253 mg/dl (74-100); Sodium 139 mmol/L (136-145); Total Protein,Serum 6.5 g/dl (6.3-8.2)
[2023-08-31 10:15] LABS: Hepatitis C Antibody Reactive
== END 2023-08-28 23:59 ==
LOC: LAB.DROPOF 18:17
PROVIDERS: PCP Internal Medicine; Visit Provider Internal Medicine
DX: R53.83 Other fatigue (principal)
CPT/HCPCS: 80053; 85025; 87380; 87522

== ENCOUNTER 2023-09-02 14:00 | Outpatient (CLI) | payer MEDICAID, SELFPAY ==
[2023-09-02 15:07] LABS: Basophils % 0.3 % (0.1-2.0); Eosinophils % 0.4 % (0.1-12.0); Hematocrit 39.8 % (37.0-47.0); Hemoglobin 12.7 g/dL (12.2-16.2); Lymphocytes # 1.1 K/mm3 (0.7-4.5); Lymphocytes % 15.5 % (10-50); Mean Corpuscular Hemoglobin 28.6 pg (27.0-31.2); Mean Corpuscular Volume 89.3 fl (81-99); Mean Platelet Volume 7.8 fl (7.4-10.4); Monocytes # 0.2 K/mm3 (0.1-1.0); Monocytes % 3.1 % (1.7-9.3); Neutrophils # 5.7 K/mm3 (1.8-7.8); Neutrophils % 80.6 % (37.0-80.0); Platelet Count 194 K/mm3 (142-424); Red Blood Count 4.45 M/mm3 (4.20-5.40); White Blood Count 7.1 K/mm3 (4.8-10.8)
[2023-09-02 15:42] LABS: Alanine Aminotransferase 45 U/L (12-78); Albumin Level 3.4 g/dl (3.5-5.0); Albumin/Globulin Ratio 1.3 (1.1-1.8); Alkaline Phosphatase 102 U/L (38-126); Anion Gap 7.8 mEq/L (5-15); Aspartate Amino Transferase 40 U/L (14-36); Bilirubin,Total 0.5 mg/dl (0.2-1.3); Blood Urea Nitrogen 11 mg/dl (7-17); Calcium 8.7 mg/dl (8.4-10.2); Carbon Dioxide 28 mmol/L (22.0-30.0); Chloride 107 mmol/L (98-107); Estimated Glomerular Filt Rate 76 ml/min (>60); GFR (African American) 92 ML/MIN (>60); Globulin 2.7 g/dL (1.3-3.2); Glucose 172 mg/dl (74-100); Potassium 3.8 mmoL/L (3.5-5.1); Sodium 139 mmol/L (136-145); Total Protein,Serum 6.1 g/dl (6.3-8.2)
[2023-09-04 18:49] LABS: QuantiFERON-TB Gold Plus Negative (Negative)
== END 2023-09-02 23:59 ==
LOC: LAB 14:01
PROVIDERS: PCP Internal Medicine; Visit Provider Internal Medicine Pulmonary Disease
DX: J84.9 Interstitial pulmonary disease, unspecified (principal); R06.09 Other forms of dyspnea; M32.13 Lung involvement in systemic lupus erythematosus; J45.909 Unspecified asthma, uncomplicated; Z87.891 Personal history of nicotine dependence
CPT/HCPCS: 36415; 80053; 85025; 86140; 86480

== ENCOUNTER 2023-09-09 14:10 | Outpatient (CLI) | payer MEDICAID, SELFPAY ==
--- NOTE | 2023-09-09 14:12 | XR_ITS ---
FINAL REPORT CLINICAL HISTORY: dyspnea, chest pain COMPARISON: 10/21/2022 FINDINGS: Two views of the chest were obtained. The heart size and pulmonary vascularity are within normal limits. The patient has undergone a prior midline sternotomy. The spinal stimulator noted on the prior chest x-ray is no longer seen and presumably removed. The mediastinum is normal. There is a mild right base opacity, atelectasis versus pneumonia. There is no pneumothorax. The bony thorax is intact. IMPRESSION: Small right base opacity, atelectasis versus pneumonia. Reviewed, Interpreted and Dictated by Yann Orozco III, MD Transcribed by Gabi Roach Authenticated and [facility]
== END 2023-09-09 23:59 ==
LOC: RAD 14:11
PROVIDERS: PCP Internal Medicine; Visit Provider Internal Medicine Pulmonary Disease
DX: J44.9 Chronic obstructive pulmonary disease, unspecified (principal); F17.210 Nicotine dependence, cigarettes, uncomplicated
CPT/HCPCS: 71046

== ENCOUNTER 2023-09-11 11:11 | Outpatient (CLI) | payer MEDICAID, SELFPAY ==
[2023-09-11 11:14] LABS: Microscopic, Urine URINE MICROSCOPIC (MICROSCOPIC)
[2023-09-11 11:50] LABS: Basophils % 0.3 % (0.1-2.0); Eosinophils % 0.9 % (0.1-12.0); Hemoglobin 13.4 g/dL (12.2-16.2); Lymphocytes # 1.4 K/mm3 (0.7-4.5); Lymphocytes % 30.1 % (10-50); Mean Corpuscular HGB Conc 31.8 g/dL (31.8-35.4); Mean Corpuscular Hemoglobin 28.9 pg (27.0-31.2); Mean Corpuscular Volume 90.8 fl (81-99); Mean Platelet Volume 6.5 fl (7.4-10.4); Monocytes # 0.2 K/mm3 (0.1-1.0); Monocytes % 3.9 % (1.7-9.3); Neutrophils # 2.9 K/mm3 (1.8-7.8); Neutrophils % 64.8 % (37.0-80.0); Platelet Count 260 K/mm3 (142-424); Red Blood Count 4.63 M/mm3 (4.20-5.40); Red Cell Distribution Width 16.3 % (11.5-17.5); White Blood Count 4.5 K/mm3 (4.8-10.8)
[2023-09-11 11:57] LABS: Chloride 106 mmol/L (98-107); Potassium 3.9 mmoL/L (3.5-5.1); Sodium 139 mmol/L (136-145)
[2023-09-11 11:58] LABS: Appearance,Urine CLEAR (Clear); Blood, Urine Negative (Negative); Color,Urine YELLOW (Yellow); Glucose,Urine (UA) Negative (Negative); Ketones,Urine Negative (Negative); Leukocyte Esterase,Urine 1+ (Negative); Nitrate,Urine Negative (Negative); Protein,Urine Negative (Negative); Specific Gravity, Urine 1.025 (1.005-1.030); Urobilinogen,Urine 0.2 EU/dl (0.2)
[2023-09-11 11:59] LABS: Alanine Aminotransferase 56 U/L (12-78); Alkaline Phosphatase 221 U/L (38-126); Aspartate Amino Transferase 33 U/L (14-36); Bilirubin,Total 0.3 mg/dl (0.2-1.3); Blood Urea Nitrogen 12 mg/dl (7-17); Estimated Glomerular Filt Rate 76 ml/min (>60); GFR (African American) 92 ML/MIN (>60)
[2023-09-11 12:00] LABS: Albumin/Globulin Ratio 1.4 (1.1-1.8); Anion Gap 8.9 mEq/L (5-15); Calcium 8.9 mg/dl (8.4-10.2); Carbon Dioxide 28 mmol/L (22.0-30.0); Globulin 2.9 g/dL (1.3-3.2); Glucose 157 mg/dl (74-100); Total Protein,Serum 6.9 g/dl (6.3-8.2)
[2023-09-11 12:04] LABS: Bilirubin,Urine Negative (Negative)
[2023-09-11 12:05] LABS: C-Reactive Protein 31.4 mg/L (0-4)
[2023-09-11 15:34] LABS: WBC,Urine Occasional #/hpf (0-3)
== END 2023-09-11 23:59 ==
LOC: LAB 11:11
PROVIDERS: PCP Internal Medicine; Visit Provider Internal Medicine Pulmonary Disease
DX: R10.9 Unspecified abdominal pain (principal); R30.0 Dysuria; J45.909 Unspecified asthma, uncomplicated; R06.09 Other forms of dyspnea; J84.9 Interstitial pulmonary disease, unspecified; B96.4 Proteus (mirabilis) (morganii) as the cause of diseases classified elsewhere; N39.0 Urinary tract infection, site not specified
CPT/HCPCS: 36415; 80053; 81001; 85025; 86140; 87086

== ENCOUNTER 2023-09-16 08:54 | Day surgery (SDC) | payer MEDICAID, SELFPAY ==
[2023-09-16 09:03] VITALS: BP 132/85; PULSE 84; RESP 20; TEMP 36.4; O2SAT 100; BMI 28.0
--- NOTE | 2023-09-16 09:29 | P.PCN_ITS ---
Procedure Date: 09/16/23 Time: 09:20 Anesthesiologist:: Naresh Tejada CRNA Complications:: None Pre-procedure Diagnosis:: Degenerative disc lumbar spine multilevels. Lumbar radiculopathy. Lumbar postlaminectomy syndrome. Post-procedure Diagnosis:: Pain. Indications for Procedure:: Patient is a very pleasant 48-year-old female comes our clinic today for L5-S1 lumbar epidural steroid injection. Patient status post L5 laminectomy discectomy in the past. Also status post spinal cord stimulator explant late 2022. Patient rates her pain 7/10 today. Her main complaint is low back as well as right hip and leg radicular symptoms. She does have left leg radicular symptoms at times. However, she reports right greater than left. Procedure Details:: Procedure: Lumbar epidural steroid injection under fluoroscopy Informed consent was obtained and the risks and benefits of the procedure were explained to the patient. The patient was taken to the procedure room and noninvasive monitors placed, including noninvasive blood pressure cuff and pulse oximeter. The back was viewed using C-arm Fluoroscopy and prepped using Chloraprep as a cleansing solution and the L5-S1 interspace was palpated. Skin and subcutaneous tissues were anesthetized using lidocaine 1.5% and a 25-gauge needle. After this, an 18-gauge Touhy epidural needle was placed into the L5-S1 interspace and advanced using fluoroscopic guidance and loss of resistance to a ir until the epidural space was encountered. After confirmation of needle placement in the epidural space, with dye, a solution containing normal saline, 3 mL and Depo-Medrol 80 mg were incrementally injected into the lumbar epidural space. The patient tolerated the procedure well with no complications. The patient was observed in the Pain Clinic and then discharged home neurologically intact. Plan and Disposition:: Patient was discharged out incident.
[2023-09-16 09:30] VITALS: BP 129/78; PULSE 78; RESP 18; O2SAT 100
[2023-09-16 09:40] VITALS: BP 144/81; PULSE 78; RESP 18; O2SAT 99
[2023-09-16] MEDS: methylPREDNISolone ACETATE 80MG/ML VIAL 80 MG (09:40)
[2023-09-16 09:56] VITALS: BP 144/81; PULSE 78; RESP 18; O2SAT 99
== END 2023-09-16 09:30 | disposition home or self-care (01) ==
PROVIDERS: PCP Internal Medicine; Visit Provider Nurse Anesthetist, Certified Registered
DX: M51.16 Intervertebral disc disorders with radiculopathy, lumbar region (principal); M96.1 Postlaminectomy syndrome, not elsewhere classified
CPT/HCPCS: 62323; J1040

== ENCOUNTER 2023-09-17 07:49 | Outpatient (CLI) | payer MEDICAID, SELFPAY ==
--- NOTE | 2023-09-17 07:53 | US_ITS ---
FINAL REPORT CLINICAL HISTORY: Abd Pain COMPARISON: None FINDINGS: Sonographic images of the abdomen were obtained. The liver has an unremarkable appearance with normal echogenicity. The gallbladder has been surgically resected. There is dilation of the common bile duct, measuring 10 mm in diameter, that may be post cholecystectomy change. Limited images of the pancreas are unremarkable. The spleen size is normal. The right kidney measures 10.7 cm in length. The left kidney measures 9.3 cm in length. There is normal renal echogenicity. There is no evidence of hydronephrosis. The aorta has an unremarkable appearance. Limited images of the inferior vena cava are unremarkable. IMPRESSION: The gallbladder has been surgically resected, and the common bile duct is dilated, measuring 10 mm. This may be secondary to post cholecystectomy change, however if clinically indicated would suggest MRCP for further evaluation. Reviewed, Interpreted and Dictated by Yann Orozco III, MD Transcribed by Gabi Roach Authenticated and [facility]
== END 2023-09-17 23:59 ==
LOC: RAD 07:49
PROVIDERS: PCP Internal Medicine; Visit Provider Internal Medicine Pulmonary Disease
DX: R11.2 Nausea with vomiting, unspecified (principal); R10.9 Unspecified abdominal pain
CPT/HCPCS: 76700

== ENCOUNTER 2023-09-21 13:46 | Emergency (ER) | payer MEDICAID, SELFPAY ==
[2023-09-21 14:00] VITALS: BP 139/84; PULSE 86; RESP 20; TEMP 36.5; O2SAT 100; BMI 26.9
--- NOTE | 2023-09-21 14:34 | EXP.UTC ---
Discharge Plan Disposition Patient Disposition: Home, Self-Care Condition: Good Prescriptions Prescriptions: New cephalexin 500 mg tablet 500 mg PO QID 10 Days Qty: 40 0RF mupirocin 2 % ointment 1 applic topical TID 10 Days Qty: 22 0RF Rx Instructions: apply to area on right upper ear as directed sulfamethoxazole-trimethoprim [Bactrim DS] 800-160 mg tablet 1 tab PO Q12H 10 Days Qty: 20 0RF No Action ipratropium-albuterol 0.5 mg-3 mg(2.5 mg base)/3 mL solution for nebulization 1 ml INHALATION Q4HP PRN (Reason: SOA) Patient Comments: INHALE CONTENTS OF 1 VIAL USING A NEBULIZER EVERY 4 TO 6 HOURS NEEDED FOR SHORTNESS OF BREATH OR WHEEZING prednisone 20 mg tablet 20 mg PO DAILY Patient Comments: TAKE 4 TABLETS ON 09/02 TO 09/10. THEN, TAKE 3 TABLETS ON 09/11 TO 09/20. THEN, TAKE 2 TABLETS ON 09/21 TO 10/10. venlafaxine 150 mg capsule,extended release 24hr 150 mg PO DAILY Patient Comments: TAKE 2 CAPSULES 1 TIME EACH DAY FOR MOOD sulfamethoxazole-trimethoprim 800-160 mg tablet 1 tab PO QODHS Patient Comments: TAKE 1 TABLET EVERY OTHER DAY. quetiapine 100 mg tablet 100 mg PO DAILY Patient Comments: TAKE 1 TABLET 1 TIME EACH DAY FOR MOOD mycophenolate mofetil 500 mg tablet 500 mg PO BID Patient Comments: TAKE 1 TABLET 2 TIMES EACH DAY levothyroxine 125 mcg tablet 125 mcg PO DAILY Patient Comments: TAKE 1 TABLET ONCE A DAY IN THE MORNING ON AN EMPTY STOMACH FOR THYROID omeprazole 20 mg capsule,delayed release(DR/EC) 20 mg PO DAILY Patient Comments: TAKE 1 CAPSULE 1 TIME EACH DAY bumetanide 1 mg tablet 1 mg PO DAILY Patient Comments: TAKE 2 TABLETS 2 TIMES EACH DAY FOR FLUID montelukast 10 mg tablet 10 mg PO DAILY Patient Comments: TAKE 1 TABLET 1 TIME EACH DAY FOR ALLERGIES albuterol sulfate [Ventolin HFA] 90 mcg/actuation HFA aerosol inhaler 2 puff INHALATION Q8HP PRN (Reason: SOA) Patient Comments: INHALE 2 PUFFS EVERY 8 HOURS NEEDED FOR SHORTNESS OF BREATH Trelegy Ellipta 100-62.5-25 mcg blister with device 1 ea INHALATION DAILY Patient Comments: INHALE 1 DOSE 1 TIME EACH DAY FOR BREATHING PROBLEMS Referrals Follow up/Referrals: Rigoberto Talavera DO [Primary Care Provider] - See instructions Johnny Best MD [Physician] - See instructions Brant Ram III, MD [Staff Physician] - See instructions Farzana Garces APRN [Nurse Practitioner] - See instructions Activity Restrictions/Add. Instructions Additional Instructions/Restrictions: Stop the Mycophenolate while taking antibiotics you may restart it after completion of antibiotics and clearing of infection after advised by your ENT or Family Doctor Call ENT office in the morning for appointment Take medication as prescribed and use topical antibiotic If swelling and pain gets worse go straight to Emergency room Clinical Impressions Clinical Impression: Acute perichondritis of right pinna Instructions Patient Instructions: DI for Cellulitis -- Adult Discharge ED Provider: Juliana Colin [facility] General Stated complaint: blister in right ear Mode of Arrival: Ambulatory Source of Information: Patient Limitations: No Limitations Time Seen by Provider: 09/21/23 14:34 Description of Symptoms (Recalled from Triage Doc. by RN): PATIENT STATES HER RIGHT EAR HAS BEEN BOTHERING HER FOR A FEW DAYS, BUT THIS MORNING SHE WOKE UP TO IT SWOLLEN AND RED WITH A YELLOW BLISTER-TYPE AREA ON IT HEENT Symptoms (Recalled from RN notes): Yes Resp Symptoms (Recalled from RN notes): No Skin Symptoms (Recalled from RN notes): No MS Symptoms (Recalled from RN notes): No Functional Status (Recalled from RN notes): WNL History of Present Illness Provider Complaint: Patient states that pain in her right upper part of her ear started a couple days ago, States first she woke up and iit was sore and looked a little red then yesterday was swollen and looked like it had a blister on it today she woke up and the swelling and had a darkened area noted and very sore to the touch Related Data Home Medications Medication Instructions Recorded Confirmed albuterol sulfate 90 mcg/actuation 2 puff inhalation Q8HP PRN SOA 09/21/23 09/21/23 aerosol inhaler (Ventolin HFA) bumetanide 1 mg tablet 1 mg PO DAILY 09/21/23 09/21/23 fluticasone fur. 100 mcg-umeclid 1 ea inhalation DAILY 09/21/23 09/21/23 62.5 mcg-vilant 25 mcg inhalat.powder (Trelegy Ellipta) ipratropium 0.5 mg-albuterol 3 mg 1 ml inhalation Q4HP PRN SOA 09/21/23 09/21/23 (2.5 mg base)/3 mL nebulization soln levothyroxine 125 mcg tablet 125 mcg PO DAILY 09/21/23 09/21/23 montelukast 10 mg tablet 10 mg PO DAILY 09/21/23 09/21/23 mycophenolate mofetil 500 mg tablet 500 mg PO BID 09/21/23 09/21/23 omeprazole 20 mg capsule,delayed 20 mg PO DAILY 09/21/23 09/21/23 release prednisone 20 mg tablet 20 mg PO DAILY 09/21/23 09/21/23 quetiapine 100 mg tablet 100 mg PO DAILY 09/21/23 09/21/23 sulfamethoxazole 800 1 tab PO QODHS 09/21/23 09/21/23 mg-trimethoprim 160 mg tablet venlafaxine 150 mg 150 mg PO DAILY 09/21/23 09/21/23 capsule,extended release 24 hr Previous Rx's Medication Instructions Recorded cephalexin 500 mg tablet 500 mg PO QID 10 days #40 tabs 09/21/23 mupirocin 2 % topical ointment 1 applic topical TID 10 days #22 09/21/23 grams sulfamethoxazole 800 1 tab PO Q12H 10 days #20 tabs 09/21/23 mg-trimethoprim 160 mg tablet (Bactrim DS) Allergies Allergy/AdvReac Type Severity Reaction Status Date / Time adhesive tape AdvReac Mild Rash Verified 09/09/23 14:48 Worker's Comp Is this a Worker's Comp case?: No [facility] Disclaimer: The information contained in this section may have been updated after the patient was seen, as this information can be updated by other users. 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 Tobacco abuse counseling Generalized anxiety disorder with panic attacks Leg pain Ovarian cyst Vaginal spotting Chronic pelvic pain in female Diarrhea Abdominal pain Nausea & vomiting Cancer screening Elevated random blood glucose level Hepatitis C JOANA positive Asthma Pleural thickening Restrictive lung disease ILD (interstitial lung disease) Enteritis Lumbar radicular pain Allergic rhinitis Family history of asthma History of COPD Sleep-related breathing disorder Smoking greater than 30 pack years Dyspnea on exertion Chest pain Left against medical advice Anxiety and depression GERD (gastroesophageal reflux disease) Hepatitis C COPD (chronic obstructive pulmonary disease) CHF (congestive heart failure) CAD (coronary artery disease) Pleuritis Dyspnea Chest pain Abnormal electrocardiogram [ECG] [EKG] Tobacco use COPD (chronic obstructive pulmonary disease) Neuropathic pain Rectal bleeding Pulmonary hypertension Skin abscess History of drug use Overweight (BMI 25.0-29.9) Hyponatremia Acute anemia Irritable bowel syndrome Constipation Hypokalemia Pneumonia Pericarditis Pericardial effusion Pyelonephritis Right flank pain Acute urticaria Rib pain on right side Vitamin D deficiency Hypothyroidism Periorbital cellulitis of left eye Periorbital cellulitis of right eye Surgical History Hx of colonoscopy History of carpal tunnel surgery History of tubal ligation History of back surgery History of cholecystectomy History of partial hysterectomy Hx of CABG Presence of cardiac and vascular implant and graft Family History Other Family history of cancer Family history of cardiomyopathy Family history of diabetes mellitus type I Social History (Updated 09/16/23 @ 09:04 by Vero Almanza RN) Smoking Status: Former smoker tobacco type: cigarettes packs per day: 1 smoking status stop date: 08/24/2023 second hand exposure: No alcohol intake: former substance use type: former substance user, amphetamines and opiates current occupational status: disabled Travel in the last 8 weeks: None household members: none housing: house current occupational exposures/hazards: No caffeine: Yes ROS Obtained: Yes All systems reviewed & no additional complaints except as documented and Yes Systems reviewed as appropriate & no additional complaints except as documented Constitutional Constitutional: Reports system reviewed and no additional complaints, except as documented and Reports as per HPI ENT Ears, Nose, Mouth, and Throat: Reports system reviewed and no additional complaints, except as documented and Reports as per HPI Cardiovascular Cardiovascular: Reports system reviewed and no additional complaints, except as documented and Reports as per HPI Respiratory Respiratory: Reports system reviewed and no additional complaints, except as documented and Reports as per HPI Gastrointestinal Gastrointestingal: Reports system reviewed and no additional complaints, except as documented and as per HPI Integumentary/Breasts Skin/Breast: Reports system reviewed and no additional complaints, except as documented and Reports as per HPI Comments: redness, blistering and swelling to her right upper ear for the last 2-3 days Physical Exam General General appearance: alert and in no apparent distress Expanded ENT Exam Ear images: 1. swelling and redness noted 2. discolored area noted where patient reports blister like lesion that ruptured yesterday Respiratory Respiratory exam: Present normal lung sounds bilaterally; Absent respiratory distress or wheezes Cardiovascular Cardiovascular exam: Present regular rate, normal rhythm and normal heart sounds Neurological Exam Neurological exam: Present alert, oriented X3 and normal gait Medical Decision Making Lauro Inquiry Pt receiving controlled substance: No Lauro was queried for this patient: No Vital Signs: 09/21/23 14:00 Temperature 97.7 F Temperature Source Oral Pulse Rate [Left Brachial] 86 Respiratory Rate 20 Blood Pressure [Left Arm] 139/84 Blood Pressure Mean [Left Arm] 102 Blood Pressure Source [Left Arm] Automatic Cuff Blood Pressure Position [Left Arm] Sitting 02 Sat by Pulse Oximetry 100 Oxygen Delivery Method Room Air Medical Decision Narrative: Spoke with Farzana Garces about findings on right ear, will start on antibitoics and have patient call ENT office in the morning for appointment Patient currently on Mycophenolate Spoke with pharmacy recommended stopping medicatin while taking antibiotics and may resume after infection cleared and seen by PCP/ENT Discussed with patient and covering physician for Dr Talavera and agreed and patient verbalized understanding
[2023-09-21 15:01] VITALS: BP 139/84; PULSE 86; RESP 20; TEMP 36.5; O2SAT 100
== END 2023-09-21 15:23 | disposition home or self-care (01) ==
PROVIDERS: Emergency Provider Nurse Practitioner; PCP Internal Medicine
DX: H61.011 Acute perichondritis of right external ear (principal); M32.13 Lung involvement in systemic lupus erythematosus; F41.1 Generalized anxiety disorder; J44.9 Chronic obstructive pulmonary disease, unspecified; K21.9 Gastro-esophageal reflux disease without esophagitis; I50.9 Heart failure, unspecified; I25.10 Atherosclerotic heart disease of native coronary artery without angina pectoris; I27.20 Pulmonary hypertension, unspecified; E03.9 Hypothyroidism, unspecified; Z87.891 Personal history of nicotine dependence
CPT/HCPCS: 99212; 99214; G0463

== ENCOUNTER 2023-10-01 08:47 | Outpatient (POV) | payer MEDICAID, SELFPAY ==
[2023-10-01 09:02] VITALS: BP 145/87; PULSE 84; RESP 18; O2SAT 98; BMI 59.3
--- NOTE | 2023-10-01 09:15 | EXP.PAIN.SOA ---
[facility] Pain Management SOAP Note Subjective:: Patient is a pleasant 48-year-old female who presents today for follow-up of lumbar epidural steroid injection L5-S1 on 09/16/2023. Patient states that she did get significant relief of more than 50% with this injection however it only lasted about 4 days due to doing something when she was in bed. Patient states that she may have rolled over or slept awkwardly and has been experiencing severe pain in and around her low back on the right side and into her right hip. Patient states that it will go into her buttocks and groin area and describes it as a throbbing sensation with sharp pains. Patient does state the pain is interfering with her ability to perform activities of daily living such as cooking and cleaning and she rates her pain a 10 out of 10. Patient states that she frequently has to change positions due to the worsening pain and that she cannot sit for prolonged. Or standing and for long times due to the pain. Patient is interested in any help we may be able to provide. Patient does have a history of CHF and lupus. She is prescribed gabapentin and clonazepam from her PCP. Her Lauro has been reviewed and is appropriate. Review of Systems: General: No recent weight changes, no fever, no sleep disturbances Respiratory: No cough, no shortness of air, no recurring pulmonary infections Cardiovascular/peripheral vascular: No chest pain, no palpitations, no edema, no shortness of breath Gastrointestinal: No new onset incontinence, normal bowel movements reported Genitourinary: No new onset incontinence Musculoskeletal: Low back pain, right hip pain Psychiatric: [Normal mood/affect] Neurological: [Denies weakness in extremities], [denies balance issues] Objective:: Physical Exam: General: Alert and oriented x3, no acute distress, pleasant and cooperative Lungs: Respirations even and unlabored, symmetrical chest expansion Eyes: PERRL Musculoskeletal: Flexion and extension of lumbar [spine] somewhat guarded secondary to pain, [antalgic gait noted] point tenderness along right SI with positive right Moreno's, Dilip's, Gaenslen's, compression and distraction exam Neurological: Speech clear, no gross sensory deficit Assessment:: Degenerative disc disease of lumbar spine with lumbar radiculopathy symptoms, myofascial pain, status post SCS explant, sacroiliitis Plan:: Patient is experiencing significant pain in her low back and into her right hip. Patient had extreme point tenderness at her right SI with a positive right Moreno's, Dilip's, Gaenslen's, compression and distraction exam. I have discussed with the patient that she may benefit from a right SI injection. Risk and benefits were discussed with patient and she would like to proceed forward with this plan of care. I will also send in a prescription of baclofen 5 mg 3 times daily as needed and provide a 2-week supply of this medication. Patient will be scheduled for a right SI injection under fluoroscopy. Patient has been instructed to contact the clinic with any concerns before the next appointment. Dr. Honeycutt has reviewed this note and agrees with this plan of care. This note was dictated using voice recognition software and make contain errors or omissions. [facility] Disclaimer: The information contained in this section may have been updated after the patient was seen, as this information can be updated by other users. 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 Tobacco abuse counseling Generalized anxiety disorder with panic attacks Leg pain Ovarian cyst Vaginal spotting Chronic pelvic pain in female Diarrhea Abdominal pain Nausea & vomiting Cancer screening Elevated random blood glucose level Hepatitis C JOANA positive Asthma Pleural thickening Restrictive lung disease ILD (interstitial lung disease) Enteritis Lumbar radicular pain Allergic rhinitis Family history of asthma History of COPD Sleep-related breathing disorder Smoking greater than 30 pack years Dyspnea on exertion Chest pain Left against medical advice Anxiety and depression GERD (gastroesophageal reflux disease) Hepatitis C COPD (chronic obstructive pulmonary disease) CHF (congestive heart failure) CAD (coronary artery disease) Pleuritis Dyspnea Chest pain Abnormal electrocardiogram [ECG] [EKG] Tobacco use COPD (chronic obstructive pulmonary disease) Neuropathic pain Rectal bleeding Pulmonary hypertension Skin abscess History of drug use Overweight (BMI 25.0-29.9) Hyponatremia Acute anemia Irritable bowel syndrome Constipation Hypokalemia Pneumonia Pericarditis Pericardial effusion Pyelonephritis Right flank pain Acute urticaria Rib pain on right side Vitamin D deficiency Hypothyroidism Periorbital cellulitis of left eye Periorbital cellulitis of right eye Surgical History Hx of colonoscopy History of carpal tunnel surgery History of tubal ligation History of back surgery History of cholecystectomy History of partial hysterectomy Hx of CABG Presence of cardiac and vascular implant and graft Family History Other Family history of cancer Family history of cardiomyopathy Family history of diabetes mellitus type I Social History Smoking Status: Former smoker tobacco type: cigarettes packs per day: 1 smoking status stop date: 08/24/2023 second hand exposure: No alcohol intake: former substance use type: former substance user, amphetamines and opiates current occupational status: disabled Travel in the last 8 weeks: None household members: none housing: house current occupational exposures/hazards: No caffeine: Yes
== END 2023-10-01 23:59 | disposition home or self-care (01) ==
PROVIDERS: PCP Internal Medicine; Visit Provider Nurse Practitioner Family
DX: M51.16 Intervertebral disc disorders with radiculopathy, lumbar region (principal); M79.10 Myalgia, unspecified site; M46.1 Sacroiliitis, not elsewhere classified
CPT/HCPCS: 99212; G0463

== ENCOUNTER 2023-10-21 08:10 | Day surgery (SDC) | payer MEDICAID, SELFPAY ==
[2023-10-21 08:31] VITALS: BP 128/79; PULSE 76; RESP 18; O2SAT 100; BMI 26.9
[2023-10-21] MEDS: LIDOCAINE 1% 5ML PF VIAL 5 ML (09:04)
[2023-10-21] MEDS: methylPREDNISolone ACETATE 80MG/ML VIAL 80 MG (09:04)
[2023-10-21 09:05] VITALS: BP 130/68; PULSE 68; RESP 18; O2SAT 99
[2023-10-21] MEDS: BUPIVACAINE 0.25% 10ML INJ 25 MG IJ (09:05)
[2023-10-21 09:06] VITALS: BP 130/68; PULSE 75; RESP 18; O2SAT 99
--- NOTE | 2023-10-21 09:13 | P.PCN_ITS ---
Procedure Date: 10/21/23 Time: 08:55 Anesthesiologist:: Naresh Tejada CRNA Complications:: None Pre-procedure Diagnosis:: Right sacroiliitis Post-procedure Diagnosis:: Same Indications for Procedure:: Patient is a very pleasant 48-year-old female comes to clinic today for right sacroiliac joint injection. She has responded very well to this injection in the past. She reports difficulty transitioning from sitting to standing. Difficulty with ambulation and or sitting due to right posterior hip pain as well as right low lumbar back pain. She rates her pain 7/10. Procedure Details:: Procedure: Right sacroliliac joint injection under fluoroscopy Informed consent was obtained and the risk and benefits of the procedure were explained to the patient.~ The patient was taken to the procedure room and noninvasive monitors were placed including noninvasive blood pressure cuff and pulse oximeter.~ The patient was placed prone on the procedure table.~ The~ right hip was cleansed using Betadine as a cleansing solution.~ C-arm fluorosoc py was used to view the right SI joint.~ The skin and subcutaneous tissues were anesthetized using Lidocaine 1.5% and a 25-gauge needle.~ After this, a 22-gauge spinal needle was inserted under fluoroscopic guidance into the inferior aspect of the right SI joint.~ Omnipaque dye was injected and a good spread was seen throughout the joint.~ After this, approximately 5 mL of bupivacaine 0.25% and Depo-Medrol 40 mg was incrementally injected into the sacroiliac joint.~ The patient tolerated the procedure well with no complications.~ The patient was observed in the Pain Clinic, then discharged home neurologically intact.~ Plan and Disposition:: Patient was discharged without incident.
[2023-10-21 09:15] VITALS: BP 125/75; PULSE 69; RESP 18; O2SAT 100
== END 2023-10-21 09:15 | disposition home or self-care (01) ==
PROVIDERS: PCP Internal Medicine; Visit Provider Nurse Anesthetist, Certified Registered
DX: M46.1 Sacroiliitis, not elsewhere classified (principal)
CPT/HCPCS: 27096; G0260; J1010

== ENCOUNTER 2023-10-22 18:40 | Outpatient (CLI) | payer MEDICAID, SELFPAY ==
[2023-10-22 19:59] LABS: Basophils % 0.4 % (0.1-2.0); Eosinophils # 0.1 K/mm3 (0.0-0.4); Eosinophils % 0.9 % (0.1-12.0); Hematocrit 43.3 % (37.0-47.0); Hemoglobin 13.7 g/dL (12.2-16.2); Lymphocytes # 1.8 K/mm3 (0.7-4.5); Lymphocytes % 23.9 % (10-50); Mean Corpuscular HGB Conc 31.5 g/dL (31.8-35.4); Mean Corpuscular Hemoglobin 28.2 pg (27.0-31.2); Mean Corpuscular Volume 89.3 fl (81-99); Mean Platelet Volume 8.4 fl (7.4-10.4); Monocytes # 0.4 K/mm3 (0.1-1.0); Monocytes % 4.6 % (1.7-9.3); Neutrophils # 5.3 K/mm3 (1.8-7.8); Neutrophils % 70.1 % (37.0-80.0); Platelet Count 315 K/mm3 (142-424); Red Blood Count 4.85 M/mm3 (4.20-5.40); Red Cell Distribution Width 16.5 % (11.5-17.5); White Blood Count 7.6 K/mm3 (4.8-10.8)
[2023-10-22 20:15] LABS: Alanine Aminotransferase 16 U/L (12-78); Albumin Level 4.2 g/dl (3.5-5.0); Albumin/Globulin Ratio 1.3 (1.1-1.8); Alkaline Phosphatase 103 U/L (38-126); Anion Gap 13.3 mEq/L (5-15); Aspartate Amino Transferase 22 U/L (14-36); Bilirubin,Total 0.3 mg/dl (0.2-1.3); Blood Urea Nitrogen 12 mg/dl (7-17); Calcium 9.7 mg/dl (8.4-10.2); Carbon Dioxide 25 mmol/L (22.0-30.0); Chloride 110 mmol/L (98-107); Chol/HDL Ratio 3.4 (1-3.5); Cholesterol 173 mg/dl (140-200); Estimated Glomerular Filt Rate 66 ml/min (>60); GFR (African American) 80 ML/MIN (>60); Globulin 3.3 g/dL (1.3-3.2); Glucose 117 mg/dl (74-100); HDL Cholesterol 51 mg/dl (40-60); Potassium 4.3 mmoL/L (3.5-5.1); Sodium 144 mmol/L (136-145); Total Protein,Serum 7.5 g/dl (6.3-8.2); Triglycerides 83 mg/dl (30-150); VLDL Cholesterol 17 mg/dL (0-40)
[2023-10-22 20:26] LABS: Direct LDL Cholesterol 91.45 mg/dL (100-129)
[2023-10-22 21:19] LABS: Hemoglobin A1C 6.1 % (4.0-6.0)
== END 2023-10-22 23:59 | disposition home or self-care (01) ==
LOC: LAB.DROPOF 18:40
PROVIDERS: PCP Internal Medicine; Visit Provider Internal Medicine
DX: R53.83 Other fatigue (principal)
CPT/HCPCS: 80053; 80061; 83036; 84443; 85025

== ENCOUNTER 2023-11-05 09:36 | Outpatient (POV) | payer MEDICAID, SELFPAY ==
[2023-11-05 10:01] VITALS: BP 128/86; PULSE 70; RESP 18; TEMP 36.8; O2SAT 98; BMI 26.9
--- NOTE | 2023-11-05 10:17 | EXP.PAIN.SOA ---
[facility] Pain Management SOAP Note Subjective:: Patient is a pleasant 48-year-old female who presents today for follow-up of right SI injection on 10/21/2023. Today she rates her pain a 7 out of 10. Patient denies any new trauma or injury. Patient does state that she has had at least 60% improvement however it only lasted up a couple of days. Patient does state that she is back to her baseline. Patient does state that the baclofen we sent in at her last visit did help and is requesting refills. Patient does also states that she recently had an EMG test however there were no acute findings to explain her symptoms. Her Lauro has been reviewed and is appropriate. Review of Systems: General: No recent weight changes, no fever, no sleep disturbances Respiratory: No cough, no shortness of air, no recurring pulmonary infections Cardiovascular/peripheral vascular: No chest pain, no palpitations, no edema, no shortness of breath Gastrointestinal: No new onset incontinence, normal bowel movements reported Genitourinary: No new onset incontinence Musculoskeletal: Low back pain Psychiatric: [Normal mood/affect] Neurological: [Denies weakness in extremities], [denies balance issues] Objective:: Physical Exam: General: Alert and oriented x3, no acute distress, pleasant and cooperative Lungs: Respirations even and unlabored, symmetrical chest expansion Eyes: PERRL Musculoskeletal: Flexion and extension of lumbar [spine] somewhat guarded secondary to pain, [antalgic gait noted] Neurological: Speech clear, no gross sensory deficit Assessment:: Low back pain with lumbar radiculopathy symptoms, right-sided sacroiliitis Plan:: I will increase her baclofen to 10 mg 3 times a day and provide a 1 month supply of this medication. Patient will return to clinic in 1 month for reevaluation of symptoms and plan of care. Patient has been instructed to contact the clinic with any concerns before the next appointment. Dr. Honeycutt has reviewed this note and agrees with this plan of care. This note was dictated using voice recognition software and make contain errors or omissions. [facility] Disclaimer: The information contained in this section may have been updated after the patient was seen, as this information can be updated by other users. 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 Tobacco abuse counseling Generalized anxiety disorder with panic attacks Leg pain Ovarian cyst Vaginal spotting Chronic pelvic pain in female Diarrhea Abdominal pain Nausea & vomiting Cancer screening Elevated random blood glucose level JAONA positive Asthma Pleural thickening Restrictive lung disease ILD (interstitial lung disease) Enteritis Lumbar radicular pain Allergic rhinitis Family history of asthma History of COPD Sleep-related breathing disorder Smoking greater than 30 pack years Dyspnea on exertion Chest pain Left against medical advice Anxiety and depression GERD (gastroesophageal reflux disease) Hepatitis C COPD (chronic obstructive pulmonary disease) CHF (congestive heart failure) CAD (coronary artery disease) Pleuritis Dyspnea Chest pain Abnormal electrocardiogram [ECG] [EKG] Tobacco use COPD (chronic obstructive pulmonary disease) Neuropathic pain Rectal bleeding Pulmonary hypertension Skin abscess History of drug use Overweight (BMI 25.0-29.9) Hyponatremia Acute anemia Irritable bowel syndrome Constipation Hypokalemia Pneumonia Pericarditis Pericardial effusion Pyelonephritis Right flank pain Acute urticaria Rib pain on right side Vitamin D deficiency Hypothyroidism Periorbital cellulitis of left eye Periorbital cellulitis of right eye Surgical History Hx of colonoscopy History of carpal tunnel surgery History of tubal ligation History of back surgery History of cholecystectomy History of partial hysterectomy Hx of CABG Presence of cardiac and vascular implant and graft Family History Other Family history of cancer Family history of cardiomyopathy Family history of diabetes mellitus type I Social History Smoking Status: Former smoker tobacco type: cigarettes packs per day: 1 smoking status stop date: 08/24/2023 second hand exposure: No alcohol intake: former substance use type: former substance user, amphetamines and opiates current occupational status: other Travel in the last 8 weeks: None household members: none housing: house current occupational exposures/hazards: No caffeine: Yes
== END 2023-11-05 23:59 | disposition home or self-care (01) ==
PROVIDERS: PCP Internal Medicine; Visit Provider Nurse Practitioner Family
DX: M54.16 Radiculopathy, lumbar region (principal); M46.1 Sacroiliitis, not elsewhere classified
CPT/HCPCS: 99212; G0463

== ENCOUNTER 2023-11-12 10:39 | Outpatient (CLI) | payer MEDICAID, SELFPAY ==
[2023-11-12 20:07] LABS: Chloride 108 mmol/L (98-107); Potassium 3.8 mmoL/L (3.5-5.1); Sodium 140 mmol/L (136-145)
[2023-11-12 20:09] LABS: Blood Urea Nitrogen 4 mg/dl (7-17); Estimated Glomerular Filt Rate 89 ml/min (>60); GFR (African American) 107 ML/MIN (>60)
[2023-11-12 20:10] LABS: Alanine Aminotransferase 29 U/L (12-78); Albumin/Globulin Ratio 1.3 (1.1-1.8); Alkaline Phosphatase 166 U/L (38-126); Anion Gap 11.8 mEq/L (5-15); Aspartate Amino Transferase 47 U/L (14-36); Bilirubin,Total 0.7 mg/dl (0.2-1.3); Carbon Dioxide 24 mmol/L (22.0-30.0); Globulin 3.1 g/dL (1.3-3.2); Total Protein,Serum 7.1 g/dl (6.3-8.2)
[2023-11-12 20:11] LABS: Calcium 9.4 mg/dl (8.4-10.2); Glucose 129 mg/dl (74-100)
[2023-11-12 20:39] LABS: Thyroid Stimulating Hormone 3.35 uIU/mL (0.465-4.68)
== END 2023-11-12 23:59 | disposition home or self-care (01) ==
LOC: LAB.DROPOF 11-14 10:40
PROVIDERS: PCP Internal Medicine; Visit Provider Internal Medicine
DX: R11.2 Nausea with vomiting, unspecified (principal); Z79.899 Other long term (current) drug therapy
CPT/HCPCS: 80053; 84443

== ENCOUNTER 2024-01-16 09:22 | Outpatient (CLI) | payer MEDICAID, SELFPAY ==
[2024-01-16 09:55] VITALS: PULSE 70; PULSE 74
[2024-01-16] MEDS: ALBUTEROL 0.083% 2.5 MG/3 ML NEB IH (09:55)
== END 2024-01-16 23:59 | disposition home or self-care (01) ==
LOC: RT 09:22
PROVIDERS: PCP Internal Medicine; Visit Provider Internal Medicine Pulmonary Disease
DX: R06.09 Other forms of dyspnea (principal)
CPT/HCPCS: 94060; 94618; 94640; 94726; 94729; J7613

== ENCOUNTER 2024-08-04 11:21 | Day surgery (SDC) | payer MEDICAID, SELFPAY ==
[2024-08-04 12:17] VITALS: BMI 26.5
[2024-08-04 12:28] VITALS: BP 125/80; PULSE 80; RESP 18; TEMP 36.4; O2SAT 97
[2024-08-04] MEDS: LACTATED RINGERS 1000ML 1,000 ML 50 ML IV (12:38)
--- NOTE | 2024-08-04 12:47 | EXP.ANES.CKL ---
[facility] Disclaimer: The information contained in this section may have been updated after the patient was seen, as this information can be updated by other users. 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 Tobacco abuse counseling Generalized anxiety disorder with panic attacks Leg pain Ovarian cyst Vaginal spotting Chronic pelvic pain in female Diarrhea Abdominal pain Nausea & vomiting Cancer screening Elevated random blood glucose level JOANA positive Asthma Pleural thickening Restrictive lung disease ILD (interstitial lung disease) Enteritis Lumbar radicular pain Allergic rhinitis Family history of asthma History of COPD Sleep-related breathing disorder Smoking greater than 30 pack years Dyspnea on exertion Chest pain Left against medical advice Anxiety and depression Hepatitis C COPD (chronic obstructive pulmonary disease) CHF (congestive heart failure) CAD (coronary artery disease) Pleuritis Dyspnea Chest pain Abnormal electrocardiogram [ECG] [EKG] Tobacco use COPD (chronic obstructive pulmonary disease) Neuropathic pain Pulmonary hypertension Skin abscess History of drug use Overweight (BMI 25.0-29.9) Hyponatremia Acute anemia Irritable bowel syndrome Constipation Hypokalemia Pneumonia Pericarditis Pericardial effusion Pyelonephritis Right flank pain Acute urticaria Rib pain on right side Vitamin D deficiency Periorbital cellulitis of left eye Periorbital cellulitis of right eye Surgical History Hx of colonoscopy History of carpal tunnel surgery History of tubal ligation History of back surgery History of cholecystectomy History of partial hysterectomy Hx of CABG Presence of cardiac and vascular implant and graft Family History Other Family history of cancer Family history of cardiomyopathy Family history of diabetes mellitus type I Social History (Updated 08/04/24 @ 12:19 by Ashtyn Acuna RN) Smoking Status: Current some day smoker tobacco type: cigarettes packs per day: 1 smoking status stop date: 08/24/2023 second hand exposure: No alcohol intake: former substance use type: former substance user, amphetamines and opiates current occupational status: other Travel in the last 8 weeks: None household members: none housing: house current occupational exposures/hazards: No caffeine: Yes Have you lived/traveled outside [place] in past 30 days?: No Contact w/someone who lives/traveled outside [place] past 30 days?: No Exposure to someone with infectious disease in past 14 days?: No Do you have a fever (greater than 100.4 F or 38 C)?: No Have you tested positive for COVID-19: No Exposed to someone with COVID-19 in past 14 days?: No Do you have a sore throat?: No Do you have a cough?: No Do you have any weakness?: No Are you experiencing any nausea/vomitting?: Yes Do you have any diarrhea?: No Are you experiencing any unusual bleeding?: No Do you have any muscle aches/pain?: No Do you have any abdominal pain?: No Are you experiencing loss of taste or smell?: No [facility] Anesthesia Checklist Patient Identification Patient Identification: Arm Band Structural Data Admitted From: Home Planned Operative Procedure/s: EGD/Colonoscopy Consent for Planned Operative Procedure(s) Verified: Yes Verified Documents: Surgical Consent and History and Physical NPO Status Verified Time NPO: 00:00 Additional verifications Anesthesia Reactions: No Hx Blood Transfusions: Yes Blood Transfusion Reaction: No Airway Assessment Mallampati Score:: Class II C-Spine Mobility Assessed: Yes TMJ Mobility Assessed: Yes Dentition: Dentures-good fit (upper dentures removed) Neurological Assessment Level of Consciousness: Awake, Alert and Appropriate Anesthesia Plan Anesthesia Risk discussed: Yes Anesthesia Plan: Verified ASA Class: III Anesthesia Type: MAC
[2024-08-04 13:03] VITALS: O2SAT 100
--- NOTE | 2024-08-04 13:14 | P.HP_ITS ---
History of Present Illness *Admission Date: 08/04/24 *Reason for visit:: Dysphagia with nausea, vomiting, heartburn, reflux and regurgitation *History of present illness: Mrs. Epstein is a 49-year-old female who is here for diagnostic upper endoscopy and diagnostic colonoscopy. The patient reports dysphagia with intermittent food impaction and has to regurgitate. She does have a lot of heartburn, reflux and regurgitation. She also reports a change in bowel habits with diarrhea, urgency and blood and mucus in her stools. The examination is deemed medically necessary for diagnostic EGD and colonoscopy. The patient has been seen, interviewed and examined prior to the procedure by both myself and the anesthesia provider. [facility] Disclaimer: The information contained in this section may have been updated after the patient was seen, as this information can be updated by other users. 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 Tobacco abuse counseling Generalized anxiety disorder with panic attacks Leg pain Ovarian cyst Vaginal spotting Chronic pelvic pain in female Diarrhea Abdominal pain Nausea & vomiting Cancer screening Elevated random blood glucose level JOANA positive Asthma Pleural thickening Restrictive lung disease ILD (interstitial lung disease) Enteritis Lumbar radicular pain Allergic rhinitis Family history of asthma History of COPD Sleep-related breathing disorder Smoking greater than 30 pack years Dyspnea on exertion Chest pain Left against medical advice Anxiety and depression Hepatitis C COPD (chronic obstructive pulmonary disease) CHF (congestive heart failure) CAD (coronary artery disease) Pleuritis Dyspnea Chest pain Abnormal electrocardiogram [ECG] [EKG] Tobacco use COPD (chronic obstructive pulmonary disease) Neuropathic pain Pulmonary hypertension Skin abscess History of drug use Overweight (BMI 25.0-29.9) Hyponatremia Acute anemia Irritable bowel syndrome Constipation Hypokalemia Pneumonia Pericarditis Pericardial effusion Pyelonephritis Right flank pain Acute urticaria Rib pain on right side Vitamin D deficiency Periorbital cellulitis of left eye Periorbital cellulitis of right eye Surgical History Hx of colonoscopy History of carpal tunnel surgery History of tubal ligation History of back surgery History of cholecystectomy History of partial hysterectomy Hx of CABG Presence of cardiac and vascular implant and graft Family History Other Family history of cancer Family history of cardiomyopathy Family history of diabetes mellitus type I Social History (Updated 08/04/24 @ 12:19 by Ashtyn Acuna RN) Smoking Status: Current some day smoker tobacco type: cigarettes packs per day: 1 smoking status stop date: 08/24/2023 second hand exposure: No alcohol intake: former substance use type: former substance user, amphetamines and opiates current occupational status: other Travel in the last 8 weeks: None household members: none housing: house current occupational exposures/hazards: No caffeine: Yes Have you lived/traveled outside [place] in past 30 days?: No Contact w/someone who lives/traveled outside [place] past 30 days?: No Exposure to someone with infectious disease in past 14 days?: No Do you have a fever (greater than 100.4 F or 38 C)?: No Have you tested positive for COVID-19: No Exposed to someone with COVID-19 in past 14 days?: No Do you have a sore throat?: No Do you have a cough?: No Do you have any weakness?: No Are you experiencing any nausea/vomitting?: Yes Do you have any diarrhea?: No Are you experiencing any unusual bleeding?: No Do you have any muscle aches/pain?: No Do you have any abdominal pain?: No Are you experiencing loss of taste or smell?: No Other Medical History Have you received the Flu Vaccine for this season: Yes Have you received the Pneumonia Vaccine: Yes Review of Systems Review of Systems Review of systems (narrative): Negative *Cardiovascular Comments: Negative *Gastrointestinal Comments: Negative *Genitourinary Comments: Negative *Musculoskeletal Comments: Negative *Neurologic Comments: Negative Meds Home Medications and Allergies Home Medications ?Medication ?Instructions ?Recorded ?Confirmed ?Type ipratropium 0.5 mg-albuterol 3 mg 1 ml inhalation Q4HP PRN SOA 09/21/23 08/04/24 History (2.5 mg base)/3 mL nebulization soln montelukast 10 mg tablet 10 mg PO DAILY 09/21/23 08/04/24 History albuterol sulfate 90 mcg/actuation See Rx Instructions .Route 05/25/24 08/04/24 Rx aerosol inhaler (Ventolin HFA) .COMPLEX #18 grams buprenorphine 8 mg-naloxone 2 mg 1.5 tab sublingual DAILY 05/25/24 08/04/24 History sublingual tablet colchicine 0.6 mg tablet 0.6 mg PO DAILY 05/25/24 08/04/24 History dicyclomine 10 mg capsule 10 mg PO TID PRN abdominal pain 05/25/24 08/04/24 Rx #90 caps fluticasone fur. 100 mcg-umeclid 1 inh inhalation DAILY #60 ea 05/25/24 08/04/24 Rx 62.5 mcg-vilant 25 mcg inhalat.powder (Trelegy Ellipta) hydroxychloroquine 200 mg tablet 200 mg PO DAILY 05/25/24 08/04/24 History quetiapine 100 mg tablet 100 mg PO DAILY 05/25/24 08/04/24 History levothyroxine 125 mcg tablet 125 mcg PO DAILY #90 tabs 07/01/24 08/04/24 Rx omeprazole 20 mg capsule,delayed 20 mg PO DAILY #90 caps 07/01/24 08/04/24 Rx release amitriptyline 50 mg tablet 50 mg PO DAILY 08/04/24 08/04/24 History bumetanide 1 mg tablet 1 mg PO DAILY 08/04/24 08/04/24 History venlafaxine 225 mg tablet,extended 225 mg PO DAILY 08/04/24 08/04/24 History release 24 hr New Prescriptions to Start Prescriptions: Allergies Allergy/AdvReac Type Severity Reaction Status Date / Time adhesive tape AdvReac Mild Rash Verified 08/04/24 12:20 Exam Data for Last 24 hours Vital signs and Labs for Last 24 Hours: Temp Pulse Resp BP Pulse Ox O2 Del Method O2 Flow Rate 97.5 F L 80 18 125/80 97 Nasal Cannula 5 08/04/24 12:08/04/24 12:08/04/24 12:28 08/04/24 12:28 08/04/24 12:08/04/24 13:03 08/04/24 13:03 I & O for Last 24 hours: Intake & Output 01/26/25 01/27/25 01/28/25 01/29/25 23:59 23:59 23:59 23:59 Weight 150 lb *Routine HEENT Exam Head: Present normocephalic Eye: Present EOMI and PERRL ENT: Present mucous membranes moist *Routine Neck Exam Neck: Present supple *Routine Respiratory Exam Respiratory: Present CTA bilaterally *Routine Cardiovascular Exam Cardiovascular: Present RRR *Routine Abdominal Exam Abdominal: Present soft and normoactive bowel sounds; Absent tenderness *Routine Rectal Exam Rectal:: deferred *Routine Genitalia Exam Genitalia:: deferred *Routine Extremities Exam Extremities: Absent cyanosis, clubbing or edema *Routine Skin Exam Skin: Present warm; Absent rash *Routine Neurological Exam Neurological: Present alert and oriented X3 Assessment and Plan *Assessment and plan (1) Generalized abdominal pain: Status: Acute Category: Medical Code(s): R10.84 - Generalized abdominal pain (2) Rectal bleeding: Status: Acute Category: Medical Code(s): K62.5 - Hemorrhage of anus and rectum (3) Increased mucus in stool: Status: Acute Category: Medical Code(s): R19.5 - Other fecal abnormalities (4) Regurgitation of food: Status: Acute Category: Medical Code(s): R11.10 - Vomiting, unspecified (5) Difficulty swallowing: Status: Acute Qualifiers: Dysphagia type: unspecified Qualified Code(s): R13.10 - Dysphagia, unspecified Category: Medical Code(s): R13.10 - Dysphagia, unspecified (6) GERD (gastroesophageal reflux disease): Status: Acute Qualifiers: Esophagitis presence: with esophagitis Esophagitis bleeding: unspecified whether hemorrhage Qualified Code(s): K21.00 - Gastro-esophageal reflux disease with esophagitis, without bleeding Category: Medical Code(s): K21.9 - Gastro-esophageal reflux disease without esophagitis Plan A/P: 1. Dysphagia with intermittent food impaction, heartburn, reflux and naus ea for upper endoscopy and diarrhea with blood and mucus in stool for colonoscopy is the preprocedural diagnosis. The patient will be anesthetized/sedated using MAC sedation. The patient has been seen and examined. Cardiac and lung assessment prior to the examination is stable. Proceed with planned diagnostic upper endoscopy and diagnostic colonoscopy
--- NOTE | 2024-08-04 13:16 | P.PCN_ITS ---
[facility] Procedure Note Date: 08/04/24 Time: 13:23 Procedure Note:: Upper Endoscopy Procedure Report: Esophagogastroduodenoscopy with cold biopsies and TTS balloon dilation Endoscopost: Neo Lutz II, MD Referring Physician: Rigoberto Talavera DO Date of Procedure: August 04, 2024 Equipment: Olympus GIF 190 standard upper endoscope Sedation: MAC sedation Indications: Mrs. Epstein is a 49-year-old female who is here for diagnostic/therapeutic upper endoscopy secondary to multiple GI problems. She does report dysphagia especially to solids and is having food gets hung up with impaction and has to regurgitate. She has never gone to the ED and has never had upper endoscopy. She does get heartburn and reflux. She has seen ENT. She did not show up for a barium swallow that was ordered. She does report generalized abdominal discomfort, bloating and some dyspepsia. She also has sherice sea. She reports some early satiety. The patient reports chronic diarrhea and had been diagnosed with IBS diarrhea. Procedure: Prior to the procedure, a history and physical exam was performed, and patient's medications and allergies were reviewed. The risks, benefits and alternatives of the sedation and procedure were discussed with the patient. All questions were answered and informed consent was obtained. The patient was brought to the procedure room. Patient identification and proposed procedure were verified by the physician and the nurse. The patient was placed in a left lateral decubitus position and the scope was passed under direct vision. Throughout the procedure, the patient's blood pressure, pulse, and oxygen saturations were monitored continuously. The upper GI endoscopy was accomplished without difficulty. The patient tolerated the procedure well. Findings: The scope was passed directly into the upper esophagus and advanced to the third portion of the duodenum. The post bulbar duodenum and duodenal bulb were normal with normal mucosa and conniventes. Biopsies were taken from the first portion of duodenum and duodenal bulb to rule out celiac disease. The scope was withdrawn through a normal duodenal bulb and pylorus into the stomach. There was moderate bile reflux with very mild linear reactive gastropathy of the antrum. The body and fundus of the stomach were normal. Upon retroflexion there was no hiatal hernia. The scope was then withdrawn into the esophagus. There was no evidence of reflux esophagitis or Olson's. There was a fibrotic ringlike stricture distally and this was gently dilated to 18 mm. There was also some esophageal dysmotility and cricopharyngeal spasm. The cricopharyngeus was dilated 18 mm. There was no corrugation or furling. The remainder of the esophageal mucosa was normal. Impression: 1. Ringlike distal esophageal stricture status post dilation to 18 mm 2. Nonerosive GERD with moderate esophageal dysmotility and cricopharyngeal spasm 3. Bile reflux with very mild linear reactive gastropathy Plan: I will follow-up the biopsies. I will discuss additional treatment options. I will proceed with diagnostic colonoscopy.
--- NOTE | 2024-08-04 13:27 | HMH.PROCNOTE ---
[facility] Procedure Note Date: 08/04/24 Time: 13:29 Procedure Note:: Sigmoidoscopy procedure Report: Unprepped attempted colonoscopy Endoscopist: Neo Lutz II, MD Referring physician: Rigoberto Talavera DO Date of Procedure: August 04, 2024 Equipment: Olympus 190 variable stiffness pediatric colonoscope Sedation: MAC sedation Indication: Mrs. Epstein is a 49-year-old female with multiple GI symptoms. She does have a long history of IBS with diarrhea. Her last colonoscopy was in 2015. The patient does report bright red blood per rectum but does not have any hemorrhoidal prolapse. She also notes mucus with her bowel movements. She does have generalized abdominal discomfort and bloating. She reports no weight loss. She does state that she has 2 maternal aunts with colon cancer. Procedure: Prior to the procedure, a history and physical exam was performed, and patient's medications and allergies were reviewed. The risks, benefits and alternatives of the sedation and procedure were discussed with the patient. All questions were answered and informed consent was obtained. The patient was brought to the procedure room. Patient identification and proposed procedure were verified by the physician and the nurse. The patient was placed in a left lateral decubitus position and the scope was passed under direct vision. Throughout the procedure, the patient's blood pressure, pulse, and oxygen saturations were monitored continuously. The colonoscopy was accomplished without difficulty. The patient tolerated the procedure well. Findings: On digital rectal examination there was normal rectal tone and no external hemorrhoids. The scope was then introduced through the anal canal to the rectum and advanced to 25 cm from the anal verge. There was abundant brown liquid and some semisolid stool with inadequate bowel preparation. The procedure was then aborted. There were grade 2 internal hemorrhoids within the rectum. Impression: 1. Inadequate bowel preparation/unprepped colon 2. Grade 2 internal hemorrhoids Plan: The patient will need adequate bowel preparation with full colonoscopy. I do feel the bleeding may be just from hemorrhoids but she does have mucus and blood with abdominal pain and discomfort and family history. At this point, bleeding hemorrhoids is a diagnosis of exclusion.
[2024-08-04 13:34] VITALS: BP 100/67; PULSE 73; RESP 16; TEMP 36.1; O2SAT 98
[2024-08-04 13:44] VITALS: BP 106/68; PULSE 66; RESP 16; O2SAT 100
[2024-08-04 13:54] VITALS: BP 114/63; PULSE 69; RESP 16; O2SAT 100
[2024-08-04 14:04] VITALS: BP 125/71; PULSE 73; RESP 16; TEMP 36.1; O2SAT 98
--- NOTE | 2024-08-04 14:13 | SUR.PHASEII ---
1412: Spoke with Sara in Dr. Lutz office about putting pt on the schedule for tomorrow to do another colonoscopy. Pt is to take linzess and another bowel prep before per Dr. Lutz.
== END 2024-08-04 14:12 | disposition home or self-care (01) ==
PROVIDERS: PCP Internal Medicine; Visit Provider Internal Medicine Gastroenterology
PROC: 0DJ08ZZ Inspection of Upper Intestinal Tract, Via Natural or Artificial Opening Endoscopic (ICD-10-PCS; CPT 45378; principal; 2024-08-04 12:00)
DX: R10.84 Generalized abdominal pain (principal); K62.5 Hemorrhage of anus and rectum; R19.5 Other fecal abnormalities; R11.10 Vomiting, unspecified; R13.10 Dysphagia, unspecified; K21.00 Gastro-esophageal reflux disease with esophagitis, without bleeding; R11.0 Nausea; R68.81 Early satiety; K58.0 Irritable bowel syndrome with diarrhea; K31.9 Disease of stomach and duodenum, unspecified; K22.4 Dyskinesia of esophagus; J39.2 Other diseases of pharynx; K64.1 Second degree hemorrhoids; Z72.0 Tobacco use
CPT/HCPCS: 43239; 43249; 45378; C1726; J7120

== ENCOUNTER 2024-09-12 06:58 | Emergency (ER) | payer MEDICAID, SELFPAY ==
[2024-09-12] VITALS (9 sets, daily range): BP systolic 109–140; BP diastolic 69–83; PULSE 73–89; RESP 19–34; TEMP 36.8–36.9; O2SAT 96–100; BMI 25.7
--- NOTE | 2024-09-12 06:56 | ECG_ITS ---
APPROVED REPORT Exam: Resting ECG HR:79 bpm ECG Measurements Heart Rate 79 AXES HI 153 P 58 QRSd 93 QRS 107 QT 359 T 35 QTc 394 Conclusion SINUS RHYTHM RIGHT AXIS DEVIATION [QRS AXIS > 100] INCOMPLETE RIGHT BUNDLE BRANCH BLOCK [90+ ms QRS DURATION, TERMINAL R IN V1/V2, 40+ ms S IN I/aVL/V4/V5/V6] Nonspecific ST/T wave changes without acute STEMI Electronically signed by : TRISTAN WADDELL, 09/12/2024 15:05:18
--- NOTE | 2024-09-12 07:10 | XR_ITS ---
PROCEDURE INFORMATION: Exam: XR Chest Exam date and time: 09/12/2024 7:17 AM Age: 49 years old Clinical indication: Pain; Shortness of breath; Other: Cp, vomiting; Additional info: Vomiting, chest pain TECHNIQUE: Imaging protocol: Radiologic exam of the chest. Views: 2 views. COMPARISON: CR XR CHEST 2V 09/09/2023 2:14 PM FINDINGS: Lungs: Persistent opacity in the right base Pleural spaces: Unremarkable. No pleural effusion. No pneumothorax. Heart/Mediastinum: Unremarkable. No cardiomegaly. Bones/joints: Median sternotomy . Osseous structures are stable IMPRESSION: Persistent opacity in the right base may represent atelectasis or pneumonia
[2024-09-12 07:17] LABS: Basophils % 0.2 % (0.1-2.0); Eosinophils % 0.2 % (0.1-12.0); Hematocrit 42.3 % (37.0-47.0); Hemoglobin 13.3 g/dL (12.2-16.2); Lymphocytes # 0.9 K/mm3 (0.7-4.5); Lymphocytes % 20.1 % (10-50); Mean Corpuscular HGB Conc 31.4 g/dL (31.8-35.4); Mean Corpuscular Hemoglobin 26.9 pg (27.0-31.2); Mean Corpuscular Volume 85.5 fl (81-99); Mean Platelet Volume 8.3 fl (7.4-10.4); Monocytes # 0.1 K/mm3 (0.1-1.0); Monocytes % 1.8 % (1.7-9.3); Neutrophils # 3.4 K/mm3 (1.8-7.8); Neutrophils % 77.2 % (37.0-80.0); Platelet Count 277 K/mm3 (142-424); Red Blood Count 4.95 M/mm3 (4.20-5.40); Red Cell Distribution Width 15.9 % (11.5-17.5); White Blood Count 4.4 K/mm3 (4.8-10.8)
[2024-09-12 07:29] LABS: Alanine Aminotransferase 12 U/L (12-78); Albumin Level 4.1 g/dl (3.5-5.0); Albumin/Globulin Ratio 1.1 (1.1-1.8); Alkaline Phosphatase 93 U/L (38-126); Anion Gap 13.5 mEq/L (5-15); Aspartate Amino Transferase 38 U/L (14-36); Bilirubin,Total 0.4 mg/dl (0.2-1.3); Blood Urea Nitrogen 11 mg/dl (7-17); Carbon Dioxide 23 mmol/L (22.0-30.0); Chloride 109 mmol/L (98-107); Creatinine Clearance Estimated 86 mL/min (50-200); Estimated Glomerular Filt Rate 76 ml/min (>60); GFR (African American) 92 ML/MIN (>60); Globulin 3.8 g/dL (1.3-3.2); Glucose 108 mg/dl (74-100); Lipase 70 U/L (23-300); Potassium 3.5 mmoL/L (3.5-5.1); Sodium 142 mmol/L (136-145); Total Protein,Serum 7.9 g/dl (6.3-8.2)
[2024-09-12] MEDS: ACETAMINOPHEN 1,000MG/100ML VIAL 1000 MG IV (07:35)
[2024-09-12] MEDS: BELLADONNA ALKALOIDS 60 ML ML PO (07:35)
[2024-09-12] MEDS: ASPIRIN 81MG CHEWABLE TABLET 324 MG PO (07:35)
[2024-09-12] MEDS: ONDANSETRON 4MG/2ML VIAL 4 MG IV (07:36)
[2024-09-12] MEDS: FAMOTIDINE 20MG/2ML VIAL 20 MG IV (07:36)
--- NOTE | 2024-09-12 07:41 | ED_ITS ---
Discharge Plan Disposition Patient Disposition: Home, Self-Care Condition: Good Prescriptions Prescriptions: New amoxicillin-pot clavulanate 875-125 mg tablet 1 tab PO BID Qty: 20 0RF azithromycin 500 mg tablet 500 mg PO DAILY 2 Days Qty: 2 0RF Rx Instructions: start on day 2 of therapy promethazine 25 mg tablet 25 mg PO Q6H PRN (Reason: nausea and vomiting) Qty: 10 0RF No Action hydroxychloroquine 200 mg tablet 200 mg PO DAILY Patient Comments: TAKE 1 AND 1/2 TABLETS 1 TIME EACH DAY colchicine 0.6 mg tablet 0.6 mg PO DAILY Patient Comments: TAKE 1 TABLET 2 TIMES EACH DAY NEEDED FOR CHEST PAIN buprenorphine-naloxone 8-2 mg tablet, sublingual 1.5 tab sublingual DAILY Patient Comments: PLACE 1 AND 1/2 TABLETS UNDER THE TONGUE AND ALLOW TO DISSOLVE 1 TIME EACH DAY. dicyclomine 10 mg capsule 10 mg PO TID PRN (Reason: abdominal pain) Qty: 90 5RF albuterol sulfate [Ventolin HFA] 90 mcg/actuation HFA aerosol inhaler See Rx Instructions .ROUTE .COMPLEX Qty: 18 2RF Dose Instruction: INHALE 2 PUFFS EVERY 8 HOURS NEEDED FOR SHORTNESS OF BREATH Rx Instructions: INHALE 2 PUFFS EVERY 8 HOURS NEEDED FOR SHORTNESS OF BREATH Trelegy Ellipta 100-62.5-25 mcg blister with device 1 inh inhalation DAILY Qty: 60 6RF levothyroxine 125 mcg tablet 125 mcg PO DAILY Qty: 90 3RF omeprazole 20 mg capsule,delayed release(DR/EC) 20 mg PO DAILY Qty: 90 0RF Creon 36,000-114,000- 180,000 unit capsule,delayed release(DR/EC) 1 cap PO .With meals Qty: 90 12RF Rx Instructions: administer with meals and/or snacks quetiapine 100 mg tablet See Rx Instructions .ROUTE .COMPLEX Qty: 90 2RF Dose Instruction: TAKE 1 TABLET 1 TIME EACH DAY FOR MOOD Rx Instructions: TAKE 1 TABLET 1 TIME EACH DAY FOR MOOD amitriptyline 50 mg tablet See Rx Instructions .ROUTE .COMPLEX Qty: 30 2RF Dose Instruction: TAKE 1 TABLET 1 TIME EACH DAY AT BEDTIME Rx Instructions: TAKE 1 TABLET 1 TIME EACH DAY AT BEDTIME bumetanide 1 mg tablet See Rx Instructions .ROUTE .COMPLEX Qty: 120 2RF Dose Instruction: TAKE 2 TABLETS 2 TIMES EACH DAY FOR FLUID Rx Instructions: TAKE 2 TABLETS 2 TIMES EACH DAY FOR FLUID venlafaxine 225 mg tablet extended release 24hr See Rx Instructions .ROUTE .COMPLEX Qty: 30 2RF Dose Instruction: TAKE 1 TABLET 1 TIME EACH DAY Rx Instructions: TAKE 1 TABLET 1 TIME EACH DAY montelukast 10 mg tablet See Rx Instructions .ROUTE .COMPLEX Qty: 90 2RF Dose Instruction: TAKE 1 TABLET 1 TIME EACH DAY FOR ALLERGIES Rx Instructions: TAKE 1 TABLET 1 TIME EACH DAY FOR ALLERGIES ipratropium-albuterol 0.5 mg-3 mg(2.5 mg base)/3 mL solution for nebulization 1 ml INHALATION Q4HP PRN (Reason: SOA) Patient Comments: INHALE CONTENTS OF 1 VIAL USING A NEBULIZER EVERY 4 TO 6 HOURS NEEDED FOR SHORTNESS OF BREATH OR WHEEZING Referrals Follow up/Referrals: Rigoberto Talavera DO [Primary Care Provider] - See instructions Ge Vargas MD [Staff Physician] - See instructions Petra Ferraro MD [Physician] - See instructions Activity Restrictions/Add. Instructions Additional Instructions/Restrictions: You were evaluated in the emergency department today. You have a suspicious looking lesion in your lung as well as enlarged lymph nodes. It is very important that you follow-up outpatient right away for further evaluation and management of this. I have provided you with information for oncology as well as pulmonology to help expedite follow-up. It looks like you do already follow with Dr. Ferraro, so I would contact his office. You have colitis on CT scan of your belly, which is inflammation of your intestines. Please follow-up with GI for this. Given that you do have fluid on your right lung, we are going to treat for pneumonia based on your symptoms. 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 I also sent in Phenergan to have as needed for nausea and vomiting. Given your chest pain, please follow-up with cardiology right away as well. Please also follow-up with your primary care provider. Return to the emergency department for new or worsening symptoms. Avoid smoking marijuana, as this can exacerbate nausea and vomiting. Take Tylenol as needed for pain. Clinical Impressions Clinical Impression: Mass of pleura, Nausea and vomiting, Chest pain, Lymph node enlargement, Colitis, Pneumonia Stand Alone Forms Stand Alone Forms: Work/School Release Instructions Patient Instructions: DI for Atypical Chest Pain, DI for Colitis Print Language Print Language: Ukrainian Discharge ED Provider: Nicole Akins HPI General Chief Complaint: Chest Pain Stated Complaint: Chest Pain Time Seen by Provider: 09/12/24 07:10 Mode of Arrival: Ambulatory Source of Information: Patient Description of Symptoms (Recalled from ER Triage Doc. by RN): pt reports chest pain and shortness of breath that began at 0300. Chest pain does not radiate and is sharp in the center of the chest. pt also reports hives around her eyes History of Present Illness HPI narrative: This patient is a 49-year-old female with a history of CAD status post CABG, CHF, COPD, tobacco dependence, lupus, hepatitis C presenting to the emergency department for evaluation with concern for chest pain. Patient states that she was lying in bed around 3:00 this morning when she suddenly started feeling chest pain. Its sharp in the center of her chest. It is nonradiating. She also notes shortness of breath, nausea, and vomiting. She states that the pain started before the vomiting. She denies any fevers, cough, congestion. I do note that she has bilateral periorbital erythema and edema, and she states that this is normal for her because she gets hives all the time related to her autoimmune issues. She denies any other acute concerns. Related Data Home Medications ?Medication ?Instructions ?Recorded ?Confirmed ipratropium 0.5 mg-albuterol 3 mg 1 ml inhalation Q4HP PRN SOA 09/21/23 08/04/24 (2.5 mg base)/3 mL nebulization soln buprenorphine 8 mg-naloxone 2 mg 1.5 tab sublingual DAILY 05/25/24 08/04/24 sublingual tablet colchicine 0.6 mg tablet 0.6 mg PO DAILY 05/25/24 08/04/24 hydroxychloroquine 200 mg tablet 200 mg PO DAILY 05/25/24 08/04/24 Previous Rx's ?Medication ?Instructions ?Recorded albuterol sulfate 90 mcg/actuation See Rx Instructions .Route 05/25/24 aerosol inhaler (Ventolin HFA) .COMPLEX #18 grams dicyclomine 10 mg capsule 10 mg PO TID PRN abdominal pain 05/25/24 #90 caps fluticasone fur. 100 mcg-umeclid 1 inh inhalation DAILY #60 ea 05/25/24 62.5 mcg-vilant 25 mcg inhalat.powder (Trelegy Ellipta) levothyroxine 125 mcg tablet 125 mcg PO DAILY #90 tabs 07/01/24 omeprazole 20 mg capsule,delayed 20 mg PO DAILY #90 caps 07/01/24 release [id number]-[id number] 1 cap PO .With meals #90 caps 08/10/24 36,000-114,000-180,000 unit capsule,delay rel (Creon) amitriptyline 50 mg tablet See Rx Instructions .Route 08/23/24 .COMPLEX #30 tabs bumetanide 1 mg tablet See Rx Instructions .Route 08/23/24 .COMPLEX #120 tabs montelukast 10 mg tablet See Rx Instructions .Route 08/23/24 .COMPLEX #90 tabs quetiapine 100 mg tablet See Rx Instructions .Route 08/23/24 .COMPLEX #90 tabs venlafaxine 225 mg tablet,extended See Rx Instructions .Route 08/23/24 release 24 hr .COMPLEX #30 tabs amoxicillin 875 mg-potassium 1 tab PO BID #20 tabs 09/12/24 clavulanate 125 mg tablet azithromycin 500 mg tablet 500 mg PO DAILY 2 days #2 tabs 09/12/24 promethazine 25 mg tablet 25 mg PO Q6H PRN nausea and 09/12/24 vomiting #10 tabs Allergies Allergy/AdvReac Type Severity Reaction Status Date / Time adhesive tape AdvReac Mild Rash Verified 08/04/24 12:20 [facility] Disclaimer: The information contained in this section may have been updated after the patient was seen, as this information can be updated by other users. 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 Tobacco abuse counseling Generalized anxiety disorder with panic attacks Leg pain Ovarian cyst Vaginal spotting Chronic pelvic pain in female Diarrhea Abdominal pain Nausea & vomiting Cancer screening Elevated random blood glucose level JOANA positive Asthma Pleural thickening Restrictive lung disease ILD (interstitial lung disease) Enteritis Lumbar radicular pain Allergic rhinitis Family history of asthma History of COPD Sleep-related breathing disorder Smoking greater than 30 pack years Dyspnea on exertion Chest pain Left against medical advice Anxiety and depression Hepatitis C COPD (chronic obstructive pulmonary disease) CHF (congestive heart failure) CAD (coronary artery disease) Pleuritis Dyspnea Chest pain Abnormal electrocardiogram [ECG] [EKG] Tobacco use COPD (chronic obstructive pulmonary disease) Neuropathic pain Pulmonary hypertension Skin abscess History of drug use Overweight (BMI 25.0-29.9) Hyponatremia Acute anemia Irritable bowel syndrome Constipation Hypokalemia Pneumonia Pericarditis Pericardial effusion Pyelonephritis Right flank pain Acute urticaria Rib pain on right side Vitamin D deficiency Periorbital cellulitis of left eye Periorbital cellulitis of right eye Surgical History Hx of colonoscopy History of carpal tunnel surgery History of tubal ligation History of back surgery History of cholecystectomy History of partial hysterectomy Hx of CABG Presence of cardiac and vascular implant and graft Family History Other Family history of cancer Family history of cardiomyopathy Family history of diabetes mellitus type I Social History Smoking Status: Current every day smoker tobacco type: cigarettes packs per day: 1 smoking status stop date: 08/24/2023 second hand exposure: No alcohol intake: former substance use type: former substance user, amphetamines and opiates current occupational status: other Travel in the last 8 weeks: None household members: none housing: house current occupational exposures/hazards: No caffeine: Yes Have you lived/traveled outside [place] in past 30 days?: No Contact w/someone who lives/traveled outside [place] past 30 days?: No Exposure to someone with infectious disease in past 14 days?: No Do you have a fever (greater than 100.4 F or 38 C)?: No Have you tested positive for COVID-19: No Exposed to someone with COVID-19 in past 14 days?: No Do you have a sore throat?: No Do you have a cough?: No Do you have any weakness?: No Do you have any diarrhea?: No Are you experiencing any unusual bleeding?: No Do you have any muscle aches/pain?: No Do you have any abdominal pain?: No Are you experiencing loss of taste or smell?: No Other Medical History Have you received the Flu Vaccine for this season: Yes Have you received the Pneumonia Vaccine: Yes ROS Obtained: Yes All systems reviewed & no additional complaints except as documented Physical Exam General General appearance: alert and in no apparent distress Head Head exam: atraumatic and normocephalic Eye Eye exam: Present PERRL, EOMI and other (Bilateral periorbital edema and erythema) ENT ENT exam: Present normal exam, normal oropharynx, mucous membranes moist and normal external ear exam Neck Neck exam: Present normal inspection, full ROM and trachea midline; Absent tenderness Chest Chest inspection: Present normal inspection and symmetric chest wall rise; Absent tenderness Respiratory Respiratory exam: Present normal lung sounds bilaterally; Absent respiratory distress, wheezes, stridor or accessory muscle use Cardiovascular Cardiovascular exam: Present regular rate and normal rhythm Abdominal Exam Abdominal exam: Present soft; Absent distention, tenderness or guarding Extremities Exam Extremities exam: Present normal inspection, full ROM and normal capillary refill; Absent tenderness or edema Back Exam Back exam: Present normal inspection and full ROM; Absent tenderness Neurological Exam Neurological exam: Present alert, oriented X3, CN II-XII intact and normal gait; Absent motor sensory deficit Psychiatric Psychiatric exam: Present normal affect and normal mood Skin Skin exam: Present warm and dry HEART Score HEART Score HEART Score assessment performed?: Yes History (anamnesis): Slightly suspicious ECG: Non-specific disturbance Age: 45-65 years Risk factors: Atherosclerosis history Troponin: </= normal limit HEART Score: 4 Critical Care Critical Care Time Critical Care Time: No Medical Decision Making Lauro Inquiry Pt receiving controlled substance: No Vital Signs Vital Signs: 09/12/24 07:07 09/12/24 07:46 09/12/24 08:00 Temperature 98.4 F Temperature Source Oral Pulse Rate 77 77 Pulse Rate [Right] 76 Respiratory Rate 19 25 H 25 H Blood Pressure 129/83 128/82 Blood Pressure [Right Arm] 129/80 Blood Pressure Mean [Right Arm] 96 02 Sat by Pulse Oximetry 100 98 100 Oxygen Delivery Method Room Air Room Air Room Air 09/12/24 08:30 09/12/24 09:00 09/12/24 09:30 Temperature Temperature Source Pulse Rate 73 89 79 Pulse Rate [Right] Respiratory Rate 29 H 34 H 28 H Blood Pressure 123/77 109/73 L 112/72 Blood Pressure [Right Arm] Blood Pressure Mean [Right Arm] 02 Sat by Pulse Oximetry 98 99 96 Oxygen Delivery Method Room Air Room Air Room Air 09/12/24 10:00 09/12/24 10:30 09/12/24 11:38 Temperature 98.2 F Temperature Source Pulse Rate 74 75 76 Pulse Rate [Right] Respiratory Rate 26 H 24 20 Blood Pressure 110/69 114/78 140/78 Blood Pressure [Right Arm] Blood Pressure Mean [Right Arm] 02 Sat by Pulse Oximetry 99 96 Oxygen Delivery Method Room Air Room Air Room Air Lab Data Labs: Lab Results 09/12/24 07:03: WBC 4.4 L, RBC 4.95, Hgb 13.3, Hct 42.3, MCV 85.5, MCH 26.9 L, M CHC 31.4 L, RDW 15.9, Plt Count 277, MPV 8.3, Neut % (Auto) 77.2, Lymph % (Auto) 20.1, Snyder % (Auto) 1.8, Eos % (Auto) 0.2, Baso % (Auto) 0.2, Neut # (Auto) 3.4, Lymph # (Auto) 0.9, Snyder # (Auto) 0.1, Eos # (Auto) 0.0, Baso # (Auto) 0.0, D- Dimer > 8.10 H, Sodium 142, Potassium 3.5, Chloride 109 H, Carbon Dioxide 23, Anion Gap 13.5, BUN 11, Creatinine 0.80, Estimated Creat Clear 86, Estimated GFR 76, Est GFR ( Amer) 92, Glucose 108 H, Calcium 9.0, Total Bilirubin 0.4, AST 38 H, ALT 12, Alkaline Phosphatase 93, Troponin I < 0.01, NT-Pro-B Natriuret Pep 529 H, Total Protein 7.9, Albumin 4.1, Globulin 3.8 H, Albumin/Globulin Ratio 1.1, Lipase 70, TSH 11.20 H, Thyroxine (T4) 9.9 09/12/24 08:20: SARS-CoV-2 (PCR) Not detected, Influenza A Untype (PCR) Not detected, Influenza Type B (PCR) Not detected 09/12/24 09:43: Troponin I < 0.01 09/12/24 07:03 09/12/24 07:03 Response Orders (Tests/Meds): ED MEDICATIONS Discontinued Medications Generic Name Dose Route Start Last Admin Trade Name Derek PRN Reason Stop Dose Admin Acetaminophen 1,000 mg 09/12/24 07:11 09/12/24 07:35 Acetaminophen 1,000mg/100ml Vial IV 09/12/24 07:12 1,000 mg ONCE ONE Administration Aspirin 324 mg 09/12/24 07:12 09/12/24 07:35 Aspirin 81mg Chewable Tablet PO 09/12/24 07:13 324 mg ONCE ONE Administration Belladonna Alkaloids 60 ml 09/12/24 07:11 09/12/24 07:35 Belladonna Alkaloids 60 Ml Ml PO 09/12/24 07:12 60 ml ONCE ONE Administration Droperidol 2.5 mg 09/12/24 08:48 09/12/24 08:57 Droperidol 5mg/2ml Vial IV 09/12/24 08:49 2.5 mg ONCE ONE Administration Famotidine 20 mg 09/12/24 07:11 09/12/24 07:36 Famotidine 20mg/2ml Vial IV 09/12/24 07:12 20 mg ONCE ONE Administration Ceftriaxone Sodium 2 gm/ 100 mls @ 200 mls/hr 09/12/24 08:17 09/12/24 08:24 Sodium Chloride IV 09/12/24 08:46 200 mls/hr ONCE ONE Administration Azithromycin 500 mg/ Sodium 250 mls @ 250 mls/hr 09/12/24 08:17 09/12/24 08:24 Chloride IV 09/12/24 08:18 250 mls/hr ONCE ONE Administration Iopamidol 70 ml 09/12/24 09:24 09/12/24 09:26 Iopamidol-370 (76%);100ml Bottle IV 09/12/24 09:25 70 ml ONCE ONE Administration Ondansetron HCl 4 mg 09/12/24 07:11 09/12/24 07:36 Ondansetron 4mg/2ml Vial IV 09/12/24 07:12 4 mg ONCE ONE Administration Promethazine HCl 12.5 mg 09/12/24 08:11 09/12/24 08:19 Promethazine Hcl 25mg/Ml 1ml Vial IV 09/12/24 08:12 12.5 mg ONCE ONE Administration Sodium Chloride 8 ml 09/12/24 07:11 Sodium Chloride 0.9% 10ml Vial IV 10/12/24 07:10 NEEDED PRN dilute pepcid Sodium Chloride 25 ml 09/12/24 08:11 09/12/24 08:19 Sodium Chloride 0.9% 25ml Bag IV 09/12/24 08:12 25 ml ONCE ONE Administration Sodium Chloride 10 ml 09/12/24 09:24 09/12/24 09:25 Sodium Chloride 0.9% 10ml Syr (Rad Only) IV 09/12/24 09:25 10 ml ONCE ONE Administration Sodium Chloride 50 ml 09/12/24 09:24 09/12/24 09:25 0.9 % Sodium Chloride 50 Ml Vial IV 09/12/24 09:25 50 ml ONCE ONE Administration ORDERS Category Date Time Status CT abdomen pelvis w con Stat Cat Scan 09/12/24 08:[address] angio chest PE protocol Stat Cat Scan 09/12/24 08:47 Completed CXR 2 view (NOT portable) [XR chest 2V] Stat Exams 09/12/24 07:10 Completed BNP [NT Pro Brain Natriuretic Pep.] Stat Lab 09/12/24 07:03 Completed Complete Blood Count Auto Diff Stat Lab 09/12/24 07:03 Completed Comprehensive Metabolic Panel Stat Lab 09/12/24 07:03 Completed D-Dimer Stat Lab 09/12/24 07:03 Completed Lipase Stat Lab 09/12/24 07:03 Completed Rapid PCR Covid and Flu A/B Stat Lab 09/12/24 08:20 Completed T4 (Thyroxine) Stat Lab 09/12/24 07:03 Completed TSH [Thyroid Stimulating Hormone] Stat Lab 09/12/24 07:03 Completed Trop I [Troponin I] Stat Lab 09/12/24 07:03 Completed Troponin I Q3H Lab 09/12/24 09:43 Completed ECG Data Tracing #1: Attestation: I reviewed this ECG and interpreted as documented below: ECG Narrative: Normal sinus rhythm with a ventricular to [address] changes concerning for STEMI. Incomplete right bundle branch block. ECG initial impression date: 09/12/24 ECG initial impression time: 06:56 MDM Narrative Medical Decision Narrative: In summary, this patient is a 49-year-old female presenting to the Emergency Department for evaluation of chest pain, nausea, vomiting. Differential diagnoses considered include but are not limited to viral syndrome, pneumonia, ACS, dysrhythmia, GERD, esophagitis, PE, aortic pathology. Ruling out the most morbid conditions drove assessment. It should be noted patient's history includes CAD status post CABG, COPD, CHF, tobacco dependence, lupus which are likely not at goal therapy. This complicates all aspects of care by increasing patient's risk for morbidity. On exam, the patient is lying in bed in no acute distress with normal vital signs on cardiac telemetry. She is not hypertensive, tachycardic, tachypneic, or hypoxic on my assessment. She is also afebrile. Her base complaint at this time is midsternal chest pain and nausea. Cannot use PERC criteria to exclude PE, but I feel she is overall very low risk based on reassuring vital signs and lack of signs/symptoms of DVT. Workup included CBC, CMP, lipase, D-dimer, troponin, chest x-ray, EKG. EKG is not concerning for STEMI. I independently interpreted x-ray prior to the radiologist read and noted concerns for pneumonia. Please see their read for final interpretation. Labs were obtained that demonstrated significant elevated D-dimer, so CT PE was ordered. Given her intractable nausea, I also added on a CT abdomen pelvis with IV contrast. She was initially given GI cocktail, aspirin, acetaminophen, Zofran, and Pepcid, but she still complained of intractable nausea. She does note that she uses marijuana, so cannabis hyperemesis syndrome is also in the differential. At given Phenergan without much improvement other, so decision was made to administer droperidol. QTc is normal on EKG prior to administration. On reassessment, patient had great improvement after administration of droperidol. She no longer had nausea and vomiting and was able to tolerate oral intake. CT does not demonstrate any large PE. No focal consolidation concerning for pneumonia. She does have a pleural mass as well as enlarged lymph nodes. She also has pleural effusion. Please see radiology read for final interpretation. It is possible she may have malignancy with some superimposed infection given her acute onset of symptoms. Troponins negative x 2. I did advise the patient and her family of the suspicious findings on CT scan, and I recommended very close follow-up as an outpatient with primary care, pulmonology, oncology. She was given information for this. For her chest pain, I also recommended close follow-up with cardiology. Ultimately at this time, I feel she is appropriate for discharge given that her symptoms are improved, her vital stable, and she is tolerating oral intake. Strict return precautions given as well as prescription for Augmentin and azithromycin to treat pneumonia. Also prescribed Phenergan for the nausea and vomiting.
[2024-09-12 08:04] LABS: NT Pro Brain Natriuretic Pep. 529 pg/mL (0-125)
[2024-09-12 08:07] LABS: Troponin I < 0.01 ng/ml (0.00-0.034)
[2024-09-12 08:08] LABS: T4 (Thyroxine) 9.9 ug/dl (5.53-11.0)
[2024-09-12] MEDS: SODIUM CHLORIDE 0.9% 25ML BAG 25 ML IV (08:19)
[2024-09-12] MEDS: PROMETHAZINE HCL 25MG/ML 1ML VIAL 12.5 MG IV (08:19)
[2024-09-12] MEDS: AZITHROMYCIN 500 MG in 0.9 % SODIUM CHLORIDE 250 ML 250 MG IV (08:24)
[2024-09-12] MEDS: CEFTRIAXONE SODIUM 2 GM in 0.9 % SODIUM CHLORIDE 100 ML IV (08:24)
[2024-09-12 08:25] LABS: Coronavirus 19, PCR Not Detected (NotDetected); Influenza A, PCR Not Detected (NotDetected); Influenza B, PCR Not Detected (NotDetected)
[2024-09-12 08:36] LABS: D-Dimer > 8.10 ug/mL (0.0-0.5)
--- NOTE | 2024-09-12 08:47 | CT_ITS ---
PROCEDURE INFORMATION: Exam: CT Abdomen And Pelvis With Contrast Exam date and time: 09/12/2024 8:15 AM Age: 49 years old Clinical indication: Nausea and vomiting and other: Chest pain, elevated d-dimer; Additional info: Intractable n/v TECHNIQUE: Imaging protocol: Computed tomography of the abdomen and pelvis with contrast. 3D rendering (Not supervised by radiologist): MIP and/or 3D reconstructed images were created by the technologist. Radiation optimization: All CT scans at this facility use at least one of these dose optimization techniques: automated exposure control; mA and/or kV adjustment per patient size (includes targeted exams where dose is matched to clinical indication); or iterative reconstruction. Contrast material: ISOVUE; Contrast volume: 70 ml; Contrast route: IV; COMPARISON: CT ABDOMEN PELVIS W CON 02/22/2020 1:17 PM FINDINGS: Liver: Normal. No mass. Gallbladder and biliary ducts: Cholecystectomy. The common duct is prominent. It measures 13 millimeters. This may be due to post cholecystectomy state and elderly status. However, if biliary obstruction is suspected clinically, recommend further evaluation Pancreas: Normal. No ductal dilation. Spleen: Normal. No splenomegaly. Adrenal glands: Normal. No mass. Kidneys and ureters: Normal. No hydronephrosis. Stomach and bowel: Low-attenuation bowel wall thickening is seen throughout the colon consistent with colitis. Differential diagnosis includes infectious and inflammatory etiologies.. No dilated bowel or evidence of obstruction Appendix: No evidence of appendicitis. Intraperitoneal space: Unremarkable. No free air. No significant fluid collection. Vasculature: Unremarkable. No abdominal aortic aneurysm. Lymph nodes: Enlarged lymph node anterior to the right external iliac artery measures 11 x 10 mm series 4, image 94. It has increased in size since 2019. New lymph node anterior to the left external iliac artery 15 x 9 mm. (Series 4, image 98). Urinary bladder: Unremarkable as visualized. Reproductive: Surgical resection of the uterus Bones/joints: Unremarkable. No acute fracture. Soft tissues: Unremarkable. IMPRESSION: 1. Low-attenuation bowel wall thickening is seen throughout the colon consistent with colitis. Differential diagnosis includes infectious and inflammatory etiologies.. 2. Enlarged lymph node anterior to the right external iliac artery measures 11 x 10 mm series 4, image 94. It has increased in size since 2019. 3. New lymph node anterior to the left external iliac artery 15 x 9 mm. (Series 4, image 98).
--- NOTE | 2024-09-12 08:47 | CT_ITS ---
PROCEDURE INFORMATION: Exam: CTA Chest With Contrast Exam date and time: 09/12/2024 8:15 AM Age: 49 years old Clinical indication: Other: Chest pain, elevated d-dimer TECHNIQUE: Imaging protocol: Computed tomographic angiography of the chest with contrast. Exam focused on the arteries. 3D rendering (Not supervised by radiologist): MIP and/or 3D reconstructed images were created by the technologist. Radiation optimization: All CT scans at this facility use at least one of these dose optimization techniques: automated exposure control; mA and/or kV adjustment per patient size (includes targeted exams where dose is matched to clinical indication); or iterative reconstruction. Contrast material: ISOVUE 370; Contrast volume: 70 ml; Contrast route: INTRAVENOUS (IV); COMPARISON: CT ANGIO CHEST PE PROTOCOL 08/22/2023 8:38 PM FINDINGS: Pulmonary arteries: No evidence of pulmonary embolus to the segmental level. Aorta: No aneurysm of the aorta. No dissection of the aorta. Lungs: 5.5 mm pulmonary nodule in the right lower lobe series 5, image 89. It was present in August 2023 and is stable. Pleural spaces: Small right pleural effusion. Stable 19 mm pleural-based mass in the medial aspect of the right lower lobe (series 5, image 86). Unknown etiology. Heart: Cardiomegaly Lymph nodes: Pathologic node anterior to the herminia 2 x 1.3 cm. Gallbladder and biliary ducts: Cholecystectomy. The common duct is prominent. It measures 13 millimeters. This may be due to post cholecystectomy state and elderly status. However, if biliary obstruction is suspected clinically, recommend further evaluation Bones/joints: Stable compression fractures T4 and T5 Soft tissues: Unremarkable. IMPRESSION: 1. No evidence of pulmonary embolus to the segmental level. 2. No aneurysm of the aorta. 3. No dissection of the aorta. 4. Small right pleural effusion. 5. Pathologic node anterior to the herminia 2 x 1.3 cm. 6. Stable 19 mm pleural-based mass in the medial aspect of the right lower lobe (series 5, image 86). Unknown etiology. 7. 5.5 mm pulmonary nodule in the right lower lobe series 5, image 89. It was present in August 2023 and is stable. For patients at low risk (minimal or absent history of smoking and of other known risk factors), no routine follow-up is indicated. For patients at high risk (history of smoking or of other known risk factors), consider optional CT Chest at 12 months. (Reference: Bob) References: Bob Tomas, et al. Guidelines for Management of Incidental Pulmonary Nodules Detected on CT Images: From the Fleischner Society 2017. Radiology. 2017;284(1):228-243.
[2024-09-12] MEDS: droPERidol 5MG/2ML VIAL 2.5 MG IV (08:57)
--- NOTE | 2024-09-12 09:08 | PC.NURSE ---
pt is gone out of room to CT.
[2024-09-12] MEDS: 0.9 % SODIUM CHLORIDE 50 ML VIAL IV (09:25)
[2024-09-12] MEDS: SODIUM CHLORIDE 0.9% 10ML SYR (RAD ONLY) 10 ML IV (09:25)
[2024-09-12] MEDS: IOPAMIDOL-370 (76%);100ML BOTTLE 70 ML IV (09:26)
--- NOTE | 2024-09-12 09:44 | PC.NURSE ---
repeat trop sent to lab
[2024-09-12 10:12] LABS: Troponin I < 0.01 ng/ml (0.00-0.034)
== END 2024-09-12 11:38 | disposition home or self-care (01) ==
PROVIDERS: Emergency Provider Emergency Medicine; PCP Internal Medicine
DX: J18.9 Pneumonia, unspecified organism (principal); K52.9 Noninfective gastroenteritis and colitis, unspecified; R59.9 Enlarged lymph nodes, unspecified; J94.8 Other specified pleural conditions; R07.9 Chest pain, unspecified; R06.02 Shortness of breath; R11.2 Nausea with vomiting, unspecified; R21 Rash and other nonspecific skin eruption; F17.210 Nicotine dependence, cigarettes, uncomplicated
CPT/HCPCS: 71046; 71275; 74177; 80053; 83690; 83880; 84436; 84443; 84484; 85025; 85378; 87636; 93005; 96361; 96365; 96367; 96374; 96375; 99285; J0131; J0456; J0696; J1790; J2405; J2550; J7050; Q9967; S0028

== ENCOUNTER 2024-09-24 09:37 | Outpatient (CLI) | payer MEDICAID, SELFPAY ==
[2024-09-24] MEDS: SODIUM CHLORIDE 0.9% 10ML SYR (RAD ONLY) 10 ML IV (11:24)
[2024-09-24] MEDS: GADOTERIDOL INJ 20ML SYRINGE 15 ML IV (11:24)
== END 2024-09-24 23:59 | disposition home or self-care (01) ==
LOC: RAD 09:37
PROVIDERS: PCP Family Medicine; Visit Provider Physician Assistant
DX: M32.13 Lung involvement in systemic lupus erythematosus (principal); Z98.890 Other specified postprocedural states; J90 Pleural effusion, not elsewhere classified; D72.819 Decreased white blood cell count, unspecified
CPT/HCPCS: 75561; A9576

== ENCOUNTER 2024-09-30 09:18 | Outpatient (CLI) | payer MEDICAID, SELFPAY ==
[2024-10-02 19:29] LABS: QuantiFERON-TB Gold Plus Negative (Negative)
== END 2024-09-30 23:59 | disposition home or self-care (01) ==
LOC: LAB 09:25
PROVIDERS: PCP Family Medicine; Visit Provider Student in an Organized Health Care Education/Training Program
DX: Z79.899 Other long term (current) drug therapy (principal)
CPT/HCPCS: 36415; 86480

== ENCOUNTER 2024-10-07 11:53 | Outpatient (CLI) | payer MEDICAID, SELFPAY | END 2024-10-07 23:59 | disposition home or self-care (01) | LOC: RT 11:54 | PROVIDERS: PCP Family Medicine; Visit Provider Physician Assistant | DX: R00.2 Palpitations (principal); R00.0 Tachycardia, unspecified | CPT/HCPCS: 93225; 93227 ==

== ENCOUNTER 2025-01-10 09:01 | Outpatient (CLI) | payer MEDICAID, SELFPAY ==
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
--- OUTSIDE RECORDS SUMMARY | 2025-01-10 09:05 | XMS_ITS | Encounter Summary ---
[place] [address] Home Phone Mobile Phone Email Address Preferred Language en Marital Status Pentecostal Affiliation Unknown Race White Ethnic Group Not or Lati no Author Organization Healthcare Address [address] [place] [address] Care Team Providers Care Trainman Name Role Phone Ge Burton MD Primary Care Provider [phone] Encounter Details Date Type Department Care Team (Late st Contact Info) Description 11/08/2024 Telephone [facility] [address], [address] [place] [address] Zuleyak Godinez RN [facility] Social History Tobacco Use Types Packs/Day Years Used Date Smoking Tobacco: Every Day Cigarettes Smokeless Tobacco: Never Alcohol Use Standard Drinks/Week Comments Not Currently 0 (1 standard drink = 0.6 oz pure alcohol) Alcoholic Drinks/day: Former consumption of alcohol PHQ-2 Answer Date Recorded Patient Health Questionnaire-2 Score 0 02/18/2024 Comments No Sex and Gender Information Value Date Recorded Sex Assigned at Not on file Legal Sex Female 8:11 PM EDT Gender Identity Not on file Sexual Orientation Not on file documented as of this encounter Miscellaneous Notes * Telephone Encounter - Zuleyka Godinez RN - 11/22/2024 2:12 PM EDT LVM with cb number. Third attempt made to contact patient since initial call. I asked patient to return call SAE if she still feels like she needs to speak to Dr. Ray or make an appointment change. Will close chart at this time. * Telephone Encounter - Zuleyka Godinez RN - 11/08/2024 3:05 PM EDT Patient stated that she is having no relief since starting benlysta. She stated that she is having pain in her lungs (back) and really bad knee pain . Stated that she is having a difficult time walking due to pain. 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 Please advise. documented in this encounter Plan of Treatment Upcoming Encounters Date Type Department Care Team (Late st Contact Info) Description 01/11/2025 11:00 AM EDT Office Visit [facility] [address] [facility] [address] [place] [address] William Ray MD [address] [place] [address] documented as of this encounter Visit Diagnoses Not on filedocumented in this encounter Additional Health Concerns Assessment Noted Time A fall risk assessment has been complete d for the patient 09/10/2024 10:16 AM EST A Body Mass Index follow-up plan has been documented for the patient 09/10/2024 11:00 AM EST documented as of this encounter Care Teams Trainman Relationship Specialty Start Date End Date Ge Burton MD [address] [place] [address] PCP - General 11/17/20 documented as of this encounter
--- OUTSIDE RECORDS SUMMARY | 2025-01-10 09:05 | XMS_ITS | Encounter Summary ---
[place] [address] Home Phone Mobile Phone Email Address Preferred Language en Marital Status Yazidism Affiliation Unknown Race White Ethnic Group Not or Lati no Author Organization Healthcare Address [address] [place] [address] Care Team Providers Care Diet Consultant Name Role Phone Ge Burton MD Primary Care Provider [phone] Encounter Details Date Type Department Care Team (Late Contact Info) Description 01/06/2025 Telephone [facility] [address], [address] [place] [address] Shirley Mcfadden Social History Tobacco Use Types Packs/Day Years [...] encounter Miscellaneous Notes * Telephone Encounter - Shirley Mcfadden - 01/06/2025 8:41 AM EDT Called pt to confirm appt, left VM documented in this encounter Plan of Treatment Upcoming Encounters Date Type Department Care Team (Late st Contact Info) Description 01/11/2025 11:00 AM EDT Office Visit [facility] [address], [address] [place] [address] William Ray MD [address] [place] [address] documented as of this encounter Visit Diagnoses Not on filedocumented in this encounter Additional Health Concerns Assessment Noted Time A fall risk assessment has been complete d for the patient 09/10/2024 10:16 AM EST A Body Mass Index follow-up plan has been documented for the patient 09/10/2024 11:00 AM EST documented as of this encounter Care Teams Diet Consultant Relationship Specialty Start Date End Date Ge Burton MD [address] [place] [address] PCP - General 11/17/20 documented as of this encounter
--- OUTSIDE RECORDS SUMMARY | 2025-01-10 09:05 | XMS_ITS | Clinical Summary ---
Author Organization [facility] Address [address] [facility] [address] [place] [address] Phone Care Team Providers Care Instrument Technologist Name Role Phone Unavailable Unavailable Conditions or Problems No information available. Medications No information available. Medications Administered No information available. Allergies, Adverse Reactions, Alerts No information available. Results No information available. Plan of Care No information available. Procedures No information available. Vital Signs No information available. Immunizations No information available. Advance Directives No information available.
--- OUTSIDE RECORDS SUMMARY | 2025-01-10 09:05 | XMS_ITS | Encounter Summary ---
[place] [address] Home Phone Mobile Phone Email Address Preferred Language en Marital Status Amish Affiliation Unknown Race White Ethnic Group Not or Lati no Author Organization Healthcare Address [address] [place] [address] Care Team Providers Care Motion Picture Set Up Worker Name Role Phone Ge Burton MD Primary Care Provider [phone] Reason for Visit * Reason Comments Med Refill Encounter Details Date Type Department Care Team (Late st Contact Info) Description 11/30/2024 Refill [place] [facility] [address] [place] [address] Nayely Lindquist MD [address] [place] [address] Systemic lupus erythematosus (SLE) in adult ([facility]) Social History Tobacco Use Types Packs/Day Years [...] encounter Miscellaneous Notes * Telephone Encounter - Elijah Ortez PharmD - 11/30/2024 9:54 AM EDT 1 medication(s) has been approved per protocol. documented in this encounter Plan of Treatment Upcoming Encounters Date Type Department Care Team (Late st Contact Info) Description 01/11/2025 11:00 AM EDT Office Visit Professional [facility] [address], [address] [place] [address] William Ray MD [address] [place] [address] documented as of this encounter Visit Diagnoses Diagnosis Systemic lupus erythematosus (SLE) in adult (CMS/HCC) documented in this encounter Additional Health Concerns Assessment Noted Time A fall risk assessment has been complete d for the patient 09/10/2024 10:16 AM EST A Body Mass Index follow-up plan has been documented for the patient 09/10/2024 11:00 AM EST documented as of this encounter Care Teams Motion Picture Set Up Worker Relationship Specialty Start Date End Date Ge Burton MD [address] [place] [address] PCP - General 11/17/20 documented as of this encounter
--- OUTSIDE RECORDS SUMMARY | 2025-01-10 09:05 | XMS_ITS | Data Portability ---
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 Plan of Treatment Reminders Order Date Submit Date Provider Last Modified By Organization Details Last Modified Time Details Appointments None recorded. Lab CBC w/ auto diff 2021 022 [email or web address] 4 [facility] (Lab Registration) , [address] [place] [address] [place], [address], 2 08:54:04 CMP, serum or plasma 2021 022 4 [facility] (Lab Registration) , [address] [place] [address] [place], [address], 2 08:54:04 hepatitis panel (A+B+C), acute, serum 2021 022 [email or web address] 4 [facility] (Lab Registration) , [address] [place] [address] [place], [address], 2 08:54:04 hepatitis C virus genotype, PCR, blood 2021 022 [email or web address] 4 [facility], [address] [place] [address] [place], [address], 2 08:54:04 HIV (1+2) Ab screen, serum 2021 [id number] 4 [facility], [address] [place] [address] [place], [address], 2 08:54:04 PT/INR 2021 [id number] 4 [facility], [address] [place] [address] [place], [address], 2 08:54:05 test, urine 2021 [id number] 4 [facility], [address] [place] [address] [place], [address], 2 08:54:05 hepatitis C virus RNA, quant, PCR, serum or plasma 2021 [email or web address] 4 [facility] (Lab Registration) , [address] [place] [address] [place], [address], 2 08:54:05 liver fibrosis score panel, hepascore, serum or plasma 2021 [email or web address] 4 [facility] (Lab Registration) , [address] [place] [address] [place], [address], 2 08:54:05 afp (alpha-feto protein) tumor marker, serum or plasma 2021 [email or web address] 4 [facility] (Lab Registration) , [address] [place] [address] [place], [address], 2 08:54:03 Referral None recorded. Procedures upper endoscopy procedure (EGD) (PROC) 2021 ALVARO Not available 3 09:24:44 colonoscopy procedure (PROC) 2021 [email or web address] 4 Not available 2 10:15:55 Surgeries None recorded. Imaging US, liver 2021 [email or web address] 4 [facility] Centralized Scheduling, [address] [place], [address], 3 10:01:32 Medication Orders Miralax 17 gram/dose oral powder 2021 [facility], [address] [place] [address], [id number], 2 11:35:29 Dulcolax (bisacodyl) 5 mg tablet,eugene yed release 2021 022 [email or web address] [facility], [address] [place] [address], [id number], 12:52:43 Patient TargetsNo targets recorded. Patient InstructionsNo instructions recorded. Reason for Referral None Reported. Results Created Date Observation Date Name Description Value Unit Range Abnormal Flag Note LastModifiedBy Organization Detail LastModifiedTime 07/05/20 22 07/05/2022 CBC AUTO W DIFF WBC 4.1 10 4.5-11 .5 low Not Available [facility] (Lab Registration) [address] [place], [address], 07/05/2022 10:01:22 07/05/20 22 07/05/2022 CBC AUTO W DIFF RBC 4.76 10 4.25-5 .57 Not Available [facility] (Lab Registration) [address] [place], [address], 07/05/2022 10:01:22 07/05/20 22 07/05/2022 CBC AUTO W DIFF HGB 12.5 g/dL 12.0-1 5.7 Not Available [facility] (Lab Registration) [address] [place], [address], 07/05/2022 10:01:22 07/05/20 22 07/05/2022 CBC AUTO W DIFF HCT 38.9 % 36.0-4 7.0 Not Available [facility] (Lab Registration) [address] [place], [address], 07/05/2022 10:01:22 07/05/20 22 07/05/2022 CBC AUTO W DIFF MCV 81.7 fL 80-95 Not Available [facility] (Lab Registration) [address] [place], [address], 07/05/2022 10:01:22 07/05/20 22 07/05/2022 CBC AUTO W DIFF MCH 26.3 pg 27.0-3 4.0 low Not Available [facility] (Lab Registration) [address] [place], [address], 07/05/2022 10:01:22 07/05/20 22 07/05/2022 CBC AUTO W DIFF MCHC 32.1 g/dL 32.0-3 6.0 Not Available [facility] (Lab Registration) [address] [place], [address], 07/05/2022 10:01:22 07/05/20 22 07/05/2022 CBC AUTO W DIFF platelet count 285 10 150-45 0 Not Available [facility] (Lab Registration) [address] [place], [address], 07/05/2022 10:01:22 07/05/20 22 07/05/2022 CBC AUTO W DIFF RDW 16.0 % 12.3-1 5.1 high Not Available [facility] (Lab Registration) [address] [place], [address], 07/05/2022 10:01:22 07/05/20 22 07/05/2022 CBC AUTO W DIFF MPV 8.2 fL 7.4-10 .4 Not Available [facility] (Lab Registration) [address] [place], [address], 07/05/2022 10:01:22 07/05/20 22 07/05/2022 CBC AUTO W DIFF granulocyte% 73.6 % 40-75 Not Available [facility] (Lab Registration) [address] [place], [address], 07/05/2022 10:01:22 07/05/20 22 07/05/2022 CBC AUTO W DIFF lymphocyte% 21.5 % 15-57 Not Available [facility] (Lab Registration) [address] [place], [address], 07/05/2022 10:01:22 07/05/20 22 07/05/2022 CBC AUTO W DIFF monocyte% 3.7 % 4.0-12 .0 low Not Available [facility] (Lab Registration) [address] [place], [address], 07/05/2022 10:01:22 07/05/20 22 07/05/2022 CBC AUTO W DIFF eosinophil% 0.2 % 0.0-4. 0 Not Available [facility] (Lab Registration) [address] [place], [address], 07/05/2022 10:01:22 07/05/20 22 07/05/2022 CBC AUTO W DIFF basophil% 0.0 % 0.0-1. 0 Not Available [facility] (Lab Registration) [address] [place], [address], 07/05/2022 10:01:22 07/05/20 22 07/05/2022 CBC AUTO W DIFF immature granulocytes % 1.0 % 0.0-0. 8 high Not Available [facility] (Lab Registration) [address] [place], [address], 07/05/2022 10:01:22 07/05/20 22 07/05/2022 CBC AUTO W DIFF granulocyte# 2.98 10 Not Available [facility] (Lab Registration) [address] [place], [address], 07/05/2022 10:01:22 07/05/20 22 07/05/2022 CBC AUTO W DIFF lymphocyte# 0.87 10 Not Available [facility] (Lab Registration) [address] [place], [address], 07/05/2022 10:01:22 07/05/20 22 07/05/2022 CBC AUTO W DIFF monocyte# 0.15 10 Not Available [facility] (Lab Registration) [address], [place], [address], 07/05/2022 10:01:22 07/05/20 22 07/05/2022 CBC AUTO W DIFF eosinophil# 0.01 10 Not Available [facility] (Lab Registration) [address] [place], [address], 07/05/2022 10:01:22 07/05/20 22 07/05/2022 CBC AUTO W DIFF basophil# 0.00 10 Not Available [facility] (Lab Registration) [address] [place], [address], 07/05/2022 10:01:22 07/05/20 22 07/05/2022 CBC AUTO W DIFF immature granulocytes # 0.04 10 Not Available [facility] (Lab Registration) [address] [place], [address], 07/05/2022 10:01:22 07/05/20 22 07/05/2022 CBC AUTO W DIFF manual differential NO Not Available [facility] (Lab Registration) [address] [place], [address], 07/05/2022 10:01:22 07/05/20 22 07/05/2022 CBC AUTO W DIFF note Unles s other hall noted testi ng perfo rmed at: [facility] [address] [place] [address] [phone] Blake schultz MD CLIA: [id number] Not Available [facility] (Lab Registration) [address] [place], [address], 07/05/2022 10:01:22 07/05/20 22 07/05/2022 URINE PREGN MELANY TEST urine test NEGATI VE negati ve Not Available [facility] (Lab Registration) [address] [place], [address], 07/05/2022 10:02:27 07/05/20 22 07/05/2022 URINE PREGN MELANY TEST internal control PASS PASS Not Available [facility] (Lab Registration) [address] [place], [address], 07/05/2022 10:02:27 07/05/20 22 07/05/2022 URINE PREGN MELANY TEST note Unles s other ahll noted testi ng perfo rmed at: [facility] [address] [place] [address] [phone] Blake schultz MD CLIA: [id number] Not Available [facility] (Lab Registration) [address] [place], [address], 07/05/2022 10:02:27 07/05/20 22 07/05/2022 PT (PROT HROMB IN TIME) W INR PT (prothrombin time) 9.8 secon ds 9.3-11 .4 Not Available [facility] (Lab Registration) [address] [place], [address], 07/05/2022 10:13:47 07/05/20 22 07/05/2022 PT (PROT HROMB IN TIME) W INR INR 0.92 0.9-1. 1 INR is inten ded to be used only for patie nts on stabl e oral anti- coagu lant thera py. *Ther apeut ic Range s 2.0 - 3.0 Usual Thera peuti c Range 2.5 - 3.5 For patie nts with a histo ry of multi ple deep vein throm bus or mecha nical heart valve s. Not Available [facility] (Lab Registration) [address] [place], [address], 07/05/2022 10:13:47 07/05/20 22 07/05/2022 PT (PROT HROMB IN TIME) W INR note Unles s other hall noted testi ng perfo rmed at: [facility] [address] [place] [address] [phone] Blake schultz MD CLIA: [id number] Not Available [facility] (Lab Registration) [address] [place], [address], 07/05/2022 10:13:47 07/05/20 22 07/05/2022 COMP METAB OLIC PANEL sodium 137 mmol/ L 136-14 5 Not Available [facility] (Lab Registration) [address] [place], [address], 07/05/2022 11:37:34 07/05/20 22 07/05/2022 COMP METAB OLIC PANEL potassium 3.9 mmol/ L 3.5-5. 1 Not Available [facility] (Lab Registration) [address] [place], [address], 07/05/2022 11:37:34 07/05/20 22 07/05/2022 COMP METAB OLIC PANEL chloride 100 mmol/ L 98-107 Not Available [facility] (Lab Registration) [address] [place], [address], 07/05/2022 11:37:34 07/05/20 22 07/05/2022 COMP METAB OLIC PANEL carbon dioxide 27 mmol/ L 21-32 Not Available [facility] (Lab Registration) [address] [place], [address], 07/05/2022 11:37:34 07/05/20 22 07/05/2022 COMP METAB OLIC PANEL anion gap 10.0 Not Available [facility] (Lab Registration) [address] [place], [address], 07/05/2022 11:37:34 07/05/20 22 07/05/2022 COMP METAB OLIC PANEL glucose 102 mg/dL 70-110 Not Available [facility] (Lab Registration) [address], [place], [address], 07/05/2022 11:37:34 07/05/20 22 07/05/2022 COMP METAB OLIC PANEL blood urea nitrogen 10 mg/dL 7-18 Not Available [facility] (Lab Registration) [address] [place], [address], 07/05/2022 11:37:34 07/05/20 22 07/05/2022 COMP METAB OLIC PANEL creatinine 0.9 mg/dL 0.6-1. 0 Not Available [facility] (Lab Registration) [address], [place], [address], 07/05/2022 11:37:34 07/05/20 22 07/05/2022 COMP METAB OLIC PANEL BUN/creatini ne ratio 11.1 ratio 9-21 Not Available [facility] (Lab Registration) [address], [place], [address], 07/05/2022 11:37:34 07/05/20 22 07/05/2022 COMP METAB OLIC PANEL estimated glom filtration rate 71 mL/mi n >60- Not Available [facility] (Lab Registration) [address] [place], [address], 07/05/2022 11:37:34 07/05/20 22 07/05/2022 COMP METAB OLIC PANEL total protein 8.8 g/dL 6.4-8. 2 high Not Available [facility] (Lab Registration) [address] [place], [address], 07/05/2022 11:37:34 07/05/20 22 07/05/2022 COMP METAB OLIC PANEL albumin 3.9 g/dL 3.4-5. 0 Not Available [facility] (Lab Registration) [address] [place], [address], 07/05/2022 11:37:34 07/05/20 22 07/05/2022 COMP METAB OLIC PANEL calcium 9.1 mg/dL 8.5-10 .1 Not Available [facility] (Lab Registration) [address] [place], [address], 07/05/2022 11:37:34 07/05/20 22 07/05/2022 COMP METAB OLIC PANEL corrected calcium 9.2 mg/dL 8.5-10 .1 Not Available [facility] (Lab Registration) [address] [place], [address], 07/05/2022 11:37:34 07/05/20 22 07/05/2022 COMP METAB OLIC PANEL bilirubin total 0.5 mg/dL 0.4-1. 5 Not Available [facility] (Lab Registration) [address] [place], [address], 07/05/2022 11:37:34 07/05/20 22 07/05/2022 COMP METAB OLIC PANEL AST (SGOT) 37 U/L 15-37 Not Available [facility] (Lab Registration) [address] [place], [address], 07/05/2022 11:37:34 07/05/20 22 07/05/2022 COMP METAB OLIC PANEL ALT (SGPT) 38 U/L 12-78 Not Available [facility] (Lab Registration) [address] [place], [address], 07/05/2022 11:37:34 07/05/20 22 07/05/2022 COMP METAB OLIC PANEL alk phosphatase 192 U/L 50-120 high Not Available [facility] (Lab Registration) [address] [place], [address], 07/05/2022 11:37:34 07/05/20 22 07/05/2022 COMP METAB OLIC PANEL note Unles s other hall noted testi ng perfo rmed at: [facility] [address] [place] [address] [phone] Blake schultz MD CLIA: [id number] Not Available [facility] (Lab Registration) [address] [place], [address], 07/05/2022 11:37:34 07/05/20 22 07/05/2022 HIV 1/0/2 AG/AB (4TH GEN) note Unles s other hall noted testi ng perfo rmed at: [facility] [address] [place] [address] [phone] Blake schultz MD CLIA: [id number] Not Available [facility] (Lab Registration) [address] [place], [address], 07/06/2022 05:16:15 07/05/20 22 07/06/2022 HIV 1/0/2 AG/AB (4TH GEN) HIV screen 4TH generation wrfx Non Reacti ve non reacti ve HIV Negat luis HIV-1 /HIV- 2 antib odies and HIV-1 p24 antig en were NOT detec art. There is no labor atory evide nce of HIV infec tion. Perfo rmed at: - [address] [address] Lab Direc tor: Geovany metzger PhD, Phone : [phone] Not Available [facility] (Lab Registration) [address] [place], [address], 07/06/2022 05:16:15 07/05/20 22 07/05/2022 LIVER FIBRO SIS RISK PROFI LE note Unles s other hall noted testi ng perfo rmed at: [facility] [address] [place] [address] [phone] Blake schultz MD CLIA: [id number] Not Available [facility] (Lab Registration) [address] [place], [address], 07/06/2022 07:10:53 07/05/20 22 07/06/2022 LIVER FIBRO SIS RISK PROFI LE WBC 3.8 x10e3 /uL 3.4-10 .8 Not Available [facility] (Lab Registration) [address] [place], [address], 07/06/2022 07:10:53 07/05/20 22 07/06/2022 LIVER FIBRO SIS RISK PROFI LE RBC 4.65 x10e6 /uL 3.77-5 .28 Not Available [facility] (Lab Registration) [address] [place], [address], 07/06/2022 07:10:53 07/05/20 22 07/06/2022 LIVER FIBRO SIS RISK PROFI LE hemoglobin 13.0 g/dL 11.1-1 5.9 Not Available [facility] (Lab Registration) [address] [place], [address], 07/06/2022 07:10:53 07/05/20 22 07/06/2022 LIVER FIBRO SIS RISK PROFI LE hematocrit 39.1 % 34.0-4 6.6 SENT TO REFER ENCE LAB Not Available [facility] (Lab Registration) [address] [place], [address], 07/06/2022 07:10:53 07/05/20 22 07/06/2022 LIVER FIBRO SIS RISK PROFI LE MCV 84 fL 79-97 Not Available [facility] (Lab Registration) [place], [address], 07/06/2022 07:10:53 07/05/20 22 07/06/2022 LIVER FIBRO SIS RISK PROFI LE MCH 28.0 pg 26.6-3 3.0 Not Available [facility] (Lab Registration) [place], [address], 07/06/2022 07:10:53 07/05/20 22 07/06/2022 LIVER FIBRO SIS RISK PROFI LE MCHC 33.2 g/dL 31.5-3 5.7 Not Available [facility] (Lab Registration) [address] [place], [address], 07/06/2022 07:10:53 07/05/20 22 07/06/2022 LIVER FIBRO SIS RISK PROFI LE RDW 17.1 % 11.7-1 5.4 high Not Available [facility] (Lab Registration) [address] [place], [address], 07/06/2022 07:10:53 07/05/20 22 07/06/2022 LIVER FIBRO SIS RISK PROFI LE platelets 319 x10e3 /uL 150-45 0 Not Available [facility] (Lab Registration) [address] [place], [address], 07/06/2022 07:10:53 07/05/20 22 07/06/2022 LIVER FIBRO SIS RISK PROFI LE neutrophils 76 % Not Available [facility] (Lab Registration) [place], [address], 07/06/2022 07:10:53 07/05/20 22 07/06/2022 LIVER FIBRO SIS RISK PROFI LE lymphs 21 % Not Available [facility] (Lab Registration) [place], [address], 07/06/2022 07:10:53 07/05/20 22 07/06/2022 LIVER FIBRO SIS RISK PROFI LE monocytes 3 % Not Available [facility] (Lab Registration) [place], [address], 07/06/2022 07:10:53 07/05/20 22 07/06/2022 LIVER FIBRO SIS RISK PROFI LE eosinophils 0 % Not Available [facility] (Lab Registration) [place], [address], 07/06/2022 07:10:53 07/05/20 22 07/06/2022 LIVER FIBRO SIS RISK PROFI LE basophil 0 % Not Available [facility] (Lab Registration) [address] [place], [address], 07/06/2022 07:10:53 07/05/20 22 07/06/2022 LIVER FIBRO SIS RISK PROFI LE immature granlocytes 0 % Not Available [facility] (Lab Registration) [address] [place], [address], 07/06/2022 07:10:53 07/05/20 22 07/06/2022 LIVER FIBRO SIS RISK PROFI LE neutrophils (absolute) 2.8 x10e3 /uL 1.4-7. 0 Not Available [facility] (Lab Registration) [address] [place], [address], 07/06/2022 07:10:53 07/05/20 22 07/06/2022 LIVER FIBRO SIS RISK PROFI LE lymphs (absolute) 0.8 x10e3 /uL 0.7-3. 1 Not Available [facility] (Lab Registration) [address] [place], [address], 07/06/2022 07:10:53 07/05/20 22 07/06/2022 LIVER FIBRO SIS RISK PROFI LE monocytes (absolute) 0.1 x10e3 /uL 0.1-0. 9 Not Available [facility] (Lab Registration) [address] [place], [address], 07/06/2022 07:10:53 07/05/20 22 07/06/2022 LIVER FIBRO SIS RISK PROFI LE eosinophils (absolute) 0.0 x10e3 /uL 0.0-0. 4 Not Available [facility] (Lab Registration) [address] [place], [address], 07/06/2022 07:10:53 07/05/20 22 07/06/2022 LIVER FIBRO SIS RISK PROFI LE basophil (absolute) 0.0 x10e3 /uL 0.0-0. 2 Not Available [facility] (Lab Registration) [address] [place], [address], 07/06/2022 07:10:53 07/05/20 22 07/06/2022 LIVER FIBRO SIS RISK PROFI LE immature grans (absolute) 0.0 x10e3 /uL 0.0-0. 1 Not Available [facility] (Lab Registration) [address] [place], [address], 07/06/2022 07:10:53 07/05/20 22 07/06/2022 LIVER FIBRO SIS RISK PROFI LE albumin 4.3 g/dL 3.8-4. 8 Not Available [facility] (Lab Registration) [address] [place], [address], 07/06/2022 07:10:53 07/05/20 22 07/06/2022 LIVER FIBRO SIS RISK PROFI LE protein, total, serum 8.2 g/dL 6.0-8. 5 SENT TO REFER ENCE LAB Not Available [facility] (Lab Registration) [address] [place], [address], 07/06/2022 07:10:53 07/05/20 22 07/06/2022 LIVER FIBRO SIS RISK PROFI LE bilirubin, total 0.5 mg/dL 0.0-1. 2 Not Available [facility] (Lab Registration) [address] [place], [address], 07/06/2022 07:10:53 07/05/20 22 07/06/2022 LIVER FIBRO SIS RISK PROFI LE bilirubin, direct 0.22 mg/dL 0.00-0 .40 Not Available [facility] (Lab Registration) [address] [place], [address], 07/06/2022 07:10:53 07/05/20 22 07/06/2022 LIVER FIBRO SIS RISK PROFI LE AST (SGOT) 34 IU/L 0-40 Not Available [facility] (Lab Registration) [address] [place], [address], 07/06/2022 07:10:53 07/05/20 22 07/06/2022 LIVER FIBRO SIS RISK PROFI LE ALT (SGPT) 25 IU/L 0-32 Not Available [facility] (Lab Registration) [address] [place], [address], 07/06/2022 07:10:53 07/05/20 22 07/06/2022 LIVER FIBRO SIS RISK PROFI LE alkaline phosphatase, S 193 IU/L 44-121 high Not Available [facility] (Lab Registration) [address] [place], [address], 07/06/2022 07:10:53 07/05/20 22 07/06/2022 LIVER FIBRO SIS RISK PROFI LE fib-4 index 1.04 0.00-2 .67 0.00 - 1.29 Low risk for advan renée liver fibro sis 1.30 - 2.67 Indet ermin ate risk for advan renée liver fibro sis >2.67 High risk for advan renée fibro sis and for the devel opmen t of other liver relat ed event s Not Available [facility] (Lab Registration) [address] [place], [address], 07/06/2022 07:10:53 07/05/2007/06/2022 LIVER FIBRO SIS RISK PROFI LE apri index 0.3 0.0-1. 5 AST to Plate lets Ratio Index (APRI ) <0.6 - low risk for signi fican t fibro sis (NPV 86%); >1.5 - high risk for signi fican t fibro sis (PPV 88%); >2.0 - high risk for cirrh osis (PPV 93%)( 1) . Refer ence: Wojciech LanierT, et al. A simpl e Nonin vasiv e Index Can Predi ct Both Signi fican t Fibro sis and Cirrh osis in Patie nts With Chron ic Hepat itis C. Hepat ology 2003; 38(2) :518- 526 Not Available [facility] (Lab Registration) [address] [place], [address], 07/06/2022 07:10:53 07/05/20 22 07/05/2022 AFP, SERUM , TUMOR MARKE R note Unles s other hall noted testi ng perfo rmed at: [facility] [address] [place] [address] [phone] Blake schultz MD CLIA: [id number] Not Available [facility] (Lab Registration) [address] , [place], [address], 07/06/2022 08:15:52 07/05/20 22 07/06/2022 AFP, SERUM , TUMOR MARKE R AFP, serum, tumor marker 3.2 NG/mL 0.0-6. 4 La Diagn ostic s Elect la milum inesc ence Immun oassa y (ECLI A) . Value s obtai nunu with diffe rent assay metho ds or kits canno t be used inter tyson eably . Resul ts canno t be inter prete d as absol [place] evide nce of the prese nce or [facility]en [facility]. . This test is not inter preta ble in pregn ant femal es. Perfo rmed at: [place] [id number] Lab Direc tor: Geovany metzger PhD, Phone : [phone] SENT TO REFER ENCE LAB Not Available [facility] (Lab Registration) [address], [place], [address], 07/06/2022 08:15:52 07/05/20 22 07/05/2022 ACUTE HEPAT ITIS PANEL note Unles s other hall noted testi ng perfo rmed at: [facility] [address] [place] [address] [phone] Blake schultz MD CLIA: [id number] Not Available [facility] (Lab Registration) [address] [place], [address], 07/09/2022 17:09:36 07/05/20 22 07/09/2022 ACUTE HEPAT ITIS PANEL hep A Ab, IgM NEGATI VE negati ve Not Available [facility] (Lab Registration) [address] [place], [address], 07/09/2022 17:09:36 07/05/20 22 07/09/2022 ACUTE HEPAT ITIS PANEL HBsAg screen NEGATI VE negati ve SENT TO REFER ENCE LAB Not Available [facility] (Lab Registration) [address] [place], [address], 07/09/2022 17:09:36 07/05/20 22 07/09/2022 ACUTE HEPAT ITIS PANEL hep B core Ab, IgM NEGATI VE negati ve SENT TO REFER ENCE LAB Not Available [facility] (Lab Registration) [address] [place], [address], 07/09/2022 17:09:36 07/05/20 22 07/09/2022 ACUTE HEPAT ITIS PANEL HCV Ab >11.0 s/co_ ratio 0.0-0. 9 high . [facility] [address] Lab Direc tor: Geovany metzger PhD, Phone : [phone] SENT TO REFER ENCE LAB Not Available [facility] (Lab Registration) [address] [place], [address], 07/09/2022 17:09:36 07/05/20 22 07/09/2022 ACUTE HEPAT ITIS PANEL hepatitis C quantitation TNP IU/mL Test not perfo rmed. Insuf ficie nt speci men to perfo rm or compl ete brina sis. CONTA CT:LUIS MIGUEL JONESY LAY 023 Not Available [facility] (Lab Registration) [address] [place], [address], 07/09/2022 17:09:36 07/05/20 22 07/09/2022 ACUTE HEPAT ITIS PANEL test information: COMMEN T . The quant itati ve range of this assay is 15 IU/mL to 100 nery on IU/mL . Not Available [facility] (Lab Registration) [address], [place], [address], 07/09/2022 17:09:36 07/05/20 22 07/09/2022 ACUTE HEPAT ITIS PANEL interpretati on: TNP Test not perfo rmed. Insuf ficie nt speci men to perfo rm or compl ete brina sis. CONTA CT:LI LLY LAY 023 Perfo rmed at: [facility] [place] [address] [facility] , [place] [address] Lab Direc tor: Kylee staton MD, Phone : [phone] Not Available [facility] (Lab Registration) [address], [place], [address], 07/09/2022 17:09:36 07/05/20 22 07/05/2022 HCV ANTIB ZAYRA RFX TO QUANT PCR note Unles s other hall noted testi ng perfo [facility]med at: [facility] [address] [place] [address] [phone] Blake schultz MD CLIA: [id number] Not Available [facility] (Lab Registration) [address], [place], [address], 07/10/2022 10:13:43 07/05/20 22 07/10/2022 HCV ANTIB ZAYRA RFX TO QUANT PCR HCV Ab >11.0 s/co_ ratio 0.0-0. 9 high . Perfo rmed at: [facility] [address] [facility], [place] [address] Lab Direc tor: Geovany metzger PhD, Phone : [phone] SENT TO REFER ENCE LAB Not Available [facility] (Lab Registration) [address] [place], [address], 07/10/2022 10:13:43 07/05/20 22 07/05/2022 HCV ANTIB ZAYRA RFX TO QUANT PCR note Unles s other hall noted testi ng perfo rmed at: [facility] [address] [place] [address] [phone] Blake schultz MD CLIA: [id number] Not Available [facility] (Lab Registration) [address] [place], [address], 07/10/2022 10:13:44 07/05/20 22 07/10/2022 HCV ANTIB ZAYRA RFX TO QUANT PCR HCV Ab >11.0 s/co_ ratio 0.0-0. 9 high . Perfo rmed at: [place] [id number] Lab Direc tor: Geovany metzger PhD, Phone : [phone] SENT TO REFER ENCE LAB Not Available [facility] (Lab Registration) [address] [place], [address], 07/10/2022 10:13:44 07/05/20 22 07/10/2022 HCV ANTIB ZAYAR RFX TO QUANT PCR hepatitis C quantitation 44981 IU/mL Not Available [facility] (Lab Registration) [address] [place], [address], 07/10/2022 10:13:44 07/05/20 22 07/10/2022 HCV ANTIB ZAYRA RFX TO QUANT PCR HCV log 10 4.927 log10 _IU/m L Not Available [facility] (Lab Registration) [address] [place], [address], 07/10/2022 10:13:44 07/05/20 22 07/10/2022 HCV ANTIB ZAYRA RFX TO QUANT PCR test information: Commen t . The quant itati ve range of this assay is 15 IU/mL to 100 nery on IU/mL . Not Available [facility] (Lab Registration) [address] [place], [address], 07/10/2022 10:13:44 07/05/20 22 07/10/2022 HCV ANTIB ZAYRA RFX TO QUANT PCR interpretati on: Commen t Posit luis HCV antib zayra scree n with the prese nce of HCV RNA is consi stent with activ e infec tion. Perfo rmed at: [facility] [place] [address] , [place] [address] Lab Direc tor: Kylee staton MD, Phone : [phone] Not Available [facility] (Lab Registration) [address], [place], [address], 07/10/2022 10:13:44 07/05/20 22 07/05/2022 HCV RNA BY PCR QN RFX GENOT YPE note Unles s other hall noted testi ng perfo rmed at: [facility] [address] [place] [address] [phone] Blake schultz MD CLIA: [id number] Not Available [facility] (Lab Registration) [address] [place], [address], 07/10/2022 19:10:32 07/05/20 22 07/10/2022 HCV RNA BY PCR QN RFX GENOT YPE hepatitis C quantitation 04542 IU/mL Not Available [facility] (Lab Registration) [address] [place], [address], 07/10/2022 19:10:32 07/05/20 22 07/10/2022 HCV RNA BY PCR QN RFX GENOT YPE HCV log10 4.898 log10 _IU/m L Not Available [facility] (Lab Registration) [address] [place], [address], 07/10/2022 19:10:32 07/05/20 22 07/10/2022 HCV RNA BY PCR QN RFX GENOT YPE HCV test information Commen t . The quant itati ve range of this assay is 15 IU/mL to 100 nery on IU/mL . Not Available [facility] (Lab Registration) [address], [place], [address], 07/10/2022 19:10:32 07/05/20 22 07/10/2022 HCV RNA BY PCR QN RFX GENOT YPE HCV genotype Commen t To be perfo rmed on this speci men. Perfo rmed at: - [facility] [place] [address] [facility] , [place] [address] Lab Direc tor: Kylee staton MD, Phone : [phone] Not Available [facility] (Lab Registration) [address], [place], [address], 07/10/2022 19:10:32 07/05/20 22 07/05/2022 HCV RNA BY PCR QN RFX GENOT YPE note Unles s other hall noted testi ng perfo rmed at: [facility] [address] [place] [address] [phone] Blake schultz MD CLIA: [id number] Not Available [facility] (Lab Registration) [address] [place], [address], 07/10/2022 19:10:33 07/05/20 22 07/10/2022 HCV RNA BY PCR QN RFX GENOT YPE hepatitis C quantitation 07113 IU/mL Not Available [facility] (Lab Registration) [address] [place], [address], 07/10/2022 19:10:33 07/05/20 22 07/10/2022 HCV RNA BY PCR QN RFX GENOT YPE HCV log10 4.898 log10 _IU/m L Not Available [facility] (Lab Registration) [address] [place], [address], 07/10/2022 19:10:33 07/05/20 22 07/10/2022 HCV RNA BY PCR QN RFX GENOT YPE HCV test information Commen t . The quant itati ve range of this assay is 15 IU/mL to 100 nery on IU/mL . Not Available [facility] (Lab Registration) [address] [place], [address], 07/10/2022 19:10:33 07/05/20 22 07/10/2022 HCV RNA BY PCR QN RFX GENOT YPE HCV genotype Commen t To be perfo rmed on this speci men. Perfo rmed at: [facility] [address] [place] [address] Lab Direc tor: Kylee satton MD, Phone : [phone] Not Available [facility] (Lab Registration) [address] [place], [address], 07/10/2022 19:10:33 07/05/20 22 07/10/2022 HCV RNA BY PCR QN RFX GENOT YPE hepatitis C genotype 1a Not Available [facility] (Lab Registration) [address] [place], [address], 07/10/2022 19:10:33 07/05/20 22 07/10/2022 HCV RNA BY PCR QN RFX GENOT YPE please note Commen t . This test was devel oped and its perfo rmanc e ana cteri stics deter mined by [facility]. It has not been clear ed or appro huong by the U.S. Food and Drug Admin istra tion. . The FDA has deter mined that such clear ance or appro ariana is not neces eliud. This test is used for clini wei purpo ses. It shoul d not be regar ded as inves tigat ional or for resea [facility]. Perfo rmed at: - [facility] [place] [address] [place] [address] Lab Direc tor: Kylee staton MD, Phone : [phone] Not Available [facility] (Lab Registration) [address] [place], [address], 07/10/2022 19:10:33 Result Notes None recorded. Problems Name Problem SNOMED Code Status Onset Date Resolution Date Notes Provider Name and Address Organization Details Recorded Time History of blood transfusion 200036209 Active 2021 Tish [place], [place] - [facility] - [place] 2 10:53:35 Cirrhosis of liver 54167124 Active 2021 Tish [place], [place] [facility] [place] 2 10:53:42 Viral hepatitis C 76067138 Active 2021 Tish [place] [facility] [place] 2 10:53:47 Irritable bowel syndrome 38765548 Active 2021 Tish [place] [facility] [place] 2 10:54:05 Hypothyroidism 66067224 Active 2021 Tish [place], [place] [facility] [place] 2 11:02:07 Anemia 047949002 Active 2021 Tish [place] [facility] [place] 2 11:02:54 Chronic pain 85037117 Active 2021 Tish [place], [place] - [facility] [place] 2 11:03:07 Right upper quadrant pain 482382787 Active 2021 Sydnie Gabriel NP [address], [address], [place], [address], [place] [facility] [place] 2 11:23:12 Chronic hepatitis C 640253279 Active 2021 Sydnie Gabriel NP [address], [address], [place], [address], [place] [facility] [place] 2 11:24:53 Hematochezia 811622914 Active 2021 Sydnie Gabriel NP [address], [address], [place], [address], [place] [facility] [place] 2 11:25:43 Problem Notes None recorded. Medical Equipment None Reported. Allergies No known drug allergies Medications Name Sig Start Date Stop Date Status Note LastModified by Organization Details LastModified Time quetiapine 25 mg tablet TAKE 1 TABLET 1 TIME EACH DAY WITH 100 MG TABLET active Not Available Not Available No t Available metolazone 2.5 mg tablet TAKE 1 TABLET 1 TIME EACH DAY ON FRIDAY, FRIDAY AND FRIDAY. active Not Available Not Available Not Available gabapentin 600 mg tablet TAKE 1 TABLET 3 TIMES EACH DAY active Not Available Not Available No t Available doxycycline hyclate 100 mg capsule TAKE 1 CAPSULE 2 TIMES EACH DAY FOR 10 DAYS active Not Available Not Available No t Available cetirizine 10 mg tablet TAKE 1 TABLET 1 TIME EACH DAY FOR ALLERGIES active Not Available Not Available No t Available ondansetron HCl 4 mg tablet TAKE 1 TABLET EVERY 8 HOURS NEEDED FOR NAUSEA AND VOMITING active Not Available Not Available No t Available venlafaxine ER 150 mg capsule,exte nded release 24 hr TAKE 1 CAPSULE 1 TIME EACH DAY FOR DEPRESSION active Not Available Not Available N ot Available omeprazole 40 mg capsule,eugene yed release TAKE 1 CAPSULE 1 TIME EACH DAY 2022 active Not Available Not Available Not Avai lable quetiapine 100 mg tablet TAKE 1 TABLET 1 TIME EACH DAY WITH 25 MG TABLET active Not Available Not Available No t Available oxycodone-ac etaminophen 5 mg-325 mg tablet TAKE 1 TABLET 3 TIMES EACH DAY active Not Available Not Available No t Available potassium chloride ER 20 mEq tablet,exten ded release(part /cryst) TAKE 1 TABLET 1 TIME EACH DAY active Not Available Not Available No t Available famotidine 20 mg tablet TAKE 1 TABLET 1 TIME EACH DAY active Not Available Not Available No t Available levothyroxin e 125 mcg tablet TAKE 1 TABLET 1 TIME EACH DAY active Not Available Not Available No t Available Gentle Laxative (bisacodyl) 5 mg tablet,delay ed release Take 2 tablets by oral route as directed for 1 day. active Not Available Not Available N ot Available hydrochlorot hiazide 12.5 mg capsule TAKE 1 CAPSULE 1 TIME EACH DAY active Not Available Not Available No t Available gabapentin 300 mg capsule TAKE 1 CAPSULE 3 TIMES EACH DAY active Not Available Not Available No t Available omeprazole 20 mg capsule,eugene yed release TAKE 1 CAPSULE 1 TIME EACH DAY AT BEDTIME FOR ACID REFLUX active Not Available Not Available Not Available bumetanide 1 mg tablet TAKE 2 TABLETS 2 TIMES EACH DAY FOR FLUID active Not Available Not Available No t Available montelukast 10 mg tablet TAKE 1 TABLET 1 TIME EACH DAY FOR ALLERGIES active Not Available Not Available No t Available ondansetron 4 mg disintegrati ng tablet PLACE 1 TABLET UNDER THE TONGUE AND ALLOW TO DISSOLVE EVERY 8 HOURS NEEDED FOR NAUSEA AND VOMITING active Not Available Not Available No t Available Enulose 10 gram/15 mL oral solution TAKE 15 TO 30 ML 1 TIME EACH DAY NEEDED FOR CONSTIPATIO N active Not Available Not Available No t Available naproxen 500 mg tablet TAKE 1 TABLET EVERY 8 HOURS NEEDED FOR PAIN active Not Available Not Available No t Available spironolacto ne 50 mg tablet TAKE 1 TABLET 1 TIME EACH DAY active Not Available Not Available No t Available levothyroxin e 112 mcg tablet TAKE 1 TABLET ONCE A DAY IN THE MORNING ON AN EMPTY STOMACH. active Not Available Not Available No t Available Ventolin HFA 90 mcg/actuatio n aerosol inhaler INHALE 2 PUFFS EVERY 8 HOURS NEEDED FOR SHORTNESS OF BREATH active Not Available Not Available No t Available buprenorphin e 8 mg-naloxone [address] 2 TABLETS UNDER THE TONGUE AND ALLOW TO DISSOLVE 1 TIME EACH DAY active Not Available Not Available No t Available Spiriva with HandiHaler 18 mcg and inhalation capsules INHALE THE CONTENTS OF 1 CAPSULE 1 TIME EACH DAY USING THE HANDIHALER active Not Available Not Available N ot Available Flovent HFA 110 mcg/actuatio n aerosol inhaler INHALE 2 PUFFS 2 TIMES EACH DAY active Not Available Not Available No t Available Asmanex Twisthaler 110 mcg/actuatio n(30 doses) breath activated inhalr INHALE 2 DOSES EACH DAY. active Not Available Not Available No t Available ClearLax 17 gram/dose oral powder Take 17 g by oral route as directed for 2 days. active Not Available Not Available Not Available Natroba 0.9 % topical suspension APPLY TO DRY HAIR AND COMPLETELY WET HAIR AND SCALP. AFTER 10 MINUTES, RINSE WITH WARM WATER AND TOWEL DRY. MAY REPEAT IN 7 DAYS IF NEEDED. active Not Available Not Available No t Available Vitals Date Recorded Body height Body mass index (BMI) Body weight Body temperature Oxygen saturation Oxygen saturation in Arterial blood by Pulse oximetry Heart rate Provider Name and Address Organization Details Last Updated DateTime 2 157.48 cm 25.8 kg/m2 38330.5 2 g 98.6 [degF] 96 % 96 % 83 /min [facility] [place] [facility] [place] 10:52:13 Social History None recorded. Functional Status Question Answer Note LastModified by Organizat ion Details LastModified Time Do you use any illicit or recreational drugs? Hx of IV & Intranasal drug abuse [email or web address] Information not available 06/19/2022 What is your level of alcohol consumption? None [email or web address] Information not available 06/19/2022 Mental Status None recorded. Family History Relationship Description Onset Age of this Age Resolved Age Notes LastModified by Organization Details LastModified Time Maternal Grandmother Malignant tumor of colon Not available 06/19 11:03:32 Father Myocardial infarction [email or web address] Not available 06/06 11:03:48 Medical History Condition Response GERD/Reflux Y Hepatitis Y Cirrhosis Y Hypothyroidism Y Gynecological HistoryNo gynecological history recorded. Obstetrics History GPAL:G 0 P 0 0 0 0 Past Encounters Encounter ID Performer Location Encounter Start Date Encounter Closed Date Diagnosis/Indication Diagnosis SNOMED-CT Code Diagnosis ICD10 Code Diagnosis Note [id number] Sydnie Gabriel NP [facility] [address] [place] [phone] 06/19/2022 10:25:40 06/19/2022 13:30:24 Irritable bowel syndrome 15125564 K58.9 Recommend MiraLax 17 g p.o. daily increased to b.i.d. dosing if needed to achieve 1-2 semi-solid bowel movements per day. I have recommende d increase dietary fiber with use of OTC fiber supplement s as well as increased water intake to at least 4 bottles per day. Cirrhosis of liver 007 K74.60 No signs of decompensa tion at this time. Suspect secondary to HCV. Plan for labs today to formulate MELD. Recommend liver US and AFP to screen for HCC, continue q 6 months. Recommend an EGD to evaluate for esophageal varices, portal hypertensi ve gastropath y, or gave. Right uppe r quadrant pain 200603077 R10.11 2 month hx of RUQ pain comes and goes. Plan for labs and imaging as well as EGD to evaluate.f urther Chronic hepatitis C 1283 92374 B18.2 S/P 8 week treatment with Harvoni 2014 however relapsed following treatment. currently denies drug abuse. Plan for labs above to determine genotype, viral load, and fibrosis score. Plan for liver US to r/o underlying mass or lesion. I have recommende d avoidance of sharing razors and toothbrush es as well as using barrier method with intercours e. Plan to follow up in 4-6 weeks at which time will discuss results and formulate treatment plan. Hematochezia 624010501 K 92.1 Episodes of hematochez ia off and on for the past several months. Recommend treatment of constipati on as above. Recommend colonoscop y to further evaluate. Prior colonoscop y 03/2014 with poor bowel preparatio n and excessive looping. Health Concerns Section Related Observation LastModified by Organization Detai ls LastModified Time None Recorded Concern Status LastModified by Organization Details LastModified Time None Recorded Advance Directives Directive None Recorded Payers Insurance Date Sequence Insurance Name Policy Number Policy Shaffer Covered Member ID Shaffer Member ID Guarantor Name 07/15/2022 1 [facility] (HMO) Tenisha Epstein [id number] Tenisha Epstein 01/24/2024 1 [facility] (MEDICAID REPLACEMENT - HMO) Tenisha Epstein [id number] Tenisha Epstein 01/24/2024 1 [facility] (MEDICAID REPLACEMENT - HMO) Tenisha Epstein [id number] Tenisha Epstein Notes Date Note Type Note Provider Name and Address Organization Details Recorded Time 06/19/2022 text/html 47-year-old fema karl with past medical history of drug abuse, hepatitis-C, GERD, and hypothyroidism. Patient presents today for evaluation of right upper quadrant abdominal pain as well as hematochezia. Describes right upper quadrant abdominal pain off and on for the past 2 months. Describes pressure. Currently denies pain. Episodes of hematochezia off and on for the past 3 months. Recently evaluated by Dr. Urena noting no significant external hemorrhoids. patient does have a history of IBS with constipation. She reports occasional use of laxatives for treatment. Prior colonoscopy in 2013 with poor bowel preparation excessive looping of colonoscope. Hx of HCV previously treated with 8 weeks Harvoni in 2014 however relapsed following treatment. She reports being evaluated by for cirrhosis however was lost to follow up. Denies nausea or vomiting. Sydnie Harvey, DOUBLING MACHINE OPERATOR [address] [place] [address] Drive, [address], [place], [address], [facility] - [place] [facility] [place] 06/19/2022 12:29:01 OBGyn Episode No OBEpisode recorded.
--- OUTSIDE RECORDS SUMMARY | 2025-01-10 09:05 | XMS_ITS | Encounter Summary ---
Author [address] [place] [id number] Home Phone Mobile Phone Email Address Preferred Language en Marital Status Faith Affiliation Unknown Race White Ethnic Group Not or Lati no Author Organization Healthcare Address [address] [place] [address] Care Team Providers Care Tractor Mechanic Name Role Phone Ge Burton MD Primary Care Provider [phone] Encounter Details Date Type Department Care Team (Late Contact Info) Description 12/14/2024 Telephone [facility] [address] [place] [phone] William Ray MD [address] [address] Social History Tobacco Use Types Packs/Day Years [...] on file documented as of this encounter Plan of Treatment Upcoming Encounters Date Type Department Care Team (Late st Contact Info) Description 01/11/2025 11:00 AM EDT Office [facility] [address] [facility] [address] [place] [address] William Ray MD [address] [address] documented as of this encounter Visit Diagnoses Not on filedocumented in this encounter Additional Health Concerns Assessment Noted Time A fall risk assessment has been complete d for the patient 09/10/2024 10:16 AM EST A Body Mass Index follow-up plan has been documented for the patient 09/10/2024 11:00 AM EST documented as of this encounter Care Teams Tractor Mechanic Relationship Specialty Start Date End Date Ge Burton MD [address] [place] [address] PCP - General 11/17/20 documented as of this encounter
--- NOTE | 2025-01-10 09:30 | CT_ITS ---
FINAL REPORT TECHNIQUE: Axial imaging of the chest was obtained without contrast. Reformatted images were also obtained and reviewed.This study was performed with techniques to keep radiation doses as low as reasonably achievable, (ALARA). Individualized dose reduction technique using automated exposure control or adjustment of mA and/or kV according to the patient's size were employed. CLINICAL HISTORY: Lung nodule or lymphadenopathy COMPARISON: 08/22/2023 FINDINGS: Mediastinal wires are present. There is no axillary adenopathy. There is a mediastinal lymph node measuring up to 1.9 cm in the precarinal region. There are left hilar and subcarinal calcified lymph nodes. Heart size is normal. There is no pericardial or pleural effusion. Limited images of the upper abdomen are unremarkable. There are pleural-based masses in the right lower lobe measuring up to 2.0 cm in diameter seen on image 53 of series 2. A pleural-based density in the right costophrenic angle measures up to 2.3 cm. This is noncalcified and indeterminate. Limited imaging of the upper abdomen demonstrates postoperative change of cholecystectomy. IMPRESSION: Medial right base densities which are stable. Pleural-based densities at the costophrenic angle may be slightly more evident than on prior exam. PET/CT may be helpful for further evaluation. Reviewed, Interpreted and Dictated by Robles Schwartz MD Transcribed by Melissa Stokes Authenticated and [facility]
== END 2025-01-10 23:59 | disposition home or self-care (01) ==
PROVIDERS: PCP Family Medicine; Visit Provider Internal Medicine Pulmonary Disease
DX: R91.8 Other nonspecific abnormal finding of lung field (principal); R59.0 Localized enlarged lymph nodes; J44.9 Chronic obstructive pulmonary disease, unspecified
CPT/HCPCS: 71250

== ENCOUNTER 2025-01-19 07:43 | Outpatient (CLI) | payer MEDICAID, SELFPAY ==
--- OUTSIDE RECORDS SUMMARY | 2025-01-11 11:00 | XMS_ITS | Encounter Summary ---
[place] [address] Home Phone Mobile Phone Email Address Preferred Language en Marital Status Synagogue Affiliation Unknown Race White Ethnic Group Not or Lati no Author Organization [facility] Address [address] [place] [address] Care Team Providers Care Power Barker Operator Name Role Phone Brant Pruett MD Primary Care Provider Lalitha vailable Reason for Referral * Imaging (Routine) - Authorized Specialty Diagnoses / Procedures Referred By Contac t Referred To Contact Diagnoses High risk medication use Chronic hepatitis C without hepatic coma (CMS/HCC) Procedures US Abdomen Focused Region Liver, Bile Ducts, GB William Ray MD [address] [address] Phone: tel: fax: [facility] () [address] [place] [id number] Phone: tel: fax: Referral ID Status Reason Start Date Expiration Date V isits Requested Visits Authorized [id number] Authorized 01/11/2025 07/13/2026 1 1 Reason for Visit * Reason Comments Follow-up Encounter Details Date Type Department Care Team (Latest Contact Info) Description 01/11/2025 11:00 AM EDT Office [facility] [address] [place] [address] William Ray MD [address] [address] High risk medication use (Primary Dx); Systemic lupus erythematosus (SLE) in adult (CMS/HCC); Chronic hepatitis C without hepatic coma (CMS/HCC) Social History Tobacco Use Types Packs/Day Years [...] on file documented as of this encounter Last Filed Vital Signs Vital Sign Reading Time Taken Comments Blood Pressure 122/77 01/11/2025 10:50 AM EDT Pulse 64 01/11/2025 10:50 AM EDT Temperature 36.6 C (97.8 F) 01/11/2025 10:50 AM EDT Respiratory Rate - - Oxygen Saturation 99% 01/11/2025 10:50 AM EDT Inhaled Oxygen Concentration - - Weight 67.3 kg (148 lb 5.9 oz) 01/11/2025 10:50 AM EDT Height 160 cm (5' 3 ) 01/11/2025 10:50 AM EDT Body Mass Index 26.28 01/11/2025 10:50 AM EDT documented in this encounter Miscellaneous Notes * Progress Notes - William Ray MD - 01/11/2025 11:00 AM EDT Subjective Patient ID: Tenisha Epstein is a 49 y.o. female. Chief Complaint Patient presents with Follow-up HPI 48 year old female with past medical history significant for chronic hepatitis C, hypothyroidism, history of IVDU, history of candidemia ( 02/2020), acute pericarditis, pericardial effusion ( s/p pericardiocentesis grew yajaira 02/2020), ascites/anasarca, NICOLE, MGUS, suspected chronic lung diseaseis here for follow up. Last seen by Dr Lindquist in 02/2024 Past summary : She presented to ED on 02/23/2020 as a transfer from [facility] with the diagnosis of pericardial effusion. Prior to this, pt reports 4 weeks of worsening SOB on exertion, chest discomfort, abdominal pain, and bilateral LE edema. On initial presentation to [facility] ED she was hypokalemic and anemic at 8.8 g/dl Hb. A CT A/P was performed showing constipation and pericardial effusion. ECHO at OSH showed EF of 55% and moderately sized pleural effusions. She received 2units RBCs at OSH and was then transfered to for further workup. Upon admission to her chief complaint was SOB. CT chest was performed showing pericardial effusion, bilateral pleural effusions, and mediastinal lymphadenopathy. RUQ US showed parenchymal liver disease without obvious lesions.Pericardiocentesis was performed 02/23 with drainage of 250 ml of exudative fluid per light's criteria. Pericardial fluid analysis showed atypical lymphocytes. Etiology was concerning for malignancy vs. infection vs. infiltrative or rheumatologic process. Pericardial fluid and blood cultures were drawn at admission. A TTE performed 02/24 showed constrictive physiology without valvular disease. Was started on Colchicine and ibuprofen 600mg TID on 02/25 for pericarditis. Blood cultures showed no growth throughout hospital stay. Fungal serologies showed blastomycoces antibodies. Urine histoplasma antigens were negative. GC/chlamydia were negative. Syphilis and HIV antigen/antibody screens were negative. Bronchoscopy and pulmonary LN biopsy per interventional pulmonology on 03/[address] tissue analysis showed no immunomolecular changes and was negative on LINDA and gram s tain. Biopsy showed atypical lymphocytes distinct from those observed in the pericardial fluid, butno findings concerning for malignancy. LN culture grew Staph Hominis, per ID likely this was a contaminant. Pt fungal serology was negative. Pt pericardial fluid from 02/23 grew Yajaira Dublinensis onday 5 and she was started on Micafungin on 02/28. This was d/c'd 03/01 per ID as the growth was isolated only from thioglycollate broth and thought to be a contaminant. Serum B-Glucan was found to elevated at 339 on 03/04 and she was restarted on Micafungin per ID at that time. Coccidioides IgM Ab found to be positive. Plan per ID, 14d course of IV micafungin to be completed outpatient via PICC. She reported joint pain in peripheral joints, dry eyes, dry mouth. Labs (02/2020) : JOANA homogenous 1:2560. Anti DNA 1:40. Histone antibody 5.8, C4 low 12, C3 normal. Swan, SSA, SSB, RF, CCP, ANCA by IFA, MPO, ME-3 all normal. ESR, CRP elevated. She was discharged to follow up with pulmonology, cardiology, and rheumatology ( Dr Johansen). She followed with [facility], cardiology, but didn't make for rheumatology appointment at . CT chest done in 04/2021 showed some pulmonary infiltrates at that time looked as inflammatory vs pulmonary congestion. PFT showed some restriction. She followed up with pulmonology. After diuresis with bumetanide, her repeat CT scan showed no infiltrate suggestive of ILD or pulmonary fibrosis. Her PFT also normalized. 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 Her PCP, Pulmonology suggested rheumatology evaluation. She denies any cough, but has dyspnea on exertion. She had recent PFT, Chest CT at pulmonology office, there were discussions about referring to ILD clinic. She was recently diagnosed with right ear cellulitis, and placed on antibiotics. She has chronic pleurisy. She was started on 80 mg of prednisone and tapered it over 6 weeks. She was initiated on MMF 1 gram BID around a month ago, but stopped few days ago due to right ear cellulitis ( treated with cephalexin and ciprofloxacin). She had history of hives, pericardial effusion, pleural effusion, ascites from serositis, sicca symptoms. But denies any malar rash, photosensitivity, recurrent mucosal ulcers, DVT, PE, renal glomerular disease, seizures, psychosis, delirium, inflammatory eye or bowel disease. Labs on 09/2023 showedANA homogenous > 1:2560, Low C4 (10), normal C3, Positive SSA-52 (106), anti DNA (1:80), negative Swan, Sm/LUNCHEONETTE MANAGER, SSB, CCP, RF, ANCA, MPO, ME-3 antibodies. Interim history : pt on Plaquenil. Patient was started on Benlysta subcutaneous in injections 3 months ago given significant pleurisy symptoms and inflammatory joint pains. I also discussed her case with her cable maker: As per the CT done in 2023, there does not seem to be evidence of interstitial lung disease. On the PFTs: There is restrictive lung disease but volume improved from before on the most recent PFT. Patient just had a CT done yesterday and is going to see her cable maker in couple of months. She reports significant improvement in her symptoms while on Benlysta but has been experiencing worsening of migraine headaches since the start of injections. Patient thinks the worsening of her headaches started around the same time as Benlysta initiation but is not completely sure about the etiology She continues to have diffuse joint pains but much improved from before. Denies any oral ulcerations, alopecia, rash recently. Reports improvement in the pleuritic chest pain symptoms The following portions of the chart were reviewed this encounter and updated as appropriate: Family history : Family member with SLE. Rest reviewed non contributory Social history : Prior IVDU, no current drug use General: [no fatigue, fever, chills, weight changes] HENT: [no headache, hearing loss, runny nose, difficulty swallowing] Eyes: [no vision changes, eye pain] Heart: No palpitations. Endorses pleuritic chest pain Lungs: No cough or wheezing. Endorses shortness of breath Abdomen: [no abdominal pain, nausea, vomiting, diarrhea, constipation] MSK: see HPI Skin: [no rashes, lesions, pruritus] Current Outpatient Medications on File Prior to Visit Medication Sig Dispense Refill acetaminophen (Tylenol) 500 MG tablet Take 2 tablets (1,000 mg) by mouth every 8 (eight) hours if needed for pain. 30 tablet 0 Belimumab (Benlysta) 200 MG/ML solution auto-injector Inject 200 mg under the skin every 7 (seven) days. 4 mL 4 bumetanide (Bumex) 1 MG tablet Take 1 tablet (1 mg) by mouth 2 (two) times a day as needed. buprenorphine-naloxone (Suboxone) 8-[address] 2 AND 1/2 TABLETS UNDER THE TONGUE AND ALLOW TO DISSOLVE 1 TIME EACH DAY. hydroxychloroquine (Plaquenil) 200 MG tablet TAKE 1 AND 1/2 TABLETS 1 TIME EACH DAY 135 tablet 0 ibuprofen 800 MG tablet Take 1 tablet (800 mg) by mouth every 8 (eight) hours if needed for mild pain. 30 tablet 0 ipratropium-albuterol (Duo-Neb) 0.5-2.5 mg/3 mL nebulizer solution Take 3 mL by nebulization as needed. levothyroxine (Synthroid, Levoxyl) 125 MCG tablet TAKE 1 TABLET ONCE A DAY IN THE MORNING ON AN EMPTY STOMACH FOR THYROID montelukast (Singulair) 10 MG tablet Take 1 tablet (10 mg) by mouth 1 (one) time each day. omeprazole (PriLOSEC) [address] capsule Take 1 capsule (20 mg) by mouth nightly. ondansetron ODT (Zofran-ODT) 4 MG disintegrating tablet Take 1 tablet (4 mg) by mouth every 8 (eight) hours if needed for nausea or vomiting. 20 tablet 0 pancrelipase, Ccl-Tbvz-Thuw, (Creon) 28790-346665 units capsule delayed-release particles capsule QUEtiapine (SEROquel) 100 MG tablet Take 1 tablet (100 mg) by mouth nightly. Trelegy Ellipta 100-62.5-25 MCG/ACT aerosol powder Inhale 1 puff 1 (one) time each day. venlafaxine 225 MG 24 hr tablet TAKE 1 TABLET 1 TIME EACH DAY Ventolin HFA 108 (90 Base) MCG/ACT inhaler Inhale 2 puffs as needed. amitriptyline (Elavil) 50 MG tablet TAKE 1 TABLET 1 TIME EACH DAY AT BEDTIME (Patient not taking: Reported on 01/11/2025) colchicine 0.6 MG tablet Take 1 tablet (0.6 mg) by mouth 2 (two) times a day if needed (Pleuritic chest pain). (Patient not taking: Reported on 01/11/2025) 60 tablet 2 No current facility-administered medications on file prior to visit. Past Medical History: Diagnosis Date Bilateral ovarian cysts Hepatitis C Lupus Personal history of other diseases of the digestive system History of irritable bowel syndrome Personal history of other specified conditions History of nausea and vomiting Presence of other specified functional implants s/p Spinal cord stimulator- was used for lower back pain Family History Problem Relation Name Age of Onset Depression Mother Cardiac disorder Father Alcohol abuse Other Cardiac disorder Other Stroke Other Diabetes Other Hypertension Other Kidney disease Other Other cancer Other Anesthesia problems Neg Hx Malig Hyperthermia Neg Hx Social History Socioeconomic History Marital status: Spouse name: Not on file Number of children: Not on file Years of education: Not on file Highest education level: Not on file Occupational History Not on file Tobacco Use Smoking status: Every Day Current packs/day: 0.25 Types: Cigarettes Smokeless tobacco: Never Vaping Use Vaping status: Some Days Substances: Nicotine, Flavoring Substance and Sexual Activity Alcohol use: Not Currently Comment: Alcoholic Drinks/day: Former consumption of alcohol Drug use: Not Currently Types: Marijuana, Oxycodone, Cocaine, Crack cocaine Comment: History of IV drug use; occasoinal marijuana use. Sexual activity: Not Currently control/protection: Female Sterilization Comment: s/p KERVIN Other Topics Concern Not on file Social History Narrative Not on file Social Drivers of Health Financial Resource Strain: Not on file Food Insecurity: Not on file Transportation Needs: Not on file Physical Activity: Not on file Stress: Not on file Social Connections: Unknown (04/17/2023) Received from [facility] Family and Community Support Help with Day-to-Day Activities: Not on file Lonely or Isolated: Not on file Intimate Partner Violence: Unknown (04/17/2023) Received from [facility] Abuse Screen Unsafe at Home or Work/School: Not on file Feels Threatened by Someone?: Not on file Does Anyone Keep You from Contacting Others or Doint Things Outside the Home?: Not on file Physical Sign of Abuse Present: Not on file Housing Stability: Unknown (04/17/2023) Received from [facility] Housing Stability Current Living Arrangements: Not on file Potentially Unsafe Housing Conditions: Not on file General: [alert, cooperative, no acute distress] HENT: [head atraumatic/normocephalic, no oropharyngeal erythema or ulceration] Eyes: [EOM intact, sclera anicteric, no conjunctival pallor] Cardiac: [RRR, no murmurs, no edema] Pulmonary: [CTA bilaterally, normal respiratory effort without use of accessory muscles] Gastrointestinal: [+BS, soft, non-tender] Skin: [warm, dry, intact]. No rash MSK: -no evidence of synovitis on exam. Crepitus present flexion/extension bilateral knees. CT Chest Pulmonary Embolism Result Date: 04/10/2021 1. No PE. 2. Smooth intralobular septal thickening of a lower lobe predominance consistent with interstitial pulmonary edema pattern without evidence for decompensation although areas of undulating pleural thickening in the lower lungs right greater than left concerning for potential minimal pleural fluid versus pleural thickening appearing soft tissue prominence without calcification should be correlated with exposure history as there is no separate soft tissue nodular or centrilobular processevident and no fibrotic change. E: 04/10/2021 This report was finalized on 04/10/2021 8:[address] Sidney Guaj[address]. CT Chest Hi Resolution Diagnostic Result Date: 04/10/2021 1. No PE. 2. Smooth intralobular septal thickening of a lower lobe predominance consistent with interstitial pulmonary edema pattern without evidence for decompensation although areas of undulating pleural thickening in the lower lungs right greater than left concerning for potential minimal pleural fluid versus pleural thickening appearing soft tissue prominence without calcification should be correlated with exposure history as there is no separate soft tissue nodular or centrilobular processevident and no fibrotic change. E: 04/10/2021 This report was finalized on 04/10/2021 8:[address] Sidney Guaj[address]. CT coronary angiography : No vascular disease, but there is some mediastinal lymphadenopathy, splenomegaly. Assessment/Plan 48 year old female with past medical history significant for chronic hepatitis C, hypothyroidism, history of IVDU, history of candidemia ( 02/2020), acute pericarditis, pericardial effusion ( s/p pericardiocentesis grew yajaira 02/2020), ascites/anasarca, NICOLE, MGUS, suspected chronic lung disease is here for follow up. Last seen by me on 09/2023. Diagnoses and all orders for this visit: 1. Systemic lupus erythematosus (SLE) in adult (CMS/HCC) Manifested as aggressive serositis ( pericarditis with pericardial effusion, pleural effusion, ascites), urticarial type skin rashes, Positive JOANA homogenous 1:2560. Anti DNA 1:40. Histone antibody 5.8, hypocomplementemia ( C4 low 12, C3 normal.) Swan, SSA, SSB, RF, CCP, ANCA by IFA, MPO, ME-3 allnormal. ESR, CRP elevated. No prior history of hemolytic anemia, immune thrombocytopenia, malar rash, discoid rash, mucosal ulcers, renal or SPIRAL BINDER lupus. Recent gradual declining DLCO/TLC with normal CT Chest without infiltrate except pleural thickeningsuspicious for shrinking lung syndrome. Status post 6 week high dose steroid taper, 4 week trial ofMMF 1 gram BID by pulmonology without subjective improvement in dyspnea or chest tightness/pleurisy. Currently off therapy. Labs on 09/2023 showed JOANA homogenous > 1:2560, Low C4 (10), normal C3, Positive SSA-52 (106), anti DNA (1:80), negative Swan, Sm/LUNCHEONETTE MANAGER, SSB, CCP, RF, ANCA, MPO, ME-3 antibodies. We will continue with Plaquenil 300 mg daily. Would need ophthalmology exam for OCT Benlysta was started 3 months ago and patient noted to have significant improvement in the pleurisysymptoms and joint pains. However patient experiencing worsening migraine headaches with onset around Benlysta initiation. Given this we will stop the Benlysta for now I am considering methotrexate given the fact there was no obvious ILD on the previous CT scan. 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 Miguel Swann. Patient had another CT scan yesterday: We will obtain records. She will follow up with the cable maker in 2 months Patient was noted to have hepatitis-C infection in the past status post treatment. We will obtain ultrasound of the liver to rule out a possibility of chronic liver disease. If ultrasound liver is unremarkable we will proceed with methotrexate 15 mg weekly and folic acid daily We will obtain labs for lupus activity today including CBC, CMP, inflammatory markers, dsDNA and complement levels - Anti-DNA antibody, double-stranded; Future - C3 complement; Future - C4 complement; Future - CBC and differential; Future - Comprehensive metabolic panel; Future - Protein, Random, Urine with Creatinine; Future - Sedimentation Rate, Automated; Future - C-reactive protein; Future 2. Serositis (CMS/HCC) She reports recurrent pleuritic, and pericarditic type of chest pain. 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 Patient reported improvement on Benlysta but we will discontinue Benlysta for now given worsening headaches 3. Lung involvement in systemic lupus erythematosus (CMS/HCC) CT chest in 2020 suspected interstitial disease. Most recent HRCT(2023) at [facility] didn't show any parenchymal disease except pleural thickening. PFT showed reduced DLCO, TLC suspicious for shrinking lung syndrome. Lung volumes improved significantly on subsequent PFTs. We will obtain records for CT chest done yesterday. - Will need to follow up her upcoming pulmonology visit. 4. High risk medication use 5. History of Hepatitis C (CMS/HCC) Prior hep C with high viral load. Prior US suspected parenchymal disease. Completed treatment in 07/2023. Most recent hep C pcr. Plan to obtain ultrasound liver as explained above 40 minutes spent in this encounter including [id number], chart review and documentation documented in this encounter Plan of Treatment Upcoming Encounters Date Type Department Care Team (Late st Contact Info) Description 04/08/2025 10:30 AM EDT Office Visit [facility] [address] [place] [address] William Ray MD [address] [place] [address] Scheduled Orders Name Type Priority Associated Diagnoses Orde r Schedule US Abdomen Focused Region Liver, Bile Ducts, GB Imaging Routine High risk medication use Chronic hepatitis C without hepatic coma (CMS/HCC) Expected: 01/18/2025 (Approximate), Expires: 07/15/2026 documented as of this encounter Results * (ABNORMAL) Urinalysis, Microscopic (01/11/2025 12:09 PM EDT) RBC, Urine <1 0 to 3 /HPF 01/11/2025 3:05 PM EDT [facility] WBC, Urine 11 - 20(A) 0 to 5 /HPF 01/11/2025 3:05 PM EDT [facility] Squamous Epithelial Cells 3 - 5 0 to 5 /HPF 01/11/2025 3:05 PM EDT [facility] Hyaline Casts 0 - 2 0 to 5 /LPF 01/11/2025 3:05 PM EDT [facility] Bacteria, Urine Present Negative 3:05 PM EDT [facility] Trichomonas Present Absent 01/11/2025 3:05 PM EDT [facility] Mucus Present 01/11/2025 3:05 PM EDT [facility] Urine Urine specimen obtained by clean catch procedure / Unknown Non-blood Collection / Unknown 01/11/2025 12:09 PM EDT 01/11/2025 12:09 PM EDT us William Ray MD LAB URINE ORDERABLES Final Resul t [facility] [address] [place] [address] * Protein, Random, Urine with Creatinine (01/11/2025 12:09 PM EDT) Protein, Urine 26 mg/dL 01/11/2025 3:01 PM EDT [facility] Creatinine, Urine 305 mg/dL 01/11/2025 3:01 PM EDT [facility] Protein/Creati nine Ratio 0.1 mg/mg Creat 01/11/2025 3:01 PM EDT [facility] Urine Urine specimen obtained by clean catch procedure / Unknown Non-blood Collection / Unknown 01/11/2025 12:09 PM EDT 01/11/2025 12:09 PM EDT us William Ray MD LAB URINE ORDERABLES Final Resul t Performing Organization Address [facility] de Phone Number [facility] [address] [place] [address] * Sedimentation Rate, Automated (01/11/2025 11:47 AM EDT) Sedimentation Rate 23 <30 mm/hr 2024 2:43 PM EDT [facility] Blood Venous blood specimen / Unknown Venipuncture / Unknown 01/11/2025 11:47 AM EDT 01/11/2025 11:47 AM EDT us William Ray MD LAB BLOOD ORDERABLES Final Resul t Performing Organization Address [facility] de Phone Number [facility] [address] [place] [address] * C4 Complement (01/11/2025 11:47 AM EDT) C4 Complement 15 13 - 36 mg/dL 01/11/2025 4:25 PM EDT [facility] Blood Venous blood specimen / Unknown Venipuncture / Unknown 01/11/2025 11:47 AM EDT 01/11/2025 11:47 AM EDT us William Ray MD LAB BLOOD ORDERABLES Final Resul t Performing Organization Address City/[facility]/ZIP Co de Phone Number [facility] [address] [place] [address] * C3 Complement (01/11/2025 11:47 AM EDT) C3 Complement 126 84 - 166 mg/dL 01/11/2025 4:25 PM EDT [facility] Blood Venous blood specimen / Unknown Venipuncture / Unknown 01/11/2025 11:47 AM EDT 01/11/2025 11:47 AM EDT William Ray MD LAB BLOOD ORDERABLES Final Resul t Performing Organization Address [facility] Co de Phone Number [facility] [address] [place] [address] * (ABNORMAL) Hepatic Function Panel (01/11/2025 11:47 AM EDT) [facility] Conjugated Bilirubin, Plasma <0.2 <=0.3 mg/dL 01/11/2025 3:04 PM EDT [facility] Comment:Hemolyzed, result ma y be falsely decreased. Alkaline Phosphatase, Plasma 231(H) 35 - 104 U/L 01/11/2025 3:04 PM EDT [facility] Total Bilirubin, Plasma 0.4 0.2 - 1.1 mg/dL 01/11/2025 3:04 PM EDT [facility] Albumin, Plasma 4.3 3.5 - 5.2 g/dL 01/11/2025 3:04 PM EDT [facility] Total Protein 8.1(H) 6.3 - 7.9 g/dL 01/11/2025 3:04 PM EDT [facility] ALT, Plasma 21 10 - 35 U/L 01/11/2025 3:04 PM EDT [facility] AST, Plasma 71(H) 10 - 35 U/L 01/11/2025 3:04 PM EDT [facility] Comment:Hemolyzed, result ma y be falsely increased. Blood Venous blood specimen / Unknown Venipuncture / Unknown 01/11/2025 11:47 AM EDT 01/11/2025 11:47 AM EDT William Ray MD LAB BLOOD ORDERABLES Final Resul t Performing Organization Address City/[facility]/ZIP Co de Phone Number [facility] [address] [place] [address] * Creatinine, Plasma (01/11/2025 11:47 AM EDT) Pathologist [facility] Creatinine, Plasma 0.70 0.60 - 1.10 mg/dL 01/11/2025 3:04 PM EDT [facility] eGFRcr 104.9 mL/min/1.7 3m*2 01/11/2025 3:04 PM EDT [facility] Comment:Reported eGFRcr in m L/min/1.73m2 is based the CKD-EPI 2020 equation that does not use a race coefficient. Blood Venous blood specimen / Unknown Venipuncture / Unknown 01/11/2025 11:47 AM EDT 01/11/2025 11:47 AM EDT William Ray MD LAB BLOOD ORDERABLES Final Resul t Performing Organization Address City/[facility] Co de Phone Number [facility] [address] [phone] * (ABNORMAL) CBC and Differential (01/11/2025 11:47 AM EDT) Pathologist [facility] WBC Count 5.64 3.70 - 10.30 10*3/uL LAB HEMATOLOGY METHOD 01/11/2025 2:49 PM EDT [facility] RBC Count 5.41(H) 3.90 - 5.20 10*6/uL LAB HEMATOLOGY METHOD 01/11/2025 2:49 PM EDT [facility] HGB 14.9 11.2 - 15.7 g/dL LAB HEMATOLOGY METHOD 01/11/2025 2:49 PM EDT [facility] HCT 44.4 34.0 - 45.0 % LAB HEMATOLOGY METHOD 01/11/2025 2:49 PM EDT [facility] Platelet Count 284 155 - 369 10*3/uL LAB HEMATOLOGY METHOD 01/11/2025 2:49 PM EDT [facility] MCV 82 79 - 98 fL LAB HEMATOLOGY METHOD 01/11/2025 2:49 PM EDT [facility] MCH 27.5 26.0 - 32.0 pg LAB HEMATOLOGY METHOD 01/11/2025 2:49 PM EDT [facility] MCHC 33.6 30.7 - 35.5 g/dL LAB HEMATOLOGY METHOD 01/11/2025 2:49 PM EDT [facility] RDW 14.4 11.5 - 14.5 % LAB HEMATOLOGY METHOD 01/11/2025 2:49 PM EDT [facility] MPV 8.8 8.8 - 12.5 fL LAB HEMATOLOGY METHOD 01/11/2025 2:49 PM EDT [facility] nRBC 0.0 <=0.0 per 100 WBCs LAB HEMATOLOGY METHOD 01/11/2025 2:49 PM EDT [facility] Differential Type Automated LAB HEMATOLOGY METHOD 01/11/2025 2:49 PM EDT [facility] Neutrophils % 76 % LAB HEMATOLOGY METHOD 01/11/2025 2:49 PM EDT [facility] Lymphocytes % 19 % LAB HEMATOLOGY METHOD 01/11/2025 2:49 PM EDT [facility] Monocytes % 3 % LAB HEMATOLOGY METHOD 01/11/2025 2:49 PM EDT [facility] Eosinophils % 1 % LAB HEMATOLOGY METHOD 01/11/2025 2:49 PM EDT [facility] Basophils % 0 % LAB HEMATOLOGY METHOD 01/11/2025 2:49 PM EDT [facility] Immature Granulocytes % 1 % LAB HEMATOLOGY METHOD 01/11/2025 2:49 PM EDT [facility] Neutrophils Absolute 4.29 1.60 - 6.10 10*3/uL LAB HEMATOLOGY METHOD 01/11/2025 2:49 PM EDT [facility] Lymphocytes Absolute 1.07(L) 1.20 - 3.90 10*3/uL LAB HEMATOLOGY METHOD 01/11/2025 2:49 PM EDT [facility] Monocytes Absolute 0.16(L) 0.30 - 0.90 10*3/uL LAB HEMATOLOGY METHOD 01/11/2025 2:49 PM EDT [facility] Eosinophils Absolute 0.06 0.00 - 0.50 10*3/uL LAB HEMATOLOGY METHOD 01/11/2025 2:49 PM EDT [facility] Basophils Absolute 0.02 0.00 - 0.10 10*3/uL LAB HEMATOLOGY METHOD 01/11/2025 2:49 PM EDT [facility] Immature Granulocytes Absolute 0.04 0.00 - 0.06 10*3/uL LAB HEMATOLOGY METHOD 01/11/2025 2:49 PM EDT [facility] Blood Venous blood specimen / Unknown Venipuncture / Unknown 01/11/2025 11:47 AM EDT 01/11/2025 11:47 AM EDT Narrative [facility] - 01/11/2025 2:49 PM EDT Therapeutic decision making should be based on absolute values, rather than percentages. us William Ray MD LAB BLOOD ORDERABLES Final Resul t [facility] [address] [place] [address] documented in this encounter Visit Diagnoses Diagnosis High risk medication use- Primary Systemic lupus erythematosus (SLE) in adult (CMS/HCC) Chronic hepatitis C without hepatic coma (CMS/HCC) documented in this encounter Additional Health Concerns Assessment Noted Time A fall risk assessment has been complete d for the patient 01/11/2025 10:50 AM EDT A Body Mass Index follow-up plan has been documented for the patient 01/11/2025 12:31 PM EDT documented as of this encounter Care Teams Power Barker Operator Relationship Specialty Start Date End Date Brant Pruett MD PCP - General Family Medicine 01/11/25 documented as of this encounter
--- OUTSIDE RECORDS SUMMARY | 2025-01-19 07:45 | XMS_ITS | Clinical Summary ---
Author Organization [facility] Address [address] [facility] [address] [place] [address] Phone Care Team Providers Care Ui Software Developer Name Role Phone Unavailable Unavailable Conditions or Problems No information available. Medications No information available. Medications Administered No information available. Allergies, Adverse Reactions, Alerts No information available. Results No information available. Plan of Care No information available. Procedures No information available. Vital Signs No information available. Immunizations No information available. Advance Directives No information available.
--- OUTSIDE RECORDS SUMMARY | 2025-01-19 07:46 | XMS_ITS | Encounter Summary ---
[place] [address] Home Phone Mobile Phone Email Address Preferred Language en Marital Status Latter Day Affiliation Unknown Race White Ethnic Group Not or Lati no Author Organization Healthcare Address [address] [place] [address] Care Team Providers Care Video Control Operator Name Role Phone Brant Pruett MD Primary Care Provider Lalitha vailable Encounter Details Date Type Department Care Team (Latest Contact Info) Description 01/11/2025 Travel Social History Tobacco Use Types Packs/Day Years [...] Description 04/08/2025 10:30 AM EDT Office Visit Professional [facility] [address] [place] [address] William Ray MD [address] [place] [address] documented as of this encounter Visit Diagnoses Not on filedocumented in this encounter Additional Health Concerns Assessment Noted Time A fall risk assessment has been complete d for the patient 01/11/2025 10:50 AM EDT A Body Mass Index follow-up plan has been documented for the patient 01/11/2025 12:31 PM EDT documented as of this encounter Care Teams Video Control Operator Relationship Specialty Start Date End Date Brant Pruett MD PCP - General Family Medicine 01/11/25 documented as of this encounter
--- OUTSIDE RECORDS SUMMARY | 2025-01-19 07:46 | XMS_ITS | Encounter Summary ---
[place] [address] Home Phone Mobile Phone Email Address Preferred Language en Marital Status Bahai Affiliation Unknown Race White Ethnic Group Not or Lati no Author Organization [facility] Address [address] [place] [address] Care Team Providers Care Pier Master Name Role Phone Brant Pruett MD Primary Care Provider Lalitha vailable Encounter Details Date Type Department Care Team (Late st Contact Info) Description 01/13/2025 Telephone [facility] [address] [place] [address] Ronna Liang, PharmD Social History Tobacco Use Types Packs/Day Years [...] encounter Miscellaneous Notes * Telephone Encounter - Ronna Liang PharmD - 01/13/2025 11:03 AM EDT [facility] Discharge of Clinical Services Specialty Medications and their indications: Benlysta-SLE Reason(s) for discharge: Discontinued/ Completed Therapy Summary of care provided: Benefits investigation, Prior authorization, and Education Patient's ongoing unmet needs/care: Patient has no ongoing unmet needs. Instructions or referral information provided to the patient/responsible green party: No referral information needed- Medication was stopped Ronna Liang, CapriceD 01/13/2025 11:03 AM documented in this encounter Plan of Treatment Upcoming Encounters Date Type Department Care Team (Late st Contact Info) Description 04/08/2025 10:30 AM EDT Office Visit Professional [address] [place] [facility] [address], [facility] [address] [place] [address] William Ray MD [address] [place] [address] documented as of this encounter Visit Diagnoses Not on filedocumented in this encounter Additional Health Concerns Assessment Noted Time A fall risk assessment has been complete d for the patient 01/11/2025 10:50 AM EDT A Body Mass Index follow-up plan has been documented for the patient 01/11/2025 12:31 PM EDT documented as of this encounter Care Teams Pier Master Relationship Specialty Start Date End Date Brant Pruett MD PCP - General Family Medicine 01/11/25 documented as of this encounter
--- OUTSIDE RECORDS SUMMARY | 2025-01-19 07:46 | XMS_ITS | Encounter Summary ---
[place] [address] Home Phone Mobile Phone Email Address Preferred Language en Marital Status Zoroastrianism Affiliation Unknown Race White Ethnic Group Not or Lati no Author Organization Healthcare Address [address] [place] [address] Care Team Providers Care Optical Effects Camera Operator Name Role Phone Brant Pruett MD Primary Care Provider Lalitha vailable Encounter Details Date Type Department Care Team (Late st Contact Info) Description 01/13/2025 Orders Only [facility] Medicine Specialties [address] [place] [address] William Ray MD [address] [address] Systemic lupus erythematosus (SLE) in adult (CMS/HCC) (Primary Dx); High risk medication use Social History Tobacco Use Types Packs/Day Years [...] 04/08/2025 10:30 AM EDT Office Visit [facility] [address], [facility] [address] [place] [address] William Ray MD [address] [address] Scheduled Orders Name Type Priority Associated Diagnoses Orde r Schedule Hepatic Function Panel Lab Routine High risk medication use Expected: 01/13/2025 (Approximate), Expires: 07/16/2026 documented as of this encounter Visit Diagnoses Diagnosis Systemic lupus erythematosus (SLE) in adult (CMS/[facility])- Primary High risk medication use documented in this encounter Additional Health Concerns Assessment Noted Time A fall risk assessment has been complete d for the patient 01/11/2025 10:50 AM EDT A Body Mass Index follow-up plan has been documented for the patient 01/11/2025 12:31 PM EDT documented as of this encounter Care Teams Optical Effects Camera Operator Relationship Specialty Start Date End Date Brant Pruett MD PCP - General Family Medicine 01/11/25 documented as of this encounter
--- OUTSIDE RECORDS SUMMARY | 2025-01-19 07:46 | XMS_ITS | Encounter Summary ---
Author [address] [id number] Home Phone Mobile Phone Email Address Preferred Language en Marital Status Taoist Affiliation Unknown Race White Ethnic Group Not or Lati no Author Organization Healthcare Address [address] [place] [address] Care Team Providers Care Meteorology Professor Name Role Phone Ge Burton MD Primary Care Provider [phone] Encounter Details Date Type Department Care Team (Late Contact Info) Description 12/14/2024 Telephone [facility] [address] [place] [phone] William Ray MD [address] [address] Social History Tobacco Use Types [...] [facility] [address] [facility] [address] [place] [address] William Ray MD [address] [address] documented as of this encounter Visit Diagnoses Not on filedocumented in this encounter Additional Health Concerns Assessment Noted Time A fall risk assessment has been complete d for the patient 09/10/2024 10:16 AM EST A Body Mass Index follow-up plan has been documented for the patient 09/10/2024 11:00 AM EST documented as of this encounter Care Teams Meteorology Professor Relationship Specialty Start Date End Date Ge Burton MD [address] [place] [address] PCP - General 11/17/20 01/10/25 documented as of this encounter
--- OUTSIDE RECORDS SUMMARY | 2025-01-19 07:46 | XMS_ITS | Encounter Summary ---
[place] [address] Home Phone Mobile Phone Email Address Preferred Language en Marital Status Jainism Affiliation Unknown Race White Ethnic Group Not or Lati no Author Organization Healthcare Address [address] [place] [address] Care Team Providers Care Human Resources Assistant Manager Name Role Phone Ge Burton MD Primary Care Provider [phone] Encounter Details Date Type Department Care Team (Late Contact Info) Description 01/06/2025 Telephone [facility] [address] [place] [address] Shirley Mcfadden Social History Tobacco [...] Description 04/08/2025 10:30 AM EDT Office Visit [facility] [address], [address] [place] [address] William Ray MD [address] [place] [address] documented as of this encounter Visit Diagnoses Not on filedocumented in this encounter Additional Health Concerns Assessment Noted Time A fall risk assessment has been complete d for the patient 09/10/2024 10:16 AM EST A Body Mass Index follow-up plan has been documented for the patient 09/10/2024 11:00 AM EST documented as of this encounter Care Teams Human Resources Assistant Manager Relationship Specialty Start Date End Date Ge Burton MD [address] [place] [address] PCP - General 11/17/20 01/10/25 documented as of this encounter
--- OUTSIDE RECORDS SUMMARY | 2025-01-19 07:46 | XMS_ITS | Encounter Summary ---
[place] [address] Home Phone Mobile Phone Email Address Preferred Language en Marital Status Rastafarian Affiliation Unknown Race White Ethnic Group Not or Lati no Author Organization Healthcare Address [address] [place] [address] Care Team Providers Care Front Desk Team Member Name Role Phone Brant Pruett MD Primary Care Provider Lalitha vailable Encounter Details Date Type Department Care Team (Late st Contact Info) Description 01/13/2025 Telephone Professional [facility] [address] [place] [address] Zuleyka Godinez RN [facility] Social History Tobacco Use [...] Telephone Encounter - Zuleyka Godinez RN - 01/13/2025 11:43 AM EDT Patient wants to change location of ultrasound to [facility]. Please advise. documented in this encounter Plan of Treatment Upcoming Encounters Date Type Department Care Team (Late st Contact Info) Description 04/08/2025 10:30 AM EDT Office Visit Professional [facility] [address], [address] [place] [address] William Ray MD [address] [address] documented as of this encounter Visit Diagnoses Not on filedocumented in this encounter Additional Health Concerns Assessment Noted Time A fall risk assessment has been complete d for the patient 01/11/2025 10:50 AM EDT A Body Mass Index follow-up plan has been documented for the patient 01/11/2025 12:31 PM EDT documented as of this encounter Care Teams Front Desk Team Member Relationship Specialty Start Date End Date Brant Pruett MD PCP - General Family Medicine 01/11/25 documented as of this encounter
--- OUTSIDE RECORDS SUMMARY | 2025-01-19 07:46 | XMS_ITS | Encounter Summary ---
[place] [address] Home Phone Mobile Phone Email Address Preferred Language en Marital Status Confucianism Affiliation Unknown Race White Ethnic Group Not or Lati no Author Organization Healthcare Address [address] [place] [address] Care Team Providers Care Telecommunications Facility Examiner Name Role Phone Brant Pruett MD Primary Care Provider Lalitha vailable Encounter Details Date Type Department Care Team (Late st Contact Info) Description 01/13/2025 Results Follow-Up [facility] [address], [address] [address] William Ray MD [address] [address] Social History Tobacco Use Types [...] Description 04/08/2025 10:30 AM EDT Office Visit [facility] [address], [facility] [address] [place] [address] William Ray MD [address] [address] documented as of this encounter Visit Diagnoses Not on filedocumented in this encounter Additional Health Concerns Assessment Noted Time A fall risk assessment has been complete d for the patient 01/11/2025 10:50 AM EDT A Body Mass Index follow-up plan has been documented for the patient 01/11/2025 12:31 PM EDT documented as of this encounter Care Teams Telecommunications Facility Examiner Relationship Specialty Start Date End Date Brant Pruett MD PCP - General Family Medicine 01/11/25 documented as of this encounter
--- OUTSIDE RECORDS SUMMARY | 2025-01-19 07:46 | XMS_ITS | Encounter Summary ---
[place] [address] Home Phone Mobile Phone Email Address Preferred Language en Marital Status Scientologist Affiliation Unknown Race White Ethnic Group Not or Lati no Author Organization Healthcare Address [address] [place] [address] Care Team Providers Care Terrazzo Tile Setter Name Role Phone Ge Burton MD Primary Care Provider [phone] Reason for Visit * Reason Comments Med Refill Encounter Details Date Type Department Care Team (Late st Contact Info) Description 11/30/2024 Refill [facility] Specialties [address] [place] [address] Nayely Lindquist MD [address] [place] [address] Systemic lupus erythematosus (SLE) in adult ([facility]) Social History Tobacco Use Types Packs/Day Years [...] 04/08/2025 10:30 AM EDT Office Visit Professional [facility] [address], [address] [place] [address] William Ray MD [address] [place] [address] documented as of this encounter [...] documented as of this encounter Care Teams Terrazzo Tile Setter Relationship Specialty Start Date End Date Ge Burton MD [address] [place] [address] PCP - General 11/17/20 01/10/25 documented as of this encounter
--- OUTSIDE RECORDS SUMMARY | 2025-01-19 07:46 | XMS_ITS | Encounter Summary ---
[place] [address] Home Phone Mobile Phone Email Address Preferred Language en Marital Status Sikhism Affiliation Unknown Race White Ethnic Group Not or Lati no Author Organization Healthcare Address [address] [place] [address] Care Team Providers Care Supervisor Endless Track Vehicle Name Role Phone Ge Burton MD Primary Care Provider [phone] Encounter Details Date Type Department Care Team (Late st Contact Info) Description 11/08/2024 Telephone [facility] [address] [place] [address] Zuleyka Godinez RN [facility] Social History Tobacco [...] difficult time walking due to pain. Saw court specialist 2 to 3 weeks ago and was told to follow up with rheumatology for her complaints. Please advise. documented in this encounter Plan of Treatment Upcoming Encounters Date Type Department Care Team (Late st Contact Info) Description 04/08/2025 10:30 AM EDT Office Visit [facility] [employer] [place] [facility] [address] [facility] [address] [place] [address] William Ray MD [address] [place] [address] documented as of this encounter Visit Diagnoses Not on filedocumented in this encounter Additional Health Concerns Assessment Noted Time A fall risk assessment has been complete d for the patient 09/10/2024 10:16 AM EST A Body Mass Index follow-up plan has been documented for the patient 09/10/2024 11:00 AM EST documented as of this encounter Care Teams Supervisor Endless Track Vehicle Relationship Specialty Start Date End Date Ge Burton MD [address] [place] [address] PCP - General 11/17/20 01/10/25 documented as of this encounter
--- OUTSIDE RECORDS SUMMARY | 2025-01-19 07:46 | XMS_ITS | Data Portability ---
Author Organization [place] - [facility] Medicine and [facility] Address [address] [place] [address] Care Team Providers Care Online Advertising Analyst Name Role Phone KIA NIELSEN Primary Care Provider SYDNIE GABRIEL Gifted Program Teacher Assessment No assessment recorded. Plan of Treatment Reminders Order Date Submit Date Provider Last Modified By Organization Details Last Modified Time Details Appointments None recorded. Lab CBC w/ auto diff 2021 022 [email or web address] 4 [facility] (Lab Registration) , [address] [place] [address] [place], [address], 2 08:54:04 CMP, serum or plasma 2021 022 [email or web address] 4 [facility] (Lab Registration) , [address] [place] [address] [place], [address], 2 08:54:04 hepatitis panel (A+B+C), acute, serum 2021 022 [email or web address] 4 [facility] (Lab Registration) , [address] [place] [address] [place], [address], 2 08:54:04 hepatitis C virus genotype, PCR, blood 2021 022 [email or web address] 4 [facility], [address] [place] [address] [place], [address], 2 08:54:04 HIV (1+2) Ab screen, serum 2021 [email or web address] 4 [facility], [address] [place] [address] [place], [address], 2 08:54:04 PT/INR 2021 [email or web address] 4 [facility], [address] [place] [address] [place], [address], 2 08:54:05 test, urine 2021 [email or web address] 4 [facility], [address] [place] [address] [place], [address], 2 08:54:05 hepatitis C virus RNA, quant, PCR, serum or plasma 2021 [email or web address] 4 [facility] (Lab Registration) , [address] [place] [address] [place], [address], 2 08:54:05 liver fibrosis score panel, hepascore, serum or plasma 2021 [email or web address] 4 [facility] (Lab Registration) , [address] [place] [address] [place], [address], 2 08:54:05 afp (alpha-feto protein) tumor marker, serum or plasma 2021 [email or web address] 4 [facility] (Lab Registration) , [address] [place] [address] [place], [address], 2 08:54:03 Referral None recorded. Procedures upper endoscopy procedure (EGD) (PROC) 2021 ALVARO Not available 3 09:24:44 colonoscopy procedure (PROC) 2021 [email or web address] 4 Not available 2 10:15:55 Surgeries None recorded. Imaging US, liver 2021 4 [facility] Centralized Scheduling, [address] [place], [address], 3 10:01:32 Medication Orders Miralax 17 gram/dose oral powder 2021 [email or web address] [facility], [address] [place] [address], [id number], 2 11:35:29 Dulcolax (bisacodyl) 5 mg tablet,eugene yed release 2021 022 [email or web address] [facility], [address] [place] [address], [id number], 12:52:43 Patient TargetsNo targets recorded. Patient InstructionsNo instructions recorded. Reason for Referral None Reported. Results Created Date Observation Date Name Description Value Unit Range Abnormal Flag Note LastModifiedBy Organization Detail LastModifiedTime 07/05/20 22 07/05/2022 CBC AUTO W DIFF WBC 4.1 10 4.5-11 .5 low Not Available [facility] (Lab Registration) [address] [place], [address], 07/05/2022 10:01:22 07/05/20 22 07/05/2022 CBC AUTO W DIFF RBC 4.76 10 4.25-5 .57 Not Available [facility] (Lab Registration) [address] [place], [address], 07/05/2022 10:01:22 07/05/20 22 07/05/2022 CBC AUTO W DIFF HGB 12.5 g/dL 12.0-1 5.7 Not Available [facility] (Lab Registration) [address] [place], [address], 07/05/2022 10:01:22 07/05/20 22 07/05/2022 CBC AUTO W DIFF HCT 38.9 % 36.0-4 7.0 Not Available [facility] (Lab Registration) [address] [place], [address], 07/05/2022 10:01:22 07/05/20 22 07/05/2022 CBC AUTO W DIFF MCV 81.7 fL 80-95 Not Available [facility] (Lab Registration) [address] [place], [address], 07/05/2022 10:01:22 07/05/20 22 07/05/2022 CBC AUTO W DIFF MCH 26.3 pg 27.0-3 4.0 low Not Available [facility] (Lab Registration) [address] [place], [address], 07/05/2022 10:01:22 07/05/20 22 07/05/2022 CBC AUTO W DIFF MCHC 32.1 g/dL 32.0-3 6.0 Not Available [facility] (Lab Registration) [address] [place], [address], 07/05/2022 10:01:22 07/05/20 22 07/05/2022 CBC AUTO W DIFF platelet count 285 10 150-45 0 Not Available [facility] (Lab Registration) [address] [place], [address], 07/05/2022 10:01:22 07/05/20 22 07/05/2022 CBC AUTO W DIFF RDW 16.0 % 12.3-1 5.1 high Not Available [facility] (Lab Registration) [address] [place], [address], 07/05/2022 10:01:22 07/05/20 22 07/05/2022 CBC AUTO W DIFF MPV 8.2 fL 7.4-10 .4 Not Available [facility] (Lab Registration) [address] [place], [address], 07/05/2022 10:01:22 07/05/20 22 07/05/2022 CBC AUTO W DIFF granulocyte% 73.6 % 40-75 Not Available [facility] (Lab Registration) [address] [place], [address], 07/05/2022 10:01:22 07/05/20 22 07/05/2022 CBC AUTO W DIFF lymphocyte% 21.5 % 15-57 Not Available [facility] (Lab Registration) [address] [place], [address], 07/05/2022 10:01:22 07/05/20 22 07/05/2022 CBC AUTO W DIFF monocyte% 3.7 % 4.0-12 .0 low Not Available [facility] (Lab Registration) [address] [place], [address], 07/05/2022 10:01:22 07/05/20 22 07/05/2022 CBC AUTO W DIFF eosinophil% 0.2 % 0.0-4. 0 Not Available [facility] (Lab Registration) [address] [place], [address], 07/05/2022 10:01:22 07/05/20 22 07/05/2022 CBC AUTO W DIFF basophil% 0.0 % 0.0-1. 0 Not Available [facility] (Lab Registration) [address] [place], [address], 07/05/2022 10:01:22 07/05/20 22 07/05/2022 CBC AUTO W DIFF immature granulocytes % 1.0 % 0.0-0. 8 high Not Available [facility] (Lab Registration) [address] [place], [address], 07/05/2022 10:01:22 07/05/20 22 07/05/2022 CBC AUTO W DIFF granulocyte# 2.98 10 Not Available [facility] (Lab Registration) [address] [place], [address], 07/05/2022 10:01:22 07/05/20 22 07/05/2022 CBC AUTO W DIFF lymphocyte# 0.87 10 Not Available [facility] (Lab Registration) [address] [place], [address], 07/05/2022 10:01:22 07/05/20 22 07/05/2022 CBC AUTO W DIFF monocyte# 0.15 10 Not Available [facility] (Lab Registration) [address], [place], [address], 07/05/2022 10:01:22 07/05/20 22 07/05/2022 CBC AUTO W DIFF eosinophil# 0.01 10 Not Available [facility] (Lab Registration) [address] [place], [address], 07/05/2022 10:01:22 07/05/20 22 07/05/2022 CBC AUTO W DIFF basophil# 0.00 10 Not Available [facility] (Lab Registration) [address] [place], [address], 07/05/2022 10:01:22 07/05/20 22 07/05/2022 CBC AUTO W DIFF immature granulocytes # 0.04 10 Not Available [facility] (Lab Registration) [address] [place], [address], 07/05/2022 10:01:22 07/05/20 22 07/05/2022 CBC AUTO W DIFF manual differential NO Not Available [facility] (Lab Registration) [address] [place], [address], 07/05/2022 10:01:22 07/05/20 22 07/05/2022 CBC AUTO W DIFF note Unles s other hall noted testi ng perfo rmed at: [facility] [employer] [address] [place] [address] [phone] Blake schultz MD CLIA: [id number] Not Available [facility] (Lab Registration) [address] [place], [address], 07/05/2022 10:01:22 07/05/20 22 07/05/2022 URINE PREGN MELANY TEST urine test NEGATI VE negati ve Not Available [facility] (Lab Registration) [address] [place], [address], 07/05/2022 10:02:27 07/05/20 22 07/05/2022 URINE PREGN MELANY TEST internal control PASS PASS Not Available [facility] (Lab Registration) [address] [place], [address], 07/05/2022 10:02:27 07/05/20 22 07/05/2022 URINE PREGN MELANY TEST note Unles s other hall noted testi ng perfo rmed at: [facility] [address] [place] [address] [phone] Blake schultz MD CLIA: [id number] Not Available [facility] (Lab Registration) [address] [place], [address], 07/05/2022 10:02:27 07/05/20 22 07/05/2022 PT (PROT HROMB IN TIME) W INR PT (prothrombin time) 9.8 secon ds 9.3-11 .4 Not Available [facility] (Lab Registration) [address] [place], [address], 07/05/2022 10:13:47 07/05/20 22 07/05/2022 PT (PROT [...] mecha nical heart valve s. Not Available [facility] (Lab Registration) [address] [place], [address], 07/05/2022 10:13:47 07/05/20 22 07/05/2022 PT (PROT HROMB IN TIME) W INR note Unles s other hall noted testi ng perfo rmed at: [facility] [address] [place] [address] [phone] Blake schultz MD CLIA: [id number] Not Available [facility] (Lab Registration) [address] [place], [address], 07/05/2022 10:13:47 07/05/20 22 07/05/2022 COMP METAB OLIC PANEL sodium 137 mmol/ L 136-14 5 Not Available [facility] (Lab Registration) [address] [place], [address], 07/05/2022 11:37:34 07/05/20 22 07/05/2022 COMP METAB OLIC PANEL potassium 3.9 mmol/ L 3.5-5. 1 Not Available [facility] (Lab Registration) [address] [place], [address], 07/05/2022 11:37:34 07/05/20 22 07/05/2022 COMP METAB OLIC PANEL chloride 100 mmol/ L 98-107 Not Available [facility] (Lab Registration) [address] [place], [address], 07/05/2022 11:37:34 07/05/20 22 07/05/2022 COMP METAB OLIC PANEL carbon dioxide 27 mmol/ L 21-32 Not Available [facility] (Lab Registration) [address] [place], [address], 07/05/2022 11:37:34 07/05/20 22 07/05/2022 COMP METAB OLIC PANEL anion gap 10.0 Not Available [facility] (Lab Registration) [address] [place], [address], 07/05/2022 11:37:34 07/05/20 22 07/05/2022 COMP METAB OLIC PANEL glucose 102 mg/dL 70-110 Not Available [facility] (Lab Registration) [address], [place], [address], 07/05/2022 11:37:34 07/05/20 22 07/05/2022 COMP METAB OLIC PANEL blood urea nitrogen 10 mg/dL 7-18 Not Available [facility] (Lab Registration) [address] [place], [address], 07/05/2022 11:37:34 07/05/20 22 07/05/2022 COMP METAB OLIC PANEL creatinine 0.9 mg/dL 0.6-1. 0 Not Available [facility] (Lab Registration) [address], [place], [address], 07/05/2022 11:37:34 07/05/20 22 07/05/2022 COMP METAB OLIC PANEL BUN/creatini ne ratio 11.1 ratio 9-21 Not Available [facility] (Lab Registration) [address], [place], [address], 07/05/2022 11:37:34 07/05/20 22 07/05/2022 COMP METAB OLIC PANEL estimated glom filtration rate 71 mL/mi n >60- Not Available [facility] (Lab Registration) [address] [place], [address], 07/05/2022 11:37:34 07/05/20 22 07/05/2022 COMP METAB OLIC PANEL total protein 8.8 g/dL 6.4-8. 2 high Not Available [facility] (Lab Registration) [address] [place], [address], 07/05/2022 11:37:34 07/05/20 22 07/05/2022 COMP METAB OLIC PANEL albumin 3.9 g/dL 3.4-5. 0 Not Available [facility] (Lab Registration) [address] [place], [address], 07/05/2022 11:37:34 07/05/20 22 07/05/2022 COMP METAB OLIC PANEL calcium 9.1 mg/dL 8.5-10 .1 Not Available [facility] (Lab Registration) [address] [place], [address], 07/05/2022 11:37:34 07/05/20 22 07/05/2022 COMP METAB OLIC PANEL corrected calcium 9.2 mg/dL 8.5-10 .1 Not Available [facility] (Lab Registration) [address] [place], [address], 07/05/2022 11:37:34 07/05/20 22 07/05/2022 COMP METAB OLIC PANEL bilirubin total 0.5 mg/dL 0.4-1. 5 Not Available [facility] (Lab Registration) [address] [place], [address], 07/05/2022 11:37:34 07/05/20 22 07/05/2022 COMP METAB OLIC PANEL AST (SGOT) 37 U/L 15-37 Not Available [facility] (Lab Registration) [address] [place], [address], 07/05/2022 11:37:34 07/05/20 22 07/05/2022 COMP METAB OLIC PANEL ALT (SGPT) 38 U/L 12-78 Not Available [facility] (Lab Registration) [address] [place], [address], 07/05/2022 11:37:34 07/05/20 22 07/05/2022 COMP METAB OLIC PANEL alk phosphatase 192 U/L 50-120 high Not Available [facility] (Lab Registration) [address] [place], [address], 07/05/2022 11:37:34 07/05/20 22 07/05/2022 COMP METAB OLIC PANEL note Unles s other hall noted testi ng perfo rmed at: [facility] [address] [place] [address] [phone] Blake schultz MD CLIA: [id number] Not Available [facility] (Lab Registration) [address] [place], [address], 07/05/2022 11:37:34 07/05/20 22 07/05/2022 HIV 1/0/2 AG/AB (4TH GEN) note Unles s other hall noted testi ng perfo rmed at: [facility] [address] [place] [address] [phone] Blake schultz MD CLIA: [id number] Not Available [facility] (Lab Registration) [address] [place], [address], 07/06/2022 05:16:15 07/05/20 22 07/06/2022 HIV 1/0/2 AG/AB (4TH GEN) HIV screen 4TH generation wrfx Non Reacti ve non reacti ve HIV Negat luis HIV-1 /HIV- 2 antib odies and HIV-1 p24 antig en were NOT detec art. There is no labor atory evide nce of HIV infec tion. Perfo rmed at: - Lab[address] [id number] Lab Direc tor: Geovany metzger PhD, Phone : [phone] Not Available [facility] (Lab Registration) [address] [place], [address], 07/06/2022 05:16:15 07/05/20 22 07/05/2022 LIVER FIBRO SIS RISK PROFI LE note Unles s other hall noted testi ng perfo rmed at: [facility] [address] [place] [address] [phone] Blake schultz MD CLIA: [id number] Not Available [facility] (Lab Registration) [address] [place], [address], 07/06/2022 07:10:53 07/05/20 22 07/06/2022 LIVER FIBRO SIS RISK PROFI LE WBC 3.8 x10e3 /uL 3.4-10 .8 Not Available [facility] (Lab Registration) [address] [place], [address], 07/06/2022 07:10:53 07/05/20 22 07/06/2022 LIVER FIBRO SIS RISK PROFI LE RBC 4.65 x10e6 /uL 3.77-5 .28 Not Available [facility] (Lab Registration) [address] [place], [address], 07/06/2022 07:10:53 07/05/20 22 07/06/2022 LIVER FIBRO SIS RISK PROFI LE hemoglobin 13.0 g/dL 11.1-1 5.9 Not Available [facility] (Lab Registration) [address] [place], [address], 07/06/2022 07:10:53 07/05/20 22 07/06/2022 LIVER FIBRO SIS RISK PROFI LE hematocrit 39.1 % 34.0-4 6.6 SENT TO REFER ENCE LAB Not Available [facility] (Lab Registration) [address] [place], [address], 07/06/2022 07:10:53 07/05/20 22 07/06/2022 LIVER FIBRO SIS RISK PROFI LE MCV 84 fL 79-97 Not Available [facility] (Lab Registration) [place], [address], 07/06/2022 07:10:53 07/05/20 22 07/06/2022 LIVER FIBRO SIS RISK PROFI LE MCH 28.0 pg 26.6-3 3.0 Not Available [facility] (Lab Registration) [place], [address], 07/06/2022 07:10:53 07/05/20 22 07/06/2022 LIVER FIBRO SIS RISK PROFI LE MCHC 33.2 g/dL 31.5-3 5.7 Not Available [facility] (Lab Registration) [address] [place], [address], 07/06/2022 07:10:53 07/05/20 22 07/06/2022 LIVER FIBRO SIS RISK PROFI LE RDW 17.1 % 11.7-1 5.4 high Not Available [facility] (Lab Registration) [address] [place], [address], 07/06/2022 07:10:53 07/05/20 22 07/06/2022 LIVER FIBRO SIS RISK PROFI LE platelets 319 x10e3 /uL 150-45 0 Not Available [facility] (Lab Registration) [address] [place], [address], 07/06/2022 07:10:53 07/05/20 22 07/06/2022 LIVER FIBRO SIS RISK PROFI LE neutrophils 76 % Not Available [facility] (Lab Registration) [place], [address], 07/06/2022 07:10:53 07/05/20 22 07/06/2022 LIVER FIBRO SIS RISK PROFI LE lymphs 21 % Not Available [facility] (Lab Registration) [place], [address], 07/06/2022 07:10:53 07/05/20 22 07/06/2022 LIVER FIBRO SIS RISK PROFI LE monocytes 3 % Not Available [facility] (Lab Registration) [place], [address], 07/06/2022 07:10:53 07/05/20 22 07/06/2022 LIVER FIBRO SIS RISK PROFI LE eosinophils 0 % Not Available [facility] (Lab Registration) [place], [address], 07/06/2022 07:10:53 07/05/20 22 07/06/2022 LIVER FIBRO SIS RISK PROFI LE basophil 0 % Not Available [facility] (Lab Registration) [address] [place], [address], 07/06/2022 07:10:53 07/05/20 22 07/06/2022 LIVER FIBRO SIS RISK PROFI LE immature granlocytes 0 % Not Available [facility] (Lab Registration) [address] [place], [address], 07/06/2022 07:10:53 07/05/20 22 07/06/2022 LIVER FIBRO SIS RISK PROFI LE neutrophils (absolute) 2.8 x10e3 /uL 1.4-7. 0 Not Available [facility] (Lab Registration) [address] [place], [address], 07/06/2022 07:10:53 07/05/20 22 07/06/2022 LIVER FIBRO SIS RISK PROFI LE lymphs (absolute) 0.8 x10e3 /uL 0.7-3. 1 Not Available [facility] (Lab Registration) [address] [place], [address], 07/06/2022 07:10:53 07/05/20 22 07/06/2022 LIVER FIBRO SIS RISK PROFI LE monocytes (absolute) 0.1 x10e3 /uL 0.1-0. 9 Not Available [facility] (Lab Registration) [address] [place], [address], 07/06/2022 07:10:53 07/05/20 22 07/06/2022 LIVER FIBRO SIS RISK PROFI LE eosinophils (absolute) 0.0 x10e3 /uL 0.0-0. 4 Not Available [facility] (Lab Registration) [address] [place], [address], 07/06/2022 07:10:53 07/05/20 22 07/06/2022 LIVER FIBRO SIS RISK PROFI LE basophil (absolute) 0.0 x10e3 /uL 0.0-0. 2 Not Available [facility] (Lab Registration) [address] [place], [address], 07/06/2022 07:10:53 07/05/20 22 07/06/2022 LIVER FIBRO SIS RISK PROFI LE immature grans (absolute) 0.0 x10e3 /uL 0.0-0. 1 Not Available [facility] (Lab Registration) [address] [place], [address], 07/06/2022 07:10:53 07/05/20 22 07/06/2022 LIVER FIBRO SIS RISK PROFI LE albumin 4.3 g/dL 3.8-4. 8 Not Available [facility] (Lab Registration) [address] [place], [address], 07/06/2022 07:10:53 07/05/20 22 07/06/2022 LIVER FIBRO SIS RISK PROFI LE protein, total, serum 8.2 g/dL 6.0-8. 5 SENT TO REFER ENCE LAB Not Available [facility] (Lab Registration) [address] [place], [address], 07/06/2022 07:10:53 07/05/20 22 07/06/2022 LIVER FIBRO SIS RISK PROFI LE bilirubin, total 0.5 mg/dL 0.0-1. 2 Not Available [facility] (Lab Registration) [address] [place], [address], 07/06/2022 07:10:53 07/05/20 22 07/06/2022 LIVER FIBRO SIS RISK PROFI LE bilirubin, direct 0.22 mg/dL 0.00-0 .40 Not Available [facility] (Lab Registration) [address] [place], [address], 07/06/2022 07:10:53 07/05/20 22 07/06/2022 LIVER FIBRO SIS RISK PROFI LE AST (SGOT) 34 IU/L 0-40 Not Available [facility] (Lab Registration) [address] [place], [address], 07/06/2022 07:10:53 07/05/20 22 07/06/2022 LIVER FIBRO SIS RISK PROFI LE ALT (SGPT) 25 IU/L 0-32 Not Available [facility] (Lab Registration) [address] [place], [address], 07/06/2022 07:10:53 07/05/20 22 07/06/2022 LIVER FIBRO SIS RISK PROFI LE alkaline phosphatase, S 193 IU/L 44-121 high Not Available [facility] (Lab Registration) [address] [place], [address], 07/06/2022 07:10:53 07/05/20 22 07/06/2022 LIVER FIBRO SIS RISK PROFI LE fib-4 index 1.04 0.00-2 .67 0.00 - 1.29 Low risk for advan renée liver fibro sis 1.30 - 2.67 Indet ermin ate risk for advan renée liver fibro sis >2.67 High risk for advan renée fibro sis and for the devel opmen t of other liver relat ed event s Not Available [facility] (Lab Registration) [address] [place], [address], 07/06/2022 07:10:53 07/05/2007/06/2022 LIVER FIBRO SIS RISK [...] ology 2003; 38(2) :518- 526 Not Available [facility] (Lab Registration) [address] [place], [address], 07/06/2022 07:10:53 07/05/20 22 07/05/2022 AFP, SERUM , TUMOR MARKE R note Unles s other hall noted testi ng perfo rmed at: [facility] [address] [place] [address] [phone] Blake schultz MD CLIA: [id number] Not Available [facility] (Lab Registration) [address] , [place], [address], 07/06/2022 08:15:52 07/05/20 22 07/06/2022 AFP, SERUM [...] t be inter prete d as absol inupiat evide nce of the prese [facility] . This test is not inter preta ble in pregn ant femal es. Perfo rmed at: [place] [id number] Lab Direc tor: Geovany metzger PhD, Phone : [phone] SENT TO REFER ENCE LAB Not Available [facility] (Lab Registration) [address], [place], [address], 07/06/2022 08:15:52 07/05/20 22 07/05/2022 ACUTE HEPAT ITIS PANEL note Unles s other hall noted testi ng perfo rmed at: [facility] [address] [place] [address] [phone] Blake schultz MD CLIA: [id number] Not Available [facility] (Lab Registration) [address] [place], [address], 07/09/2022 17:09:36 07/05/20 22 07/09/2022 ACUTE HEPAT ITIS PANEL hep A Ab, IgM NEGATI VE negati ve Not Available [facility] (Lab Registration) [address] [place], [address], 07/09/2022 17:09:36 07/05/20 22 07/09/2022 ACUTE HEPAT ITIS PANEL HBsAg screen NEGATI VE negati ve SENT TO REFER ENCE LAB Not Available [facility] (Lab Registration) [address] [place], [address], 07/09/2022 17:09:36 07/05/20 22 07/09/2022 ACUTE HEPAT ITIS PANEL hep B core Ab, IgM NEGATI VE negati ve SENT TO REFER ENCE LAB Not Available [facility] (Lab Registration) [address] [place], [address], 07/09/2022 17:09:36 07/05/20 22 07/09/2022 ACUTE HEPAT ITIS PANEL HCV Ab >11.0 s/co_ ratio 0.0-0. 9 high . [facility]med at: [facility] [place] [address] Lab Direc tor: Geovany metzger PhD, Phone : [phone] SENT TO REFER ENCE LAB Not Available [facility] (Lab Registration) [address] [place], [address], 07/09/2022 17:09:36 07/05/20 22 07/09/2022 ACUTE HEPAT ITIS PANEL hepatitis C quantitation TNP IU/mL Test not perfo rmed. Insuf ficie nt speci men to perfo rm or compl ete brina sis. CONTA CT:LUIS MIGUEL JONESY LAY 023 Not Available [facility] (Lab Registration) [address] [place], [address], 07/09/2022 17:09:36 07/05/20 22 07/09/2022 ACUTE HEPAT ITIS PANEL test information: COMMEN T . The quant itati ve range of this assay is 15 IU/mL to 100 nery on IU/mL . Not Available [facility] (Lab Registration) [address], [place], [address], 07/09/2022 17:09:36 07/05/20 22 07/09/2022 ACUTE HEPAT ITIS PANEL interpretati on: TNP Test not perfo rmed. Insuf ficie nt speci men to perfo rm or compl ete brnia sis. CONTA CT:LI LLY LAY 023 Perfo rmed at: [facility] [place] [address] [facility] , [place] [address] Lab Direc tor: Kylee staton MD, Phone : [phone] Not Available [facility] (Lab Registration) [address], [place], [address], 07/09/2022 17:09:36 07/05/20 22 07/05/2022 HCV ANTIB ZAYRA RFX TO QUANT PCR note Unles s other hall noted testi ng [facility] [address] [place] [address] [phone] Blake schultz MD CLIA: [id number] Not Available [facility] (Lab Registration) [address], [place], [address], 07/10/2022 10:13:43 07/05/20 22 07/10/2022 HCV ANTIB ZAYRA RFX TO QUANT PCR HCV Ab >11.0 s/co_ ratio 0.0-0. 9 high . Perfo rmed at: [facility] [address] [facility], [place] [address] Lab Direc tor: Geovany metzger PhD, Phone : [phone] SENT TO REFER ENCE LAB Not Available [facility] (Lab Registration) [address] [place], [address], 07/10/2022 10:13:43 07/05/20 22 07/05/2022 HCV ANTIB ZAYRA RFX TO QUANT PCR note Unles s other hall noted testi ng perfo rmed at: [facility] [address] [place] [address] [phone] Blake schultz MD CLIA: [id number] Not Available [facility] (Lab Registration) [address] [place], [address], 07/10/2022 10:13:44 07/05/20 22 07/10/2022 HCV ANTIB ZAYRA RFX TO QUANT PCR HCV Ab >11.0 s/co_ ratio 0.0-0. 9 high . Perfo rmed at: [place] [id number] Lab Direc tor: Geovany metzger PhD, Phone : [phone] SENT TO REFER ENCE LAB Not Available [facility] (Lab Registration) [address] [place], [address], 07/10/2022 10:13:44 07/05/20 22 07/10/2022 HCV ANTIB ZAYRA RFX TO QUANT PCR hepatitis C quantitation 22954 IU/mL Not Available [facility] (Lab Registration) [address] [place], [address], 07/10/2022 10:13:44 07/05/20 22 07/10/2022 HCV ANTIB ZAYRA RFX TO QUANT PCR HCV log 10 4.927 log10 _IU/m L Not Available [facility] (Lab Registration) [address] [place], [address], 07/10/2022 10:13:44 07/05/20 22 07/10/2022 HCV ANTIB ZAYRA RFX TO QUANT PCR test information: Commen t . The quant itati ve range of this assay is 15 IU/mL to 100 nery on IU/mL . Not Available [facility] (Lab Registration) [address] [place], [address], 07/10/2022 10:13:44 07/05/20 22 07/10/2022 HCV ANTIB ZAYRA RFX TO QUANT PCR interpretati on: Commen t Posit luis HCV antib zayra scree n with the prese nce of HCV RNA is consi stent with activ e infec tion. Perfo rmed at: [facility] [place] [address] , [place] [address] Lab Direc tor: Kylee staton MD, Phone : [phone] Not Available [facility] (Lab Registration) [address], [place], [address], 07/10/2022 10:13:44 07/05/20 22 07/05/2022 HCV RNA BY PCR QN RFX GENOT YPE note Unles s other hall noted testi ng perfo rmed at: [facility] [address] [place] [address] [phone] Blake schultz MD CLIA: [id number] Not Available [facility] (Lab Registration) [address] [place] [place], [address], 07/10/2022 19:10:32 07/05/20 22 07/10/2022 HCV RNA BY PCR QN RFX GENOT YPE hepatitis C quantitation 88098 IU/mL Not Available [facility] (Lab Registration) [address] [place], [address], 07/10/2022 19:10:32 07/05/20 22 07/10/2022 HCV RNA BY PCR QN RFX GENOT YPE HCV log10 4.898 log10 _IU/m L Not Available [facility] (Lab Registration) [address] [place], [address], 07/10/2022 19:10:32 07/05/20 22 07/10/2022 HCV RNA BY PCR QN RFX GENOT YPE HCV test information Commen t . The quant itati ve range of this assay is 15 IU/mL to 100 nery on IU/mL . Not Available [facility] (Lab Registration) [address], [place], [address], 07/10/2022 19:10:32 07/05/20 22 07/10/2022 HCV RNA BY PCR QN RFX GENOT YPE HCV genotype Commen t To be perfo rmed on this speci men. Perfo rmed at: - [facility] [place] [address] [facility] , [place] [address] Lab Direc tor: Kylee staton MD, Phone : [phone] Not Available [facility] (Lab Registration) [address], [place], [address], 07/10/2022 19:10:32 07/05/20 22 07/05/2022 HCV RNA BY PCR QN RFX GENOT YPE note Unles s other hall noted testi ng perfo rmed at: [facility] [address] [place] [address] [phone] Blake schultz MD CLIA: [id number] Not Available [facility] (Lab Registration) [address] [place], [address], 07/10/2022 19:10:33 07/05/20 22 07/10/2022 HCV RNA BY PCR QN RFX GENOT YPE hepatitis C quantitation 70403 IU/mL Not Available [facility] (Lab Registration) [address] [place], [address], 07/10/2022 19:10:33 07/05/20 22 07/10/2022 HCV RNA BY PCR QN RFX GENOT YPE HCV log10 4.898 log10 _IU/m L Not Available [facility] (Lab Registration) [address] [place], [address], 07/10/2022 19:10:33 07/05/20 22 07/10/2022 HCV RNA BY PCR QN RFX GENOT YPE HCV test information Commen t . The quant itati ve range of this assay is 15 IU/mL to 100 nery on IU/mL . Not Available [facility] (Lab Registration) [address] [place], [address], 07/10/2022 19:10:33 07/05/20 22 07/10/2022 HCV RNA BY PCR QN RFX GENOT YPE HCV genotype Commen t To be perfo rmed on this speci men. [facility] [address] [place] [address] Lab Direc tor: Kylee staton MD, Phone : [phone] Not Available [facility] (Lab Registration) [address] [place], [address], 07/10/2022 19:10:33 07/05/20 22 07/10/2022 HCV RNA BY PCR QN RFX GENOT YPE hepatitis C genotype 1a Not Available [facility] (Lab Registration) [address] [place], [address], 07/10/2022 19:10:33 07/05/20 22 07/10/2022 HCV RNA BY PCR QN RFX GENOT YPE please note Commen t . This test was devel oped and its perfo rmanc e ana cteri stics deter mined by [facility]. It has not been clear ed or appro huong by the U.S. Food and Drug Admin istra tion. . The FDA has deter mined that such clear ance or appro ariana is not neces eliud. This test is used for clini wei purpo ses. It shoul d not be regar ded as inves tigat ional or for [facility]. Perfo rmed at: - [facility] [place] [facility] [address] [place] [address] Lab Direc tor: Kylee staton MD, Phone : [phone] Not Available [facility] (Lab Registration) [address] [place], [address], 07/10/2022 19:10:33 Result Notes None recorded. Problems Name Problem SNOMED Code Status Onset Date Resolution Date Notes Provider Name and Address Organization Details Recorded Time History of blood transfusion 571642046 Active 2021 Tish [place], [place] [facility] [place] 2 10:53:35 Cirrhosis of liver 81268654 Active 2021 T[place] [facility] [place] 2 10:53:42 Viral hepatitis C 49301377 Active 2021 Tish [place] [facility] [place] 2 10:53:47 Irritable bowel syndrome 45426406 Active 2021 Tish [place] [facility] [place] 2 10:54:05 Hypothyroidism 27301020 Active 2021 Tish [place] [facility] [place] 2 11:02:07 Anemia 256582961 Active 2021 Tish [place] [facility] [place] 2 11:02:54 Chronic pain 57253852 Active 2021 Tish [place] [facility] [place] 2 11:03:07 Right upper quadrant pain 186058949 Active 2021 Sydnie Gabriel NP [address], [address], [place], [address], [place] [facility] [place] 2 11:23:12 Chronic hepatitis C 122991306 Active 2021 Sydnie Gabriel NP [address], [address], [place], [address], [place] [facility] [place] 2 11:24:53 Hematochezia 116155833 Active 2021 Sydnie Gabriel NP [address], [address], [place], [address], [place] [facility] [place] 2 11:25:43 Problem Notes None recorded. Medical [...] Updated DateTime 2 157.48 cm 25.8 kg/m2 07917.5 2 g 98.6 [degF] 96 % 96 % 83 /min [facility] [place] Social History None recorded. Functional Status Question Answer Note LastModified by Organizat ion Details LastModified Time Do you use any illicit or recreational drugs? Hx of IV & Intranasal drug abuse [email or web address] Information not available 06/19/2022 What is your level of alcohol consumption? None [email or web address] Information not available 06/19/2022 Mental Status None recorded. Family History Relationship Description Onset Age of this Age Resolved Age Notes LastModified by Organization Details LastModified Time Maternal Grandmother Malignant tumor of colon Not available 06/19 11:03:32 Father Myocardial infarction [email or web address] Not available 06/06 11:03:48 Medical History Condition Response GERD/Reflux Y Hepatitis Y Cirrhosis Y Hypothyroidism Y Gynecological HistoryNo gynecological history recorded. Obstetrics History GPAL:G 0 P 0 0 0 0 Past Encounters Encounter ID Performer Location Encounter Start Date Encounter Closed Date Diagnosis/Indication Diagnosis SNOMED-CT Code Diagnosis ICD10 Code Diagnosis Note [id number] Sydnie Gabriel NP [facility] [address] [place] [phone] 06/19/2022 10:25:40 06/19/2022 13:30:24 Irritable bowel syndrome 45367675 K58.9 Recommend MiraLax 17 g p.o. daily [...] or gave. Right uppe r quadrant pain 932745647 R10.11 2 month hx of RUQ pain comes and goes. Plan for labs and imaging as well as EGD to evaluate.f urther Chronic hepatitis C 1283 24083 B18.2 S/P 8 week treatment with Harvoni [...] discuss results and formulate treatment plan. Hematochezia 208816921 K 92.1 Episodes of hematochez ia off [...] Shaffer Member ID Guarantor Name 07/15/2022 1 [facility] (HMO) Tenisha Epstein [id number] Tenisha Epstein 01/24/2024 1 [facility] (MEDICAID REPLACEMENT - HMO) Tenisha Epstein [id number] Tenisha Epstein 01/24/2024 1 [facility] (MEDICAID REPLACEMENT - HMO) Tenisha Epstein [id number] Tenisha Epstein Notes Date Note Type Note [...] up. Denies nausea or vomiting. Sydnie Harvey, NETWORK OPERATIONS SPECIALIST [address] [place] [address] Drive, [address], [place], [address], [facility] [place] 06/19/2022 12:29:01 OBGyn Episode No OBEpisode recorded.
--- OUTSIDE RECORDS SUMMARY | 2025-01-19 07:46 | XMS_ITS | Clinical Summary ---
[place] [address] Home Phone Mobile Phone Email Address Preferred Language en Marital Status Scientology Affiliation Unknown Race White Ethnic Group Not or Lati no Author Organization Healthcare Address [address] [place] [address] Care Team Providers Care Film And Video Editor Name Role Phone Brant Pruett MD Primary Care Provider Lalitha vailable Allergies Active Allergy Reactions Criticality Noted Date Comments Tape/Bandaid Adhesive Hives Medium 09/18/2023 Medications Ventolin HFA 108 (90 Base) MCG/ACT inhaler Inhale 2 puffs as needed. 01/15/20 23 Active Trelegy Ellipta 100-62.5-25 MCG/ACT aerosol powder Inhale 1 puff 1 (one) time each day. 01/18/20 23 Active ipratropium-albut praveena (Duo-Neb) 0.5-2.5 mg/3 mL nebulizer solution Take [...] a day as needed. 09/22/19 24 Active venlafaxine 225 MG 24 hr [...] for pain. 30 tablet 12/30/19 24 Active buprenorphine-nal oxone (Suboxone) 8-[address] 2 AND 1/2 TABLETS UNDER THE TONGUE AND ALLOW TO DISSOLVE 1 TIME EACH DAY. 01/07/20 25 Active pancrelipase, Tde-Iebo-Twvg, (Creon) 77201-306797 units capsule delayed-release particles capsule 08/10/19 25 Active ondansetron ODT (Zofran-ODT) 4 MG disintegrating tablet Dissolve 1 tablet on the tongue every 8 hours as needed for nausea or vomiting. 20 tablet 01/12/20 25 Active hydroxychloroquin e (Plaquenil) 200 MG tabletIndications :Systemic lupus erythematosus (SLE) in adult ([facility]) Take 1.5 pills daily 135 tablet 1 01/12/20 25 Active amitriptyline (Elavil) 50 MG tablet TAKE 1 TABLET 1 TIME EACH DAY AT BEDTIME 11/12/19 24 025 Discontinu ed(Per Patient Report) ondansetron ODT (Zofran-ODT) 4 MG disintegrating tablet Take 1 tablet (4 mg) by mouth every 8 (eight) hours if needed for nausea or vomiting. 20 tablet 12/30/19 24 025 Discontinu ed(Reorder ) colchicine 0.6 MG tabletIndications :Systemic lupus erythematosus (SLE) in adult ([facility]),Serosit is ([facility]) Take 1 tablet (0.6 mg) by mouth 2 (two) times a day if needed (Pleuritic chest pain). 60 tablet 2 02/18/20 24 025 Discontinu ed(Per Patient Report) Belimumab (Benlysta) 200 MG/ML solution auto-injectorIndi cations:Systemic lupus erythematosus (SLE) in adult ([facility]) Inject 200 mg under the skin every 7 (seven) days. 4 mL 4 09/11/19 25 025 Discontinu ed(Per Patient Report) hydroxychloroquin e (Plaquenil) 200 MG tabletIndications :Systemic lupus erythematosus (SLE) in adult (CMS/HCC) TAKE 1 AND 1/2 TABLETS 1 TIME EACH DAY 135 tablet 12/01/19 25 025 Discontinu ed(Reorder ) Active Problems Problem Noted Date Diagnosed Date [...] 03/15/2020 Pericardial effusion 03/15/2020 Overview (09/18/2023): 03/23/20 C: Findings concerning for, but not definitive for [...] Encounters Date Type Department Care Team Description 01/13/2025 Telephone [facility] [address], [address] [place] [address] Zuleyka Godinez RN 01/13/2025 Orders Only [facility] [address] [place] [address] William Ray MD Systemic lupus erythematosus (SLE) in adult ([facility]) (Primary Dx); High risk medication use 01/13/2025 Results Follow-Up [facility] [address], [address] [place] [address] William Ray MD 01/13/2025 Telephone [facility] [address], [address] [place] [address] Zuleyka Godinez RN 01/13/2025 Telephone [facility] [address] [place] [address] Ronna Liang, PharmD 01/11/2025 11:00 AM EDT Office Visit [facility] [address], [address] [place] [address] William Ray MD High risk medication use (Primary Dx); Systemic lupus erythematosus (SLE) in adult ([facility]); Chronic hepatitis C without hepatic coma ([facility]) 01/11/2025 Telephone [facility] [address], [address] [place] [address] Zuleyka Godinez RN 01/11/2025 Travel 01/06/2025 Telephone [facility] [address], [address] [place] [address] Shirley Mcfadden 12/14/2024 Telephone [facility] [address] [place] [address] William Ray MD 11/30/2024 Refill [facility] [address] [place] [address] Nayely Lindquist MD Systemic lupus erythematosus (SLE) in adult ([facility]) 11/08/2024 Telephone [facility] [address], [address] [place] [address] Zuleyka Godinez RN from Last [...] F) 01/11/2025 10:50 AM EDT Respiratory Rate 16 02/18/2024 1:59 PM EDT Oxygen Saturation 99% 01/11/2025 10:50 AM EDT Inhaled Oxygen Concentration - - Weight 67.3 kg (148 lb 5.9 oz) 01/11/2025 10:50 AM EDT Height 160 cm (5' 3 ) 01/11/2025 10:50 AM EDT Body Mass Index 26.28 01/11/2025 10:50 AM EDT Plan of Treatment Upcoming Encounters Date Type Department Care Team (Late st Contact Info) Description 04/08/2025 10:30 AM EDT Office Visit [facility] [address] [place] [address] William Ray MD [address] [place] [address] Health Maintenance Due Date Last Done Comments [facility]-/Child/Adol SDOH Screenings 1973 [id number] Vaccine (#1) 1978 [facility]- SDOH Screenings 1991 [...] Completed 09/21/2023, , 02/24/2020, Additional history exists [facility]-Pneumococcal Vaccine: 50+ Years Completed 09/10/2024 [facility]-Obesity Intervention Completed 025, 09/10/2024, 02/18/2024, Additional history exists HPV Vaccines Aged Out No longer eligi [...] Procedure Name Priority Date/Time Associated Diagnosis Comments PROTEIN, URINE, RANDOM WITH CREATININE Routine 01/11/2025 12:09 PM EDT Systemic lupus erythematosus (SLE) in adult ([facility]) URINALYSIS, MICROSCOPIC Routine 01/12/20 12:09 PM EDT Systemic lupus erythematosus (SLE) in adult ([facility]) SEDIMENTATION RATE, AUTOMATED Routine 01/11/2025 11:47 AM EDT Systemic lupus erythematosus (SLE) in adult ([facility]) C4 COMPLEMENT Routine 01/11/2025 11:47 AM EDT Systemic lupus erythematosus (SLE) in adult ([facility]) C3 COMPLEMENT Routine 01/11/2025 11:47 AM EDT Systemic lupus erythematosus (SLE) in adult ([facility]) HEPATIC FUNCTION PANEL Routine 11:47 AM EDT High risk medication use CREATININE, PLASMA Routine 01/11/2025 11 :47 AM EDT High risk medication use CBC WITH AUTO DIFFERENTIAL Routine 01/11/2025 11:47 AM EDT High risk medication use ED HIV 1/2 ANTIBODY/ANTIGEN SCREEN WITH REFLEX TO HIV I/II DIFFERENTIATION STAT 09/21/2023 9:52 PM EDT from Last 3 Months or Most Recently Relevant to Health Maintenance Results * Protein, Random, Urine with Creatinine (01/11/2025 12:09 PM EDT) Protein, Urine 26 mg/dL 01/11/2025 3:01 PM EDT LAB Creatinine, Urine 305 mg/dL 01/11/2025 3:01 PM EDT LAB Protein/Creati nine Ratio 0.1 mg/mg Creat 01/11/2025 3:01 PM EDT LAB Urine Urine specimen obtained by clean catch procedure / Unknown Non-blood Collection / Unknown 01/11/2025 12:09 PM EDT 01/11/2025 12:09 PM EDT us William Ray MD LAB URINE ORDERABLES Final Resul t LAB [address] [place] [address] * (ABNORMAL) Urinalysis, Microscopic (01/11/2025 12:09 PM EDT) RBC, Urine <1 0 to 3 /HPF 01/11/2025 3:05 PM EDT LAB WBC, Urine 11 - 20(A) 0 to 5 /HPF 01/11/2025 3:05 PM EDT LAB Squamous Epithelial Cells 3 - 5 0 to 5 /HPF 01/11/2025 3:05 PM EDT LAB Hyaline Casts 0 - 2 0 to 5 /LPF 01/11/2025 3:05 PM EDT LAB Bacteria, Urine Present Negative 3:05 PM EDT LAB Trichomonas Present Absent 01/11/2025 3:05 PM EDT LAB Mucus Present 01/11/2025 3:05 PM EDT LAB Urine Urine specimen obtained by clean catch procedure / Unknown Non-blood Collection / Unknown 01/11/2025 12:09 PM EDT 01/11/2025 12:09 PM EDT William Ray MD LAB URINE ORDERABLES Final Resul t Performing Organization Address [facility] de Phone Number LAB [address] [place] [address] * Creatinine, Plasma (01/11/2025 11:47 AM EDT) Creatinine, Plasma 0.70 0.60 - 1.10 mg/dL 01/11/2025 3:04 PM EDT HEALTHCARE LAB eGFRcr 104.9 mL/min/1.7 3m*2 01/11/2025 3:04 PM EDT HEALTHCARE LAB Comment:Reported eGFRcr in m L/min/1.73m2 is based the CKD-EPI 2020 equation that does not use a race coefficient. Blood Venous blood specimen / Unknown Venipuncture / Unknown 01/11/2025 11:47 AM EDT 01/11/2025 11:47 AM EDT William Ray MD LAB BLOOD ORDERABLES Final Resul t Performing Organization Address [facility] de Phone Number HEALTHCARE LAB [address] [place] [address] * Sedimentation Rate, Automated (01/11/2025 11:47 AM EDT) Sedimentation Rate 23 <30 mm/hr 2024 2:43 PM EDT LAB Blood Venous blood specimen / Unknown Venipuncture / Unknown 01/11/2025 11:47 AM EDT 01/11/2025 11:47 AM EDT us William Ray MD LAB BLOOD ORDERABLES Final Resul t Performing Organization Address [facility] de Phone Number LAB [address] [place] [address] * (ABNORMAL) CBC and Differential (01/11/2025 11:47 AM EDT) WBC Count 5.64 3.70 - 10.30 10*3/uL LAB HEMATOLOGY METHOD 01/11/2025 2:49 PM EDT LAB RBC Count 5.41(H) 3.90 - 5.20 10*6/uL LAB HEMATOLOGY METHOD 01/11/2025 2:49 PM EDT LAB HGB 14.9 11.2 - 15.7 g/dL LAB HEMATOLOGY METHOD 01/11/2025 2:49 PM EDT LAB HCT 44.4 34.0 - 45.0 % LAB HEMATOLOGY METHOD 01/11/2025 2:49 PM EDT LAB Platelet Count 284 155 - 369 10*3/uL LAB HEMATOLOGY METHOD 01/11/2025 2:49 PM EDT LAB MCV 82 79 - 98 fL LAB HEMATOLOGY METHOD 01/11/2025 2:49 PM EDT LAB MCH 27.5 26.0 - 32.0 pg LAB HEMATOLOGY METHOD 01/11/2025 2:49 PM EDT LAB MCHC 33.6 30.7 - 35.5 g/dL LAB HEMATOLOGY METHOD 01/11/2025 2:49 PM EDT LAB RDW 14.4 11.5 - 14.5 % LAB HEMATOLOGY METHOD 01/11/2025 2:49 PM EDT LAB MPV 8.8 8.8 - 12.5 fL LAB HEMATOLOGY METHOD 01/11/2025 2:49 PM EDT LAB nRBC 0.0 <=0.0 per 100 WBCs LAB HEMATOLOGY METHOD 01/11/2025 2:49 PM EDT LAB Differential Type Automated LAB HEMATOLOGY METHOD 01/11/2025 2:49 PM EDT LAB Neutrophils % 76 % LAB HEMATOLOGY METHOD 01/11/2025 2:49 PM EDT LAB Lymphocytes % 19 % LAB HEMATOLOGY METHOD 01/11/2025 2:49 PM EDT LAB Monocytes % 3 % LAB HEMATOLOGY METHOD 01/11/2025 2:49 PM EDT LAB Eosinophils % 1 % LAB HEMATOLOGY METHOD 01/11/2025 2:49 PM EDT LAB Basophils % 0 % LAB HEMATOLOGY METHOD 01/11/2025 2:49 PM EDT LAB Immature Granulocytes % 1 % LAB HEMATOLOGY METHOD 01/11/2025 2:49 PM EDT LAB Neutrophils Absolute 4.29 1.60 - 6.10 10*3/uL LAB HEMATOLOGY METHOD 01/11/2025 2:49 PM EDT LAB Lymphocytes Absolute 1.07(L) 1.20 - 3.90 10*3/uL LAB HEMATOLOGY METHOD 01/11/2025 2:49 PM EDT LAB Monocytes Absolute 0.16(L) 0.30 - 0.90 10*3/uL LAB HEMATOLOGY METHOD 01/11/2025 2:49 PM EDT LAB Eosinophils Absolute 0.06 0.00 - 0.50 10*3/uL LAB HEMATOLOGY METHOD 01/11/2025 2:49 PM EDT LAB Basophils Absolute 0.02 0.00 - 0.10 10*3/uL LAB HEMATOLOGY METHOD 01/11/2025 2:49 PM EDT LAB Immature Granulocytes Absolute 0.04 0.00 - 0.06 10*3/uL LAB HEMATOLOGY METHOD 01/11/2025 2:49 PM EDT LAB Blood Venous blood specimen / Unknown Venipuncture / Unknown 01/11/2025 11:47 AM EDT 01/11/2025 11:47 AM EDT Narrative LAB - 01/11/2025 2:49 PM EDT Therapeutic decision making should be based on absolute values, rather than percentages. us William Ray MD LAB BLOOD ORDERABLES Final Resul t Performing Organization Address City/[facility]/ZIP Co de Phone Number LAB [address] [place] [address] * C3 Complement (01/11/2025 11:47 AM EDT) C3 Complement 126 84 - 166 mg/dL 01/11/2025 4:25 PM EDT [facility] Blood Venous blood specimen / Unknown Venipuncture / Unknown 01/11/2025 11:47 AM EDT 01/11/2025 11:47 AM EDT us William Ray MD LAB BLOOD ORDERABLES Final Resul t [facility] [address] [place] [address] * C4 Complement (01/11/2025 11:47 AM EDT) C4 Complement 15 13 - 36 mg/dL 01/11/2025 4:[address] [facility] Blood Venous blood specimen / Unknown Venipuncture / Unknown 01/11/2025 11:47 AM EDT 01/11/2025 11:47 AM EDT us William Ray MD LAB BLOOD ORDERABLES Final Resul t Performing Organization Address City/[facility]/ZIP Co de Phone Number [facility] [address] [place] [address] * (ABNORMAL) Hepatic Function Panel (01/11/2025 11:47 AM EDT) Conjugated Bilirubin, Plasma <0.2 <=0.3 mg/dL 01/11/2025 3:04 PM EDT LAB Comment:Hemolyzed, result ma y be falsely decreased. Alkaline Phosphatase, Plasma 231(H) 35 - 104 U/L 01/11/2025 3:04 PM EDT LAB Total Bilirubin, Plasma 0.4 0.2 - 1.1 mg/dL 01/11/2025 3:04 PM EDT LAB Albumin, Plasma 4.3 3.5 - 5.2 g/dL 01/11/2025 3:04 PM EDT LAB Total Protein 8.1(H) 6.3 - 7.9 g/dL 01/11/2025 3:04 PM EDT LAB ALT, Plasma 21 10 - 35 U/L 01/11/2025 3:04 PM EDT LAB AST, Plasma 71(H) 10 - 35 U/L 01/11/2025 3:04 PM EDT LAB Comment:Hemolyzed, result ma y be falsely increased. Blood Venous blood specimen / Unknown Venipuncture / Unknown 01/11/2025 11:47 AM EDT 01/11/2025 11:47 AM EDT us William Ray MD LAB BLOOD ORDERABLES Final Resul t Performing Organization Address City/[facility]/ZIP Co de Phone Number LAB [address] [place] [address] * ED HIV 1/2 Antibody/Antigen Screen w/Reflex to HIV 1/2 Differentiation (09/21/2023 9:52 PM EDT) HIV 1 & 2 Antibody/Antigen Screen Non Reactive Non Reactive 09/21/2023 10:47 PM EDT [facility] Comment:Screening for HIV 1 & 2 antibodies, and P24 antigen is NONREACTIVE. No confirmatory testing is required. Blood Venous blood specimen / Unknown Venipuncture / Unknown 09/21/2023 9:52 PM EDT 09/21/2023 10:04 PM EDT us Michael Velazco MD LAB BLOOD ORDERABLES Fi nal Result [facility]ALTHCARE LAB [address] [place] [address] from Last 3 Months or Most Recently Relevant to Health Maintenance Insurance Care Teams Film And Video Editor Relationship Specialty Start Date End Date Brant Pruett MD PCP - General Family Medicine 01/11/25
--- OUTSIDE RECORDS SUMMARY | 2025-01-19 07:46 | XMS_ITS | Encounter Summary ---
[place] [address] Home Phone Mobile Phone Email Address Preferred Language en Marital Status Lutheran Affiliation Unknown Race White Ethnic Group Not or Lati no Author Organization Healthcare Address [address] [place] [address] Care Team Providers Care Iron Molder Helper Name Role Phone Brant Pruett MD Primary Care Provider Lalitha vailable Encounter Details Date Type Department Care Team (Late Contact Info) Description 01/13/2025 Telephone [facility] [address] [employer], [address] [address] Zuleyka Godinez RN [facility] Social History Tobacco Use [...] Encounters Date Type Department Care Team (Late Contact Info) Description 04/08/2025 10:30 AM EDT Office Visit [facility] [address], [facility] [address] [place] [address] William Ray MD [address] [address] documented as of this encounter Visit Diagnoses Not on filedocumented in this encounter Additional Health Concerns Assessment Noted Time A fall risk assessment has been complete d for the patient 01/11/2025 10:50 AM EDT A Body Mass Index follow-up plan has been documented for the patient 01/11/2025 12:31 PM EDT documented as of this encounter Care Teams Iron Molder Helper Relationship Specialty Start Date End Date Brant Pruett MD PCP - General Family Medicine 01/11/25 documented as of this encounter
--- OUTSIDE RECORDS SUMMARY | 2025-01-19 07:46 | XMS_ITS | Encounter Summary ---
[place] [address] Home Phone Mobile Phone Email Address Preferred Language en Marital Status Zoroastrianism Affiliation Unknown Race White Ethnic Group Not or Lati no Author Organization Healthcare Address [address] [place] [address] Care Team Providers Care Propulsion Generator Repairer Name Role Phone Brant Pruett MD Primary Care Provider Lalitha vailable Encounter Details Date Type Department Care Team (Late st Contact Info) Description 01/11/2025 Telephone [facility] [address], [address] [place] [address] Zuleyka Godinez RN [facility] Social History [...] Telephone Encounter - Zuleyka Godinez RN - 01/12/2025 5:11 PM EDT Appointment reminder mailed to patient's home address. * Telephone Encounter - Zuleyka Godinez RN - 01/11/2025 12:18 PM EDT LVM for patient detailing abdominal US appointment on 01/21/25 at 930. CB number left. documented in this encounter Plan of Treatment Upcoming Encounters Date Type Department Care Team (Late st Contact Info) Description 04/08/2025 10:30 AM EDT Office Visit [facility] [address], [facility] [address] [place] [address] William Ray MD [address] [place] [address] documented as of this encounter Visit Diagnoses Not on filedocumented in this encounter Additional Health Concerns Assessment Noted Time A fall risk assessment has been complete d for the patient 01/11/2025 10:50 AM EDT A Body Mass Index follow-up plan has been documented for the patient 01/11/2025 12:31 PM EDT documented as of this encounter Care Teams Propulsion Generator Repairer Relationship Specialty Start Date End Date Brant Pruett MD PCP - General Family Medicine 01/11/25 documented as of this encounter
--- NOTE | 2025-01-19 07:48 | US_ITS ---
FINAL REPORT TECHNIQUE: Multiple transverse and longitudinal images CLINICAL HISTORY: FOCUS GB/LIVER/BILE DUCT, HEP C W/O COMA, HIGH BILLY MED USE FINDINGS: The patient is status post cholecystectomy. No biliary ductal dilatation is appreciated. No fluid collections are seen. Limited portions of the right liver are unremarkable. Limited portions of the right kidney are unremarkable. Pancreas is largely obscured. IMPRESSION: Status post cholecystectomy. Otherwise unremarkable exam. Reviewed, Interpreted and Dictated by Barby Arora MD Transcribed by Lesa Sla Authenticated and [facility]
[2025-01-19 08:55] LABS: Alanine Aminotransferase 19 U/L (12-78); Albumin Level 4.4 g/dl (3.5-5.0); Alkaline Phosphatase 108 U/L (38-126); Aspartate Amino Transferase 32 U/L (14-36); Bilirubin,Direct 0.3 mg/dl (0.0-0.4); Bilirubin,Indirect 0.2 mg/dL (0.0-0.9); Bilirubin,Total 0.5 mg/dl (0.2-1.3); Bilirubin,Unconjugated 0.2 mg/dL (0.0-1.1); Total Protein,Serum 7.7 g/dl (6.3-8.2)
== END 2025-01-19 23:59 | disposition home or self-care (01) ==
LOC: RAD 07:44
PROVIDERS: PCP Family Medicine; Visit Provider Student in an Organized Health Care Education/Training Program
DX: B18.2 Chronic viral hepatitis C (principal); Z79.899 Other long term (current) drug therapy; Z90.49 Acquired absence of other specified parts of digestive tract
CPT/HCPCS: 36415; 76705; 80076